=== PATIENT | female | born 1955 | race Caucasian/White ===

== ENCOUNTER 2022-11-12 06:45 | Day surgery (SDC) | payer MEDICARE, SELFPAY ==
[2022-11-12 07:13] LABS: Glucometer 117 mg/dL (74-106)
[2022-11-12 07:37] VITALS: BP 144/92; PULSE 62; RESP 16; TEMP 36.3; O2SAT 98
[2022-11-12] MEDS: BUPIVACAINE HCL 0.25% PF 25 MG/10 ML VIAL INJ (07:43)
[2022-11-12] MEDS: METHYLPREDNISOLONE ACETATE 40 MG/ML VIAL INJ (07:43)
[2022-11-12] MEDS: LIDOCAINE HCL 2% 400 MG/20 ML MDV 15 ML INJ (07:55)
[2022-11-12 07:59] VITALS: BP 106/69; RESP 16; TEMP 36.6; O2SAT 94
[2022-11-12 08:14] VITALS: BP 100/61; PULSE 76; RESP 16; O2SAT 95
--- NOTE | 2022-11-12 08:19 | SUR.PHASEII ---
LD [id number]
[2022-11-12 08:20] VITALS: PULSE 76; O2SAT 96
--- NOTE | 2022-11-12 09:57 | P.ON_ITS ---
Date of procedure: 11/12/22 Disposition: other
--- NOTE | 2022-11-12 09:57 | W.PM.PROCNOT ---
Date of procedure: 11/12/22 Disposition: other
--- NOTE | 2022-11-12 10:03 | W.PM.PROCNOT ---
Date of procedure: 11/12/22 Pre-op diagnosis: Lumbar Spondylosis Post-op diagnosis: same Procedure: Radio frequency ablation Medial branch Left Levels:__Lumbar 3 4 5 PreOp diagnosis: pain secondary to include spondylosis Postop diagnosis : same Under fluoroscopic guidance Rhizotomy was created using radio frequency ablation at 80?C for 90 seconds 1 to 2 lesions created at each site. Post lesioning injection of 2 mL each of 0.25% Marcaine and 2% lidocaine with Depo-Medrol/dexamethasone/Kenalog____40____mg. 0.5 to 1 mL injected at each site IV in place: yes If Intravenous fluids: NS at KVO Anesthesia local 2% lidocaine for skin wheal Anesthesia Other:___MAC Timeout Process Compliant After informed consent obtained.Patient brought to the procedure room placed in the prone position skin overlying the area was prepped and draped in a sterile fashion using Clore prep. 25 gauge needle was used to create a skin wheal over each of the targeted areas utilizing 2% lidocaine. A rhizotomy needle with a 10 mm active tip was inserted over each of the anesthetized areas and directed towards each of the medial branchesaccomplished under fluoroscopic guidance. after encountering the same we had positive sensory stimulation, negative motor stimulation was noted. lesions were then created. Post lesioning, steroid solution was injected needles removed. patient was transferred to recovery room in stable condition to be discharged home after meeting criteria. Anesthesia: MAC Surgeon: Juliette Barclay Estimated blood loss (mL): 0 Pathology: none sent Condition: stable Disposition: other
== END 2022-11-12 08:29 | disposition home or self-care (01) ==
PROVIDERS: Visit Provider Anesthesiology Pain Medicine
DX: M47.816 Spondylosis without myelopathy or radiculopathy, lumbar region (principal)
CPT/HCPCS: 36415; 64635; 64636; 82948; J1030; J2704

== ENCOUNTER 2022-12-19 08:28 | Outpatient (OUT) | payer MEDICARE, SELFPAY ==
--- NOTE | 2022-12-19 08:55 | PM.CN ---
Consult Note: HPI Data of Consult Patient: known to practice within the last 3 years Consult date: 12/19/22 Requesting Physician: MITCHELL REESE NP Primary Care Provider: Non-Staff Physician, MD Consult Narrative Narrative: She is following up from bilat lumbar RFA done 11/12/22. She received 90% relief of pain with increased fx continued through today. She is happy with her results. No new sensorimotor or bowel or bladder issues. No adverse med SE. She inquired about PT for core strengthening and targeted exercise routine for lumbar pain. Referral given. cc:: CC: MITCHELL REESE NP Review of Systems ROS Status of ROS 10 or more systems reviewed and unremarkable except as noted in history and below Musculoskeletal Reports: back pain PFSH [facility] Medical History (Updated 12/19/22 @ 09:08 by MITCHELL REESE NP) Surgical History Meds Home Medications and Allergies Home Medications Medication Instructions Recorded Confirmed Type Tylenol QID 11/06/22 History atenolol 50 mg tablet 50 mg PO QDAY 11/06/22 11/12/22 History levothyroxine 75 mcg tablet 75 mcg PO QDAY 11/06/22 11/12/22 History (Euthyrox) losartan 25 mg tablet (Cozaar) 25 mg PO QDAY 11/06/22 11/12/22 History meloxicam 15 mg tablet 15 mg PO QDAY 11/06/22 11/12/22 History multivitamin (Daily Multi-Vitamin 1 tab PO QDAY 11/06/22 11/12/22 History tablet) rosuvastatin 5 mg tablet (Crestor) 5 mg PO QDAY 11/06/22 11/12/22 History Allergies Allergy/AdvReac Type Severity Reaction Status Date / Time codeine AdvReac Mild Verified 11/06/22 13:47 Exam Constitutional Documenting provider has reviewed patient's vital signs: yes Common normals: no apparent distress, oriented x3, no limitations, healthy appearing, alert and well nourished General appearance: cooperative, comfortable and well developed Orientation/consciousness: Yes awake, Yes oriented to person, Yes oriented to place and Yes oriented to time HENMT Common normals: normocephalic and moist oral mucous membranes Respiratory Common normals: normal respiratory effort, no retractions and no use of accessory muscles Effort & inspection: able to speak in complete sentences and symmetric chest movement Back & Pelvis Lumbar spine/lower back: normal to inspection, lumbar ROM normal, pain with ROM, paraspinal muscle tenderness and straight leg raise negative bilaterally Other: muscle strength bilat LE 5/5 with intact sensation. Positive facet load Assessment and Plan Assessment and Plan (1) Lumbar spondylosis: Plan F/U in 6 months PT referral
== END 2022-12-19 08:29 | disposition home or self-care (01) ==
LOC: PM 08:29
PROVIDERS: Visit Provider Nurse Practitioner
DX: M47.816 Spondylosis without myelopathy or radiculopathy, lumbar region (principal)
CPT/HCPCS: G0463

== ENCOUNTER 2022-12-25 08:44 | Outpatient (RCR) | payer MEDICARE, SELFPAY | END 2022-12-26 16:19 | disposition home or self-care (01) | LOC: PT 08:44 | PROVIDERS: Visit Provider Nurse Practitioner | DX: M47.816 Spondylosis without myelopathy or radiculopathy, lumbar region (principal) | CPT/HCPCS: 97110; 97161; 97530 ==

== ENCOUNTER 2023-08-05 07:35 | Outpatient (OUT) | payer MEDICARE, SELFPAY ==
[2023-08-05 08:42] LABS: Chol HDL Ratio 2.7; Cholesterol 142 mg/dL (<=200); HDL Cholesterol 52 mg/dL (40-60); LDL Cholesterol Calculated 73.6 mg/dL; Triglycerides 82 mg/dL (<=150); VLDL CHOLESTEROL 16.4 mg/dL
== END 2023-08-05 07:36 | disposition home or self-care (01) ==
LOC: LAB 07:35
PROVIDERS: PCP Internal Medicine; Visit Provider Internal Medicine
DX: E78.5 Hyperlipidemia, unspecified (principal)
CPT/HCPCS: 36415; 80061

== ENCOUNTER 2023-08-27 10:26 | Outpatient (OUT) | payer MEDICARE, SELFPAY ==
--- OUTSIDE RECORDS SUMMARY | 2023-08-27 10:48 | XMS_ITS | CCD ---
Author Organization [facility] Care Team Providers Care [employer] Name Role Phone EUNICEC, DR MAY Consulting Unavailable MISC, DR MAY Primary Care Unavailable LAKSHMIPATHY ., NARENDRANATH Attending Christina vailable LAKSHMIPATHY ., NARENDRANATH Admitting Christina vailable LAKSHMIPATHY ., SUSANA Consulting Christina vailable URIARTE ., DR ANUJ Duron Attending Unavailable URIARTE ., DR ANUJ Duron Admitting Unavailable URIARTE ., DR ANUJ Duron Attending Unavailable JONES ., STEPHEN Consulting Unavailable URIARTE ., DR ANUJ Duron Admitting Unavailable URIARTE ., DR ANUJ Duron Attending Unavailable MISC, DR MAY Consulting Unavailable URIARTE ., DR ANUJ Duron Admitting Unavailable URIARTE ., DR ANUJ Duron Consulting Unavailable URIARTE ., DR ANUJ Duron Admitting Unavailable URIARTE ., DR ANUJ Duron Attending Unavailable MISC, DR MAY Consulting Unavailable URIARTE ., DR ANUJ Duron Consulting Unavailable MISC, DR MAY Consulting Unavailable MISC, DR MAY Primary Care Unavailable LAKSHMIPATHY ., NARENDRANATH Admitting Christina vailable LAKSHMIPATHY ., NARENDRANATH Attending Christina vailable LAKSHMIPATHY ., DARIAATH Consulting Christina vailable MISC, DR MAY Primary Care Unavailable LAKSHMIPATHY ., NARENDRANATH Admitting Christina vailable LAKSHMIPATHY ., NARENDRANATH Attending Christina vailable LAKSHMIPATHY ., MISBAHENDRANATH Consulting Christina vailable HALKER ., MITCHELL Admitting Unavailable MISC, DR MAY Primary Care Unavailable HALKER ., MITCHELL Attending Unavailable HALKER ., MITCHELL Consulting Unavailable MISC, DR MAY Primary Care Unavailable LAKSHMIPATHY ., NARENDRANATH Admitting Christina vailable LAKSHMIPATHY ., NARENDRANATH Attending Christina vailable LAKSHMIPATHY ., NARENDRANATH Consulting Christina vailable LAKSHMIPATHY ., NARENDRANATH Admitting Christina DR YADIRA Roy Primary Care Unavailable SUSANA VILLASEÑOR Attending Christina manjuilaSUSANA Jackson Consulting Christina vailable ZUNILDA CLEMONS Attending Unavailable ZUNILDA CLEMONS Attending Unavailable Allergies Allergy Classification Reported Allergen(s) Allergy Type Date of Onset Reaction(s) Facility (1 source) Codeine Drug Allergy The [facility] Repository Problems Active Problems Problem Classification Problem Date Documented Date Episodic/Chronic Diabetes mellitus without complication (1 source) Type 2 diabetes mellitus without complications; Translations: [TYPE 2 DM WITHOUT COMPLICATIONS] Onset: 11-06-2022 Chronic Other nervous system disorders (1 source) Other chronic pain; Translations: [OTHER CHRONIC PAIN] Onset: 09-21-2022 Chronic Spondylosis; intervertebral disc disorders; other back problems (6 sources) Spondylosis without myelopathy or radiculopathy, lumbar region; Translations: [Spondylosis without myelopathy or radiculopathy, lumbosacral region] Onset: 08-20-2022 Chronic Spondylosis; intervertebral disc disorders; other back problems (8 sources) Intervertebral disc disorders with radiculopathy, lumbar region; Translations: [Radiculopathy, lumbar region] Onset: 07-23-2022 Episodic Unclassified (4 sources) LOW BACK PAIN, UNSPECIFIED; Translations: [LOW BACK PAIN, UNSPECIFIED] Onset: 09-21-2022 Past or Other Problems Problem Classification Problem Date Documented Da te Episodic/Chronic Other connective tissue disease (1 source) Myalgia, other site; Translations: [MYALGIA OTHER SITE] Onset: 06-20-2022 Episodic Unclassified (1 source) LOW BACK PAIN, UNSPECIFIED; Translations: [LOW BACK PAIN, UNSPECIFIED] Onset: 09-12-2022 Results Test Name Value Interpretation Reference Range Facility POINT OF CARE GLUCOSEon 10-09 Glucose [Mass/Vol] 139 mg/dL Critically high 74-106 [facility] Comment on above: Performed By: #### P OCGLUC #### [facility] [address] [address] [address] Susanne Chapa POINT OF CARE GLUCOSEon 09-07 Glucose [Mass/Vol] 119 mg/dL Critically high 74-106 [facility] Comment on above: Performed By: #### P OCGLUC #### [facility] [address] [address] [address] Susanne Chapa POINT OF CARE GLUCOSEon 08-08 Glucose [Mass/Vol] 125 mg/dL Critically high 74-106 [facility] Comment on above: Performed By: #### P OCGLUC #### [facility] [address] [address] [address] Susanne Chapa POINT OF CARE GLUCOSEon 07-10 Glucose [Mass/Vol] 114 mg/dL Critically high 74-106 [facility] Comment on above: Performed By: #### P OCGLUC #### [facility] [address] [address] [address] Susanne Chapa US Carotid, Bilateralon 12-08 US Carotid, Bilateral FINDINGS: Right (% stenosis)Left (% stenosis) ICA Peak Systolic Velocity (cm/sec)7679 ICA/CCA Systolic Ratio1.41.2 BILATERAL CAROTID SYSTEMS: Mild soft and echogenic plaque primarily within both carotid bulbs. No significant stenosis is present based on visual inspection or velocity and ratio values. Both vertebral arteries have normal cephalad-directed flow. Estimated range of stenosis*: Mild, not hemodynamically significant *COMMENT: These estimates represent a median value within a 95% confidence interval range. They represent percent diameter ICA stenosis derived from regression curve analysis using the NASCET method and Doppler ultrasound velocities. Please note with high-grade stenosis (greater than 95%), an actual reduction in velocity will occur. Reference: Espinoza Qureshi. carotid ultrasound, in RAD [facility], 39 (3), Oct, 2000. Report reported and signed by Espinoza Man on 01/02/2022 1026 Normal [facility] Specialist XR Hip Complete Right*on XR Hip Complete Right* FINDINGS: Mild bilateral superior hip joint space reduction is seen. No pincer deformities, very small right CAM deformity. No cortical or stress fracture is identified. Pelvic ring and sacral struts are intact. Soft tissues are relatively unremarkable. IMPRESSION: Minimal arthritis Report reported and signed by Espinoza Man on 01/01/2022 0658 Normal [place] [facility] [employer] [facility] XR Spine Lumbosacral 2 or 3 Viewson 12-31-2021 XR Spine Lumbosacral 2 or 3 Views FINDINGS: Vertebral body heights are normal. Mild disc space loss L2-3 and to a lesser extent L3-4 (3 mm retrolisthesis). Sclerosis involves posterior elements of the mid and distal lumbar spine; however, no spondylolysis is seen. SI joints are normal. No acute fracture is identified. Soft tissues are relatively unremarkable. IMPRESSION: Mild lumbar arthritis, minimal retrolisthesis. Given this history or radiating leg pain, MRI as tolerated by the patient may be of assistance. Report reported and signed by Espinoza Man on 01/01/2022 0657 Normal [facility] Comprehensive Metabolic Pane arabella 06-11-2021 Albumin [Mass/Vol] 4.4 g/dL Normal 3.6-5.1 [facility] Comment on above: Performed By: #### C MP #### [facility] [address] [place], [place] [id number] Albumin/Globulin [Mass ratio] 1.9 {ratio} Normal 1.0-2.5 [facility] Comment on above: Performed By: #### C MP #### [facility] [address] [place], [place] [id number] ALP [Catalytic activity/Vol] 91 U/L Normal 35-119 [facility] Comment on above: Performed By: #### C MP #### [facility] [address] [place], [place] [id number] ALT [Catalytic activity/Vol] 7 U/L Normal 6-33 [facility] Comment on above: Result Comment: 05/09 Female reference range changed. Performed By: #### C MP #### [facility] [address] [place], [place] [id number] Anion gap [Moles/Vol] 18 mmol/L Normal 12-20 [facility] Comment on above: Result Comment: Effe ctive 06/14/2019 reference range changed. Performed By: #### C MP #### [facility] [address] [place], [place] [id number] AST [Catalytic activity/Vol] 12 U/L Normal 9-34 [facility] Comment on above: Performed By: #### C MP #### [facility] [address] [place], [place] [id number] Bilirubin [Mass/Vol] 0.31 mg/dL Normal 0.30-1.20 [facility] Comment on above: Performed By: #### C MP #### [facility] [address] [place], [place] [id number] BUN/CREA 18 Ratio Normal 6-22 [facility] Comment on above: Performed By: #### C MP #### [facility] [address] [place], [place] [id number] Calcium [Mass/Vol] 9.6 mg/dL Normal 8.6-10.2 [facility] Comment on above: Performed By: #### C MP #### [facility] [address] [place], [place] [id number] Chloride [Moles/Vol] 104 mmol/L Normal 98-107 [facility] Comment on above: Performed By: #### C MP #### [facility] [address] [place], [place] [id number] CO2 [Moles/Vol] 25 mmol/L Normal 20-31 [facility] Comment on above: Performed By: #### C MP #### [facility] [address] [place], [place] [id number] Creatinine [Mass/Vol] 1.0 mg/dL Normal 0.6-1.4 [facility] Comment on above: Performed By: #### C MP #### [facility] [address] [place], [place] [id number] eGFRAA 68 mL/min/1.73m2 Normal >60 [facility]ist Comment on above: Performed By: #### C MP #### [facility] [address] [place], [place] [id number] eGFRNAA 56 mL/min/1.73m2 Low >60 [facility] Specialist Comment on above: Performed By: #### C MP #### [facility] [address] [place], [place] [id number] Globulin (S) [Mass/Vol] 2.3 g/dL Normal 1.9-3.7 [facility] Comment on above: Performed By: #### C MP #### [facility] [address] [place], [place] [id number] Glucose [Mass/Vol] 102 mg/dL High 65-99 Kaci tyler [place] [employer] Comment on above: Result Comment: For FASTING Glucose --- ADA reference ranges: Normal 65-99 mg/dl Prediabetes 100-125 Diabetes >/= 126 Performed By: #### C MP #### [facility] [address] [place], [place] [id number] Potassium [Moles/Vol] 4.9 mmol/L Normal 3.5-5.5 [facility] [employer] Claims Examiner Comment on above: Performed By: #### C MP #### [facility] [address] [place], [place] [id number] Protein [Mass/Vol] 6.7 g/dL Normal 6.1-8.1 Bedias[place] rn [place] [employer] Comment on above: Performed By: #### C MP #### [facility] [address] [place], [place] [id number] Sodium [Moles/Vol] 142 mmol/L Normal 135-146 [place] r[facility] [place] [facility] [employer] Comment on above: Performed By: #### C MP #### [facility] [address] [place], [place] [id number] Urea nitrogen [Mass/Vol] 18 mg/dL Normal 7-25 [facility] [employer] Claims Examiner Comment on above: Performed By: #### C MP #### [facility] [address] [place], [place] [id number] Hemoglobin A1Con 06-11-2021 EAG 111.15 Normal [facility] [employer] Claims Examiner Comment on above: Performed By: #### A 1C #### [facility] [address] [place], [place] [id number] HbA1c (Bld) [Mass fraction] 5.5 % Normal 4.0-6.0 [facility] [employer] Claims [employer]er Comment on above: Performed By: #### A 1C #### [facility] [address] [place], [place] [id number] Encounters Encounter Date Encounter Type Care Provider Facility Start: 05-14-2023 End: 05-14-2023 ambulatory ZUNILDA G EVERTON Not Available Start: 05-06-2023 End: 05-06-2023 ambulatory ZUNILDA G EVERTON Not Available Start: 11-12-[address] DOCTOR JAQUEZ Facility :[facility] Start: 11-05-2022 End: 11-05-[address] DOCTOR JAQUEZ Facility:[facility] Start: 10-11-2022 End: 10-12-2022 ambulatory MITCHELL REESE . Facility:[facility] Start: 09-24-2022 End: 09-24-[address] DOCTOR JAQUEZ Facility:[facility] Start: 09-12-2022 End: 09-13-2022 ambulatory ALEJANDRALINNBASIM ARGUELLOBESSIEMIPATHY . Facility:[facility] Start: 08-27-2022 End: 08-27-[address] DOCTOR JAQUEZ Facility:[facility] Start: 08-15-2022 End: 08-16-[address] ANUJ URIARTE . Facility:[facility] Start: 07-23-2022 End: 07-23-[address] ANUJ URIARTE . Facility:[facility] Start: 06-20-2022 End: 08-02-[address] ANUJ URIARTE . Facility:[facility] Start: 06-18-2022 End: 06-19-[address] ANUJ URIARTE . Facility:[facility] Payers Date Payer Category Payer Medicare [id number] 1955 Unknown [id number] 2.16.84 [id number] 1955 Unknown [id number] 1955 Unknown [id number] 2.16.84 [id number] 1955 Unknown [id number] .16.84 [id number] 1955 Unknown [id number] .16.84 [id number] 1955 Unknown [id number] 2.16.84 [id number] 1955 Unknown [id number] 2.16.84 [id number] 1955 Unknown [id number] 2.16.84 [id number] 1955 Unknown [id number] 2.16.84 [id number] 1955 Unknown [id number] 2.16.84 [id number] 1955 Unknown [id number] 2.16.840 .[id number] 1955 Unknown [id number] 2.16.840 .[id number] Consultation note 09-12-2022 Note Date & Type Note Facility 09-12-2022 Note CONSULTATION CONSULTATION DATE: 09/12/2022 TO: Zunilda Clemons D.O. HISTORY: Patient returns today complaining of 5-7/10 pain in her lower back bilaterally, worse on the right than left side. It is described as a sharp pain, increased with activity such as standing, walking and performing transitioning maneuvers. She feels most comfortable in the semi-recumbent position. Denies any change in bowel and bladder habits or new sensorimotor changes in her lower extremities. EXAM: Notable for patient having no clinical radiculopathy or myelopathy involving the lower extremities. She did have significant pain with lumbar facet joint loading maneuvers occurring bilaterally, worse on the right side, from L2 through L5, with associated myofascial spasm of the lumbar paravertebral muscles. Patient also had dysesthesia and hyperesthesia overlying the distribution of the lateral cutaneous branch of the iliohypogastric nerve on the right side. She does complain of sensitivity to light touch at times. She had a fair amount of spasm involving the right gluteus medius muscle as well. IMPRESSION: Our impression is patient appears to have chronic pain secondary to lumbosacral spondylosis with facet joint loading pain clinically. She has undergone one diagnostic bilateral L3, 4, 5 medial branch block under fluoroscopic guidance. She reports that she did have significant reduction in pain symptoms, with relief occurring at approximately 80% in the immediate post procedural period, lasting for several hours, with recurrence of pain back to her previous level of pain. She reports that she was able to do activities she has not been able to do in quite some time, which includes yard work. RECOMMENDATIONS: I recommend we proceed with her second diagnostic medial branch block at L3, 4 and 5. As part of providing excellent, safe, comprehensive care, the following was completed at our patient's visit: 1. A medication reconciliation and review to ensure accurate knowledge of current/active medications, including asking our patients to inform us about any goyu-wca-gnadwrr medications or herbal remedies/nutritional supplements/alternative remedies. 2. A review to specifically ensure our patients have had annual screening for: elevated body mass index (BMI, see intake chart for exact total), tobacco use, screening for depression, and screening for unhealthy alcohol use. When screening is concerning, patients are provided with education and the specific recommendation to discuss the concerning health issue and treatment options with their primary care provider. ADDENDUM: The patient does report that she had at least 80% improvement after her last diagnostic medial branch block at L3, 4 and 5. She reports the relief started in the immediate post procedural period, lasted for several hours, with recurrence of pain back to her baseline. Based upon her response and her examination, which did reveal the patient having significant pain with lumbar facet loading maneuvers at L4-5, L5-S1 and myofascial spasm, and no signs consistent with lumbar radiculopathy involving the lower extremities on today's visit, I recommend proceeding with a second diagnostic procedure involving medial branches L3, L4 and L5 bilaterally. The [facility] Consultation note 08-15-2022 Note Date & Type Note Facility 08-15-2022 Note CONSULTATION CONSULTATION DATE: 08/15/2022 HISTORY OF PRESENT ILLNESS: This is a 66-year-old female who returns to the clinic status post lumbar epidural steroid injection completed on 07/23/2022. The patient received 100% relief for two days. She is currently doing aquatic therapy at the hospital, which does give her relief. Today, she rates her pain 2/10, but it does increase to 4-5/10 with activities such as lifting, housework, pushing, pulling and bending. She does use heat which does help decrease her pain. The patient has been doing home exercises as well as a stretching regimen. Patient's REVIEW OF SYSTEMS / PAST MEDICAL HISTORY / ALLERGIES and IMAGES have been reviewed and noted on the chart. PHYSICAL EXAM: VITAL SIGNS: Blood pressure 170/97, heart rate is 70. Temperature is 96.8. She is 66 tall and weighs 102.4 kg. GENERAL IMPRESSION: Pleasant, appropriate, in no acute distress. FOCUSED EXAM - BACK: Range of motion is guarded in lateral rotation and flexion/extension. Paravertebral muscles are non-spasmodic. Reproduction of spinal axial pain noted upon compression of L3, L4, L5 facets. Fullness palpated as well, which is indicative of facet arthropathy, lumbar spondylosis. La's point non-tender bilaterally, with negative FABERs and compression test. MUSCULOSKELETAL: Motor is intact, 5/5 bilaterally. No vasomotor weakness noted. Patient walks unassisted with a stable gait. NEUROLOGICAL: Radicular sensory is intact. Negative polyneuropathy. Patellar reflexes are 2/2 bilaterally. DIAGNOSIS: Lumbar degenerative disc disease, lumbar radiculitis, lumbar spondylosis and spinal axial lower back pain. PLAN: We will begin to address the facets with #1 bilateral MBB of L3, L4, L5. She will begin Mobic 15 mg daily and was instructed to take no further ibuprofen with this. Exercises were encouraged but education given regarding which exercises, particularly no jumping or trampoline. She is to continue with her heat and stretches. Patient and agree with this plan of care. She will be followed up in the clinic thereafter. The [facility] Consultation note 06-18-2022 Note Date & Type Note Facility 06-18-2022 Note CONSULTATION PAIN MANAGEMENT CONSULTATION CONSULTATION DATE: 06/18/2022 ADDENDUM: The patient has pain that radiates into her right leg. The pain is in the anterior aspect of her thigh, crosses lateral to medial, extending towards the knee. It has the distribution of L2 and L3. Hypoesthesia has been shown at this time and intermittent groin pain has been noted by the patient. Radiological images fail to show arthrosis in the hip; however, the MRI is positive for lumbar spondylosis and encroachment along the L3 nerve root distribution on the right hand side. The patient's current working diagnosis is L2, L3 radiculopathy, lumbar degenerative disc disease, lumbar spondylosis. The patient has pain pattern that radiates into her right anterior thigh along the L2, L3 distribution and, as such, we are requesting a lumbar epidural steroid injection at the level of L2, L3. The [facility] Consultation note 06-18-2022 Note Date & Type Note Facility 06-18-2022 Note CONSULTATION CONSULTATION DATE: 06/18/2022 CHIEF COMPLAINT: Low back pain, right hip and buttock pain, right leg pain. HISTORY OF PRESENT ILLNESS: This is a very pleasant, 66-year-old female, who was referred to us by Zunilda Prieto. The patient has chronic, long standing pain. The pain started approximately two years ago. The patient rates the pain as a 5/10, a dull/sharp, aching pain. Approximately two years ago, the patient started an aggressive approach in her wellness with pool, aerobic therapy, cycling, etc. Then, in November of 2021, the patient joined a boot camp, at which time she states she hurt her back and with radiating pain into her hip. Subsequent to that, the patient was seen for chiropractic treatments and had multiple visits. The patient was seen in physical therapy at [facility] from January to February of 2022 without any gains. Subsequent to that, unfortunately, the patient had COVID and, while recuperating, she found that subsequent to that she had improvement of her pain. However, as she increased her activity and exercise regimen, the pain increased. Twisting, standing, walking, lifting, bending, climbing stairs aggravate the patient's pain. Traction mitigates the patient's pain. The patient's PAST MEDICAL HISTORY / SURGICAL HISTORY / REVIEW OF SYSTEMS are noted on the chart, along with the MEDICATION LIST / ALLERGIES and RADIOLOGICAL IMAGES, along with the MRI, which shows a damaged disc at the level of L2-L3 and lumbar spondylosis. PHYSICAL EXAM: Upon physical examination, this is a pleasant, cooperative female, who does not appear to be in any acute distress. VITAL SIGNS: 148/86 with a heart rate of 68. At a height of 5'6 , the patient weighs 102 kg. HEAD: Atraumatic, normocephalic. NECK: No crepitus is noted. HEART: No orthopnea. LUNGS: No dyspnea. ABDOMEN: Protuberant, non-distended. BACK: Loss of lumbar lordosis is noted. Pelvis is rotated anteriorly. Extension, compression, direct palpation along the posterior elements aggravate and reproduce the patient's pain symptomatology concordant with facet arthropathy, lumbar spondylosis. EXTREMITIES: No pedal edema. MUSCULOSKELETAL: Intact in the lower extremities. The patient does favor her right leg when she stands up and uses her arms to push off of the chair. NEUROLOGICALLY: Hypoesthesia is noted along the L3 distribution on the right hand side. PSYCHIATRICALLY: Affect is appropriate. IMPRESSION: L2-L3 radiculitis, neuritis, lumbar degenerative disc at the level of L2-L3, lumbar radiculopathy. With the low back pain and the gluteal pain, lumbar spondylosis, lumbar arthrosis. PLAN: The patient will apply a heat rub to her low back. Multivitamin regimen along with an aquatic program will be started on the patient. The patient will be scheduled for a lumbar epidural steroid injection for her lumbar radiculopathy. Subsequent to that, depending on how the patient responds, we will look to proceed with the posterior elements along the lumbar spine. The patient was educated on this. The MRI was reviewed with the patient. The patient understands and would like to proceed. CC: Zunilda Prieto [facility] Summary Purpose Family History No Family History Records FoundNo Family History Records FoundNo Family History Records Found Advance Directives No Advanced Directives Records FoundNo Advanced Directives Records FoundNo Advanced Directives Records Found Additional Source Comments INFORMATION SOURCE (unrecogn ized section and content) DATE CREATED AUTHOR 01/04/2022 [facility] dical Specialist DATE CREATED AUTHOR AUTHOR'S ORGANIZ ATION 11/15/2022 [facility] DATE CREATED AUTHOR AUTHOR'S ORGANIZ ATION 05/16/2023 [facility] dical Specialists [facility] FOR RECORDS PERTAINING TO PATIENTS WHO ARE OR HAVE BEEN ENROLLED IN A CHEMICAL DEPENDENCY/SUBSTANCEABUSE PROGRAM, SOME INFORMATION MAY BE OMITTED. This clinical summary was aggregated from multiple sources. Caution should be exercised in using it in the provision of clinical care. This summary normalizes information from multiple sources, and as a consequence, information in this document may materially change the coding, format and clinical context of patient data. In addition, data may be omitted in some cases. CLINICAL DECISIONS SHOULD BE BASED ON THE PRIMARY CLINICAL RECORDS. [facility] [employer] provides no warranty or guarantee of the accuracy or completeness of information in this document.
[2023-08-27 10:57] LABS: Basophils Percent Auto 0.4 % (0.2-2.0); Hematocrit 43.5 % (36.0-48.0); Hemoglobin 13.5 g/dL (12.0-16.0); Immature Granulocytes Abs Auto 0.02 10^3/uL (0.00-0.03); Immature Granulocytes Pct Auto 0.3 % (0.0-0.5); Lymphocytes Absolute Auto 2.2 10^3/uL (1.2-3.8); Lymphocytes Percent Auto 29.5 % (20.5-60.0); Mean Corpuscular Hemoglobin 29.5 pg (26.7-34.0); Mean Corpuscular Volume 95.2 fL (81.0-99.0); Mean Platelet Volume 9.2 fL (9.5-13.5); Monocytes Absolute Auto 0.3 10^3/uL (0.3-0.8); Monocytes Percent Auto 4.3 % (1.7-12.0); Neutrophils Absolute Auto 4.9 10^3/uL (1.4-6.5); Neutrophils Percent Auto 65.5 % (43.0-75.0); Platelet Count 212 10^3/uL (150-450); Red Blood Count 4.57 10^6/uL (4.20-5.40); Red Cell Distribution Width 12.2 % (11.0-15.0); White Blood Count 7.5 10^3/uL (4.0-11.0)
[2023-08-27 11:12] LABS: Estimated Average Glucose 128 mg/dL; Glycohemoglobin A1C 6.1 % (4.5-6.2)
[2023-08-27 12:04] LABS: Alanine Aminotransferase 19 U/L (14-59); Albumin Globulin Ratio 0.9; Albumin Level 3.6 g/dL (3.4-5.0); Alkaline Phosphatase 104 U/L (46-116); Aspartate Amino Transferase 14 U/L (15-37); Bilirubin Total 0.5 mg/dL (0.2-1.0); Carbon Dioxide 28.8 mmol/L (21.0-32.0); Chloride 105 mmol/L (98-107); Estimated GFR (African America 46 (>=60); Estimated GFR (Non-African Ame 38 (>=60); Globulin 3.8 g/dL; Glucose 139 mg/dL (74-106); Potassium 4.8 mmol/L (3.5-5.1); Sodium 142 mmol/L (136-145); Total Protein 7.4 g/dL (6.4-8.2)
== END 2023-08-27 10:27 | disposition home or self-care (01) ==
LOC: LAB 10:28
PROVIDERS: PCP Internal Medicine; Visit Provider Internal Medicine
DX: E03.9 Hypothyroidism, unspecified (principal); I10 Essential (primary) hypertension; E11.22 Type 2 diabetes mellitus with diabetic chronic kidney disease; N18.2 Chronic kidney disease, stage 2 (mild)
CPT/HCPCS: 36415; 80053; 82570; 83036; 84156; 84443; 85025

== ENCOUNTER 2023-09-29 14:08 | Outpatient (OUT) | payer MEDICARE, SELFPAY ==
--- NOTE | 2023-09-29 14:14 | XR_ITS ---
The [address] [address] Patient Name: ARIAN CANAS MRN: [id number] date: 1955 Sex: F Assigned Patient Location: [facility] Current Patient Location: Accession/Order Number: [id number] Exam Date: 09/29/2023 14:20 Report Date: 09/30/2023 04:23 At the request of: SHAIKH BIJAN Procedure: XR shoulder LT min 2V PROCEDURE: XR shoulder LT min 2V HISTORY: left shoulder pain M25.512, Chronic left shoulder pain G89. COMPARISON: None. FINDINGS: BONES:Slight narrowing of the acromioclavicular joint and small undersurface osteophytes. Unremarkable humeral head and glenohumeral joint. SOFT TISSUES:No visible soft tissue swelling. EFFUSION:None visible. OTHER: Negative. XR/XR shoulder LT min 2V IMPRESSION: 1. No acute bone abnormality. 2. Mild degenerative changes of the acromioclavicular joint which would predispose to rotator cuff injury. Electronically authenticated by: MELA BISHOP Date: 09/30/2023 04:23
== END 2023-09-29 14:09 | disposition home or self-care (01) ==
LOC: RAD 14:10
PROVIDERS: PCP Internal Medicine; Visit Provider Internal Medicine
DX: M25.512 Pain in left shoulder (principal)
CPT/HCPCS: 73030

== ENCOUNTER 2023-10-07 08:19 | Outpatient (RCR) | payer MEDICARE, SELFPAY | END 2023-11-15 15:34 | disposition home or self-care (01) | LOC: PT 08:19 | PROVIDERS: PCP Internal Medicine; Visit Provider Internal Medicine | DX: M25.512 Pain in left shoulder (principal); G89.29 Other chronic pain | CPT/HCPCS: 97035; 97110; 97162 ==

== ENCOUNTER 2024-01-28 09:21 | Outpatient (OUT) | payer MEDICARE, SELFPAY ==
--- OUTSIDE RECORDS SUMMARY | 2024-01-28 09:32 | XMS_ITS | CCD ---
Author Organization [facility] Care Team Providers Care Special Officer Automat Name Role Phone EUNICEC, DR MAY Consulting Unavailable MISC, DR MAY Primary Care Unavailable LAKSHMIPATHY ., NARENDRANATH Attending Christina vailable LAKSHMIPATHY ., NARENDRANATH Admitting Christina vailable LAKSHMIPATHY ., SUSANA Consulting Christina vailable URIARTE ., DR ANUJ Duron Attending Unavailable URIARTE ., DR ANUJ Duron Admitting Unavailable URIARTE ., DR ANUJ Duron Attending Unavailable JONES .STEPHEN Consulting Unavailable URIARTE ., DR ANUJ Duron [...] vailable LAKSHMIPATHY ., NARENDRANATH Consulting Christina vailable MISC, DR MAY Primary Care Unavailable LAKSHMIPATHY ., NARENDRANATH Admitting Christina vailable LAKSHMIPATHY ., NARENDRANATH Attending Christina vailable LAKSHMIPATHY ., NARENDRANATH Consulting Christina vailable HALKER ., MITCHELL Admitting Unavailable MISC, DR MAY Primary Care Unavailable HALKER ., MITCHELL Attending Unavailable HALKER ., MITCHELL Consulting Unavailable MISC, DR MAY Primary Care Unavailable LAKSHMIPATHY ., NARENDRANATH Admitting Christina vailable LAKSHMIPATHY ., NARENDRANATH Attending Christina vailable LAKSHMIPATHY ., NARENDRANATH Consulting Christina vailable LAKSHMIPATHY ., NARENDRANATH Admitting Christina vailable DR YADIRA JAQUEZ Primary Care Unavailable LAKSHMIPATHY ., NARENDRANATH Attending Christnia vailable LAKSHMIPATHY ., NARENDRANATH Consulting Christina vailable SHAIKH THAKKAR Attending Unavailable SHAIKH THAKKAR Attending Unavailable ZUNILDA CLEMONS Attending Unavailable SHAIKH THAKKAR Attending Unavailable FREDERICK SERRANO Attending Unavailable SHAIKH THAKKAR Referring Unavailable SHAIKH THAKKAR Attending Unavailable ZUNILDA CLEMONS Attending Unavailable LISETH GARCIA Attending Unavailable TOMASA WINTERS Attending UnavailTOMASA Wilson Referring Unavailangelica harrington Allergies Allergy Classification Reported Allergen(s) Allergy Type Date of Onset Reaction(s) Facility (1 source) Codeine Drug Allergy [facility] Repository Medications Current Medications Medication Drug Class(es) Dates Sig (Normalized) Sig (Original) amoxicillin 875 mg / clavulanate 125 mg oral tablet (1 source) Penicillin-class Antibacterial Start: 12-13-2023 take 1 tablet by mouth twice daily Amoxicillin-Pot Clavulanate Active 1 TAB PO Twice daily 20 10 December 13, 2023 12:00am atenolol 50 mg oral tablet (1 source) beta-Adrenergic Chantale Start: 12-13-2023 take 50 mg by mouth once daily Atenolol Active 50 MG PO Daily December 13, 2023 12:00am dapagliflozin 10 mg oral tablet (1 source) Sodium-Glucose Cotransporter 2 Inhibitor Start: 12-13-2023 take 1 tablet by mouth once daily Dapagliflozin Propanediol (Farxiga) 10 mg tablet Active 10 MG PO Daily December 13, 2023 12:00am levothyroxine sodium 0.088 mg oral tablet (1 source) l-Thyroxine Start: 12-13-2023 take 1 tablet by mouth once daily Levothyroxine (Synthroid) 88 mcg tablet Active 88 MCG PO Daily December 13, 2023 12:00am losartan potassium 25 mg oral tablet (1 source) Angiotensin 2 Receptor Chantale Start: 12-13-2023 take 25 mg by mouth once daily Losartan Active 25 MG PO Daily December 13, 2023 12:00am rosuvastatin 5 mg oral capsule (1 source) HMG-CoA Reductase Inhibitor Start: 12-13-2023 take 5 mg by mouth once daily Rosuvastatin Active 5 MG PO Daily December 13, 2023 12:00am Problems Active Problems Problem Classification Problem Date Documented Date Episodic/Chronic Diabetes mellitus without complication (1 source) Type 2 diabetes mellitus without complications; Translations: [TYPE 2 DM WITHOUT COMPLICATIONS] Onset: 11-06-2022 Chronic Other nervous system disorders (1 source) Other chronic pain; Translations: [OTHER CHRONIC PAIN] Onset: 09-21-2022 Chronic Other upper respiratory infections (2 sources) Acute sinusitis; Translations: [Acute sinusitis, unspecified] 12-13-2023 Episodic Spondylosis; intervertebral disc disorders; other back problems [...] Test Name Value Interpretation Reference Range Facility BI MAMMOGRAM SCREENING TOMOS YNTHESIS BILATERALon 01-15-2024 BI MAMMOGRAM SCREENING TOMOSYNTHESIS BILATERAL This is a summary report. The complete report is available in the patient's medical record. If you cannot access the medical record, please contact the sending organization for a detailed fax or copy. EXAMINATION: BI MAMMOGRAM SCREENING TOMOSYNTHESIS BILATERAL CLINICAL HISTORY:breast cancer screening COMPARISON: January 08, 2023 . RESULT: Density: The breasts are almost entirely fatty There is no suspicious mass, asymmetry, architectural distortion, or calcification. Overall appearance stable. IMPRESSION: BIRADS 1 - Negative Follow-up: Routine Screening Mamm Board Certified Radiologists. Accredited by the ACR and FDA. MAMMOGRAPHY IS VERY IMPORTANT TO YOUR HEALTH. THE [employer] GUIDELINES RECOMMEND THAT WOMEN 40 YEARS OF AGE AND OLDER SHOULD HAVE A MAMMOGRAM EVERY YEAR. A REMINDER LETTER WILL BE SENT AT THE APPROPRIATE TIME. THIS FACILITY UTILIZES A REMINDER SYSTEM TO ENSURE ALL PATIENTS RECEIVE REMINDER NOTIFICATIONS AT THE APPROPRIATE TIME BASED ON THE RECOMMENDATIONS OF THIS EXAM. THIS INCLUDES REMINDERS FOR ROUTINE SCREENING MAMMOGRAMS, DIAGNOSTIC MAMMOGRAMS IN WHICH THE PATIENT IS ASKED TO RETURN FOR ADDITIONAL VIEWS, OR OTHER BREAST IMAGING INTERVENTIONS WHEN APPROPRIATE. THE PATIENT WILL BE PLACED IN THE APPROPRIATE REMINDER SYSTEM INCLUDING A REMINDER AT THE APPROPRIATE TIME FOR ANY PENDING ADDITIONAL VIEWS. TRANSCRIBED BY: ELECTRONICALLY SIGNED BY: Espinoza Man MD Normal Not Available POINT OF CARE GLUCOSEon - Glucose [Mass/Vol] 139 mg/dL Critically high 74-106 [facility] Comment on above: Performed By: #### P OCGLUC #### [facility] [address] [place] [address] Dr. Susanne Chapa POINT OF CARE GLUCOSEon 09-07 Glucose [Mass/Vol] 119 mg/dL Critically high 74-106 [facility] Comment on above: Performed By: #### P OCGLUC #### [facility] [address] [place] [address] Dr. Susanne Chapa POINT [facility] CARE [facility]08 Glucose [Mass/Vol] 125 mg/dL Critically high 74-106 [facility] Comment on above: Performed By: #### P OCGLUC #### [facility] [address] [place] [address] Dr. Susanne Chapa POINT OF CARE [facility] 07-10 Glucose [Mass/Vol] 114 mg/dL Critically high 74-106 [facility] Comment on above: Performed By: #### P OCGLUC #### [facility] [address] [place] [address] Dr. Susanne Chapa US Carotid, Bilateralon - US Carotid, Bilateral FINDINGS: Right (% stenosis)Left [...] by Espinoza Man on 01/02/2022 1026 Normal [facility] XR Hip Complete Right*on XR Hip Complete Right* FINDINGS: Mild bilateral superior hip joint space reduction is seen. No pincer deformities, very small right CAM deformity. No cortical or stress fracture is identified. Pelvic ring and sacral struts are intact. Soft tissues are relatively unremarkable. IMPRESSION: Minimal arthritis Report reported and signed by Espinoza Man on 01/01/2022 0658 Normal [facility] XR Spine Lumbosacral 2 or 3 Viewson [...] by Espinoza Man on 01/01/2022 0657 Normal [facility] Comprehensive Metabolic Pane arabella 06-11-2021 Albumin [Mass/Vol] 4.4 g/dL Normal 3.6-5.1 [facility] [employer] Comment on above: Performed By: #### C MP #### [facility] [address] [place], [place] [id number] Albumin/Globulin [Mass ratio] 1.9 {ratio} Normal 1.0-2.5 [facility] Comment on above: Performed By: #### C MP #### [facility] [address] [place], [place] [id number] ALP [Catalytic activity/Vol] 91 U/L Normal 35-119 [facility] Comment on above: Performed By: #### C MP #### [facility] [address] [place], [place] [id number] ALT [Catalytic activity/Vol] 7 U/L Normal 6-33 [facility] Comment on above: Result Comment: 05/09 Female reference range changed. Performed By: #### C MP #### [facility] [address] [facility] [place] [id number] Anion gap [Moles/Vol] 18 mmol/L Normal 12-20 [facility] Comment on above: Result Comment: Effe ctive 06/14/2019 reference range changed. Performed By: #### C MP #### [facility] [address] [place], [place] [id number] AST [Catalytic activity/Vol] 12 U/L Normal 9-34 [facility] Comment on above: Performed By: #### C MP #### [facility] [address] [place], [place] [id number] Bilirubin [Mass/Vol] 0.31 mg/dL Normal 0.30-1.20 [facility] Comment on above: Performed By: #### C MP #### [facility] [address] [place], [place] [id number] BUN/CREA 18 Ratio Normal 6-22 [facility] Comment on above: Performed By: #### C MP #### [facility] [address] [place], [place] [id number] Calcium [Mass/Vol] 9.6 mg/dL Normal 8.6-10.2 [facility] Comment on above: Performed By: #### C MP #### [facility] [address] [place], [place] [id number] Chloride [Moles/Vol] 104 mmol/L Normal 98-107 [facility] Comment on above: Performed By: #### C MP #### [facility] [address] [place], [place] [id number] CO2 [Moles/Vol] 25 mmol/L Normal 20-31 [facility] [employer] Comment on above: Performed By: #### C MP #### [facility] [address] [place], [place] [id number] Creatinine [Mass/Vol] 1.0 mg/dL Normal 0.6-1.4 [facility] [employer] Comment on above: Performed By: #### C MP #### [facility] [address] [place], [place] [id number] eGFRAA 68 mL/min/1.73m2 Normal >60 [facility] [employer] Comment on above: Performed By: #### C MP #### [facility] [address] [place], [place] [id number] eGFRNAA 56 mL/min/1.73m2 Low >60 [facility] [employer] Comment on above: Performed By: #### C MP #### [facility] [address] [place], [place] [id number] Globulin (S) [Mass/Vol] 2.3 g/dL Normal 1.9-3.7 [facility] [employer] Comment on above: Performed By: #### C MP #### [facility] [address] [place], [place] [id number] Glucose [Mass/Vol] 102 mg/dL High 65-[address] [facility] [employer] Comment on above: Result Comment: For FASTING Glucose --- ADA reference ranges: Normal 65-99 mg/dl Prediabetes 100-125 Diabetes >/= 126 Performed By: #### C MP #### [facility] [address] [place], [place] [id number] Potassium [Moles/Vol] 4.9 mmol/L Normal 3.5-5.5 [facility] [employer] Comment on above: Performed By: #### C MP #### [facility] [address] [place], [place] [id number] Protein [Mass/Vol] 6.7 g/dL Normal 6.1-8.[address] [facility] [employer] Comment on above: Performed By: #### C MP #### [facility] [address] [place], [place] [id number] Sodium [Moles/Vol] 142 mmol/L Normal 135-[address] [facility] [employer] Comment on above: Performed By: #### C MP #### [facility] [address] [place], [place] [id number] Urea nitrogen [Mass/Vol] 18 mg/dL Normal 7-25 [facility] [employer] Comment on above: Performed By: #### C MP #### [facility] [address] [place], [place] [id number] Hemoglobin A1Con 06-11-2021 EAG 111.15 Normal [facility] [employer] Comment on above: Performed By: #### A 1C #### [facility] [address] [place], [place] [id number] HbA1c (Bld) [Mass fraction] 5.5 % Normal 4.0-6.0 [facility] [employer] Comment on above: Performed By: #### A 1C #### [facility] [address] [place], [place] [id number] Vital Signs Date Time Vital Sign Value Performing Clinician Anderi fernanda 12-13-2023 09:35-0400 Body height 167.64 cm [facility] 12-13-2023 09:35-0400 Body mass index (BMI) [Ratio] 37.1 kg/m2 [facility] 12-13-2023 09:35-0400 Body temperature 98 [degF] [facility] 12-13-2023 09:35-0400 Body weight 104.49 kg [facility] 12-13-2023 09:35-0400 Diastolic blood pressure 84 mm[Hg] [facility] 12-13-2023 09:35-0400 Heart rate 81 /min [facility] 12-13-2023 09:35-0400 Respiratory rate 18 /min [facility] 12-13-2023 09:35-0400 SaO2% (BldA) [Mass fraction] 98 % [facility] 12-13-2023 09:35-0400 Systolic blood pressure 125 mm[Hg] [facility] Encounters Encounter Date Encounter Type Care Provider Facility Start: 01-15-2024 End: 01-15-2024 ambulatory TOMASA WINTERS Not Available Start: 01-13-2024 End: 01-13-2024 ambulatory TOMASA WINTERS Not Available Start: 01-07-2024 End: 01-07-2024 ambulatory LISETH GARCIA Not Available Start: 12-13-2023 End: 12-13-2023 ambulatory [facility] Work Phone: Start: 12-13-2023 End: 12-13-2023 Patient encounter procedure [facility] Work Phone: Start: 11-11-2023 End: 11-11-2023 ambulatory FAWWAD Not Available Start: 10-07-2023 End: 10-07-2023 ambulatory FREDERICK SERRANO Not Available Start: 09-29-2023 End: 09-29-2023 ambulatory MRI FAWWAD Not Available Start: 08-27-2023 End: 08-27-2023 ambulatory MIR FAWWAD Not Available Start: 08-04-2023 End: 08-04-2023 ambulatory MIR FAWWAD Not Available Start: 05-14-2023 End: 05-14-2023 ambulatory ZUNILDA G EVERTON Not Available Start: 05-06-2023 End: 05-06-2023 ambulatory ZUNILDA G EVERTON Not Available Start: 11-12-[address] DOCTOR JAQUEZ Facility :[facility] Start: 11-05-2022 End: 11-05-[address] DOCTOR JAQUEZ Facility:[facility] Start: 10-11-2022 End: 10-12-2022 ambulatory MITCHELL REESE . Facility:[facility] Start: 09-24-2022 End: 09-24-[address] DOCTOR JAQUEZ Facility:[facility] Start: 09-12-2022 End: 09-13-2022 ambulatory SUSANA ALVARENGA . Facility:[facility] Start: 08-27-2022 End: 08-27-[address] DOCTOR JAQUEZ Facility:[facility] Start: 08-15-2022 End: 08-16-[address] ANUJ URIARTE . Facility:[facility] Start: 07-23-2022 End: 07-23-[address] ANUJ URIARTE . Facility:[facility] Start: 06-20-2022 End: 08-02-[address] ANUJ URIARTE . Facility:[facility] Start: 06-18-2022 End: 06-19-[address] ANUJ URIARTE . Facility:[facility] Payers Date Payer Category Payer Unknown [id number] 2.16.84 [id number] 1955 Unknown [id number] 2.16.84 0.1.839503.3.579.2.593 1955 Unknown [id number] 2.16.84 0.1.994160.3.579.2.593 1955 Unknown [id number] 2.16.84 0.1.644491.3.579.2.593 1955 Unknown [id number] 2.16.84 0.1.781458.3.579.2.593 1955 Unknown [id number] 2.16.84 0.1.843800.3.579.2.593 1955 Unknown [id number] 2.16.84 0.1.720197.3.579.2.593 1955 Unknown [id number] 2.16.84 0.1.165879.3.579.2.593 1955 Unknown [id number] 2.16.84 0.1.168137.3.579.2.593 1955 Unknown [id number] 2.16.84 0.1.328730.3.579.2.593 1955 Unknown [id number] 2.16.84 0.1.031306.3.579.2.1259 1955 Unknown [id number] 2.16.84 0.1.680699.3.579.2.1259 1955 Unknown [id number] 2.16.84 0.1.412584.3.579.2.1259 1955 Unknown [id number] 2.16.84 0.1.744475.3.579.2.1259 1955 Unknown [id number] 2.16.84 0.1.554799.3.579.2.9 1955 Unknown [id number] 2.16.84 0.1.376167.3.579.2.1258 1955 Unknown [id number] 2.16.84 0.1.447155.3.579.2.1258 1955 Unknown [id number] 2.16.84 0.1.553520.3.579.2.1258 1955 Unknown [id number] 2.16.840 .1.341682.3.579.2.1258 1955 Unknown [id number] 2.16.840 .1.899986.3.579.2.1259 Medicare [id number] Social History Date Type Detail Facility Start: [facility]13[facility]23 [facility] Start: 1955 Sex Assigned At Female F [facility] Consultation note 09-12-2022 Note Date & Type [...] our patients to inform us about any lfuk-gch-bxuvtwt medications or herbal remedies/nutritional supplements/alternative remedies. 2. [...] branches L3, L4 and L5 bilaterally. [facility] Consultation note 08-15-2022 Note Date & Type [...] followed up in the clinic thereafter. [facility] Consultation note 06-18-2022 Note Date & Type [...] at the level of L2, L3. [facility] Consultation note 06-18-2022 Note Date & Type [...] patient was seen in physical therapy at [facility] from January to February of 2022 without [...] would like to proceed. CC: Zunilda Prieto [facility] Evaluation note Note Date & Type Note Facility Evaluation note Diagnosis Onset Date Acute sinusitis acute [facility] Work Phone: Summary Purpose Family History No Family History Records Found Relationship Condition Age at Onset Recorded Date/T reji father Unknown Heart disease Unknown mother Unknown Advance Directives No Advanced Directives Records Found Advance Directive Response Recorded Date/ Time Advance Directives No December 12 9:28am Chief Complaint and Reason for Visit Chief Complaint sore throat, sinus i ssues Reason for Visit Acute sinusitis Additional Source Comments INFORMATION SOURCE (unrecogn ized section and content) DATE CREATED AUTHOR 01/04/2022 [facility] DATE CREATED AUTHOR AUTHOR'S ORGANIZ ATION 11/15/2022 [facility] DATE CREATED AUTHOR AUTHOR'S ORGANIZ ATION 01/20/2024 [facility] Care Teams (unrecognized sec tion and content) Team Status: Active Member Role Status Dates Dustin Gould MD Primary Care Provider Active Team Status: Inactive Member Role Status Dates Dustin Gould MD Primary Care Provider Active Start: December 13, 2023 End: December 13, 2023 Dolly Tran APRN Attending Provider Active S tart: December 13, 2023 End: December 13, 2023 Goals (unrecognized section and content) Goals may be documented in a n alternate section FOR RECORDS PERTAINING TO PATIENTS WHO ARE [...] BE BASED ON THE PRIMARY CLINICAL RECORDS. [facility] [employer] [facility]. provides no warranty or guarantee of the accuracy or completeness of information in this document.
[2024-01-28 10:10] LABS: Estimated Average Glucose 131 mg/dL; Glycohemoglobin A1C 6.2 % (4.5-6.2)
== END 2024-01-28 09:22 | disposition home or self-care (01) ==
LOC: LAB 09:22
PROVIDERS: PCP Internal Medicine; Visit Provider Internal Medicine
DX: E11.22 Type 2 diabetes mellitus with diabetic chronic kidney disease (principal); N18.31 Chronic kidney disease, stage 3a
CPT/HCPCS: 36415; 83036

== ENCOUNTER 2024-04-15 09:53 | Outpatient (OUT) | payer MEDICARE, SELFPAY ==
[2024-04-15 10:48] LABS: Basophils Absolute Auto 0.1 10^3/uL (0.0-0.1); Basophils Percent Auto 0.6 % (0.2-2.0); Eosinophils Percent Auto 0.1 % (0.9-7.0); Hematocrit 45.7 % (36.0-48.0); Hemoglobin 14.7 g/dL (12.0-16.0); Immature Granulocytes Abs Auto 0.03 10^3/uL (0.00-0.03); Immature Granulocytes Pct Auto 0.4 % (0.0-0.5); Lymphocytes Absolute Auto 2.8 10^3/uL (1.2-3.8); Lymphocytes Percent Auto 32.9 % (20.5-60.0); Mean Corpuscular HGB Conc 32.2 g/dL (29.9-35.2); Mean Corpuscular Hemoglobin 30.2 pg (26.7-34.0); Mean Corpuscular Volume 93.8 fL (81.0-99.0); Mean Platelet Volume 9.8 fL (9.5-13.5); Monocytes Absolute Auto 0.4 10^3/uL (0.3-0.8); Monocytes Percent Auto 4.3 % (1.7-12.0); Neutrophils Absolute Auto 5.2 10^3/uL (1.4-6.5); Neutrophils Percent Auto 61.7 % (43.0-75.0); Platelet Count 218 10^3/uL (150-450); Red Blood Count 4.87 10^6/uL (4.20-5.40); Red Cell Distribution Width 12.8 % (11.0-15.0); White Blood Count 8.4 10^3/uL (4.0-11.0)
[2024-04-15 11:10] LABS: Alanine Aminotransferase 17 U/L (14-59); Albumin Globulin Ratio 0.9; Albumin Level 3.4 g/dL (3.4-5.0); Alkaline Phosphatase 89 U/L (46-116); Aspartate Amino Transferase 23 U/L (15-37); BUN Creatinine Ratio 12.6; Bilirubin Total 0.6 mg/dL (0.2-1.0); Calcium 8.7 mg/dL (8.5-10.1); Carbon Dioxide 26.4 mmol/L (21.0-32.0); Chloride 105 mmol/L (98-107); Estimated GFR (African America 42 (>=60 mL/min/1.73m^2); Estimated GFR (Non-African Ame 34 (>=60 mL/min/1.73m^2); Globulin 3.8 g/dL; Glucose 120 mg/dL (74-106); Potassium 4.4 mmol/L (3.5-5.1); Sodium 141 mmol/L (136-145); Total Protein 7.2 g/dL (6.4-8.2)
== END 2024-04-15 09:54 | disposition home or self-care (01) ==
LOC: LAB 09:55
DX: E11.22 Type 2 diabetes mellitus with diabetic chronic kidney disease (principal); N18.31 Chronic kidney disease, stage 3a; N18.2 Chronic kidney disease, stage 2 (mild); I12.9 Hypertensive chronic kidney disease with stage 1 through stage 4 chronic kidney disease, or unspecified chronic kidney disease
CPT/HCPCS: 36415; 80053; 83036; 85025

== ENCOUNTER 2024-08-28 09:54 | Outpatient (OUT) | payer MEDICARE, SELFPAY ==
--- NOTE | 2024-08-28 | US_ITS ---
[facility] [place] [id number] Patient Name: ARIAN CANAS MRN: [id number] date: 1955 Sex: F Assigned Patient Location: US Current Patient Location: Accession/Order Number: [id number] Exam Date: 08/29/2024 10:56 Report Date: 08/29/2024 10:57 At the request of: UMESH MCKINNON Procedure: US renal BI BILATERAL RENAL AND BLADDER ULTRASOUND CLINICAL HISTORY: STAGE 3B CKD. HYPERTENSIVE RENAL DISEASE E66.9 I12.9 COMPARISON: None FINDINGS: Estimation of renal size is approximately 3.5 cm on the right and 12.3 cm on the left. No hydronephrosis. Right nephrolithiasis largest stone measuring 3 mm. The urinary bladder is partially distended with a volume of 180 ml. No shadowing stone or focal lesion. US/US renal BI IMPRESSION: RIGHT NEPHROLITHIASIS. NO HYDRONEPHROSIS. Impression dictated by: Espinoza Aguayo Jr., DSiennaOSienna08/29/2024 10:57 AM Dictation Location: [place] [address] Electronically authenticated by: [id number] Y Date: 08/29/2024 10:57
--- OUTSIDE RECORDS SUMMARY | 2024-08-28 09:58 | XMS_ITS | CCD ---
Author Organization [facility] Care Team Providers Care Insurance Risk Surveyor Name Role Phone EUNICEC, DR MAY Consulting [...] vailable LAKSHMIPATHY ., NARENDRANATH Consulting Christina vailable Manuel LEYVA, Unavailable Hetal LEYVA, Jono Primary Care Provider Dasha MANZANARES, Daniella Unavailable Jono Fong MD Primary Care Provider Unallocated , Noms Provider Primary Care Provi fredrick Hetal LEYVA, Jono Primary Care Provider [phone] DANIELLA LOU Attending Unavailabl e MYRNAWDIANA, Attending Unavailable MANUEL, Attending Unavailable MANUEL, Attending Unavailable FELTRENETTA VELASCO Attending Unavailable FANILDA, Referring Unavailable FASHAIKH MUNGUIA Attending Unavailable LISETH GARCIA Attending Unavailable LOU, DANIELLA Attending Unavailabl e LOU, DANIELLA Referring Unavailabl e LOU, DANIELLA Attending Unavailabl e LOU, DANIELLA Attending Unavailabl e LOU, DANIELLA Attending Unavailabl e RENETTA GUSTAFSON Attending Unavailable LOU, DANIELLA Attending Unavailabl e KHANGHNAYELI GUEVARA Attending Unavailable Allergies Allergy Classification Reported Allergen(s) Allergy Type Date of Onset Reaction(s) Facility (1 source) Codeine Drug Allergy [facility] Repository (20 sources) Codeine Drug Allergy 01-23-2017 Unknown [facility] Medications Current Medications Medication Drug Class(es) Dates Sig (Normalized) Sig (Original) [id number] 200 actuat albuterol 0.09 mg/actuat metered dose inhaler (6 sources) beta2-Adrenergic Agonist Start: 05-31-2024 End: 06-30-2024 take 2 puff(s) by inhalation every six hours for wheezing albuterol HFA 90 mcg/act inhaler Indications: Acute bronchitis, unspecified organism Inhale 2 puffs every 6 (six) hours if needed for shortness of breath or wheezing 18 g 05/31/2024 Active atenolol 50 mg oral tablet (20 sources) beta-Adrenergic Chantale Start: 09-29-2023 End: 11-07-2024 take 1 tablet by mouth once daily Atenolol 50 mg tablet Active 50 MG PO Daily December 13, 2023 12:00am benzonatate 200 mg oral capsule (6 sources) Non-narcotic Antitussive Start: 05-31-2024 End: 06-07-2024 take 1 capsule by mouth three times daily as needed for cough benzonatate (Tessalon) 200 MG capsule Indications: Acute bronchitis, unspecified organism Take 1 capsule (200 mg) by mouth 3 (three) times a day as needed for cough for up to 7 days Take with full glass of water. Do not crush or chew. 21 capsule 05/31/2024 06/07/2024 Active Start: 05-18-2024 End: 05-31-2024 take 1 capsule by mouth three times daily as needed for cough benzonatate (Tessalon Perles) 100 MG capsule Indications: Acute bronchitis, unspecified organism , Viral upper respiratory tract infection Take 1 capsule (100 mg) by mouth 3 (three) times a day as needed for cough for up to 7 days Do not crush or chew. 20 capsule 05/18/2024 05/31/2024 Discontinued (Therapy completed) cefdinir 300 mg oral capsule (2 sources) Cephalosporin Antibacterial Start: 05-31-2024 End: 06-10-2024 take 1 capsule by mouth in the morning cefdinir (Omnicef) 300 MG capsule Indications: Acute bronchitis, unspecified organism Take 1 capsule (300 mg) by mouth in the morning and 1 capsule (300 mg) before bedtime. Do all this for 10 days. 20 capsule 05/31/2024 06/10/2024 Active cetirizine hydrochloride 10 mg oral tablet (20 sources) Histamine-1 Receptor Antagonist Start: 01-13-2024 End: 11-08-2024 take 1 tablet by mouth once daily Cetirizine 10 mg tablet Active 10 MG PO Daily August 24, 2024 12:00am dapagliflozin 10 mg oral tablet (20 sources) Sodium-Glucose Cotransporter 2 Inhibitor Start: 12-13-2023 End: 04-12-2024 Farxiga 10 MG Indications: Type 2 diabetes mellitus with stage 3a chronic kidney disease, without long-term current use of insulin ([facility] ([facility]) , CKD (chronic kidney disease) stage 2, GFR 60-89 ml/min TAKE 1 TABLET DAILY 90 tablet 3 04/01/2024 Active fluticasone propionate 0.05 mg/actuat metered dose nasal spray (20 sources) Corticosteroid Start: 01-13-2024 End: 01-12-2025 take 1-2 spray(s) nasal route once daily fluticasone (Flonase) 50 MCG/ACT nasal spray Indications: Chronic frontal sinusitis Administer 1-2 sprays into each nostril Daily Shake gently. Before first use, prime pump. After use, clean tip and replace cap. 16 g 2 01/13/2024 01/12/2025 Active levothyroxine sodium 0.088 mg oral tablet (20 sources) l-Thyroxine Start: 09-29-2023 End: 12-20-2024 take 1 tablet by mouth once daily Levothyroxine (Synthroid) 88 mcg tablet Active 88 MCG PO Daily December 13, 2023 12:00am losartan potassium 25 mg oral tablet (20 sources) Angiotensin 2 Receptor Chantale Start: 09-29-2023 End: 10-03-2024 take 1 tablet by mouth once daily Losartan 25 mg tablet Active 25 MG PO Daily December 13, 2023 12:00am methylPREDNISolone (4 sources) Corticosteroid Start: 05-18-2024 End: 05-31-2024 methylPREDNISolone (Medrol Dospak) 4 MG tablets Indications: Acute bronchitis, unspecified organism , Viral upper respiratory tract infection Follow schedule on package instructions 21 tablet 05/18/2024 05/31/2024 Discontinued (Therapy completed) Start: 05-18-2024 End: 05-25-2024 methylPREDNISolone (Medrol D ospak) 4 MG tablets Indications: Acute bronchitis, unspecified organism , Viral upper respiratory tract infection Follow schedule on package instructions 21 tablet 05/18/2024 05/25/2024 Active Multivitamin (Daily Multi-Vitamin) tablet (1 source) Start: 08-24-2024 take 1 tablet by mouth once daily Multivitamin (Daily Multi-Vitamin) tablet Active 1 TAB PO Daily August 24, 2024 12:00am rosuvastatin calcium 5 mg oral tablet (20 sources) HMG-CoA Reductase Inhibitor Start: 12-13-2023 take 5 mg by mouth once daily Rosuvastatin Active 5 MG PO Daily December 13, 2023 12:00am Start: 09-29-2023 End: 10-03-2024 take 1 tablet by mouth once daily Rosuvastatin 5 mg tablet Active 5 MG PO Daily December 13, 2023 12:00am Completed/Discontinued Medications Medication Drug Class(es) Dates Sig (Normalized) Sig (Original) amoxicillin 875 mg / clavulanate 125 mg oral tablet (2 sources) Penicillin-class Antibacterial Start: 12-13-2023 End: 08-24-2024 take 1 tablet by mouth twice daily Amoxicillin-Pot Clavulanate 875-125 mg tablet Discontinued 1 TAB PO Twice daily 20 December 13, 2023 12:00am August 24, 2024 2:50pm Problems Active Problems Problem Classification Problem Date Documented Da te Episodic/Chronic Acute bronchitis (13 sources) Acute bronchitis; Translations: [Acute bronchitis, unspecified] Onset: 05-18-2024 05-18-2024 Episodic Chronic kidney disease (20 sources) Chronic kidney disease stage 2; Translations: [Chronic kidney disease, stage 2 (mild)] Onset: 01-01-2023 Resolved: 04-16-2024 08-04-2023 Chronic Diabetes mellitus with complications (20 sources) Chronic kidney disease due to type 2 diabetes mellitus; Translations: [Type 2 diabetes mellitus with diabetic chronic kidney disease] Onset: 12-12-2020 01-01-2023 Chronic Diabetes mellitus without complication (1 source) Type 2 diabetes mellitus without complications; Translations: [TYPE 2 DM WITHOUT COMPLICATIONS] Onset: 11-06-2022 Chronic Disorders of lipid metabolism (20 sources) Hyperlipidemia; Translations: [Hyperlipidemia, unspecified] Onset: 01-01-2023 08-04-2023 Chronic Essential hypertension (20 sources) Essential hypertension; Translations: [Essential (primary) hypertension] Onset: 01-01-2023 01-01-2023 Chronic Hypertension with complications and secondary hypertension (2 sources) Hypertensive renal disease; Translations: [Hypertensive chronic kidney disease with stage 1 through stage 4 chronic kidney disease, or unspecified chronic kidney disease] 08-24-2024 Chronic Menopausal disorders (20 sources) Menopausal flushing; Translations: [Menopausal and female climacteric states] Onset: 01-01-2023 01-01-2023 Chronic Other nervous system disorders (1 source) Other chronic pain; Translations: [OTHER CHRONIC PAIN] Onset: 09-21-2022 Chronic Other nutritional; endocrine; and metabolic disorders (20 sources) Obese class I; Translations: [Obesity (BMI 30.0-34.9)] Onset: 01-01-2023 01-01-2023 Chronic Other nutritional; endocrine; and metabolic disorders (1 source) Obesity; Translations: [Obesity, unspecified] 08-24-2024 Chronic Other nutritional; endocrine; and metabolic disorders (1 source) Obesity, unspecified; Translations: [Obesity, unspecified] 08-24-2024 Chronic Other skin disorders (2 sources) Inflamed seborrheic keratosis; Translations: [Inflamed seborrheic keratosis] 04-21-2024 Episodic Other upper respiratory infections (20 sources) Chronic sinusitis; Translations: [Chronic sinusitis, unspecified] Onset: 01-13-2024 01-13-2024 Chronic Other upper respiratory infections (14 sources) Acute sinusitis; Translations: [Acute sinusitis, unspecified] Onset: 05-18-2024 Resolved: 05-31-2024 12-13-2023 Episodic Spondylosis; intervertebral disc disorders; other back problems (20 sources) Spondylosis without myelopathy or radiculopathy, lumbar region; Translations: [Spondylosis without myelopathy or radiculopathy, lumbosacral region] Onset: 08-20-2022 Chronic Thyroid disorders (20 sources) Hypothyroidism; Translations: [Hypothyroidism, unspecified] Onset: 01-01-2023 08-04-2023 Chronic Unclassified (4 sources) LOW BACK PAIN, UNSPECIFIED; Translations: [LOW BACK PAIN, UNSPECIFIED] Onset: 09-21-2022 Past or Other Problems Problem Classification Problem Date Documented Date Episodic/Chronic Administrative/social admission (20 sources) First encounter by subject; Translations: [Persons encountering health services in other specified circumstances] Onset: 08-04-2023 08-04-2023 Episodic Mood disorders (20 sources) Mood disorders Onset: 01-01-2023 Resolved: 02-12-2024 02-12-2024 Other and unspecified benign neoplasm (20 sources) History of adenomatous polyp of colon; Translations: [History of adenomatous polyp of colon] Onset: 03-14-2020 01-01-2023 Episodic Other connective tissue disease (1 source) Myalgia, other site; Translations: [MYALGIA OTHER SITE] Onset: 06-20-2022 Episodic Other non-traumatic joint disorders (20 sources) Chronic pain of left upper limb; Translations: [Pain in left shoulder] Onset: 09-29-2023 09-29-2023 Episodic Other skin disorders (20 sources) Suspected malignant pigmented skin lesion; Translations: [Disorder of pigmentation, unspecified] Onset: 08-27-2023 08-27-2023 Episodic Other skin disorders (20 sources) Actinic keratosis; Translations: [Actinic keratosis] Onset: 03-09-2024 03-09-2024 Episodic Residual codes; unclassified (20 sources) Family history of mental disorder; Translations: [Family history of other mental and behavioral disorders] Onset: 03-14-2020 01-01-2023 Episodic Spondylosis; intervertebral disc disorders; other back problems (20 sources) Intervertebral disc disorders with radiculopathy, lumbar region; Translations: [Radiculopathy, lumbar region] Onset: 07-23-2022 Episodic Syncope (20 sources) Syncope; Translations: [Syncope and collapse] Onset: 01-21-2022 01-01-2023 Episodic Unclassified (1 source) LOW BACK PAIN, UNSPECIFIED; Translations: [LOW BACK PAIN, UNSPECIFIED] Onset: 09-12-2022 Results Test Name Value Interpretation Reference Range Facility No Panel Informationon 04-21 [facility] e ALL CBC WITH AUTO DIFFon BASOPHILS ABSOLUTE AUTO 0.1 [facility] Basophils/100 WBC (Bld) 0.6 % 0.2 - 2.0 % [facility] Eosinophils/100 WBC (Bld) 0.1 % Low 0.9 - 7.0 % [facility] Erythrocyte distribution width (RBC) [Ratio] 12.8 % 11.0 - 15.0 % [facility] Hematocrit (Bld) [Volume fraction] 45.7 % 36.0 - 48.0 % [facility] e Hemoglobin (Bld) [Mass/Vol] 14.7 g/dL 12.0 - 16.0 g/dL [facility] IMMATURE GRANULOCYTES ABS AUTO 0.03 [facility] Immature granulocytes/100 WBC (Bld) 0.4 % 0.0 - 0.5 % [facility] Interpretation and review of laboratory results Abnormal [facility] LYMPHOCYTES ABSOLUTE AUTO 2.8 [facility] Lymphocytes/100 WBC (Bld) 32.9 % 20.5 - 60.0 % [facility] MCH (RBC) [Entitic mass] 30.2 pg 26.7 - 34.0 pg [facility] MCHC (RBC) [Mass/Vol] 32.2 g/dL 29.9 - 35.2 g/dL [facility] MCV (RBC) [Entitic vol] 93.8 fL 81.0 - 99.0 fL [facility] MONOCYTES ABSOLUTE AUTO 0.4 [facility] Monocytes/100 WBC (Bld) 4.3 % 1.7 - 12.0 % [facility] NEUTROPHILS ABSOLUTE AUTO 5.2 [facility] Neutrophils/100 WBC (Bld) 61.7 % 43.0 - 75.0 % [facility] Platelet mean volume (Bld) [Entitic vol] 9.8 fL 9.5 - 13.5 fL [facility] Healthc are TBH EO # 0 [facility] PLT 218 [facility] TB RBC 4.87 [facility] e TBH WBC 8.4 [facility] e MLR HEMOGLOBIN A1Con 024 Glucose [Mass/Vol] 131 mg[facility] HbA1c (Bld) [Mass fraction] 6.2 % 4.5 - 6.2 % [facility] Comment on above: ADA RECOMMENDED LIMI T 4.0 - 6.0 ADA THERAPEUTIC TARGET < 7.0 ACTION SUGGESTED > 7.0 [facility] BI MAMMOGRAM SCREENING TOMOS YNTHESIS BILATERALon 01-15-2024 [...] IS VERY IMPORTANT TO YOUR HEALTH. THE [employer] GUIDELINES RECOMMEND THAT WOMEN 40 [...] Normal Not Available POINT OF CARE GLUCOSEon 05- Glucose [Mass/Vol] 139 mg/dL Critically high 74-106 [facility] Comment on above: Performed By: #### P OCGLUC #### [facility] [address] [address] [address] Susanne Chapa POINT OF CARE GLUCOSEon 09-07 Glucose [Mass/Vol] 119 mg/dL Critically high 74-106 [facility] Comment on above: Performed By: #### P OCGLUC #### [facility] [address] [address] [address] Susanne Chapa POINT OF CARE GLUCOSEon 08-08 Glucose [Mass/Vol] 125 mg/dL Critically high 74-106 [facility] Comment on above: Performed By: #### P OCGLUC #### [facility] [address] [address] [address] Susanne Chapa POINT OF CARE GLUCOSEon 07-10 Glucose [Mass/Vol] 114 mg/dL Critically high -106 [facility] Comment on above: Performed By: #### P OCGLUC #### [facility] [address] [place] [address] Dr. Susanne hCapa US Carotid, Bilateralon 12-08 US Carotid, Bilateral [...] by Espinoza Man on 01/02/2022 1026 Normal [facility] XR Hip Complete Right*on XR Hip Complete Right* FINDINGS: Mild bilateral superior hip joint space reduction is seen. No pincer deformities, very small right CAM deformity. No cortical or stress fracture is identified. Pelvic ring and sacral struts are intact. Soft tissues are relatively unremarkable. IMPRESSION: Minimal arthritis Report reported and signed by Espinoza Man on 01/01/2022 0658 Normal [facility] XR Spine Lumbosacral 2 or 3 Viewson [...] by Espinoza Man on 01/01/2022 0657 Normal [facility] Comprehensive Metabolic Pane arabella 06-11-2021 Albumin [Mass/Vol] 4.4 g/dL Normal 3.6-5.1 Kaci tyler [place] [employer] Comment on above: Performed By: #### C MP #### [facility] [address] [place], [place] [id number] Albumin/Globulin [Mass ratio] 1.9 {ratio} Normal 1.0-2.5 [facility] Comment on above: Performed By: #### C MP #### [facility] [address] [place], [place] [id number] ALP [Catalytic activity/Vol] 91 U/L Normal 35-119 [facility] Comment on above: Performed By: #### C MP #### [facility] [address] [place], [place] [id number] ALT [Catalytic activity/Vol] 7 U/L Normal 6-33 [facility] Comment on above: Result Comment: 05/09 Female reference range changed. Performed By: #### C MP #### [facility] [address] [place], [place] [id number] Anion gap [Moles/Vol] 18 mmol/L Normal 12-20 [facility] Comment on above: Result Comment: Effe ctive 06/14/2019 reference range changed. Performed By: #### C MP #### [facility] [address] [place], [place] [id number] AST [Catalytic activity/Vol] 12 U/L Normal 9-34 [facility] Comment on above: Performed By: #### C MP #### [facility] [address] [place], [place] [id number] Bilirubin [Mass/Vol] 0.31 mg/dL Normal 0.30-1.20 [facility] Comment on above: Performed By: #### C MP #### [facility] [address] [place], [place] [id number] BUN/CREA 18 Ratio Normal 6-22 [facility] Comment on above: Performed By: #### C MP #### [facility] [address] [place], [place] [id number] Calcium [Mass/Vol] 9.6 mg/dL Normal 8.6-10.[address] [facility] Comment on above: Performed By: #### C MP #### [facility] [address] [place], [place] [id number] Chloride [Moles/Vol] 104 mmol/L Normal 98-107 [facility] Comment on above: Performed By: #### C MP #### [facility] [address] [place], [place] [id number] CO2 [Moles/Vol] 25 mmol/L Normal 20-31 [facility] Comment on above: Performed By: #### C MP #### [facility] [address] [place], [place] [id number] Creatinine [Mass/Vol] 1.0 mg/dL Normal 0.6-1.4 [facility] Comment on above: Performed By: #### C MP #### [facility] [address] [place] [place], [place] [id number] eGFRAA 68 mL/min/1.73m2 Normal >60 [facility] Comment on above: Performed By: #### C MP #### [facility] [address] [place], [place] [id number] eGFRNAA 56 mL/min/1.73m2 Low >60 [facility] Comment on above: Performed By: #### C MP #### [facility] [address] [place], [place] [id number] Globulin (S) [Mass/Vol] 2.3 g/dL Normal 1.9-3.7 [facility] Comment on above: Performed By: #### C MP #### [facility] [address] [place], [place] [id number] Glucose [Mass/Vol] 102 mg/dL High 65-99 [facility] Specialist Comment on above: Result Comment: For FASTING Glucose --- ADA reference ranges: Normal 65-99 mg/dl Prediabetes 100-125 Diabetes >/= 126 Performed By: #### C MP #### [facility] [address] [place], [place] [id number] Potassium [Moles/Vol] 4.9 mmol/L Normal 3.5-5.5 [facility] Comment on above: Performed By: #### C MP #### [facility] [address] [place], [place] [id number] Protein [Mass/Vol] 6.7 g/dL Normal 6.1-8.1 [facility] Video Operator Comment on above: Performed By: #### C MP #### [facility] [address] [place], [place] [id number] Sodium [Moles/Vol] 142 mmol/L Normal 135-146 [facility] Specialist Comment on above: Performed By: #### C MP #### [facility] [address] [place], [place] [id number] Urea nitrogen [Mass/Vol] 18 mg/dL Normal 7-25 [facility] [employer] Comment on above: Performed By: #### C MP #### [facility] [address] [place], [place] [id number] Hemoglobin A1Con 06-11-2021 EAG 111.15 Normal [facility] Specialist Comment on above: Performed By: #### A 1C #### [facility] [address] [place], [place] [id number] HbA1c (Bld) [Mass fraction] 5.5 % Normal 4.0-6.0 [facility] [employer] Comment on above: Performed By: #### A 1C #### [facility] [address] [place], [place] [id number] Vital Signs Date Time Vital Sign Value Performing Clinician Facility 08-24-2024 14:48-0400 Body height 167.64 cm [facility] 08-24-2024 14:48-0400 Body mass index (BMI) [Ratio] 37 kg/m2 [facility] 08-24-2024 14:48-0400 Body weight 104.09 kg [facility] 08-24-2024 14:48-0400 Diastolic blood pressure 83 mm[Hg] [facility] 08-24-2024 14:48-0400 Heart rate 60 /min [facility] 08-24-2024 14:48-0400 Respiratory rate 16 /min [facility] 08-24-2024 14:48-0400 SaO2% (BldA) [Mass fraction] 95 % [facility] 08-24-2024 14:48-0400 Systolic blood pressure 129 mm[Hg] [facility] 07-20-2024 09:24-0500 Body height 167.6 cm Daniella Lou NP Work Phone: [facility] 07-20-2024 09:24-0500 Body mass index (BMI) [Ratio] 36.64 kg/m2 Daniella Lou HAT MEASURER Work Phone: [facility] 07-20-2024 09:24-0500 Body temperature 97.2 [degF] Daniella Lou HAT MEASURER Work Phone: [facility] 07-20-2024 09:24-0500 Body weight 102.97 kg Daniella Lou HAT MEASURER Work Phone: [facility] 07-20-2024 09:24-0500 Diastolic blood pressure 74 mm[Hg] Daniella Lou HAT MEASURER Work Phone: [facility] 07-20-2024 09:24-0500 Heart rate 67 /min Daniella Lou HAT MEASURER Work Phone: [facility] 07-20-2024 09:24-0500 Respiratory rate 16 /min Daniella Lou HAT MEASURER Work Phone: [facility] 07-20-2024 09:24-0500 SaO2% (BldA) [Mass fraction] 97 % Daniella Lou HAT MEASURER Work Phone: [facility] 07-20-2024 09:24-0500 Systolic blood pressure 132 mm[Hg] Daniella Lou HAT MEASURER Work Phone: [facility] 05-31-2024 11:30-0500 Body height 172.7 cm Nayeli Karan HAT MEASURER Work Phone: [facility] 05-31-2024 11:30-0500 Body mass index (BMI) [Ratio] 34.97 kg/m2 Nayeli Jahz HAT MEASURER Work Phone: [facility] 05-31-2024 11:30-0500 Body temperature 98.29 [degF] Nayeli Jahz HAT MEASURER Work Phone: [facility] 05-31-2024 11:30-0500 Body weight 104.33 kg Nayeli Jahz HAT MEASURER Work Phone: [facility] 05-31-2024 11:30-0500 Diastolic blood pressure 82 mm[Hg] Nayeli Cruzholz HAT MEASURER Work Phone: [facility] 05-31-2024 11:30-0500 Heart rate 73 /min Nayeliian Cruzholz HAT MEASURER Work Phone: [facility] 05-31-2024 11:30-0500 Respiratory rate 19 /min Nayeliian Cruzholz HAT MEASURER Work Phone: [facility] 05-31-2024 11:30-0500 SaO2% (BldA) [Mass fraction] 96 % Nayeliian Cruzholz HAT MEASURER Work Phone: [facility] 05-31-2024 11:30-0500 Systolic blood pressure 132 mm[Hg] Nayeli Cruzholz HAT MEASURER Work Phone: [facility] 05-18-2024 09:24-0500 Body height 172.7 cm Daniella Lou HAT MEASURER Work Phone: [facility] 05-18-2024 09:24-0500 Body mass index (BMI) [Ratio] 34.5 kg/m2 Daniella Lou HAT MEASURER Work Phone: [facility] 05-18-2024 09:24-0500 Body temperature 100.8 [degF] Daniella Lou HAT MEASURER Work Phone: [facility] 05-18-2024 09:24-0500 Body weight 102.92 kg Daniella Lou HAT MEASURER Work Phone: [facility] 05-18-2024 09:24-0500 Diastolic blood pressure 74 mm[Hg] Daniella Lou HAT MEASURER Work Phone: [facility] 05-18-2024 09:24-0500 Heart rate 74 /min Daniella Lou HAT MEASURER Work Phone: [facility] 05-18-2024 09:24-0500 Respiratory rate 16 /min Daniella Lou HAT MEASURER Work Phone: [facility] 05-18-2024 09:24-0500 SaO2% (BldA) [Mass fraction] 94 % Daniella Lou HAT MEASURER Work Phone: [facility] 05-18-2024 09:24-0500 Systolic blood pressure 126 mm[Hg] Daniella Lou HAT MEASURER Work Phone: [facility] 04-15-2024 08:55-0500 Body height 167.6 cm Daniella Lou HAT MEASURER Work Phone: [facility] 04-15-2024 08:55-0500 Body mass index (BMI) [Ratio] 38.12 kg/m2 Daniella Lou HAT MEASURER Work Phone: [facility] 04-15-2024 08:55-0500 Body temperature 97.11 [degF] Daniella Lou HAT MEASURER Work Phone: [facility] 04-15-2024 08:55-0500 Body weight 107.14 kg Daniella Lou HAT MEASURER Work Phone: [facility] 04-15-2024 08:55-0500 Diastolic blood pressure 78 mm[Hg] Daniella Lou HAT MEASURER Work Phone: [facility] 04-15-2024 08:55-0500 Heart rate 73 /min Daniella Lou HAT MEASURER Work Phone: [facility] 04-15-2024 08:55-0500 Respiratory rate 16 /min Daniella Lou HAT MEASURER Work Phone: [facility] 04-15-2024 08:55-0500 SaO2% (BldA) [Mass fraction] 96 % Daniella Lou HAT MEASURER Work Phone: [facility] 04-15-2024 08:55-0500 Systolic blood pressure 132 mm[Hg] Daniella Lou HAT MEASURER Work Phone: [facility] 03-09-2024 15:30-0400 Body height 167.6 cm Daniella Lou HAT MEASURER Work Phone: [facility] 03-09-2024 15:30-0400 Body mass index (BMI) [Ratio] 37.66 kg/m2 Daniella Lou HAT MEASURER Work Phone: [facility] 03-09-2024 15:30-0400 Body temperature 97.81 [degF] Daniella Lou HAT MEASURER Work Phone: [facility] 03-09-2024 15:30-0400 Body weight 105.82 kg Daniella Lou HAT MEASURER Work Phone: [facility] 03-09-2024 15:30-0400 Diastolic blood pressure 74 mm[Hg] Daniella Lou HAT MEASURER Work Phone: [facility] 03-09-2024 15:30-0400 Heart rate 72 /min Daniella Lou HAT MEASURER Work Phone: [facility] 03-09-2024 15:30-0400 Respiratory rate 16 /min Daniella Lou HAT MEASURER Work Phone: [facility] 03-09-2024 15:30-0400 SaO2% (BldA) [Mass fraction] 98 % Daniella Lou HAT MEASURER Work Phone: [facility] 03-09-2024 15:30-0400 Systolic blood pressure 130 mm[Hg] Daniella Lou HAT MEASURER Work Phone: [facility] 02-12-2024 09:58-0400 Body height 167.6 cm Daniella Lou HAT MEASURER Work Phone: [facility] 02-12-2024 09:58-0400 Body mass index (BMI) [Ratio] 37.77 kg/m2 Daniella Lou HAT MEASURER Work Phone: [facility] 02-12-2024 09:58-0400 Body temperature 97 [degF] Daniella Lou HAT MEASURER Work Phone: [facility] 02-12-2024 09:58-0400 Body weight 106.14 kg Daniella Lou HAT MEASURER Work Phone: [facility] 02-12-2024 09:58-0400 Diastolic blood pressure 80 mm[Hg] Daniella Lou HAT MEASURER Work Phone: [facility] 02-12-2024 09:58-0400 Heart rate 61 /min Daniella Lou HAT MEASURER Work Phone: [facility] Comment on above: 95% O2 02-12-2024 09:58-0400 Systolic blood pressure 130 mm[Hg] Daniella Lou HAT MEASURER Work Phone: [facility] 12-13-2023 09:35-0400 Body height 167.64 cm [facility] 12-13-2023 09:35-0400 Body mass index (BMI) [Ratio] 37.1 kg/m2 [facility] 12-13-2023 09:35-0400 Body temperature 98 [degF] [facility] 12-13-2023 09:35-0400 Body weight 104.49 kg [facility] 12-13-2023 09:35-0400 Diastolic blood pressure 84 mm[Hg] [facility] 12-13-2023 09:35-0400 Heart rate 81 /min [facility] 12-13-2023 09:35-0400 Respiratory rate 18 /min [facility] 12-13-2023 09:35-0400 SaO2% (BldA) [Mass fraction] 98 % [facility] 12-13-2023 09:35-0400 Systolic blood pressure 125 mm[Hg] [facility] Encounters Encounter Date Encounter Type Care Provider Facility Start: 08-24-2024 End: 08-24-2024 ambulatory [facility] Work Phone: Start: 08-24-2024 End: 08-24-2024 Patient encounter procedure [facility] Nephrology Aaron Work Phone: Start: 07-20-2024 End: 07-20-2024 Bamboo flowsheet Daniella Lou HAT MEASURER Work Phone: [facility] Start: 07-20-2024 End: 07-20-2024 Bamboo flowsheet Daniella Tiradok HAT MEASURER Work Phone: [facility] Start: 07-20-2024 End: 07-20-2024 Office outpatient visit 15 minutes Daniella Lou HAT MEASURER Work Phone: [facility] Comment on above: Stage 3b chronic kid wyatt disease (HCC) (CMS/HCC) (Primary Dx); Type 2 diabetes mellitus with stage 3a chronic kidney disease, without long-term current use of insulin (HCC) (CMS/HCC); Primary hypertension (CMS/HCC); Mixed hyperlipidemia (CMS/HCC) Start: 07-20-2024 End: 07-20-2024 ambulatory DANIELLA DE LA OTRICK Not Available Start: 06-23-2024 End: 06-23-2024 Refill Daniella Lou HAT MEASURER Work Phone: [facility] Comment on above: Acquired hypothyroid ism (CMS/HCC) Start: 05-31-2024 End: 05-31-2024 Bamboo flowsheet Nayeli Russo HAT MEASURER Work Phone: [facility] Start: 05-31-2024 End: 05-31-2024 Bamboo flowsheet Nayeli Russo HAT MEASURER Work Phone: [facility] Start: 05-31-2024 End: 05-31-2024 Office outpatient visit 15 minutes Nayeli Russo HAT MEASURER Work Phone: [facility] Comment on above: Acute bronchitis, un specified organism (Primary Dx); Primary hypertension (CMS/HCC); Stage 3b chronic kidney disease (HCC) (CMS/HCC); Obesity (BMI 30.0-34.9) Start: 05-31-2024 End: 05-31-2024 ambulatory NAYELI RUSSO Not Available Start: 05-18-2024 End: 05-18-2024 Bamboo flowsheet Daniella Aburtopatrick HAT MEASURER Work Phone: [facility] Start: 05-18-2024 End: 05-18-2024 Bamboo flowsheet Daniella Aburtopatrick HAT MEASURER Work Phone: [facility] Start: 05-18-2024 End: 05-18-2024 Office outpatient visit 10 minutes Daniella Lou HAT MEASURER Work Phone: [facility] Comment on above: Acute bronchitis, un specified organism (Primary Dx); Viral upper respiratory tract infection Start: 05-18-2024 End: 05-18-2024 ambulatory DANIELLA LOU Not Available Start: 05-11-2024 End: 05-11-2024 Refill Catia Calderon MA [facility] Comment on above: Primary hypertension (CMS/HCC) Start: 04-21-2024 End: 04-21-2024 Bamboo flowsheet Ernetta A Felter DIRECTOR OF FINANCIAL AID-PHONE TECHNICIAN Work Phone: [facility] Start: 04-21-2024 End: 04-21-2024 Bamboo flowsheet Renetta A Felter DIRECTOR OF FINANCIAL AID-PHONE TECHNICIAN Work Phone: [facility] Start: 04-21-2024 End: 04-21-2024 Patient encounter procedure Renetta A Felter DIRECTOR OF FINANCIAL AID-PHONE TECHNICIAN Work Phone: [facility] Comment on above: Inflamed seborrheic keratosis Start: 04-21-2024 End: 04-21-2024 ambulatory RENETTA A FELTER Not Available Start: 04-16-2024 End: 04-16-2024 Orders Only Daniella Tiradok HAT MEASURER Work Phone: [facility] Comment on above: Stage 3b chronic kid wyatt disease (HCC) (CMS/HCC) (Primary Dx) Start: 04-15-2024 End: 04-15-2024 Bamboo flowsheet Daniella De La Otrick HAT MEASURER Work Phone: [facility] Start: 04-15-2024 End: 04-15-2024 Bamboo flowsheet Daniella De La Otrick HAT MEASURER Work Phone: [facility] Start: 04-15-2024 End: 04-15-2024 Clinisync Result Encounter Daniella Lou HAT MEASURER Work Phone: [facility] Unsolicited Start: 04-15-2024 End: 04-15-2024 Office outpatient visit 15 minutes Daniella Tiradok HAT MEASURER Work Phone: [facility] Comment on above: Type 2 diabetes cecy itus with stage 3a chronic kidney disease, without long-term current use of insulin (HCC) (CMS/HCC) (Primary Dx); Primary hypertension ([facility]/HCC); CKD (chronic kidney disease) stage 2, GFR 60-89 ml/min; Mixed hyperlipidemia ([facility]/HCC) Start: 04-15-2024 End: 04-15-2024 ambulatory DANIELLA LOU Not Available Start: 04-06-2024 End: 04-06-2024 Refill Catia Calderon MA [facility] Comment on above: Primary hypertension (CMS/HCC); Hyperlipidemia, unspecified hyperlipidemia type (CMS/HCC) Start: 03-30-2024 End: 04-01-2024 Refill Daniellaadele De La Otrick HAT MEASURER Work Phone: [facility] Comment on above: Type 2 diabetes cecy itus with stage 3a chronic kidney disease, without long-term current use of insulin (HCC) (CMS/HCC); CKD (chronic kidney disease) stage 2, GFR 60-89 ml/min Start: 03-09-2024 End: 03-09-2024 Office outpatient visit 10 minutes Daniella De La Otrick HAT MEASURER Work Phone: [facility] Comment on above: Actinic keratosis (P rimary Dx) Start: 03-09-2024 End: 03-09-2024 ambulatory DANIELLA LOU Not Available Start: 03-09-2024 End: 03-09-2024 Bamboo flowsheet Daniella Lou HAT MEASURER Work Phone: [facility] Start: 03-09-2024 End: 03-09-2024 Bamboo flowsheet Daniella Lou HAT MEASURER Work Phone: [facility] Start: 02-12-2024 End: 02-12-2024 Bamboo flowsheet Daniella Lou HAT MEASURER Work Phone: [facility] Start: 02-12-2024 End: 02-12-2024 Bamboo flowsheet Daniella Lou HAT MEASURER Work Phone: [facility] Start: 02-12-2024 End: 02-12-2024 Patient encounter procedure Daniella Lou HAT MEASURER Work Phone: [facility] Comment on above: Encounter for Medica re annual wellness exam (Primary Dx); Chronic frontal sinusitis; Medication refill Start: 02-12-2024 End: 02-12-2024 ambulatory DANIELLA LOU Not Available Start: 01-28-2024 End: 01-28-2024 Clinisync Result Encounter Shaikh Manuel LEYVA Work Phone: [facility] Unsolicited Start: 01-28-2024 End: 01-28-2024 Clinisync Result Encounter Shaikh Manuel LEYVA Work Phone: [facility] Unsolicited Start: 01-15-2024 End: 01-15-2024 ambulatory DANIELLA LOU Not Available Start: 01-13-2024 End: 01-13-2024 ambulatory DANIELLA LOU Not Available Start: 01-07-2024 End: 01-07-2024 ambulatory LISETH GARCIA Not Available Start: 12-13-2023 End: 12-13-2023 ambulatory [facility] Work Phone: Start: 12-13-2023 End: 12-13-2023 Patient encounter procedure [facility] Ur[facility] Care Aaron Work Phone: Start: 11-11-2023 End: 11-11-2023 ambulatory FAWWAD Not Available Start: 10-07-2023 End: 10-07-2023 ambulatory RENETTA Arechiga FELTER Not Available Start: 09-29-2023 End: 09-29-2023 ambulatory MIR FAWWAD Not Available Start: 08-27-2023 End: 08-27-2023 ambulatory MIR FAWWAD Not Available Start: 08-04-2023 End: 08-04-2023 ambulatory MIR FAWWAD Not Available Start: 11-12-[address] DOCTOR JAQUEZ Facility :[facility]1 Start: 11-05-2022 End: 11-05-[address] DOCTOR JAQUEZ Facility:[facility] Start: 10-11-2022 End: 10-12-2022 ambulatory MITCHELL REESE . Facility:[facility] Start: 09-24-2022 End: 09-24-[address] DOCTOR JAQUEZ Facility:[facility] Start: 09-12-2022 End: 09-13-2022 ambulatory SUSANA REEVESMISAHIL . Facility:[facility] Start: 08-27-2022 End: 08-27-[address] DOCTOR JAQUEZ Facility:[facility] Start: 08-15-2022 End: 08-16-[address] ANUJ URIARTE . Facility:[facility] Start: 07-23-2022 End: 07-23-[address] ANUJ URIARTE . Facility:[facility] Start: 06-20-2022 End: 08-02-[address] ANUJ URIARTE . Facility:[facility] Start: 06-18-2022 End: 06-19-[address] ANUJ URIARTE . Facility: Procedures Date Procedure Procedure Detail Performing Clinician Start: 04-21-2024 CRYOTHERAPY SKIN LESION Renetta Moraleser DIRECTOR OF FINANCIAL AID-PHONE TECHNICIAN Work Phone: Start: 04-15-2024 ALL CBC WITH AUTO DIFF Daniella Lou HAT MEASURER Work Phone: Start: 01-28-2024 MLR HEMOGLOBIN A1C Carlos Manuel Jackson MD Work Phone: Start: 01-15-2024 Mammography Shaikh Malou gamez MD Work Phone: Start: 07-20-2019 Colonoscopy Shaikh Malou gamez MD Work Phone: Plan of Treatment Date Care Activity Detail Author Start: 07-20-2029 Screening for malign ant neoplasm of colon [facility] Start: 02-11-2025 Medicare Annual Well ness (AWV) Medicare Annual Wellness (AWV) [facility] Start: 01-14-2025 Screening for malign ant neoplasm of breast Mammogram [facility] Start: 01-07-2025 Glaucoma screening Diabetes: R etinopathy Screening [facility] Start: 10-19-2024 End: 10-19-2024 Patient encounter procedure 10/19/2024 10:30 AM EDT Office Visit [facility] [address] [place] [phone] Daniella Lou, [place] [address] [place] [address] [facility] Start: 10-05-2024 End: 10-05-2024 Patient encounter procedure 10/05/2024 10:25 AM EDT Office Visit [facility] [address] [place] [address] Renetta Gustafson, DIRECTOR OF FINANCIAL AID-PHONE TECHNICIAN [address] [place], [place] [id number] [facility] Start: 08-26-2024 Urine screening for protein Diabetes: Urine Protein Screening [facility] Start: 07-20-2024 End: 07-20-2025 Lipid 1996 panel - Serum or Plasma Lipid panel Lab Routine Mixed hyperlipidemia (CMS/HCC) Expected: 07/20/2024 (Approximate), Expires: 07/20/2025 [facility] Work Phone: Comment on above: Expected: 07/20/2024 (Approximate), Expires: 07/20/2025 Start: 07-20-2024 End: 07-20-2024 Patient encounter procedure 07/20/2024 9:30 AM EST Office Visit [facility] [address] [place] [address] Daniella Lou, [place] [address] [place] [phone] Arrived [facility] Comment on above: Arrived Start: 07-15-2024 End: 07-15-2024 Patient encounter procedure 07/15/2024 9:30 AM EST Office Visit [facility] [address] [place] [address] Daniella Lou, HAT MEASURER [address] [place] [phone] [facility] Start: 06-24-2024 End: 06-24-2024 Patient encounter procedure 06/24/2024 10:30 AM EST Office Visit [facility] [address] [place] [address] Daniella Lou, HAT MEASURER [address] [place] [address] [facility] Start: 05-31-2024 End: 05-31-2024 Patient encounter procedure 05/31/2024 11:30 AM EST Office Visit [facility] [address] [place] [phone] Nayeli Russo NP [address] [place] [address] Arrived [facility] Comment on above: Arrived Start: 05-18-2024 End: 05-18-2024 Patient encounter procedure 05/18/2024 9:30 AM EST Office Visit [facility] [address] [place] [phone] Daniella Lou, [place] [address] [place] [phone] Arrived [facility] Comment on above: Arrived Start: 04-21-2024 End: 04-21-2024 Patient encounter procedure 04/21/2024 10:20 AM EST Office Visit [facility] [address] [place] [address] Renetta Gustafson APRN-PHONE TECHNICIAN [address] [place] [address] [facility] Start: 04-15-2024 End: 04-15-2025 Hemoglobin A1c/Hemoglobin.total in Blood Hemoglobin A1c Lab Routine Type 2 diabetes mellitus with stage 3a chronic kidney disease, without long-term current use of insulin ([facility] ([facility] Expected: 04/15/2024 (Approximate), Expires: 04/15/[address] [facility] Work Phone: Comment on above: Expected: 04/15/2024 (Approximate), Expires: 04/15/2025 Start: 04-15-2024 End: 04-15-2024 Patient encounter procedure [facility] Comment on above: Arrived Start: 03-09-2024 End: 03-09-2024 Patient encounter procedure 03/09/2024 3:30 PM EDT Procedure Visit [facility] [address] [place] [phone] Daniella Lou NP [address] [place] [phone] Arrived [facility] Comment on above: Arrived Start: 02-12-2024 End: 02-12-2024 Patient encounter procedure [facility] Comment on above: Primary hypertension (CMS/HCC) (Primary Dx); Hypothyroidism, unspecified type (CMS/HCC); Type 2 diabetes mellitus with stage 3a chronic kidney disease, without long-term current use of insulin (HCC) (CMS/HCC); Mixed hyperlipidemia (CMS/HCC) Start: 02-08-2024 Influenza vaccination Influenza Vacc ine (#1) [facility] Start: 01-02-2024 Medicare Annual Well ness (AWV) Medicare Annual Wellness (AWV) [facility] Start: 08-06-2023 Hemoglobin A1c measurement Diabetes: Hemoglobin A1C [facility] Start: 1955 Screening for malign ant neoplasm of colon [facility] CBC W Auto Different ial panel - Blood CBC and differential Lab Routine Type 2 diabetes mellitus with stage 3a chronic kidney disease, without long-term current use of insulin (HCC) (CMS/HCC) Primary hypertension ([facility]/HCC) CKD (chronic kidney disease) stage 2, GFR 60-89 ml/min Ordered: 04/15/2024 [facility] Comment on above: Ordered: 04/15/2024 Comprehensive metabo lic 2000 panel - Serum or Plasma Comprehensive metabolic panel Lab Routine Type 2 diabetes mellitus with stage 3a chronic kidney disease, without long-term current use of insulin (HCC) ([facility]/HCC) Primary hypertension ([facility]/HCC) CKD (chronic kidney disease) stage 2, GFR 60-89 ml/min Ordered: 04/15/2024 [facility] Comment on above: Ordered: 04/15/2024 Renal function 2000 panel - Serum or Plasma [facility] US Kidney - bilateral [facility] Immunizations Immunization Date Immunization Notes Care Provider Fa cili 03-30-2024 influenza virus vacc ine, unspecified formulation Daniella Lou NP Work Phone: [facility] 04-21-2023 SARS-COV-2 (COVID-19 ) vaccine, mRNA, spike protein, LNP, PF, 50 mcg/0.5 mL Shaikh Manuel LEYVA Work Phone: [facility] 03-14-2023 Influenza, High-dose Seasonal, Quadrivalent, Preservative Free Shaikh Manuel LEYVA Work Phone: [facility] 03-14-2023 influenza virus vacc ine, unspecified formulation Shaikh Manuel LEYVA Work Phone: [facility] 03-18-2022 tetanus toxoid, redu tasha diphtheria toxoid, and acellular pertussis vaccine, adsorbed Shaikh Manuel LEYVA Work Phone: [facility] 12-31-2021 pneumococcal polysaccharide vaccine, 23 valent Shaikh Manuel LEYVA Work Phone: [facility] 12-12-2020 pneumococcal conjuga te vaccine, 13 valent Shaikh Manuel LEYVA Work Phone: [facility] 02-18-2020 influenza, high dose seasonal, preservative-free Shaikh Manuel LEYVA Work Phone: [facility] 03-03-2019 seasonal influenza, intradermal, preservative free Shaikh Manuel LEYVA Work Phone: [facility] 03-31-2018 influenza, injectabl e, quadrivalent, preservative free Shaikh Manuel LEYVA Work Phone: [facility] 05-18-2016 zoster vaccine, live Shaikh Manuel LEYVA Work Phone: [facility] 03-07-2016 influenza, injectabl e, quadrivalent, preservative free Shaikh Manuel LEYVA Work Phone: [facility] Payers Date Payer Category Payer Medicaid [employer] MEDICARE A DVANTAGE [id number] 2022 Medicare [employer]NA MEDICARE A DVANTAGE A[employer]NA MEDICARE REPLACEMENT [id number] 2022-Present [address] [place] [address] [id number] 1955 Unknown [id number] [id number]3 1955 Unknown [id number] 2.16.840.1.376177.3.579.2.593 1955 Unknown [id number] 2.16.840.1.481537.3.579.2.593 1955 Unknown [id number] 2.16.840.1.358496.3.579.2.593 1955 Unknown [id number] 2.16.840.1.200771.3.579.2.593 1955 Unknown [id number] 2.16.840.1.161051.3.579.2.593 1955 Unknown [id number] 2.16.840.1.128183.3.579.2.593 1955 Unknown [id number] 2.16.840.1.922213.3.579.2.593 1955 Unknown [id number] 2.16.840.1.742960.3.579.2.593 1955 Unknown [id number] 2.16.840.1.085317.3.579.2.593 1955 Unknown [id number] 2.16.840.1.803526.3.579.2.1259 1955 Unknown [id number] 2.16.840.1.121823.3.579.2.1259 1955 Unknown [id number] 2.16.840.1.134002.3.579.2.1258 1955 Unknown [id number] 2.16.840.1.887703.3.579.2.1258 1955 Unknown [id number] 2.16.840.1.312692.3.579.2.1258 1955 Unknown [id number] 2.16.840.1.425306.3.579.2.1258 1955 Unknown [id number] 2.16.840.1.804643.3.579.2.1258 1955 Unknown [id number] 2.16.840.1.691710.3.579.2.1258 1955 Unknown [id number] 2.16.840.1.804506.3.579.2.1258 1955 Unknown [id number] 2.16.840.1.411124.3.579.2.1258 1955 Unknown [id number] 2.16.840.1.158975.3.579.2.1258 1955 Unknown [id number] 2.16.840.1.227587.3.579.2.1258 1955 Unknown [id number] 2.16.840.1.315506.3.579.2.1258 1955 Unknown [id number] 2.16.840.1.729698.3.579.2.1258 1955 Unknown [id number] 2.16.840.1.438908.3.579.2.9 Medicare [id number] Social History Date Type Detail Facility Start: 12-13-2023 End: 08-24-2024 Tobacco smoking status [place]IS Never smoked tobacco (finding) [facility] Start: 1955 Sex Assigned At Female [facility] Start: 01-13-2024 Tobacco smoking status [place] Ex-smoker [facility] Start: 06-09-1973 End: 06-09-1979 History of tobacco use Current smoker [facility] Start: 06-09-1973 End: 06-09-1979 History of tobacco use Cigarette Smoker [facility] Start: 01-06-2024 End: 01-13-2024 Cigarettes smoked current (pack per day) - Reported 0.5 [facility] History of tobacco use Passive smoker [facility] Start: 01-13-2024 Tobacco use and exposure Smokeless tobacco non-user [facility] Start: 02-12-2024 End: 07-20-2024 Alcoholic beverage intake Lifetime non-drinker (finding) [facility] Start: 12-31-2022 End: 01-06-2024 [id number] Health Literacy [facility] How often do you nee d to have someone help you when you read instructions, pamphlets, or other written material from your doctor or pharmacy [SILS] Never [facility] Within the last year , have you been afraid of your partner or ex-partner? No [facility] Do you belong to any clubs or organizations such as lutheran groups, [employer], [employer] or athletic groups, or school groups? Yes [facility] Are you now , , , , never or living with a partner? [facility] How often to you hav e a drink containing alcohol? Monthly or less [facility] How many standard dr inks containing alcohol do you have on a typical day? 1 or 2 [facility] How often do you hav e 6 or more drinks on 1 occasion? Never [facility] How hard is it for y ou to pay for the very basics like food, housing, medical care, and heating Not very hard [facility] Do you feel stress - tense, restless, nervous, or anxious, or unable to sleep at night because your mind is troubled all the time - these days [OSQ] To some extent [facility] (I/We) worried wheth er (my/our) food would run out before (I/we) got money to buy more. Never true [facility] Start: 01-01-2023 Alcohol Comment caffeine: none [facility] Start: 08-21-2022 Gender identity Identifies as female gender (finding) [facility] Start: 12-25-2022 Sexual orientation Heterosexual (finding) [facility] Start: 08-24-2024 Sex Female (finding) [facility] Clinical Notes 06-18-2022 to 07-20-2024 Daniella Lou NP - 07/20/2024 9:50 AM John Lou, [place]ON - 07/20/2024 9:48 AM John Lou, [place]IGHTON - 07/20/2024 9:48 AM John Lou NP - 07/20/2024 9:44 AM EST Note Date & Type Note Facility 07-20-2024 History of Presen t illness Narrative Associated Problem(s): Hyperlipidemia (CMS/HCC) Currently taking Rosuvastatin 5mg Denies any myalgias. Recheck Lipid Panel today. Continue current regimen. Associated Problem(s): Type 2 diabetes mellitus with diabetic chronic kidney disease (CMS/HCC) Currently taking Farxiga 10mg Most recent labs: hemoglobin A1C 6.7% today in office. Average FSBS range from BGs range between 140 and 145 Checks BG levels using: standard fingerstick glucometer No episode of hypoglycemia No medication adverse effects reported by the patient. Patient educated on lifestyle modifications, dietary restrictions, signs and symptoms of hypoglycemia/hyperglycemia and importance of eating regular consistent meals. Stressed upon importance of checking blood glucose at home and bring blood glucose log to appointments. All questions, concerns answered and addressed. Encouraged to call office if persistent hypoglycemia/hyperglycemia on home glucose monitoring noted. Associated Problem(s): Stage 3b chronic kidney disease (HCC) (CMS/HCC) Has appointment scheduled with Nephrology in August. Most recent Creatinine: 1.51 eGFR: 34 Currently taking Farxiga 10mg. Continue to monitor closely. Avoid Nephrotoxic Agents. Associated Problem(s): Primary hypertension (CMS/HCC) Currently taking Losartan 25mg Atenolol 50mg Checks BP at home occasionally; Averages are 120's-130's. Denies orthostatic changes, dizziness, cough, shortness of breath, swelling in extremities. Continue current regimen. Given BP log, advised pt to record BP and bring log back with them to next visit. Images from the original note were not included. Subjective Patient ID: Italia Elaine is a 68 y.o. female who presents for Follow-up. HPI HTN: Currently taking Losartan 25mg Atenolol 50mg Checks BP at home occasionally; Averages are 120's-130's. Denies orthostatic changes, dizziness, cough, shortness of breath, swelling in extremities. Continue current regimen. Given BP log, advised pt to record BP and bring log back with them to next visit. HLD: Currently taking Rosuvastatin 5mg Denies any myalgias. Recheck Lipid Panel today. Continue current regimen. DMII: Currently taking Farxiga 10mg Most recent labs: hemoglobin A1C 6.7% today in office. Average FSBS range from BGs range between 140 and 145 Checks BG levels using: standard fingerstick glucometer No episode of hypoglycemia No medication adverse effects reported by the patient. Patient educated on lifestyle modifications, dietary restrictions, signs and symptoms of hypoglycemia/hyperglycemia and importance of eating regular consistent meals. Stressed upon importance of checking blood glucose at home and bring blood glucose log to appointments. All questions, concerns answered and addressed. Encouraged to call office if persistent hypoglycemia/hyperglycemia on home glucose monitoring noted. Education: Check blood sugars daily, notify if <70 or >200. Take medications (pills or insulin) as directed. Monitor for s/s of hypoglycemia (sweaty, dizziness, nausea, vomiting, or shakiness). Watch for increase in thirst, urination, or appetite. Inspect feet frequently monitoring for open wounds , and also recommend yearly eye exam. Pt should attempt to remain as physically active as chronic conditions allow, as well as trying to follow a diet low in carbohydrates, and simple sugars. Review of Systems Constitutional: Negative for activity change, appetite change, chills, diaphoresis, fatigue, fever and unexpected weight change. HENT: Negative for congestion, ear pain, rhinorrhea, sinus pressure, sinus pain, sneezing, sore throat, trouble swallowing and voice change. Eyes: Negative for visual disturbance. Respiratory: Negative for cough, chest tightness, shortness of breath and wheezing. Cardiovascular: Negative for chest pain, palpitations and leg swelling. Gastrointestinal: Negative for abdominal distention, abdominal pain, blood in stool, constipation, diarrhea and vomiting. Genitourinary: Negative for decreased urine volume, dysuria, flank pain, frequency, hematuria and urgency. Musculoskeletal: Negative for arthralgias, gait problem, joint swelling and myalgias. Skin: Negative for rash. Neurological: Negative for dizziness, tremors, syncope, weakness, light-headedness and headaches. Psychiatric/Behavioral: Negative for decreased concentration and suicidal ideas. The patient is not nervous/anxious. Hematological: Does not bruise/bleed easily. Endocrine: Negative for cold intolerance, heat intolerance, polydipsia, polyphagia and polyuria. Objective Physical Exam Vitals reviewed. Constitutional: Appearance: Normal appearance. HENT: Right Ear: Tympanic membrane normal. Left Ear: Tympanic membrane normal. Nose: Nose normal. Mouth/Throat: Mouth: Mucous membranes are moist. Pharynx: Oropharynx is clear. Eyes: Pupils: Pupils are equal, round, and reactive to light. Cardiovascular: Rate and Rhythm: Normal rate and regular rhythm. Pulses: Normal pulses. Heart sounds: Normal heart sounds. Pulmonary: Effort: Pulmonary effort is normal. Breath sounds: Normal breath sounds. Abdominal: General: Abdomen is flat. Bowel sounds are normal. Palpations: Abdomen is soft. Musculoskeletal: General: Normal range of motion. Skin: General: Skin is warm and dry. Capillary Refill: Capillary refill takes less than 2 seconds. Neurological: Mental Status: She is alert and oriented to person, place, and time. Assessment/Plan Problem List Items Addressed This Visit Hyperlipidemia (CMS/HCC) Currently taking Rosuvastatin 5mg Denies any myalgias. Recheck Lipid Panel today. Continue current regimen. Primary hypertension (CMS/HCC) Currently taking Losartan 25mg Atenolol 50mg Checks BP at home occasionally; Averages are 120's-130's. Denies orthostatic changes, dizziness, cough, shortness of breath, swelling in extremities. Continue current regimen. Given BP log, advised pt to record BP and bring log back with them to next visit. Type 2 diabetes mellitus with diabetic chronic kidney disease ([facility] [place]) Currently taking Farxiga 10mg Most recent labs: hemoglobin A1C 6.7% today in office. Average FSBS range from BGs range between 140 and 145 Checks BG levels using: standard fingerstick glucometer No episode of hypoglycemia No medication adverse effects reported by the patient. Patient educated on lifestyle modifications, dietary restrictions, signs and symptoms of hypoglycemia/hyperglycemia and importance of eating regular consistent meals. Stressed upon importance of checking blood glucose at home and bring blood glucose log to appointments. All questions, concerns answered and addressed. Encouraged to call office if persistent hypoglycemia/hyperglycemia on home glucose monitoring noted. Stage 3b chronic kidney disease (HCC) ([facility] [place]) - Primary Has appointment scheduled with Nephrology in August. Most recent Creatinine: 1.51 eGFR: 34 Currently taking Farxiga 10mg. Continue to monitor closely. Avoid Nephrotoxic Agents. documented in this encounter [facility] 05-31-2024 History of Presen t illness Narrative Associated Problem(s): Stage 3b chronic kidney disease (HCC) ([facility] [place]) Continue monitoring Associated Problem(s): Primary hypertension ([facility]/HCC) Please check blood pressure daily and record DASH diet Limit caffeine Take medication as directed Contact office if chest pain, pressure, dizziness, shortness of breath, swelling legs Recommend slow position changes Continue current meds Associated Problem(s): Acute bronchitis Some help with steroids and tessalon Will now treat with atb (mucus is green/blood tinged) no sunil hemoptysis Pt instructed to call office if not better next week and order cxr if needed Also instructed to keep fu appt in 3 weeks to see if blood tinged sputum resolved or not Add albuterol inhaler, increase tessalon to 200mg dose Pt was here on 05/18 for bronchitis. Pt states she no longer has a fever however she does still have a cough and is coughing large green mucus sometimes with blood. Pt states she has some inc with the coughing. Pt has post nasal drip and headaches. Pt had diarrhea today and unsure if it was due to eating too much yesterday. Pt is having sob and tightness in her chest. Answers submitted by the patient for this visit: Cough Questionnaire (Submitted on 05/31/2024) Chief Complaint: Cough Chronicity: new Onset: 1 to 4 weeks ago Progression since onset: waxing and waning Frequency: every few minutes Cough characteristics: productive of sputum, productive of blood-tinged sputum, productive of purulent sputum postnasal drip: Yes shortness of breath: Yes wheezing: Yes Aggravated by: lying down Images from the original note were not included. Italia Elaine is a 68 y.o. female presents with chief complaint of Bronchitis HPI: Cough This is a new problem. The current episode started 1 to 4 weeks ago. The problem has been waxing and waning. The problem occurs every few minutes. The cough is Productive of sputum, productive of blood-tinged sputum and productive of purulent sputum. Associated symptoms include postnasal drip, rhinorrhea, shortness of breath and wheezing. Pertinent negatives include no chest pain, ear congestion, ear pain, fever, headaches, hemoptysis, sore throat or weight loss. The symptoms are aggravated by lying down. Treatments tried: steroids and tessalon pearles. The treatment provided mild relief. Her past medical history is significant for environmental allergies. There is no history of asthma or COPD. SUBJECTIVE: MEDICATIONS: Current Outpatient Medications Medication Instructions albuterol HFA 90 mcg/act inhaler 2 puffs, Inhalation, Every 6 hours PRN atenolol (TENORMIN) 50 mg, Oral, Daily benzonatate (TESSALON) 200 mg, Oral, 3 times daily PRN, Take with full glass of water. Do not crush or chew. cefdinir (OMNICEF) 300 mg, Oral, 2 times daily cetirizine (ZYRTEC) 10 mg, Oral, Daily Farxiga 10 mg, Oral, Daily fluticasone (Flonase) 50 MCG/ACT nasal spray 1-2 sprays, Each Nostril, Daily, Shake gently. Before first use, prime pump. After use, clean tip and replace cap. levothyroxine (SYNTHROID, LEVOXYL) 88 mcg, Oral, Daily before breakfast losartan (COZAAR) 25 mg, Oral, Daily RT rosuvastatin (CRESTOR) 5 mg, Oral, Daily ALLERGIES: Allergies Allergen Reactions Codeine Unknown REVIEW OF SYMPTOMS: Review of Systems Constitutional: Negative for activity change, appetite change, fever, night sweats and weight loss. HENT: Positive for postnasal drip and rhinorrhea. Negative for congestion, ear pain, mouth sores, nosebleeds, sinus pressure and sore throat. Eyes: Negative. Respiratory: Positive for cough, shortness of breath and wheezing. Negative for hemoptysis and chest tightness. Cardiovascular: Negative for chest pain. Gastrointestinal: Positive for diarrhea. Genitourinary: Negative. Musculoskeletal: Negative. Neurological: Negative for headaches. Psychiatric/Behavioral: Negative. Hematological: Negative. Endocrine: Negative. Allergic/Immunologic: Positive for environmental allergies. 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 Dr Barney Blurred vision Bronchitis Bursitis of right hip 2009 Carpal tunnel syndrome 2002 Colon polyp (tubular adenoma)04/18/14 Essential (primary) hypertension (CMS/HCC) Fibromyositis Sebastian's thyroiditis (CMS/HCC) 2008 HL (hearing loss) Hypothyroidism (acquired) (CMS/HCC) Kidney stone 2005 Menopause Mild depression (CMS/HCC) Obesity Onychomycosis of toenail Palpitations Pelvic pain syndrome suspect nerve impingement Sinusitis Strep throat Tobacco dependence in remission Type 2 diabetes mellitus (CMS/HCC) Past Surgical History: Procedure Laterality Date COLONOSCOPY 04/15/2014 2 polyps-tubular adenoma COLONOSCOPY 06/2019 4 mm polyp in the ascending colon. Repeat colonoscopy in [address] Wells DILATION AND CURETTAGE LASER ABLATION Left 11/12/2022 Lower back LASER ABLATION Right 11/05/2022 Lower back TONSILLECTOMY TUBAL LIGATION 1982 family history includes Alzheimer's disease in her mother; Cancer in her daughter, paternal grandmother, and sister; Cervical cancer in her maternal grandmother; Diabetes in her mother and sibling; Heart attack in her father; Heart disease in her father and mother; Hypertension in her father; Mental illness in her mother; Prostate cancer in her father; black lung disease in her maternal grandfather. OBJECTIVE: Visit Vitals BP 132/82 (BP Location: Left arm, Patient Position: Sitting, BP Cuff Size: Adult long) Pulse 73 Temp 98.3 F (Temporal) Resp 19 Ht 5' 8 Wt 230 lb SpO2 96% BMI 34.97 kg/m OB Status Postmenopausal Smoking Status Former BSA 2.23 m Physical Exam Vitals and nursing note reviewed. Constitutional: General: She is not in acute distress. Appearance: Normal appearance. She is obese. HENT: Head: Normocephalic and atraumatic. Right Ear: Tympanic membrane, ear canal and external ear normal. Left Ear: Tympanic membrane, ear canal and external ear normal. Nose: Rhinorrhea present. No congestion. Mouth/Throat: Mouth: Mucous membranes are moist. Pharynx: No oropharyngeal exudate or posterior oropharyngeal erythema. Eyes: Extraocular Movements: Extraocular movements intact. Conjunctiva/sclera: Conjunctivae normal. Cardiovascular: Rate and Rhythm: Normal rate and regular rhythm. Pulses: Normal pulses. Heart sounds: Normal heart sounds. Pulmonary: Effort: Pulmonary effort is normal. Breath sounds: No wheezing. Comments: Diminished, with deep cough Abdominal: General: Bowel sounds are normal. There is no distension. Palpations: Abdomen is soft. There is no mass. Tenderness: There is no abdominal tenderness. Musculoskeletal: General: Normal range of motion. Cervical back: Normal range of motion and neck supple. Right lower leg: No edema. Left lower leg: No edema. Lymphadenopathy: Cervical: No cervical adenopathy. Skin: General: Skin is warm and dry. Capillary Refill: Capillary refill takes 2 to 3 seconds. Findings: No rash. Neurological: General: No focal deficit present. Mental Status: She is alert and oriented to person, place, and time. Psychiatric: Mood and Affect: Mood normal. Behavior: Behavior normal. Thought Content: Thought content normal. Judgment: Judgment normal. ASSESSMENT AND PLAN: Follow up in about 3 weeks (around 06/21/2024) for Recheck. Problem List Items Addressed This Visit Obesity (BMI 30.0-34.9) Primary hypertension ([facility] [place]) Please check blood pressure daily and record DASH diet Limit caffeine Take medication as directed Contact office if chest pain, pressure, dizziness, shortness of breath, swelling legs Recommend slow position changes Continue current meds Stage 3b chronic kidney disease (HCC) (CMS/HCC) Continue monitoring Acute bronchitis - Primary Some help with steroids and tessalon Will now treat with atb (mucus is green/blood tinged) no sunil hemoptysis Pt instructed to call office if not better next week and order cxr if needed Also instructed to keep fu appt in 3 weeks to see if blood tinged sputum resolved or not Add albuterol inhaler, increase tessalon to 200mg dose Relevant Medications cefdinir (Omnicef) 300 MG capsule albuterol HFA 90 mcg/act inhaler benzonatate (Tessalon) 200 MG capsule documented in this encounter [facility] 05-31-2024 Instructions Nayeli Russo NP - 05/31/2024 11:30 AM EST Will have you completed cefdinir 300mg twice a day for 10 days Add albuterol inhaler 2 puffs every 6 hours as needed for wheezing or shortness of breath documented in this encounter [facility] 05-18-2024 History of Presen t illness Narrative Associated Problem(s): URI (upper respiratory infection) Cough- mostly dry Fever 101.2 at home /100.8 in office/Fatigue/Body aches/Headache/Runny nose/Decreased appetite. Harsh dry cough auscultated in office,. Tested negative at home for COVID. Negative in office for Flu. Likely viral etiology. Steroids and tessalon pearles sent in. Continue Flonase and zyrtec. Worsening symptoms, shortness of breath, chest pain, go to er. Pt verbalized understanding. Images from the original note were not included. Subjective Patient ID: Italia Elaine is a 68 y.o. female who presents for Cough. HPI Cough- mostly dry Fever 101.2 at home 100.8 in office Fatigue Body aches Headache Runny nose Decreased appetite Denies: Sore throat Ear ache N/V/D Review of Systems Constitutional: Positive for appetite change, fatigue and fever. HENT: Positive for rhinorrhea. Negative for ear pain, sinus pressure, sinus pain, trouble swallowing and voice change. Eyes: Negative for discharge, redness, itching and visual disturbance. Respiratory: Positive for cough. Negative for chest tightness, shortness of breath and wheezing. Gastrointestinal: Negative for constipation and diarrhea. Musculoskeletal: Positive for myalgias. Neurological: Negative for dizziness and light-headedness. Objective Physical Exam Vitals reviewed. Constitutional: Appearance: Normal appearance. She is normal weight. HENT: Right Ear: Tympanic membrane normal. Left Ear: Tympanic membrane normal. Nose: Nose normal. Mouth/Throat: Mouth: Mucous membranes are moist. Pharynx: Oropharynx is clear. Eyes: Pupils: Pupils are equal, round, and reactive to light. Cardiovascular: Rate and Rhythm: Normal rate and regular rhythm. Pulses: Normal pulses. Heart sounds: Normal heart sounds. Pulmonary: Effort: Pulmonary effort is normal. Breath sounds: Normal breath sounds. Abdominal: General: Abdomen is flat. Bowel sounds are normal. Palpations: Abdomen is soft. Neurological: Mental Status: She is alert. Assessment/Plan Problem List Items Addressed This Visit URI (upper respiratory infection) Cough- mostly dry Fever 101.2 at home /100.8 in office/Fatigue/Body aches/Headache/Runny nose/Decreased appetite. Harsh dry cough auscultated in office,. Tested negative at home for COVID. Negative in office for Flu. Likely viral etiology. Steroids and tessalon pearles sent in. Continue Flonase and zyrtec. Worsening symptoms, shortness of breath, chest pain, go to er. Pt verbalized understanding. Relevant Medications benzonatate (Tessalon Perles) 100 MG capsule methylPREDNISolone (Medrol Dospak) 4 MG tablets Acute bronchitis - Primary Relevant Medications benzonatate (Tessalon Perles) 100 MG capsule methylPREDNISolone (Medrol Dospak) 4 MG tablets documented in this encounter [facility] 05-18-2024 Instructions Daniella Lou NP - 05/18/2024 9:30 AM EST Continue to rest, drink plenty of fluids, and eat a well-balance diet. Resume normal activity. AVOID anything strenuous until you are feeling better. Treatment: Nasal saline spray 2-3 times/day Cold and sinus medication - if you have high blood pressure issues use coricidin hbp Zyrtec allergy medication once daily. Flonase nasal spray 1-2 squirts in each nostril at night. Tylenol for fever and body aches. Tessalon Pearles up to three times per day for cough Vitamins: Vitamin C 1,000mg per day. Vitamin D3 2,000 international unit(s) per day.Zinc 25mg per day. WORSENING SYMPTOMS, CHEST PAIN, OR SHORTNESS OF BREATH, GO TO THE NEAREST EMERGENCY DEPARTMENT. documented in this encounter [facility] 05-11-2024 Telephone encount er Note ANASTACIA:04/15/2024 NOV:07/15/2024 [facility] 05-11-2024 Miscellaneous Notes Formattin g of this note might be different from the original. ANASTACIA:04/15/2024 NOV:07/15/2024 documented in this encounter [facility] 04-21-2024 History of Presen t illness Narrative Lesions: Location: left forehead Duration: 1 month Quality: denies pain, denies itch, denies bleeding Modifying factors: aggravated by picking, aggravated by hairbrush Associated symptoms: non-healing Treatments: none Lesion # 2: Location: left buccal cheek Duration: 2 months Quality: denies pain, denies itch, denies bleeding Modifying factors: aggravated by picking Associated symptoms: non-healing Treatments: cryotherapy Established patient All pertinent medical history, medications, and allergies were reviewed. General Exam: alert, oriented to person, place, and time, normal affect, well appearing Unaccompanied A focused exam completed based on patient reported problems, see below: 1. Inflamed seborrheic keratosis (2) Left Buccal Cheek, Left Temporal Scalp Inflamed seborrheic keratoses: pink and brown stuck on verrucous scaly papule with surrounding erythema and bloody crust. The patient was informed that symptomatic seborrheic keratoses are benign growths that become inflamed, itchy, tender, traumatized, caught on clothing, or bleed. Symptomatic lesions can be treated with cryotherapy or curretage. Thicker lesions treated with cryotherapy may require more than one treatment. The patient was instructed to notify the office if abnormal redness or tenderness develops at the treatment site. Cryotherapy today, see procedure note. Diagnosis: Inflamed seborrheic keratosis Indication: Inflamed Consent: Verbal consent was obtained and risks were discussed, including, but not limited to risks of scarring, darker or mail messenger contractor pigmentary changes, recurrence, incomplete removal and infection. Method: Liquid nitrogen was used to treat the lesion(s) with two 5-10 second freeze-thaw cycles Number of lesions treated: 2 Post-procedure instructions: Instructions were given orally and in writing. The office will be contacted if the lesion fails to resolve despite treatment, or if a side effect develops such as abnormal crusting, scabbing, redness or tenderness Cryotherapy, skin lesion - Left Buccal Cheek, Left Temporal Scalp Next Visit: as scheduled documented in this encounter [facility] 04-15-2024 History of Presen t illness Narrative Associated Problem(s): CKD (chronic kidney disease) stage 2, GFR 60-89 ml/min Currently taking taking Farxiga 10mg CKD stable. Avoid Nephrotoxic Agents. Continue to monitor closely. Associated Problem(s): Type 2 diabetes mellitus with diabetic chronic kidney disease (CMS/HCC) Currently taking Farxiga 10mg Most recent labs: hemoglobin A1C 6.2% Average FSBS range from BGs range between 120 and 130 Checks BG levels using: standard fingerstick glucometer No episode of hypoglycemia No medication adverse effects reported by the patient. Patient educated on lifestyle modifications, dietary restrictions, signs and symptoms of hypoglycemia/hyperglycemia and importance of eating regular consistent meals. Stressed upon importance of checking blood glucose at home and bring blood glucose log to appointments. All questions, concerns answered and addressed. Encouraged to call office if persistent hypoglycemia/hyperglycemia on home glucose monitoring noted. Associated Problem(s): Hyperlipidemia (CMS/HCC) Currently taking Rosuvastatin 5mg Denies any myalgias. Continue current regimen. Associated Problem(s): Primary hypertension (CMS/HCC) Currently taking Losartan 25mg Atenolol 50mg Checks BP at home; Averages are 120's-130's. Denies orthostatic changes, dizziness, cough, shortness of breath, swelling in extremities. Continue current regimen. Given BP log, advised pt to record BP and bring log back with them to next visit. Images from the original note were not included. Subjective Patient ID: Italia Elaine is a 68 y.o. female who presents for Follow-up. HPI HTN: Currently taking Losartan 25mg Atenolol 50mg Checks BP at home; Averages are 120's-130's. Denies orthostatic changes, dizziness, cough, shortness of breath, swelling in extremities. Continue current regimen. Given BP log, advised pt to record BP and bring log back with them to next visit. HLD: Currently taking Rosuvastatin 5mg Denies any myalgias. Continue current regimen. Component Ref Range & Units 8 mo ago TRIGLYCERIDES <=150 mg/dL 82 CHOLESTEROL <=200 mg/dL 142 HDL CHOLESTEROL 40 - 60 mg/dL 52 Comment: > or =60 mg/dl - LOW CARDIOVASCULAR RISK <40 mg/dl - HIGH CARDIOVASCULAR RISK LDL CHOLESTEROL CALCULATED mg/dL 73.6 Comment: <100 mg/dl OPTIMAL 100-129 mg/dl NEAR OR ABOVE OPTIMAL 130-159 mg/dl BORDERLINE HIGH 160-189 mg/dl HIGH >190 mg/dl VERY HIGH VLDL CHOLESTEROL mg/dL 16.4 CHOL HDL RATIO 2.7 Comment: 3.3 - 4.4 LOW RISK 4.4 - 7.1 AVERAGE RISK 7.1 - 11.0 MODERATE RISK >11.0 HIGH RISK Resulting Agency [facility] DMII: Most recent labs: hemoglobin A1C 6.2% Average FSBS range from BGs range between 120 and 130 Checks BG levels using: standard fingerstick glucometer No episode of hypoglycemia No medication adverse effects reported by the patient. Patient educated on lifestyle modifications, dietary restrictions, signs and symptoms of hypoglycemia/hyperglycemia and importance of eating regular consistent meals. Stressed upon importance of checking blood glucose at home and bring blood glucose log to appointments. All questions, concerns answered and addressed. Encouraged to call office if persistent hypoglycemia/hyperglycemia on home glucose monitoring noted. Education: Check blood sugars daily, notify if <70 or >200. Take medications (pills or insulin) as directed. Monitor for s/s of hypoglycemia (sweaty, dizziness, nausea, vomiting, or shakiness). Watch for increase in thirst, urination, or appetite. Inspect feet frequently monitoring for open wounds , and also recommend yearly eye exam. Pt should attempt to remain as physically active as chronic conditions allow, as well as trying to follow a diet low in carbohydrates, and simple sugars. Review of Systems Constitutional: Negative for activity change, appetite change, chills, diaphoresis, fatigue, fever and unexpected weight change. HENT: Negative for congestion, ear pain, rhinorrhea, sinus pressure, sinus pain, sneezing, sore throat, trouble swallowing and voice change. Eyes: Negative for visual disturbance. Respiratory: Negative for cough, chest tightness, shortness of breath and wheezing. Cardiovascular: Negative for chest pain, palpitations and leg swelling. Gastrointestinal: Negative for abdominal distention, abdominal pain, blood in stool, constipation, diarrhea and vomiting. Genitourinary: Negative for decreased urine volume, dysuria, flank pain, frequency, hematuria and urgency. Musculoskeletal: Negative for arthralgias, gait problem, joint swelling and myalgias. Skin: Negative for rash. Neurological: Negative for dizziness, tremors, syncope, weakness, light-headedness and headaches. Psychiatric/Behavioral: Negative for decreased concentration and suicidal ideas. The patient is not nervous/anxious. Hematological: Does not bruise/bleed easily. Endocrine: Negative for cold intolerance, heat intolerance, polydipsia, polyphagia and polyuria. Objective Physical Exam Vitals reviewed. Constitutional: Appearance: Normal appearance. HENT: Head: Normocephalic and atraumatic. Right Ear: Tympanic membrane normal. Left Ear: Tympanic membrane normal. Nose: Nose normal. Mouth/Throat: Mouth: Mucous membranes are moist. Pharynx: Oropharynx is clear. Eyes: Pupils: Pupils are equal, round, and reactive to light. Cardiovascular: Rate and Rhythm: Normal rate and regular rhythm. Pulses: Normal pulses. Heart sounds: Normal heart sounds. Pulmonary: Effort: Pulmonary effort is normal. Breath sounds: Normal breath sounds. Abdominal: General: Abdomen is flat. Bowel sounds are normal. Palpations: Abdomen is soft. Musculoskeletal: General: Normal range of motion. Cervical back: Normal range of motion. Skin: General: Skin is warm and dry. Capillary Refill: Capillary refill takes less than 2 seconds. Neurological: General: No focal deficit present. Mental Status: She is alert and oriented to person, place, and time. Psychiatric: Mood and Affect: Mood normal. Behavior: Behavior normal. Assessment/Plan Problem List Items Addressed This Visit Hyperlipidemia (CMS/HCC) Currently taking Rosuvastatin 5mg Denies any myalgias. Continue current regimen. Primary hypertension (CMS/HCC) Currently taking Losartan 25mg Atenolol 50mg Checks BP at home; Averages are 120's-130's. Denies orthostatic changes, dizziness, cough, shortness of breath, swelling in extremities. Continue current regimen. Given BP log, advised pt to record BP and bring log back with them to next visit. Relevant Orders CBC and differential Comprehensive metabolic panel Type 2 diabetes mellitus with diabetic chronic kidney disease (CMS/HCC) - Primary Currently taking Farxiga 10mg Most recent labs: hemoglobin A1C 6.2% Average FSBS range from BGs range between 120 and 130 Checks BG levels using: standard fingerstick glucometer No episode of hypoglycemia No medication adverse effects reported by the patient. Patient educated on lifestyle modifications, dietary restrictions, signs and symptoms of hypoglycemia/hyperglycemia and importance of eating regular consistent meals. Stressed upon importance of checking blood glucose at home and bring blood glucose log to appointments. All questions, concerns answered and addressed. Encouraged to call office if persistent hypoglycemia/hyperglycemia on home glucose monitoring noted. Relevant Orders Hemoglobin A1c CBC and differential Comprehensive metabolic panel CKD (chronic kidney disease) stage 2, GFR 60-89 ml/min Currently taking taking Farxiga 10mg CKD stable. Avoid Nephrotoxic Agents. Continue to monitor closely. Relevant Orders CBC and differential Comprehensive metabolic panel documented in this encounter [facility] 04-15-2024 Instructions Daniella Lou NP - 04/15/2024 9:00 AM EST FASTING labs ordered. Nothing to eat or drink for 12 hours prior to blood draw. Water and black coffee ok. Your blood pressure is GOOD in the office today. Check your blood pressure at home 3 times per week, preferably in the afternoon. Goal <130/90. Record results in blood pressure log. Bring back with you to your next visit. documented in this encounter [facility] 04-06-2024 Telephone encount er Note Pt requesting refills ANASTACIA:03/04/2024 NOV:04/15/2024 [facility] 04-06-2024 Miscellaneous Notes Formattin g of this note might be different from the original. Pt requesting refills ANASTACIA:03/04/2024 NOV:04/15/2024 documented in this encounter [facility] 03-09-2024 History of Presen t illness Narrative Associated Problem(s): Actinic keratosis Cryotherapy performed in office today. Discussed treatment and monitoring with patient. Images from the original note were not included. Subjective Patient ID: Italia Elaine is a 68 y.o. female who presents for No chief complaint on file.. HPI Here today for cryotherapy for actinic keratosis to L side of face. Review of Systems Constitutional: Negative for activity change, appetite change, chills, diaphoresis, fatigue, fever and unexpected weight change. HENT: Negative for congestion, ear pain, rhinorrhea, sinus pressure, sinus pain, sneezing, sore throat, trouble swallowing and voice change. Eyes: Negative for visual disturbance. Respiratory: Negative for cough, chest tightness, shortness of breath and wheezing. Cardiovascular: Negative for chest pain, palpitations and leg swelling. Gastrointestinal: Negative for abdominal distention, abdominal pain, blood in stool, constipation, diarrhea and vomiting. Genitourinary: Negative for decreased urine volume, dysuria, flank pain, frequency, hematuria and urgency. Musculoskeletal: Negative for arthralgias, gait problem, joint swelling and myalgias. Skin: Negative for rash. Actinic keratosis to L side of face Neurological: Negative for dizziness, tremors, syncope, weakness, light-headedness and headaches. Psychiatric/Behavioral: Negative for decreased concentration and suicidal ideas. The patient is not nervous/anxious. Hematological: Does not bruise/bleed easily. Endocrine: Negative for cold intolerance, heat intolerance, polydipsia, polyphagia and polyuria. Objective Physical Exam Vitals reviewed. Constitutional: Appearance: Normal appearance. HENT: Head: Normocephalic and atraumatic. Right Ear: Tympanic membrane normal. Left Ear: Tympanic membrane normal. Nose: Nose normal. Mouth/Throat: Mouth: Mucous membranes are moist. Pharynx: Oropharynx is clear. Eyes: Pupils: Pupils are equal, round, and reactive to light. Cardiovascular: Rate and Rhythm: Normal rate and regular rhythm. Pulses: Normal pulses. Heart sounds: Normal heart sounds. Pulmonary: Effort: Pulmonary effort is normal. Breath sounds: Normal breath sounds. Abdominal: General: Abdomen is flat. Bowel sounds are normal. Palpations: Abdomen is soft. Musculoskeletal: General: Normal range of motion. Cervical back: Normal range of motion. Skin: General: Skin is warm and dry. Capillary Refill: Capillary refill takes less than 2 seconds. Findings: Lesion present. Comments: Actinic keratosis to L side of face. Cryotherapy Neurological: General: No focal deficit present. Mental Status: She is alert and oriented to person, place, and time. Psychiatric: Mood and Affect: Mood normal. Behavior: Behavior normal. Assessment/Plan Problem List Items Addressed This Visit None Visit Diagnoses Actinic keratosis - Primary documented in this encounter [facility] 02-12-2024 History of Presen t illness Narrative Images from the original note were not included. Subjective : Chief Complaint: Italia Elaine is an 68 y.o. female here for an annual wellness visit. I have reviewed and reconciled the history and medication list with the patient today. Current Outpatient Medications Medication Sig Dispense Refill atenolol (Tenormin) 50 MG tablet Take 1 tablet (50 mg) by mouth Daily 90 tablet 1 cetirizine (ZyrTEC) 10 MG tablet Take 1 tablet (10 mg) by mouth Daily 90 tablet 2 dapagliflozin (Farxiga) 10 MG Take 1 tablet (10 mg) by mouth Daily 90 tablet 0 fluticasone (Flonase) 50 MCG/ACT nasal spray Administer 1-2 sprays into each nostril Daily Shake gently. Before first use, prime pump. After use, clean tip and replace cap. 16 g 2 levothyroxine (Synthroid, Levoxyl) 88 MCG tablet Take 1 tablet (88 mcg) by mouth in the morning. Take before meals. 90 tablet 1 losartan (Cozaar) 25 MG tablet Take 1 tablet (25 mg) by mouth in the morning. 90 tablet 1 rosuvastatin (Crestor) 5 MG tablet Take 1 tablet (5 mg) by mouth Daily 90 tablet 1 No current facility-administered medications for this visit. Review of Systems Constitutional: Negative for activity change, appetite change, chills, diaphoresis, fatigue, fever and unexpected weight change. HENT: Negative for congestion, ear pain, rhinorrhea, sinus pressure, sinus pain, sneezing, sore throat, trouble swallowing and voice change. Eyes: Negative for visual disturbance. Respiratory: Negative for cough, chest tightness, shortness of breath and wheezing. Cardiovascular: Negative for chest pain, palpitations and leg swelling. Gastrointestinal: Negative for abdominal distention, abdominal pain, blood in stool, constipation, diarrhea and vomiting. Genitourinary: Negative for decreased urine volume, dysuria, flank pain, frequency, hematuria and urgency. Musculoskeletal: Negative for arthralgias, gait problem, joint swelling and myalgias. Skin: Negative for rash. Neurological: Negative for dizziness, tremors, syncope, weakness, light-headedness and headaches. Psychiatric/Behavioral: Negative for decreased concentration and suicidal ideas. The patient is not nervous/anxious. Hematological: Does not bruise/bleed easily. Endocrine: Negative for cold intolerance, heat intolerance, polydipsia, polyphagia and polyuria. List of current healthcare providers: Patient Care Team: Jono Fong MD as PCP - General (Family Medicine) Shaikh Manuel MD as PCP - Prema Lou NP as Nurse Practitioner (Family Medicine) Medicare Annual Visit Over the past 2 weeks, how often have you been bothered by any of the following problems? Little interest or pleasure in doing things: Not at all Feeling down, depressed, or hopeless: Not at all Patient Health Questionnaire-2 Score: 0 Over the past 2 weeks, how often have you been bothered by any of the following problems? Trouble falling or staying asleep, or sleeping too much: Not at all Feeling tired or having little energy: Not at all Poor appetite or overeating: Not at all Feeling bad about yourself - or that you are a failure or have let yourself or your family down: Not at all Trouble concentrating on things, such as reading the newspaper or watching television: Not at all Moving or speaking so slowly that other people could have noticed? Or the opposite - being so fidgety or restless that you have been moving around a lot more than usual.: Not at all Thoughts that you would be better off or hurting yourself in some way: Not at all Patient Health Questionnaire-9 Score: 0 Valdes Fall Risk History of Falling, Immediate or Within 3 Months: No Secondary Diagnosis: No Ambulatory Aid: Walks without aid/bedrest/nurse assist Intravenous Therapy/Heparin Lock: No Gait/Transferring: Normal/bedrest/immobile Mental Status: Oriented to own ability Valdes Fall Risk Score: 0 Health Risk Assessment Form Do you need help eating, bathing, using the toilet, dressing, or getting around your home?: No Can you prepare your own meals?: Yes Can you do your own housework without help?: Yes Can you shop for groceries or clothes without help?: Yes Do you exercise for about 20 minutes 3 or more days a week?: No How confident are you that you can control and manage most of your health problems?: Very confident Can you mange your money, credit cards and accounts, pay bills and taxes?: Yes Vision Screening: Yes, patient sees regular mycologist/hrbp Hearing Screening: Has some hearing loss Cognitive Screening Self Assessment: No overt cognitive deficiency is apparent by direct observation (PT DID SEE SPECIALIST ANDDECLINED HEARING AIDES RIGHT NOW DUE TO COST) Three Word Registration: Apple, Watch, Emma Clock Drawing: Normal Clock - 2 Three Word Recall: All 3 words correct - 3 Total Score (0-5 Points): 5 Pain Assessment Pain Score: 0 - No pain Advance Care Planning Do you have a living will?: Yes Do you have a medical power of state's attorney?: Yes Who is your medical power of state's attorney?: SPOUSE ADRIANA ELAINE Objective : BP 130/80 (BP Location: Left arm, Patient Position: Sitting, BP Cuff Size: Large adult) Pulse 61 Comment: 95% O2 Temp 97 F (Tympanic) Ht 5' 6 Wt 234 lb BMI 37.77 kg/m No results found. Physical Exam Vitals reviewed. Constitutional: Appearance: Normal appearance. HENT: Head: Normocephalic and atraumatic. Right Ear: Tympanic membrane normal. Left Ear: Tympanic membrane normal. Nose: Nose normal. Mouth/Throat: Mouth: Mucous membranes are moist. Pharynx: Oropharynx is clear. Eyes: Pupils: Pupils are equal, round, and reactive to light. Cardiovascular: Rate and Rhythm: Normal rate and regular rhythm. Pulses: Normal pulses. Heart sounds: Normal heart sounds. Pulmonary: Effort: Pulmonary effort is normal. Breath sounds: Normal breath sounds. Abdominal: General: Abdomen is flat. Bowel sounds are normal. Palpations: Abdomen is soft. Musculoskeletal: General: Normal range of motion. Cervical back: Normal range of motion. Skin: General: Skin is warm and dry. Capillary Refill: Capillary refill takes less than 2 seconds. Neurological: General: No focal deficit present. Mental Status: She is alert and oriented to person, place, and time. Psychiatric: Mood and Affect: Mood normal. Behavior: Behavior normal. Assessment/Plan : The following health maintenance schedule was reviewed with the patient and provided in printed form in the after visit summary: Health Maintenance Topic Date Due Diabetes: Hemoglobin A1C 08/06/2023 Medicare Annual Wellness (AWV) 01/02/2024 Influenza Vaccine (1) 02/08/2024 Diabetes: Urine Protein Screening 08/26/2024 Diabetes: Retinopathy Screening 01/07/2025 Mammogram 01/14/2025 Colorectal Cancer Screening 07/20/2029 Pneumococcal Vaccine: 65+ Years Completed Advance Care Planning Has Durable POA Living will. No orders of the defined types were placed in this encounter. Electronically signed by Daniella Lou NP on February 12, 2024 documented in this encounter [facility] 02-12-2024 Instructions Daniella Lou NP - 02/12/2024 10:00 AM EDT Your blood pressure is TOO HIGH in the office today. Check your blood pressure at home 3 times per week, preferably in the afternoon. Goal <130/90. Record results in blood pressure log. Bring back with you to your next visit. Education: Check blood sugars daily, notify if <70 or >200. Take medications (pills or insulin) as directed. Monitor for s/s of hypoglycemia (sweaty, dizziness, nausea, vomiting, or shakiness). Watch for increase in thirst, urination, or appetite. Inspect feet frequently monitoring for open wounds , and also recommend yearly eye exam. Pt should attempt to remain as physically active as chronic conditions allow, as well as trying to follow a diet low in carbohydrates, and simple sugars. documented in this encounter [facility] 09-12-2022 Note CONSULTATION CONSULTATION DATE: 09/12/2022 TO: [...] our patients to inform us about any [id number] medications or herbal remedies/nutritional supplements/alternative remedies. 2. [...] branches L3, L4 and L5 bilaterally. [facility] 08-15-2022 Note CONSULTATION CONSULTATION DATE: 08/15/2022 HISTORY [...] followed up in the clinic thereafter. [facility] 06-18-2022 Note CONSULTATION PAIN MANAGEMENT CONSULTATION CONSULTATION [...] at the level of L2, L3. [facility] 06-18-2022 Note CONSULTATION CONSULTATION DATE: 06/18/2022 CHIEF [...] patient was seen in physical therapy at [facility] from January to February of 2022 without [...] like to proceed. CC: Zunilda Prieto [facility] Evaluation note Diagnosis Onset Date Acute sinusitis acute [facility] Work Phone: Evaluation note* Diagnosis Actinic keratosis- Primary documented in this encounter [facility] HealthcareEvaluation note* Diagnosis Primary hypertension (CMS/HCC)- Primary Unspecified essential hypertension CKD (chronic kidney disease) stage 2, GFR 60-89 ml/min Chronic kidney disease, Stage II (mild) Hyperlipidemia, unspecified hyperlipidemia type (CMS/HCC) Hypothyroidism, unspecified type (CMS/HCC) Type 2 diabetes mellitus with stage 2 chronic kidney disease, without long-term current use of insulin (CMS/HCC) Obesity (BMI 30.0-34.9) Encounter to establish care 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- Primary Primary hypertension (CMS/HCC) Unspecified essential hypertension CKD (chronic kidney disease) stage 2, GFR 60-89 ml/min Chronic kidney disease, Stage II (mild) Primary hypertension (CMS/HCC)- Primary Unspecified essential hypertension Chronic left shoulder pain Pain in joint, shoulder region Acquired hypothyroidism (CMS/HCC) Unspecified hypothyroidism CKD (chronic kidney disease) stage 2, GFR 60-89 ml/min Chronic kidney disease, Stage II (mild) Hyperlipidemia, unspecified hyperlipidemia type (CMS/HCC) Type 2 diabetes mellitus with stage 3a chronic kidney disease, without long-term current use of insulin (HCC) (CMS/HCC) Chronic left shoulder pain- Primary Pain in joint, shoulder region Chronic left shoulder pain- Primary Pain in joint, shoulder region Primary hypertension (CMS/HCC)- Primary Unspecified essential hypertension Type 2 diabetes mellitus with stage 3a chronic kidney disease, without long-term current use of insulin (HCC) (CMS/HCC) Mixed hyperlipidemia (CMS/HCC) Mixed hyperlipidemia Obesity (BMI 30.0-34.9) Chronic frontal sinusitis CKD (chronic kidney disease) stage 2, GFR 60-89 ml/min Chronic kidney disease, Stage II (mild) Encounter for screening mammogram for breast cancer Actinic keratosis- Primary Type 2 diabetes mellitus with stage 3a chronic kidney disease, without long-term current use of insulin (HCC) (CMS/HCC) CKD (chronic kidney disease) stage 2, GFR 60-89 ml/min Chronic kidney disease, Stage II (mild) documented in this encounter [facility] HealthcareEvaluation note* Diagnosis Primary hypertension (CMS/HCC)- Primary Unspecified essential hypertension CKD (chronic kidney disease) stage 2, GFR 60-89 ml/min Chronic kidney disease, Stage II (mild) Hyperlipidemia, unspecified hyperlipidemia type (CMS/HCC) Hypothyroidism, unspecified type (CMS/HCC) Type 2 diabetes mellitus with stage 2 chronic kidney disease, without long-term current use of insulin (CMS/HCC) Obesity (BMI 30.0-34.9) Encounter to establish care 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- Primary Primary hypertension (CMS/HCC) Unspecified essential hypertension CKD (chronic kidney disease) stage 2, GFR 60-89 ml/min Chronic kidney disease, Stage II (mild) Primary hypertension (CMS/HCC)- Primary Unspecified essential hypertension Chronic left shoulder pain Pain in joint, shoulder region Acquired hypothyroidism (CMS/HCC) Unspecified hypothyroidism CKD (chronic kidney disease) stage 2, GFR 60-89 ml/min Chronic kidney disease, Stage II (mild) Hyperlipidemia, unspecified hyperlipidemia type (CMS/HCC) Type 2 diabetes mellitus with stage 3a chronic kidney disease, without long-term current use of insulin (HCC) (CMS/HCC) Chronic left shoulder pain- Primary Pain in joint, shoulder region Chronic left shoulder pain- Primary Pain in joint, shoulder region Primary hypertension (CMS/HCC)- Primary Unspecified essential hypertension Type 2 diabetes mellitus with stage 3a chronic kidney disease, without long-term current use of insulin (HCC) (CMS/HCC) Mixed hyperlipidemia (CMS/HCC) Mixed hyperlipidemia Obesity (BMI 30.0-34.9) Chronic frontal sinusitis CKD (chronic kidney disease) stage 2, GFR 60-89 ml/min Chronic kidney disease, Stage II (mild) Encounter for screening mammogram for breast cancer Actinic keratosis- Primary Primary hypertension (CMS/HCC) Unspecified essential hypertension Hyperlipidemia, unspecified hyperlipidemia type (CMS/HCC) documented in this encounter [facility] HealthcareEvaluation note* Diagnosis Primary hypertension (CMS/HCC)- Primary Unspecified essential hypertension CKD (chronic kidney disease) stage 2, GFR 60-89 ml/min Chronic kidney disease, Stage II (mild) Hyperlipidemia, unspecified hyperlipidemia type (CMS/HCC) Hypothyroidism, unspecified type (CMS/HCC) Type 2 diabetes mellitus with stage 2 chronic kidney disease, without long-term current use of insulin (CMS/HCC) Obesity (BMI 30.0-34.9) Encounter to establish care 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- Primary Primary hypertension (CMS/HCC) Unspecified essential hypertension CKD (chronic kidney disease) stage 2, GFR 60-89 ml/min Chronic kidney disease, Stage II (mild) Primary hypertension (CMS/HCC)- Primary Unspecified essential hypertension Chronic left shoulder pain Pain in joint, shoulder region Acquired hypothyroidism (CMS/HCC) Unspecified hypothyroidism CKD (chronic kidney disease) stage 2, GFR 60-89 ml/min Chronic kidney disease, Stage II (mild) Hyperlipidemia, unspecified hyperlipidemia type (CMS/HCC) Type 2 diabetes mellitus with stage 3a chronic kidney disease, without long-term current use of insulin (HCC) (CMS/HCC) Chronic left shoulder pain- Primary Pain in joint, shoulder region Chronic left shoulder pain- Primary Pain in joint, shoulder region Primary hypertension (CMS/HCC)- Primary Unspecified essential hypertension Type 2 diabetes mellitus with stage 3a chronic kidney disease, without long-term current use of insulin (HCC) (CMS/HCC) Mixed hyperlipidemia (CMS/HCC) Mixed hyperlipidemia Obesity (BMI 30.0-34.9) Chronic frontal sinusitis CKD (chronic kidney disease) stage 2, GFR 60-89 ml/min Chronic kidney disease, Stage II (mild) Encounter for screening mammogram for breast cancer Actinic keratosis- Primary Type 2 diabetes mellitus with stage 3a chronic kidney disease, without long-term current use of insulin (HCC) (CMS/HCC)- Primary Primary hypertension (CMS/HCC) Unspecified essential hypertension CKD (chronic kidney disease) stage 2, GFR 60-89 ml/min Chronic kidney disease, Stage II (mild) Mixed hyperlipidemia (CMS/HCC) Mixed hyperlipidemia documented in this encounter [facility] HealthcareEvaluation note* Diagnosis Primary hypertension (CMS/HCC)- Primary Unspecified essential hypertension CKD (chronic kidney disease) stage 2, GFR 60-89 ml/min Chronic kidney disease, Stage II (mild) Hyperlipidemia, unspecified hyperlipidemia type (CMS/HCC) Hypothyroidism, unspecified type (CMS/HCC) Type 2 diabetes mellitus with stage 2 chronic kidney disease, without long-term current use of insulin (CMS/HCC) Obesity (BMI 30.0-34.9) Encounter to establish care 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- Primary Primary hypertension (CMS/HCC) Unspecified essential hypertension CKD (chronic kidney disease) stage 2, GFR 60-89 ml/min Chronic kidney disease, Stage II (mild) Primary hypertension (CMS/HCC)- Primary Unspecified essential hypertension Chronic left shoulder pain Pain in joint, shoulder region Acquired hypothyroidism (CMS/HCC) Unspecified hypothyroidism CKD (chronic kidney disease) stage 2, GFR 60-89 ml/min Chronic kidney disease, Stage II (mild) Hyperlipidemia, unspecified hyperlipidemia type (CMS/HCC) Type 2 diabetes mellitus with stage 3a chronic kidney disease, without long-term current use of insulin (HCC) (CMS/HCC) Chronic left shoulder pain- Primary Pain in joint, shoulder region Chronic left shoulder pain- Primary Pain in joint, shoulder region Primary hypertension (CMS/HCC)- Primary Unspecified essential hypertension Type 2 diabetes mellitus with stage 3a chronic kidney disease, without long-term current use of insulin (HCC) (CMS/HCC) Mixed hyperlipidemia (CMS/HCC) Mixed hyperlipidemia Obesity (BMI 30.0-34.9) Chronic frontal sinusitis CKD (chronic kidney disease) stage 2, GFR 60-89 ml/min Chronic kidney disease, Stage II (mild) Encounter for screening mammogram for breast cancer Actinic keratosis- Primary Type 2 diabetes mellitus with stage 3a chronic kidney disease, without long-term current use of insulin (HCC) (CMS/HCC)- Primary Primary hypertension (CMS/HCC) Unspecified essential hypertension CKD (chronic kidney disease) stage 2, GFR 60-89 ml/min Chronic kidney disease, Stage II (mild) Mixed hyperlipidemia (CMS/HCC) Mixed hyperlipidemia Stage 3b chronic kidney disease (HCC) (CMS/HCC)- Primary documented in this encounter [facility] HealthcareEvaluation note* Diagnosis Primary hypertension (CMS/HCC)- Primary Unspecified essential hypertension CKD (chronic kidney disease) stage 2, GFR 60-89 ml/min Chronic kidney disease, Stage II (mild) Hyperlipidemia, unspecified hyperlipidemia type (CMS/HCC) Hypothyroidism, unspecified type (CMS/HCC) Type 2 diabetes mellitus with stage 2 chronic kidney disease, without long-term current use of insulin (CMS/HCC) Obesity (BMI 30.0-34.9) Encounter to establish care 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- Primary Primary hypertension (CMS/HCC) Unspecified essential hypertension CKD (chronic kidney disease) stage 2, GFR 60-89 ml/min Chronic kidney disease, Stage II (mild) Primary hypertension (CMS/HCC)- Primary Unspecified essential hypertension Chronic left shoulder pain Pain in joint, shoulder region Acquired hypothyroidism (CMS/HCC) Unspecified hypothyroidism CKD (chronic kidney disease) stage 2, GFR 60-89 ml/min Chronic kidney disease, Stage II (mild) Hyperlipidemia, unspecified hyperlipidemia type (CMS/HCC) Type 2 diabetes mellitus with stage 3a chronic kidney disease, without long-term current use of insulin (HCC) (CMS/HCC) Chronic left shoulder pain- Primary Pain in joint, shoulder region Chronic left shoulder pain- Primary Pain in joint, shoulder region Primary hypertension (CMS/HCC)- Primary Unspecified essential hypertension Type 2 diabetes mellitus with stage 3a chronic kidney disease, without long-term current use of insulin (HCC) (CMS/HCC) Mixed hyperlipidemia (CMS/HCC) Mixed hyperlipidemia Obesity (BMI 30.0-34.9) Chronic frontal sinusitis CKD (chronic kidney disease) stage 2, GFR 60-89 ml/min Chronic kidney disease, Stage II (mild) Encounter for screening mammogram for breast cancer Actinic keratosis- Primary Type 2 diabetes mellitus with stage 3a chronic kidney disease, without long-term current use of insulin (HCC) (CMS/HCC)- Primary Primary hypertension (CMS/HCC) Unspecified essential hypertension CKD (chronic kidney disease) stage 2, GFR 60-89 ml/min Chronic kidney disease, Stage II (mild) Mixed hyperlipidemia (CMS/HCC) Mixed hyperlipidemia Inflamed seborrheic keratosis documented in this encounter [facility] HealthcareEvaluation note* Diagnosis Primary hypertension (CMS/HCC)- Primary Unspecified essential hypertension CKD (chronic kidney disease) stage 2, GFR 60-89 ml/min Chronic kidney disease, Stage II (mild) Hyperlipidemia, unspecified hyperlipidemia type (CMS/HCC) Hypothyroidism, unspecified type (CMS/HCC) Type 2 diabetes mellitus with stage 2 chronic kidney disease, without long-term current use of insulin (CMS/HCC) Obesity (BMI 30.0-34.9) Encounter to establish care 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- Primary Primary hypertension (CMS/HCC) Unspecified essential hypertension CKD (chronic kidney disease) stage 2, GFR 60-89 ml/min Chronic kidney disease, Stage II (mild) Primary hypertension (CMS/HCC)- Primary Unspecified essential hypertension Chronic left shoulder pain Pain in joint, shoulder region Acquired hypothyroidism (CMS/HCC) Unspecified hypothyroidism CKD (chronic kidney disease) stage 2, GFR 60-89 ml/min Chronic kidney disease, Stage II (mild) Hyperlipidemia, unspecified hyperlipidemia type (CMS/HCC) Type 2 diabetes mellitus with stage 3a chronic kidney disease, without long-term current use of insulin (HCC) (CMS/HCC) Chronic left shoulder pain- Primary Pain in joint, shoulder region Chronic left shoulder pain- Primary Pain in joint, shoulder region Primary hypertension (CMS/HCC)- Primary Unspecified essential hypertension Type 2 diabetes mellitus with stage 3a chronic kidney disease, without long-term current use of insulin (HCC) (CMS/HCC) Mixed hyperlipidemia (CMS/HCC) Mixed hyperlipidemia Obesity (BMI 30.0-34.9) Chronic frontal sinusitis CKD (chronic kidney disease) stage 2, GFR 60-89 ml/min Chronic kidney disease, Stage II (mild) Encounter for screening mammogram for breast cancer Actinic keratosis- Primary Type 2 diabetes mellitus with stage 3a chronic kidney disease, without long-term current use of insulin (HCC) (CMS/HCC)- Primary Primary hypertension (CMS/HCC) Unspecified essential hypertension CKD (chronic kidney disease) stage 2, GFR 60-89 ml/min Chronic kidney disease, Stage II (mild) Mixed hyperlipidemia (CMS/HCC) Mixed hyperlipidemia Primary hypertension (CMS/HCC) Unspecified essential hypertension documented in this encounter [facility] HealthcareEvaluation note* Diagnosis Primary hypertension (CMS/HCC)- Primary Unspecified essential hypertension CKD (chronic kidney disease) stage 2, GFR 60-89 ml/min Chronic kidney disease, Stage II (mild) Hyperlipidemia, unspecified hyperlipidemia type (CMS/HCC) Hypothyroidism, unspecified type (CMS/HCC) Type 2 diabetes mellitus with stage 2 chronic kidney disease, without long-term current use of insulin (CMS/HCC) Obesity (BMI 30.0-34.9) Encounter to establish care 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- Primary Primary hypertension (CMS/HCC) Unspecified essential hypertension CKD (chronic kidney disease) stage 2, GFR 60-89 ml/min Chronic kidney disease, Stage II (mild) Primary hypertension (CMS/HCC)- Primary Unspecified essential hypertension Chronic left shoulder pain Pain in joint, shoulder region Acquired hypothyroidism (CMS/HCC) Unspecified hypothyroidism CKD (chronic kidney disease) stage 2, GFR 60-89 ml/min Chronic kidney disease, Stage II (mild) Hyperlipidemia, unspecified hyperlipidemia type (CMS/HCC) Type 2 diabetes mellitus with stage 3a chronic kidney disease, without long-term current use of insulin (HCC) (CMS/HCC) Chronic left shoulder pain- Primary Pain in joint, shoulder region Chronic left shoulder pain- Primary Pain in joint, shoulder region Primary hypertension (CMS/HCC)- Primary Unspecified essential hypertension Type 2 diabetes mellitus with stage 3a chronic kidney disease, without long-term current use of insulin (HCC) (CMS/HCC) Mixed hyperlipidemia (CMS/HCC) Mixed hyperlipidemia Obesity (BMI 30.0-34.9) Chronic frontal sinusitis CKD (chronic kidney disease) stage 2, GFR 60-89 ml/min Chronic kidney disease, Stage II (mild) Encounter for screening mammogram for breast cancer Actinic keratosis- Primary Type 2 diabetes mellitus with stage 3a chronic kidney disease, without long-term current use of insulin (HCC) (CMS/[facility])- Primary Primary hypertension (CMS/HCC) Unspecified essential hypertension CKD (chronic kidney disease) stage 2, GFR 60-89 ml/min Chronic kidney disease, Stage II (mild) Mixed hyperlipidemia (CMS/HCC) Mixed hyperlipidemia Acute bronchitis, unspecified organism- Primary Viral upper respiratory tract infection Acute upper respiratory infections of unspecified site documented in this encounter [facility]* Diagnosis Encounter for Medicare annual wellness exam- Primary Chronic frontal sinusitis Medication refill Issue of repeat prescriptions documented in this encounter [facility]* Diagnosis Primary hypertension (CMS/HCC)- Primary Unspecified essential hypertension CKD (chronic kidney disease) stage 2, GFR 60-89 ml/min Chronic kidney disease, Stage II (mild) Hyperlipidemia, unspecified hyperlipidemia type (CMS/HCC) Hypothyroidism, unspecified type (CMS/HCC) Type 2 diabetes mellitus with stage 2 chronic kidney disease, without long-term current use of insulin (CMS/HCC) Obesity (BMI 30.0-34.9) Encounter to establish care 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- Primary Primary hypertension (CMS/HCC) Unspecified essential hypertension CKD (chronic kidney disease) stage 2, GFR 60-89 ml/min Chronic kidney disease, Stage II (mild) Primary hypertension (CMS/HCC)- Primary Unspecified essential hypertension Chronic left shoulder pain Pain in joint, shoulder region Acquired hypothyroidism (CMS/HCC) Unspecified hypothyroidism CKD (chronic kidney disease) stage 2, GFR 60-89 ml/min Chronic kidney disease, Stage II (mild) Hyperlipidemia, unspecified hyperlipidemia type (CMS/HCC) Type 2 diabetes mellitus with stage 3a chronic kidney disease, without long-term current use of insulin (HCC) (CMS/HCC) Chronic left shoulder pain- Primary Pain in joint, shoulder region Chronic left shoulder pain- Primary Pain in joint, shoulder region Primary hypertension (CMS/HCC)- Primary Unspecified essential hypertension Type 2 diabetes mellitus with stage 3a chronic kidney disease, without long-term current use of insulin (HCC) (CMS/HCC) Mixed hyperlipidemia (CMS/HCC) Mixed hyperlipidemia Obesity (BMI 30.0-34.9) Chronic frontal sinusitis CKD (chronic kidney disease) stage 2, GFR 60-89 ml/min Chronic kidney disease, Stage II (mild) Encounter for screening mammogram for breast cancer Actinic keratosis- Primary Type 2 diabetes mellitus with stage 3a chronic kidney disease, without long-term current use of insulin (HCC) (CMS/HCC)- Primary Primary hypertension (CMS/HCC) Unspecified essential hypertension CKD (chronic kidney disease) stage 2, GFR 60-89 ml/min Chronic kidney disease, Stage II (mild) Mixed hyperlipidemia (CMS/HCC) Mixed hyperlipidemia Acute bronchitis, unspecified organism- Primary Primary hypertension (CMS/HCC) Unspecified essential hypertension Stage 3b chronic kidney disease (HCC) (CMS/HCC) Obesity (BMI 30.0-34.9) documented in this encounter [facility] HealthcareEvaluation note* Diagnosis Primary hypertension (CMS/HCC)- Primary Unspecified essential hypertension CKD (chronic kidney disease) stage 2, GFR 60-89 ml/min Chronic kidney disease, Stage II (mild) Hyperlipidemia, unspecified hyperlipidemia type (CMS/HCC) Hypothyroidism, unspecified type (CMS/HCC) Type 2 diabetes mellitus with stage 2 chronic kidney disease, without long-term current use of insulin (CMS/HCC) Obesity (BMI 30.0-34.9) Encounter to establish care 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- Primary Primary hypertension (CMS/HCC) Unspecified essential hypertension CKD (chronic kidney disease) stage 2, GFR 60-89 ml/min Chronic kidney disease, Stage II (mild) Primary hypertension (CMS/HCC)- Primary Unspecified essential hypertension Chronic left shoulder pain Pain in joint, shoulder region Acquired hypothyroidism (CMS/HCC) Unspecified hypothyroidism CKD (chronic kidney disease) stage 2, GFR 60-89 ml/min Chronic kidney disease, Stage II (mild) Hyperlipidemia, unspecified hyperlipidemia type (CMS/HCC) Type 2 diabetes mellitus with stage 3a chronic kidney disease, without long-term current use of insulin (HCC) (CMS/HCC) Chronic left shoulder pain- Primary Pain in joint, shoulder region Chronic left shoulder pain- Primary Pain in joint, shoulder region Primary hypertension (CMS/HCC)- Primary Unspecified essential hypertension Type 2 diabetes mellitus with stage 3a chronic kidney disease, without long-term current use of insulin (HCC) (CMS/HCC) Mixed hyperlipidemia (CMS/HCC) Mixed hyperlipidemia Obesity (BMI 30.0-34.9) Chronic frontal sinusitis CKD (chronic kidney disease) stage 2, GFR 60-89 ml/min Chronic kidney disease, Stage II (mild) Encounter for screening mammogram for breast cancer Actinic keratosis- Primary Type 2 diabetes mellitus with stage 3a chronic kidney disease, without long-term current use of insulin (HCC) (CMS/HCC)- Primary Primary hypertension (CMS/HCC) Unspecified essential hypertension CKD (chronic kidney disease) stage 2, GFR 60-89 ml/min Chronic kidney disease, Stage II (mild) Mixed hyperlipidemia (CMS/HCC) Mixed hyperlipidemia Acute bronchitis, unspecified organism- Primary Primary hypertension (CMS/HCC) Unspecified essential hypertension Stage 3b chronic kidney disease (HCC) (CMS/HCC) Obesity (BMI 30.0-34.9) Acquired hypothyroidism (CMS/HCC) Unspecified hypothyroidism documented in this encounter [facility] HealthcareEvaluation note* Diagnosis Primary hypertension (CMS/HCC)- Primary Unspecified essential hypertension CKD (chronic kidney disease) stage 2, GFR 60-89 ml/min Chronic kidney disease, Stage II (mild) Hyperlipidemia, unspecified hyperlipidemia type (CMS/HCC) Hypothyroidism, unspecified type (CMS/HCC) Type 2 diabetes mellitus with stage 2 chronic kidney disease, without long-term current use of insulin (CMS/HCC) Obesity (BMI 30.0-34.9) Encounter to establish care 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- Primary Primary hypertension (CMS/HCC) Unspecified essential hypertension CKD (chronic kidney disease) stage 2, GFR 60-89 ml/min Chronic kidney disease, Stage II (mild) Primary hypertension (CMS/HCC)- Primary Unspecified essential hypertension Chronic left shoulder pain Pain in joint, shoulder region Acquired hypothyroidism (CMS/HCC) Unspecified hypothyroidism CKD (chronic kidney disease) stage 2, GFR 60-89 ml/min Chronic kidney disease, Stage II (mild) Hyperlipidemia, unspecified hyperlipidemia type (CMS/HCC) Type 2 diabetes mellitus with stage 3a chronic kidney disease, without long-term current use of insulin (HCC) (CMS/HCC) Chronic left shoulder pain- Primary Pain in joint, shoulder region Chronic left shoulder pain- Primary Pain in joint, shoulder region Primary hypertension (CMS/HCC)- Primary Unspecified essential hypertension Type 2 diabetes mellitus with stage 3a chronic kidney disease, without long-term current use of insulin (HCC) (CMS/HCC) Mixed hyperlipidemia (CMS/HCC) Mixed hyperlipidemia Obesity (BMI 30.0-34.9) Chronic frontal sinusitis CKD (chronic kidney disease) stage 2, GFR 60-89 ml/min Chronic kidney disease, Stage II (mild) Encounter for screening mammogram for breast cancer Actinic keratosis- Primary Type 2 diabetes mellitus with stage 3a chronic kidney disease, without long-term current use of insulin (HCC) (CMS/HCC)- Primary Primary hypertension (CMS/HCC) Unspecified essential hypertension CKD (chronic kidney disease) stage 2, GFR 60-89 ml/min Chronic kidney disease, Stage II (mild) Mixed hyperlipidemia (CMS/HCC) Mixed hyperlipidemia Acute bronchitis, unspecified organism- Primary Primary hypertension (CMS/HCC) Unspecified essential hypertension Stage 3b chronic kidney disease (HCC) (CMS/HCC) Obesity (BMI 30.0-34.9) Stage 3b chronic kidney disease (HCC) (CMS/HCC)- Primary Type 2 diabetes mellitus with stage 3a chronic kidney disease, without long-term current use of insulin (HCC) (CMS/HCC) Primary hypertension (CMS/HCC) Unspecified essential hypertension Mixed hyperlipidemia (CMS/HCC) Mixed hyperlipidemia documented in this encounter [facility]* Diagnosis Onset Date Resolution Status Admit Date Chronic kidney disease, stage 3b acu te August 24, 2024 2:47pm Diabetic nephropathy associa tita with type 2 diabetes mellitus acute [facility] 2024 2:47pm Hypertensive nephropathy acute August 24, 2024 2:47pm Obesity acute August 24 2:47pm [facility] Work Phone: Summary Purpose Family History Relationship Condition Age at Onset Recorded Date/T reji father Unknown Heart disease Unknown mother Unknown Advance Directives Advance Directive Response Recorded Date/ Time Advance Directives No December 12 9:28am Chief Complaint and Reason for Visit Chief Complaint sore throat, sinus i ssues Reason for Visit Acute sinusitis Chief Complaint Admit Date RENAL [email or web address] August 24, 2024 2:4 7pm Reason for Visit Admit Date Chronic kidney disease, stage 3b August 072024 2:47pm Diabetic nephropathy associated with typ e 2 diabetes mellitus August 24, 2024 2:47pm Hypertensive nephropathy August 24 2:47pm Obesity August 24, 2024 2:4 7pm Additional Source Comments INFORMATION SOURCE (unrecogn ized section and content) DATE CREATED AUTHOR 01/04/2022 [facility] d[facility] Specialist DATE CREATED AUTHOR AUTHOR'S ORGANIZ ATION 11/15/2022 [facility] DATE CREATED AUTHOR AUTHOR'S ORGANIZ ATION 07/22/2024 [facility] dical Specialists EPIC Care Teams (unrecognized sec tion and content) Team Status: Active Member Role Status Dates Dustin Gould MD Primary Care Provider Active Team Status: Inactive Member Role Status Dates Dustin Gould MD Primary Care Provider Active Start: December 13, 2023 End: December 13, 2023 Dolly Tran APRN Attending Provider Active S tart: December 13, 2023 End: December 13, 2023 Insurance Risk Surveyor Relationship Specialty Start Date End Date Shaikh Jackson MD [address] [place] [address] PCP - [employer] 06/09/21 Jono Fong MD [address] [place] [address] PCP - General Family Medicine 01/07/24 Daniella Lou NP [address] [place] [address] Nurse Practitioner Family Medicine 01/07/24 Insurance Risk Surveyor Relationship Specialty Start Date End Date Shaikh Jackson MD [address] [place] [phone] PCP - [employer] 06/09/21 Jono Fong MD [address] [place] [phone] PCP - General Family Medicine 01/07/24 Daniella Lou NP [address] [place] [address] Nurse Practitioner Family Medicine 01/07/24 Insurance Risk Surveyor Relationship Specialty Start Date End Date Shaikh Jackson MD [address] [place] [phone] PCP - [employer] 06/09/21 Jono Fong MD [address] [place] [phone] PCP - General Family Medicine 01/07/24 03/31/24 Unallocated, Renaldo Brush MD [address] [place] [address] PCP - General Family Medicine 04/01/24 Daniella Lou NP [address] [place] [phone] Nurse Practitioner Family Medicine 01/07/24 Insurance Risk Surveyor Relationship Specialty Start Date End Date Shaikh Jackson MD [address] [place] [phone] 733- PCP - [employer] 06/09/21 Unallocated, Tyrones MD [address] [facility] [address] PCP - General Family Medicine 04/01/24 Daniella Lou NP [address] [place] [address] Nurse Practitioner Family Medicine 01/07/24 Insurance Risk Surveyor Relationship Specialty Start Date End Date Shaikh Jackson MD [address] [place] [address] PCP - [employer] 06/09/21 Jono Fong MD [address] [place] [address] PCP - General Family Medicine 04/08/24 Daniella Lou NP [address] [place] [address] Nurse Practitioner Family Medicine 01/07/24 Insurance Risk Surveyor Relationship Specialty Start Date End Date Shaikh Jackson MD [address] [place] [address] PCP - [employer] 06/09/21 Jono Fong MD [address] [place] [address] PCP - General Family Medicine 04/08/24 Daniella Lou NP [address] [place] [address] Nurse Practitioner Family Medicine 01/07/24 Insurance Risk Surveyor Relationship Specialty Start Date End Date Shaikh Jackson MD [address] [place] [address] PCP - [employer] 06/09/21 Jono Fong MD [address] [place] [address] PCP - General Family Medicine 04/08/24 Daniella Lou NP [address] [place] [address] Nurse Practitioner Family Medicine 01/07/24 Insurance Risk Surveyor Relationship Specialty Start Date End Date Shaikh Jackson MD [address] [place] [address] PCP - [employer] 06/09/21 Jono Fong MD [address] [place] [address] PCP - General Family Medicine 04/08/24 Daniella Lou NP [address] [place] [address] Nurse Practitioner Family Medicine 01/07/24 Insurance Risk Surveyor Relationship Specialty Start Date End Date Shaikh Jackson MD [address] [place] [address] PCP - [employer] 06/09/21 Jono Fong MD [address] [place] [address] PCP - General Family Medicine 04/08/24 Daniella Lou NP [address] [place] [address] Nurse Practitioner Family Medicine 01/07/24 Insurance Risk Surveyor Relationship Specialty Start Date End Date Shaikh Jackson MD [address] [place] [address] PCP - [employer] 06/09/21 Jono Fong MD [address] [place] [address] PCP - General Family Medicine 04/08/24 Daniella Lou NP [address] [place] [address] Nurse Practitioner Family Medicine 01/07/24 Insurance Risk Surveyor Relationship Specialty Start Date End Date Shaikh Jackson MD [address] [place] [address] PCP - [employer] 06/09/21 Jono Fong MD [address] [place] [address] PCP - General Family Medicine 04/08/24 Daniella Lou NP [address] [place] [address] Nurse Practitioner Family Medicine 01/07/24 Insurance Risk Surveyor Relationship Specialty Start Date End Date Shaikh Jackson MD [address] [place] [address] PCP - [employer] 06/09/21 Jono Fong MD [address] [place] [address] PCP - General Family Medicine 04/08/24 Daniella Lou NP [address] [place] [address] Nurse Practitioner Family Medicine 01/07/24 Insurance Risk Surveyor Relationship Specialty Start Date End Date Shaikh Jackson MD [address] [place] [address] PCP - [employer] 06/09/21 Jono Fong MD [address] [place] [address] PCP - General Family Medicine 01/07/24 Daniella Lou NP [address] [place] [address] Nurse Practitioner Family Medicine 01/07/24 Insurance Risk Surveyor Relationship Specialty Start Date End Date Shaikh Jackson MD [address] [place] [address] PCP - [employer] 06/09/21 Jono Fong MD [address] [place] [address] PCP - General Family Medicine 01/07/24 Daniella Lou NP [address] [place] [address] Nurse Practitioner Family Medicine 01/07/24 Insurance Risk Surveyor Relationship Specialty Start Date End Date Shaikh Jackson MD [address] [place] [address] PCP - [employer] 06/09/21 Jono Fong MD [address] [place] [address] PCP - General Family Medicine 01/07/24 Daniella Lou NP [address] [place] [address] Nurse Practitioner Family Medicine 01/07/24 Insurance Risk Surveyor Relationship Specialty Start Date End Date Shaikh Jackson MD [address] [place] [address] PCP - [employer] 06/09/21 Jono Fong MD [address] [place] [address] PCP - General Family Medicine 04/08/24 Daniella Lou NP [address] [place] [address] Nurse Practitioner Family Medicine 01/07/24 Insurance Risk Surveyor Relationship Specialty Start Date End Date Shaikh Jackosn MD [address] [place] [address] PCP - [employer] 06/09/21 Jono Fong MD [address] [place] [address] PCP - General Family Medicine 04/08/24 Daniella Lou NP [address] [place] [address] Nurse Practitioner Family Medicine 01/07/24 Insurance Risk Surveyor Relationship Specialty Start Date End Date Shaikh Jackson MD [address] [place] [address] PCP - [employer] 06/09/21 Jono Fong MD [address] [place] [address] PCP - General Family Medicine 04/08/24 Daniella Lou NP [address] [place] [address] Nurse Practitioner Family Medicine 01/07/24 Insurance Risk Surveyor Relationship Specialty Start Date End Date Shaikh Jackson MD [address] [place] [address] PCP - [employer] 06/09/21 Jono Fnog MD [address] [place] [address] PCP - General Family Medicine 04/08/24 Daniella Lou NP [address] [place] [address] Nurse Practitioner Family Medicine 01/07/24 Team Status: Active Member Role Status Dates PHYSICIAN NO FAMILY Primary Care Provider Active Team Status: Inactive Member Role Status Dates Pratibha Cha MD Attending Provider Active Star t: August 24, 2024 End: August 24, 2024 PHYSICIAN NO FAMILY Primary Care Provider Active Start: August 24, 2024 End: August 24, 2024 Goals (unrecognized section and content) Goals may be documented in a n alternate sectionGoals may be documented in an alternate section Reason for Visit (unrecogniz ed section and content) Reason Comments Suspicious Skin Lesion Reason Comments Med Refill Reason Onset Date Comments Med Refill 04/06/2024 Reason Comments Follow-up Reason Onset Date Comments Med Refill 05/11/2024 Reason Comments Cough Reason Comments Medicare Annual Wellness Visit Subsequen t Reason Comments Bronchitis Reason Onset Date Comments Med Refill 06/23/2024 FOR RECORDS PERTAINING TO PATIENTS WHO ARE [...] BE BASED ON THE PRIMARY CLINICAL RECORDS. [employer] provides no warranty or guarantee of the accuracy or completeness of information in this document.
== END 2024-08-28 09:55 | disposition home or self-care (01) ==
LOC: US 09:54
PROVIDERS: Visit Provider Internal Medicine Nephrology
DX: N20.0 Calculus of kidney (principal); E66.9 Obesity, unspecified; I12.9 Hypertensive chronic kidney disease with stage 1 through stage 4 chronic kidney disease, or unspecified chronic kidney disease; E11.21 Type 2 diabetes mellitus with diabetic nephropathy; N18.32 Chronic kidney disease, stage 3b
CPT/HCPCS: 76775

== ENCOUNTER 2024-11-08 09:20 | Outpatient (OUT) | payer MEDICARE, SELFPAY ==
--- OUTSIDE RECORDS SUMMARY | 2023-12-08 04:40 | XMS_ITS ---
Author Organization [facility] Address [address] [place] [address] Care Team Providers Care Double Needle Operator Lockstitch Name Role Phone SHAIKH THAKKAR Primary Care Provider Munir Mott Unavailable [phone] REASON FOR VISIT LEFT SHOULDER PAIN FILMS AT [facility] Social History Tobacco Use: Social History Observation Description Date Details (start date - stop date) Never Smoker NA - NA AUDIT-C (Standard) Question Answer Notes Did you have a drink containing alcohol in the p ast year? No Points 0 Interpretation Negative Tobacco Control (Standard) Question Answer Notes Tobacco use: Nonsmoker Problems Problem Type SNOMED Code ICD Code Onset Dates Problem Status W/U Status Risk Notes Problem [id number] Adhesive capsuli tis of left shoulder (M75.02) Active confirmed Problem [id number] Arthritis of le ft acromioclavicular joint (M19.012) Active confirmed Vital Signs Height 5'6 in 12/08/2023 Weight 230 lbs 12/08/2023 BMI 37.12 12/08/2023 Encounters Encounter Location Date Provider Diagnosis [facility] Office [address] [place] [address] [address] [place] [address] 12/08/2023 Munir Aldridge Adhesive capsulitis of left shoulder M75.02 and Arthritis of left acromioclavicular joint M19.012 Assessments Encounter Date Diagnosis (ICD Code) Assessment Notes Treatment Notes Treatment Clinical Notes Section Notes 12/08/2023 Adhesive capsulitis of left shoulder (ICD-10 - M75.02) 12/08/2023 Arthritis of left acromioclavicular joint (ICD-10 - M19.012) 12/08/2023 Other Her left shoulder pain is consistent with adhesive capsulitis. I have reviewed home stretches for her. I did I have discussed the expectation is that this will resolve over time although takes many months if not over a year. We have discussed manipulation under anesthesia if symptoms plateau. We have also discussed the option of steroid injections if pain is increasing. She will follow-up in 2 months to reassess her progress. Import medication Plan Of Treatment Treatment Notes Assessment Notes Other Her left shoulder pain is consistent with adhesive capsulitis. I have reviewed home stretches for her. I did I have discussed the expectation is that this will resolve over time although takes many months if not over a year. We have discussed manipulation under anesthesia if symptoms plateau. We have also discussed the option of steroid injections if pain is increasing. She will follow-up in 2 months to reassess her progress. Import medication Next Appt Details Follow Up: 2 Months, Reason: Progress Notes * LINETTE CANASADOB:1955 (68 yo F)Acc No.[id number]:12/08/2023 Patient: ARIAN GONZALEZ Provider: Oliverio Aldridge MD :1955 A ge:68 Y S ex:Female Date:12/08/2023 Address:[address] [place] [address], [facility] Pcp:SHAIKH BIJAN Subjective: * Chief Complaints: * L EFT SHOULDER PAIN FILMS AT [facility] * HPI: G eneral Follow Up Information: Patient presents today for left shoulder pain. Symptoms been present for several months. She has been going to physical therapy. She has noticed her constant ache that she gets in her shoulder and nighttime pain have improved. She has pain if she attempts to use her shoulder. She does have a history of diabetes and chronic kidney disease. * Medical History: * Surgical History: N o Surgical History documented. * Family History: N o Family History documented.. * Social History: A TRAY-C (Standard) D id you have a drink containing alcohol in the past year? N o,?Points 0 , I nterpretation N egative. T obacco Control (Standard) T obacco use: N onsmoker. * Medications: N one * Allergies: n o[Allergies Verified] Objective: * Vitals: H t: 5'6 , Wt: 230 lbs, BMI:37.12. * Examination: G eneral examination: E xamination today of her left shoulder reveals 140 degrees of active and passive forward flexion, 20 degrees less of external rotation compared to contralateral side and internal rotation to the sacroiliac joint versus the mid thoracic spine. Pain but no weakness with resisted rotator cuff testing. X -ray Imaging Studies: X -rays of her left shoulder reviewed and show some mild degenerative changes of the acromioclavicular joint . M RI Imaging Studies: Assessment: * Assessment: 1. A dhesive capsulitis of left shoulder - M75.02 (Primary) 2 . A rthritis of left acromioclavicular joint - M19.012 Plan: * Treatment: * Procedure Codes: * Preventive Medicine: MIPS Measures: C MS139 Fall Risk S creening: N o falls in the past year.? * Follow Up: 2 Months Forms: * Images: * Sign off status: Completed true * Provider: Oliverio Aldridge MD Date: 12/08/2023 Generated for Isidro schreiber/Ronnie/Crystalitting on: 11/08/2024 09:27 AM EDT History and Physical Notes * HPI (History of Present Illness) Category Sub-Category Detail Notes Category Not es General Follow Up Information Patient presents tod ay for left shoulder pain. Symptoms been present for several months. She has been going to physical therapy. She has noticed her constant ache that she gets in her shoulder and nighttime pain have improved. She has pain if she attempts to use her shoulder. She does have a history of diabetes and chronic kidney disease. Examination Category Sub-Category Detail Notes Category Not es General examination Examinat ion today of her left shoulder reveals 140 degrees of active and passive forward flexion, 20 degrees less of external rotation compared to contralateral side and internal rotation to the sacroiliac joint versus the mid thoracic spine. Pain but no weakness with resisted rotator cuff testing. X-ray Imaging Studies X-rays of her left shoulder reviewed and show some mild degenerative changes of the acromioclavicular joint MRI Imaging Studies
--- OUTSIDE RECORDS SUMMARY | 2024-11-04 09:20 | XMS_ITS | Encounter Summary ---
Author Organization [facility] Address [address] [place] [address] Care Team Providers Care Blender / Cook Name Role Phone Shaikh AUTUMN Jackson Unavailable [phone] Daniella Lou NP Unavailable [phone] Jono Fong MD Primary Care Provider [phone] Reason for Referral * Consultation (Stat) - Authorized Specialty Diagnoses / Procedures Referred By Contmanas t Referred To Contact Behavioral Health Diagnoses Current 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 without prior episode (CMS/[facility]) Procedures WI OFFICE/OUTPATIENT NEW HIGH MDM 60 MINUTES Nayeli Russo NP [address] [place] [address] Phone: tel: fax: Sarina Hodge, PEDRO [address] [place] [address] Phone: tel: fax: Referral ID Status Reason Start Date Expiration Date Visits Requested Visits Authorized [id number] Authorized Specialty Services Required 11/04/2024 05/03/2025 1 1 Reason for Visit * Reason Comments Depression Encounter Details Date Type Department Care Team ([facility] st Contact Info) Description 11/04/2024 9:20 AM EDT [facility] [address] [place] [id number] Nayeli Russo, [place] [address] [place] [phone] Current 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 without prior episode (CMS/HCC) (Primary Dx); Morbid (severe) obesity due to excess calories (CMS/HCC); Body mass index (BMI) 36.0-36.9, adult; Primary hypertension (CMS/HCC); Stage 3b chronic kidney disease (HCC) (CMS/HCC); Hypothyroidism, unspecified type (CMS/HCC); Type 2 diabetes mellitus with stage 3b chronic kidney disease, without long-term current use of insulin (HCC) (CMS/HCC); Mixed hyperlipidemia (CMS/HCC) Social History Tobacco Use Types Packs/Day Years Used Date Smoking Tobacco: Former Cigarettes 0.5 6 0 06/09/1973 - 06/09/1979 Passive Smoke Exposure: Past Smokeless Tobacco: Never Alcohol Use Standard Drinks/Week Comments Never 0 (1 standard drink = 0.6 oz pur e alcohol) caffeine: none [id number] Health Literacy Answer Date Recor ded How often do you need to hav e someone help you when you read instructions, pamphlets, or other written material from your doctor or pharmacy? Never 01/06/2024 Humiliation, Afraid, Rape, and Kick questionnair e Answer Date Recorded Within the last year, have y ou been afraid of your partner or ex-partner? No 12/31/2022 Within the last year, have y ou been humiliated or emotionally abused in other ways by your partner or ex-partner? No Within the last year, have y ou been kicked, hit, slapped, or otherwise physically hurt by your partner or ex-partner? No 12/31/2022 Within the last year, have y ou been raped or forced to have any kind of sexual activity by your partner or ex-partner? No 12/31/2022 Social Connection and Isolat ion Panel [NHANES] Answer Date Recorded In a typical week, how many times do you talk on the phone with family, friends, or neighbors? More than three times a week 01/06/2024 How often do you get togethe r with friends or relatives? Once a week 01/06/2024 How often do you attend chur ch or baptism services? Never 01/06/2024 Do you belong to any clubs o r organizations such as yazdanism groups, unions, fraternal or athletic groups, or school groups? Yes 01/06/2024 How often do you attend meet ings of the clubs or organizations you belong to? 1 to 4 times per year 01/06/2024 Are you , , di vorced, , never , or living with a partner? 01/06/2024 AUDIT-C Answer Date Recorded Q1: How often do you have a drink containing alc ohol? Monthly or less 01/06/2024 Q2: How many drinks containi ng alcohol do you have on a typical day when you are drinking? 1 or 2 01/06/2024 Q3: How often do you have si x or more drinks on one occasion? Never 01/06/2024 Overall Financial Resource Strain (CARDIA) Answe r Date Recorded How hard is it for you to pa y for the very basics like food, housing, medical care, and heating? Not very hard 01/06/2024 PHQ-2 Answer Date Recorded Patient Health Questionnaire-2 Score 6 11/04/[address] [facility] - Occupational Stress Questionnaire Answer Date Recorded Do you feel stress - tense, restless, nervous, or anxious, or unable to sleep at night because your mind is troubled all the time - these days? To some extent 01/06/2024 Exercise Vital Sign Answer Date Recorde d On average, how many days pe r week do you engage in moderate to strenuous exercise (like a brisk walk)? 0 days 01/06/2024 On average, how many minutes do you engage in exercise at this level? 0 min 01/06/2024 Hunger Vital Sign Answer Date Recorded Within the past 12 months, y ou worried that your food would run out before you got the money to buy more. Never true 01/06/20 24 Within the past 12 months, t he food you bought just didn't last and you didn't have money to get more. Never true 01/06/2024 PRAPARE - Transportation Answer Date Re corded In the past 12 months, has l ack of transportation kept you from medical appointments or from getting medications? No 12/09 In the past 12 months, has l ack of transportation kept you from meetings, work, or from getting things needed for daily living? No 01/06/2024 Housing Stability Vital Sign Answer Lito e Recorded In the last 12 months, was t here a time when you were not able to pay the mortgage or rent on time? No 12/31/2022 In the last 12 months, how many places have you lived? 1 12/31/2022 In the last 12 months, was t here a time when you did not have a steady place to sleep or slept in a prison (including now)? No 12/31/2022 Housing Stability Vital Sign Answer Lito e Recorded In the last 12 months, was t here a time when you were not able to pay the mortgage or rent on time? No 01/06/2024 In the past 12 months, how m any times have you moved where you were living? 0 01/06/2024 At any time in the past 12 m [facility], were you homeless or living in a prison (including now)? No 01/06/2024 Comments No Sex and Gender Information Value Date Recorded Sex Assigned at Female 12/25/2022 11:53 AM EDT Legal Sex Female 7:35 PM EDT Gender Identity Female 08/21/2022 7:35 PM EDT Sexual Orientation Straight 12/25/2022 11 :53 AM EDT documented as of this encounter Last Filed Vital Signs Vital Sign Reading Time Taken Comments Blood Pressure 154/82 11/04/2024 9:32 AM EDT Pulse 77 11/04/2024 9:32 AM EDT Temperature 36.2 C (97.1 F) 11/04/2024 9:32 AM EDT Respiratory Rate 22 11/04/2024 9:32 AM EDT Oxygen Saturation 94% 11/04/2024 9:32 AM EDT Inhaled Oxygen Concentration - - Weight 103 kg (226 lb) 11/04/2024 9:32 AM EDT Height 167.6 cm (5' 6 ) 11/04/2024 9:32 AM EDT Body Mass Index 36.48 11/04/2024 9:32 AM EDT documented in this encounter Functional Status * Over the past 2 weeks, how often have you been bothered by any of the following problems? Question Answer Date of Assessment Author Little interest or pleasure in doing things Nearly every day 11/04/2024 9:42 AM Debbie Garza sa, NP Feeling down, depressed, or hopeless Nearly every day 11/04/2024 9:42 AM RODOLFOT Nayeli Russo N P Patient Health Questionnaire-2 Score 6 11/04/2024 9:42 AM RODOLFOT Nayeli Russo NP * Question Answer Date of Assessment Author Trouble falling or staying asleep, or sleeping too much Nearly every day 11/04/2024 9:42 AM RODOLFOT Nayeli Russo N P Feeling tired or having little energy Nearly every day 11/04/2024 9:42 AM Nayeli Garza N P Poor appetite or overeating Nearly every day 11/04/2024 9:42 AM Nayeli Garza N P Feeling bad about yourself - or that you are a failure or have let yourself or your family down Nearly every day 11/04/2024 9:42 AM Nayeli Garza N P Trouble concentrating on things, such as reading the newspaper or watching television Nearly every day 11/04/2024 9:42 AM Nyaeli Garza N P Moving or speaking so slowly that other people could have noticed? Or the opposite - being so fidgety or restless that you have been moving around a lot more than usual. More than half the days 11/04/2024 9:42 AM Naeyli Garza NP Thoughts that you would be better off or hurting yourself in some way Several days 11/04/2024 9:42 AM Nayeli Garza NP Patient Health Questionnaire-9 Score 24 11/04/2024 9:42 AM Nayeli Garza NP * If you checked off any problems on this questionnaire so far, Question Answer Date of Assessment Author How difficult have these problems made it for you to do your work, take care of things at home, or get along with other people? Somewhat difficult 11/04/2024 9:42 AM EDT Nayeli Russo N P documented as of this encounter Patient Instructions * Patient Instructions* Nayeli Russo NP - 11/04/2024 9:20 AM EDT Sertraline (zoloft) anxiety/depression: start with 1/2 pill daily for 7 days, then increase to 1 pill Buspirone (buspar) 5mg every 8 hours as needed for anxiety Trazodone: take for sleep Take medication only as directed. This medication will take approximately 4-6 weeks to become effective. If any suicidal thoughts, thoughts of hurting others, or hallucinations contact the office or proceed to the Emergency Room for mental health evaluation. Medication may cause dry mouth, dizziness, and in some cases worsening in depression symptoms. Please contact the office if these occur. documented in this encounter Progress Notes * Nayeli Russo NP - 11/04/2024 10:06 AM EDTAssociated Problem(s): Current 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 without prior episode ([facility]) Start sertaline, buspar prn, and trazodone at bedtime Take medication only as directed. This medication will take approximately 4-6 weeks to become effective. If any suicidal thoughts, thoughts of hurting others, or hallucinations contact the office or proceed to the Emergency Room for mental health evaluation. Medication may cause dry mouth, dizziness, and in some cases worsening in depression symptoms. Please contact the office if these occur. * Nayeli Russo NP - 11/04/2024 9:20 AM EDT Images from the original note were not included. Italia Elaine is a 68 y.o. female presents with chief complaint of Depression HPI: Son age 41 committed suicide about 5 weeks ago Depression Visit Type: initial Onset of symptoms: 1 to 6 months ago Progression since onset: gradually worsening Patient presents with the following symptoms: anhedonia, depressed mood, excessive worry, fatigue, insomnia, irritability, muscle tension, nervousness/anxiety and palpitations. Patient is not experiencing: shortness of breath, suicidal ideas, suicidal planning and thoughts ofdeath. Frequency of symptoms: constantly Severity: severe Aggravated by: family issues Sleep quality: non-restorative SUBJECTIVE: MEDICATIONS: Current Outpatient Medications Medication Instructions albuterol HFA 90 mcg/act inhaler 2 puffs, Inhalation, Every 6 hours PRN atenolol (TENORMIN) 50 mg, Oral, Daily cetirizine (ZYRTEC) 10 mg, Oral, Daily Farxiga 10 mg, Oral, Daily levothyroxine (SYNTHROID, LEVOXYL) 88 mcg, Oral, Daily before breakfast losartan (COZAAR) 25 mg, Oral, Daily RT rosuvastatin (CRESTOR) 5 mg, Oral, Daily ALLERGIES: Allergies Allergen Reactions Codeine Unknown REVIEW OF SYMPTOMS: Review of Systems Constitutional: Positive for irritability. Negative for appetite change, chills and fever. HENT: Negative for congestion, ear pain and sore throat. Eyes: Negative for pain, discharge, redness and visual disturbance. Respiratory: Negative for cough, shortness of breath and wheezing. Cardiovascular: Positive for palpitations. Negative for chest pain and leg swelling. Gastrointestinal: Negative for abdominal pain, blood in stool, constipation, diarrhea, nausea and vomiting. Genitourinary: Negative for difficulty urinating, dysuria and frequency. Musculoskeletal: Negative for arthralgias, back pain, joint swelling and myalgias. Skin: Negative for rash and wound. Neurological: Negative for dizziness, tremors, seizures, syncope and headaches. Psychiatric/Behavioral: Positive for depression and sleep disturbance. Negative for behavioral problems, self-injury and suicidal ideas. The patient is nervous/anxious and has insomnia. Depression Hematological: Does not bruise/bleed easily. Endocrine: Negative for polydipsia, polyphagia and polyuria. Allergic/Immunologic: Negative for environmental allergies and food allergies. 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 Dr Barney Blurred vision Bronchitis Bursitis of right hip 2009 Carpal tunnel syndrome 2002 Colon polyp (tubular adenoma)04/18/14 Essential (primary) hypertension (CMS/HCC) Fibromyositis Sebastian's thyroiditis (CMS/HCC) 2007 HL (hearing loss) Hypothyroidism (acquired) (CMS/HCC) Kidney stone 2004 Menopause Mild depression (CMS/HCC) Obesity Onychomycosis of toenail Palpitations Pelvic pain syndrome suspect nerve impingement Sinusitis Strep throat Tobacco dependence in remission Type 2 diabetes mellitus Past Surgical History: Procedure Laterality Date COLONOSCOPY 04/15/2014 2 polyps-tubular adenoma COLONOSCOPY 06/2019 4 mm polyp in the ascending colon. Repeat colonoscopy in [address] Wells DILATION AND CURETTAGE LASER ABLATION Left 11/12/2022 Lower back LASER ABLATION Right 11/05/2022 Lower back TONSILLECTOMY TUBAL LIGATION 1982 family history includes Alzheimer's disease in her mother; Cancer in her daughter, father, paternalgrandmother, and sister; Cervical cancer in her maternal grandmother; Diabetes in her mother and sibling; Hearing loss in her father; Heart attack in her father; Heart disease in her father and mother; Hypertension in her father; Learning disabilities in her father's brother; Mental illness in her mother; Prostate cancer in her father; black lung disease in her maternal grandfather. OBJECTIVE: Visit Vitals BP 154/82 Pulse 77 Temp 97.1 ??F Resp 22 Ht 5' 6 Wt 226 lb SpO2 94% BMI 36.48 kg/m?? OB Status Postmenopausal Smoking Status Former BSA 2.19 m?? Physical Exam Vitals and nursing note reviewed. Constitutional: General: She is not in acute distress. Appearance: Normal appearance. HENT: Head: Normocephalic and atraumatic. Right Ear: External ear normal. Left Ear: External ear normal. Nose: Nose normal. Mouth/Throat: Mouth: Mucous membranes are moist. Eyes: Extraocular Movements: Extraocular movements intact. Conjunctiva/sclera: Conjunctivae normal. Cardiovascular: Rate and Rhythm: Normal rate and regular rhythm. Pulses: Normal pulses. Heart sounds: Normal heart sounds. Pulmonary: Effort: Pulmonary effort is normal. Breath sounds: Normal breath sounds. Musculoskeletal: General: Normal range of motion. Cervical back: Normal range of motion and neck supple. Skin: General: Skin is warm and dry. Capillary Refill: Capillary refill takes 2 to 3 seconds. Findings: No rash. Neurological: General: No focal deficit present. Mental Status: She is alert and oriented to person, place, and time. Psychiatric: Thought Content: Thought content normal. Judgment: Judgment normal. Comments: tearful ASSESSMENT AND PLAN: No follow-ups on file. Problem List Items Addressed This Visit Hypothyroidism ([facility]/HCC) On levothyroxine Check labs yearly, and prn dose changes or changes in sxs Relevant Orders CBC and differential TSH T4, free Hyperlipidemia ([facility]) On statin therapy Check labs yearly and prn dose changes Relevant Orders Comprehensive metabolic panel Lipid panel Primary hypertension ([facility]) - Primary Please check blood pressure daily and record DASH diet Limit caffeine Take medication as directed Contact office if chest pain, pressure, dizziness, shortness of breath, swelling legs Recommend slow position changes Current meds: losartan, atenolol Likely elevated today d/t crying Relevant Orders Comprehensive metabolic panel Urinalysis with reflex microscopic (clean catch) Microalbumin / creatinine, urine ratio Type 2 diabetes mellitus with diabetic chronic kidney disease ([facility]) Check blood sugars daily, notify if <70 or >200. Take medications (pills or insulin) as directed. Monitor for s/s of hypoglycemia (sweaty, dizziness, nausea, vomiting, or shakiness). Watch for increase in thirst, urination, or appetite. Inspect feet frequently monitoring for open wounds , andalso recommend yearly eye exam. Pt should attempt to remain as physically active as chronic conditions allow, as well as trying to follow a diet low in carbohydrates, and simple sugars. Current meds: farxiga, arb, statin Relevant Orders Comprehensive metabolic panel Urinalysis with reflex microscopic (clean catch) Microalbumin / creatinine, urine ratio Hemoglobin A1c Stage 3b chronic kidney disease (HCC) ([facility]) Control BP Avoid nephrotoxic drugs when and if possible Periodic monitoring of labs Relevant Orders Comprehensive metabolic panel Urinalysis with reflex microscopic (clean catch) Microalbumin / creatinine, urine ratio Morbid (severe) obesity due to excess calories ([facility]) Discussed with patient their BMI (actual, verses recommended). We have also discussed lifestyle modifications: attempts to perform physical activity as chronic conditions allow, also to monitor dietary intake: increasing protein/fruits/veggies and lowering carb intake (unless contraindicated). Limit sodas, juices, and sugary drinks. Body mass index (BMI) 36.0-36.9, adult Current 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 without prior episode ([facility]) Relevant Medications busPIRone (Buspar) 5 MG tablet traZODone (Desyrel) 50 MG tablet sertraline (Zoloft) 50 MG tablet Other Relevant Orders Ambulatory referral to Behavioral Health * Nayeli Russo NP - 11/04/2024 6:25 AM EDTAssociated Problem(s): Hyperlipidemia ([facility]) On statin therapy Check labs yearly and prn dose changes * Nayeli Russo NP - 11/04/2024 6:25 AM EDTAssociated Problem(s): Type 2 diabetes mellitus with diabetic chronic kidney disease ([facility]) Check blood sugars daily, notify if <70 or >200. Take medications (pills or insulin) as directed. Monitor for s/s of hypoglycemia (sweaty, dizziness, nausea, vomiting, or shakiness). Watch for increase in thirst, urination, or appetite. Inspect feet frequently monitoring for open wounds , andalso recommend yearly eye exam. Pt should attempt to remain as physically active as chronic conditions allow, as well as trying to follow a diet low in carbohydrates, and simple sugars. Current meds: farxiga, arb, statin * Nayeli Russo NP - 11/04/2024 6:25 AM EDTAssociated Problem(s): Morbid (severe) obesity due to excess calories ([facility]) Discussed with patient their BMI (actual, verses recommended). We have also discussed lifestyle modifications: attempts to perform physical activity as chronic conditions allow, also to monitor dietary intake: increasing protein/fruits/veggies and lowering carb intake (unless contraindicated). Limit sodas, juices, and sugary drinks. * Nayeli Russo NP - 11/04/2024 6:24 AM EDTAssociated Problem(s): Hypothyroidism (CMS/HCC) On levothyroxine Check labs yearly, and prn dose changes or changes in sxs * Nayeli Russo NP - 11/04/2024 6:24 AM EDTAssociated Problem(s): Stage 3b chronic kidney disease (HCC) (CMS/HCC) Control BP Avoid nephrotoxic drugs when and if possible Periodic monitoring of labs * Nayeli Russo NP - 11/04/2024 6:23 AM EDTAssociated Problem(s): Primary hypertension (CMS/HCC) Please check blood pressure daily and record DASH diet Limit caffeine Take medication as directed Contact office if chest pain, pressure, dizziness, shortness of breath, swelling legs Recommend slow position changes Current meds: losartan, atenolol Likely elevated today d/t crying documented in this encounter Plan of Treatment Upcoming Encounters Date Type Department Care Team (Late st Contact Info) Description 12/02/2024 2:40 PM EDT Office Visit [facility] [address] [place] [address] Nayeli Russo NP [address] [place] [address] Scheduled Orders Name Type Priority Associated Diagnoses Orde r Schedule CBC and differential Lab Routine Hypothyroidism, unspecified type (CMS/HCC) Expected: 11/04/2024 (Approximate), Expires: 11/04/2025 Comprehensive metabolic panel Lab Routine Primary hypertension ([facility]) Stage 3b chronic kidney disease (HCC) ([facility]) Type 2 diabetes mellitus with stage 3b chronic kidney disease, without long-term current use of insulin (HCC) ([facility]/HCC) Mixed hyperlipidemia ([facility]) Expected: 11/04/2024 (Approximate), Expires: 11/04/2025 Lipid panel Lab Routine Mixed hyperlipidemia ([facility]) Expected: 11/04/2024 (Approximate), Expires: 11/04/2025 Urinalysis with reflex microscopic (clean catch) Lab Routine Primary hypertension ([facility]) Stage 3b chronic kidney disease (HCC) ([facility]) Type 2 diabetes mellitus with stage 3b chronic kidney disease, without long-term current use of insulin (HCC) ([facility]/HCC) Expected: 11/04/2024 (Approximate), Expires: 11/04/2025 Microalbumin / creatinine, urine ratio Lab Routine Primary hypertension ([facility]) Stage 3b chronic kidney disease (HCC) ([facility]) Type 2 diabetes mellitus with stage 3b chronic kidney disease, without long-term current use of insulin (HCC) ([facility]) Expected: 11/04/2024 (Approximate), Expires: 11/04/2025 TSH Lab Routine Hypothyroidism, unspecified type ([facility]) Expected: 11/04/2024 (Approximate), Expires: 11/04/2025 T4, free Lab Routine Hypothyroidism, unspecified type ([facility]) Expected: 11/04/2024 (Approximate), Expires: 11/04/2025 Hemoglobin A1c Lab Routine Type 2 diabetes mellitus with stage 3b chronic kidney disease, without long-term current use of insulin (HCC) ([facility]) Expected: 11/04/2024 (Approximate), Expires: 11/04/2025 Scheduled Referrals Name Type Priority Associated Diagnoses Order Schedule Ambulatory referral to Behavioral Health Outpatient Referral STAT Current 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 without prior episode ([facility]) Expected: 11/04/2024 (Approximate), Expires: 05/07/2025 documented as of this encounter Visit Diagnoses Diagnosis Current 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 without prior episode ([facility])- Primary Morbid (severe) obesity due to excess calories (CMS/HCC) Body mass index (BMI) 36.0-36.9, adult Primary hypertension (CMS/HCC) Unspecified essential hypertension Stage 3b chronic kidney disease (HCC) (CMS/HCC) Hypothyroidism, unspecified type (CMS/HCC) Type 2 diabetes mellitus with stage 3b chronic kidney disease, without long-term current use of insulin (HCC) (CMS/HCC) Mixed hyperlipidemia (CMS/HCC) Mixed hyperlipidemia documented in this encounter Additional Health Concerns Assessment Noted Time PHQ-9 Depression Total Score: 24 025 9:42 AM EDT documented as of this encounter Care Teams Blender / Cook Relationship Specialty Start Date End Date Shaikh Jackson MD [address] [place] [address] PCP - [employer]et[employer] 06/09/21 Jono Fong MD [address] [place] [address] PCP - General Family Medicine 04/08/24 Daniella Lou NP [address] [place] [address] Nurse Practitioner Family Medicine 01/07/24 documented as of this encounter
--- OUTSIDE RECORDS SUMMARY | 2024-11-08 09:27 | XMS_ITS | Encounter Summary ---
Author Organization [facility] Address [address] [place] [address] Care Team Providers Care Record Producer Name Role Phone Zunilda Clemons DO Primary Care Provider Shaikh AUTUMN Jackson Primary Care Provider [phone] Shaikh AUTUMN Jackson Unavailable [phone] Jono Fong MD Primary Care Provider [phone] Daniella Lou REINSURANCE ANALYST Unavailable [phone] Unallocated, [facility] Provider Primary Care Provi fredrick Jono Fong MD Primary Care Provider [phone] Encounter Details Date Type Department Care Team (Late st Contact Info) Description 02/07/2023 Abstract [facility] [address] [place] [address] Zunilda Clemons DO [address] [facility] [address] [place] [address] Social History Tobacco Use Types Packs/Day Years Used Date Smoking Tobacco: Never Smokeless Tobacco: Never Alcohol Use Standard Drinks/Week Comments Never 0 (1 standard drink = 0.6 oz pur e alcohol) caffeine: none Humiliation, Afraid, Rape, and Kick questionnair e [...] neighbors? More than three times a week 12/31/2022 How often do you get togethe r with friends or relatives? Once a week 12/31/2022 How often do you attend chur ch or latter-day services? Never 12/31/2022 Do you belong to any clubs o r organizations such as yazidi groups, unions, fraternal or athletic groups, or school groups? Yes 12/31/2022 How often do you attend meet ings of the clubs or organizations you belong to? More than 4 times per year 12/31/2022 Are you , , di vorced, , never , or living with a partner? 12/31/2022 AUDIT-C Answer Date Recorded Q1: How often do you have a drink containing alc ohol? Monthly or less 12/31/2022 Q2: How many drinks containi ng alcohol do you have on a typical day when you are drinking? 1 or 2 12/31/2022 Frequency of Binge Drinking Not on file 12/08 Overall Financial Resource Strain (CARDIA) Answe r Date Recorded How hard is it for you to pa y for the very basics like food, housing, medical care, and heating? Not very hard 12/31/2022 PHQ-2 Answer Date Recorded Patient Health Questionnaire-2 Score 0 01/01/2023 [facility] [place] of Occupat ional Health - Occupational Stress Questionnaire Answer Date Recorded Do you feel stress - tense, restless, nervous, or anxious, or unable to sleep at night because your mind is troubled all the time - these days? Rather much 12/31/2022 Exercise Vital Sign Answer Date Recorde d On average, how many days pe r week do you engage in moderate to strenuous exercise (like a brisk walk)? 0 days 12/31/2022 On average, how many minutes do you engage in exercise at this level? 0 min 12/31/2022 Hunger Vital Sign Answer Date Recorded Within the past 12 months, y ou worried that your food would run out before you got the money to buy more. Never true 01/01/20 23 Within the past 12 months, t he food you bought just didn't last and you didn't have money to get more. Never true 12/31/2022 PRAPARE - Transportation Answer Date Re corded In the past 12 months, has l ack of transportation kept you from medical appointments or from getting medications? No 12/08 In the past 12 months, has l ack of transportation kept you from meetings, work, or from getting things needed for daily living? No 12/31/2022 Housing Stability Vital Sign Answer [...] place to sleep or slept in a jail (including now)? No 12/31/2022 Comments Unknown Sex and Gender Information Value Date Recorded Sex Assigned at Female 12/25/2022 11:53 AM EDT Legal Sex Female 7:35 PM EDT Gender Identity Female 08/21/2022 7:35 PM EDT Sexual Orientation Straight 12/25/2022 11 :53 AM EDT documented as of this encounter Plan of Treatment Upcoming Encounters Date Type Department Care Team (Late st Contact Info) Description 12/02/2024 2:40 PM EDT Office Visit [facility] [address] [place] [address] Nayeli Russo NP [address] [place] [address] documented as of this encounter Visit Diagnoses Not on filedocumented in this encounter Additional Health Concerns Assessment Noted Time PHQ-9 Depression Total Score: 0 01/02/20 23 3:00 PM EDT documented as of this encounter Care Teams Record Producer Relationship Specialty Start Date End Date Zunilda Clemons DO PCP - General Family Medicine 12/27/22 08/03/23 Shaikh Jackson MD [address] [place] [address] PCP - General Internal Medicine 08/04/23 01/06/24 Shaikh Jackson MD [address] [place] [address] PCP - [employer]et[employer] 06/09/21 Jono Fong MD [address] [place] [address] PCP - General Family Medicine 01/07/24 03/31/24 Unallocated, [facility]oms Provider, [address] [place] [address] PCP - General Family Medicine 04/01/24 04/07/24 Jono Fong MD [address] [place] [address] PCP - General Family Medicine 04/08/24 Daniella Lou NP [address] [place] [address] Nurse Practitioner Family Medicine 01/07/24 documented as of this encounter
--- OUTSIDE RECORDS SUMMARY | 2024-11-08 09:27 | XMS_ITS | Encounter Summary ---
Author Organization [facility] Address [address] [place] [address] Care Team Providers Care Rigging Foreman Name Role Phone Zunilda Clemons DO Primary Care Provider [phone] Shaikh AUTUMN Jackson Primary Care Provider [phone] Shaikh AUTUMN Jackson Unavailable [phone] Jono Fong MD Primary Care Provider [phone] Daniella Lou UNDERWATER PHOTOGRAPHER Unavailable [phone] Unallocated, Noms Provider Primary Care Provi fredrick Jono Fong MD Primary Care Provider [phone] Encounter Details Date Type Department Care Team (Late st Contact Info) Description 04/21/2023 Abstract [facility] [address] [place] [address] Zunilda Clemons DO [address] [facility] [address] [place] [address] Social History Tobacco Use Types [...] often do you attend chur ch or evangelical services? Never 12/31/2022 Do you belong to any clubs o r organizations such as shinto groups, unions, fraternal or athletic groups, or [...] Recorded Patient Health Questionnaire-2 Score 0 01/01/2023 [facility] [place] of Occupat ional Health - Occupational Stress [...] place to sleep or slept in a snf (including now)? No 12/31/2022 Comments Unknown Sex [...] Visit [facility] [address] [place] [address] Nayeli Russo NP [address] [place] [address] documented as of this encounter Visit Diagnoses Not on filedocumented in this encounter Additional Health Concerns Assessment Noted Time PHQ-9 Depression Total Score: 0 01/02/20 23 3:00 PM EDT documented as of this encounter Care Teams Rigging Foreman Relationship Specialty Start Date End Date Zunilda Clemons DO PCP - General Family Medicine 12/27/22 08/03/23 Shaikh Jackson MD [address] [place] [address] PCP - General Internal Medicine 08/04/23 01/06/24 Shaikh Jackson MD [address] [place] [address] PCP - [employer]et[employer] 06/09/21 Jono Fong MD [address] [place] [address] PCP - General Family Medicine 01/07/24 03/31/24 Unallocated, Noms Provider, [address] [place] [address] PCP - General Family Medicine 04/01/24 04/07/24 Jono Fong MD [address] [place] [address] PCP - General Family Medicine 04/08/24 Daniella Lou NP [address] [place] [address] Nurse Practitioner Family Medicine 01/07/24 documented as of this encounter
--- OUTSIDE RECORDS SUMMARY | 2024-11-08 09:27 | XMS_ITS | Encounter Summary ---
Author Organization [facility] Address [address] [place] [address] Care Team Providers Care Ground Crewman Name Role Phone Shaikh AUTUMN Jackson Primary Care Provider Shaikh AUTUMN Jackson Unavailable [phone] Jono Fong MD Primary Care Provider Daniella Lou NP Unavailable Unallocated, Noms Provider Primary Care Provi fredrick Jono Fong MD Primary Care Provider Encounter Details Date Type Department Care Team (Late st Contact Info) Description 09/30/2023 Clinisync Result Encounter [facility] External Department Unsolicited Shaikh Jackson MD [address] [facility] [place] [address] Social History Tobacco Use Types Packs/Day Years [...] 12/31/2022 How often do you attend chur or baptist services? Never 12/31/2022 Do you belong to any clubs o r organizations such as buddhism groups, unions, fraternal or athletic groups, or [...] Date Recorded Patient Health Questionnaire-2 Score 0 09/29/2023 [facility] of Occupat ional Health - Occupational Stress [...] money to buy more. Never true 01/01/20 Within the past 12 months, t he [...] Visit [facility] [address] [place] [address] Nayeli Russo NP [address] [place] [address] documented as of this encounter Procedures Procedure Name Priority Date/Time Associated Diagnosis Comments XR SHOULDER 2+ VIEWS LEFT 09/30/2023 4:23 AM EDT documented in this encounter Results * XR shoulder 2+ views left (09/30/2023 4:23 AM EDT) Anatomical Region Laterality Modality Upper Extremities, Shoulder Left Radi ographic Imaging 09/30/2023 4:23 AM EDT Narrative 09/30/2023 4:26 [place] [address] XRay Report Signed Patient: ARIAN CANAS MR#: [id number] : 1955 Acct:[id number] Age/Sex: 67 / F ADM Date: 09/29/23 Loc: RAD Attending Dr: Shaikh Manuel Penn Ordering Physician: Shaikh Isamar Jackson Date of Service: 09/29/23 Procedure(s): XR shoulder LT min 2V Accession Number(s): [id number] cc: Shaikh Isamar Jackson [address] [address] Patient Name: ARIAN CANAS MRN: [id number] date: 1955 Sex: F Assigned Patient Location: [facility] Current Patient Location: Accession/Order Number: [id number] Exam Date: 09/29/2023 14:20 Report Date: 09/30/2023 04:23 At the request of: SHAIKH MANUEL Procedure: XR shoulder LT min 2V PROCEDURE: XR shoulder LT min 2V HISTORY: left shoulder pain M25.512, Chronic left shoulder pain G89. COMPARISON: None. FINDINGS: BONES:Slight narrowing of the acromioclavicular joint and small undersurface osteophytes. Unremarkable humeral head and glenohumeral joint. SOFT TISSUES:No visible soft tissue swelling. EFFUSION:None visible. OTHER: Negative. XR/XR shoulder LT min 2V IMPRESSION: 1. No acute bone abnormality. 2. Mild degenerative changes of the acromioclavicular joint which would predispose to rotator cuff injury. Electronically authenticated by: MUNIR STAPLES Date: 09/30/2023 04:23 Dictated By: Munir Staples M.D. Signed By: 09/30/23425 DD/ 2 TD/TT: Quarry Supervisor: Procedure Note Radiology, Radiologist, MD - 09/30/2023 [place] [address] XRay Report Signed Patient: RASHAWN CANAS#: [id number] : 1955cct:[id number] Age/Sex: 67 / FADM Date: 09/29/23 Loc: RAD Attending Dr: Shaikh Manuel Penn Ordering Physician: Shaikh Isamar Jackson Date of Service: 09/29/23 Procedure(s): XR shoulder LT min 2V Accession Number(s): [id number] cc: Shaikh Isamar Jackson [place] [address] Patient Name: ARIAN CANAS MRN: [id number] date: 1955 Sex: F Assigned Patient Location: [facility] Current Patient Location: Accession/Order Number: [id number] Exam Date: 09/29/2023 14:20 Report Date: 09/30/2023 04:23 At the request of: SHAIKH MANUEL Procedure: XR shoulder LT min 2V PROCEDURE: XR shoulder LT min 2V HISTORY: left shoulder pain M25.512, Chronic left shoulder pain G89. COMPARISON: None. FINDINGS: BONES:Slight narrowing of the acromioclavicular joint and smallundersurface osteophytes. Unremarkable humeral head and glenohumeral joint. SOFT TISSUES:No visible soft tissue swelling. EFFUSION:None visible. OTHER: Negative. XR/XR shoulder LT min 2V IMPRESSION: 1. No acute bone abnormality. 2. Mild degenerative changes of the acromioclavicular joint which would predispose to rotator cuff injury. Electronically authenticated by: MUNIR STAPLES Date: 09/30/2023 04:23 Dictated By: Munir tSaples M.D. Signed By:09/30/23425 DD/ 2 TD/TT: Quarry Supervisor: Shaikh Manuel LEYVA IMG XR PROCEDURES Final Result documented in this encounter Visit Diagnoses Not on filedocumented in this encounter Additional Health Concerns Assessment Noted Time PHQ-9 Depression Total Score: 0 01/02/20 3:00 PM EDT documented as of this encounter Care Teams Ground Crewman Relationship Specialty Start Date End Date Shaikh Jackson MD [address] [place] [address] PCP - General Internal Medicine 08/04/23 01/06/24 Shaikh Jackson MD [address] [place] [address] PCP - [employer]et[employer] 06/09/21 Jono Fong MD [address] [place] [address] PCP - General Family Medicine 01/07/24 03/31/24 Unallocated, [facility] Provider, [address] [place] [address] PCP - General Family Medicine 04/01/24 04/07/24 Jono Fong MD [address] [place] [address] PCP - General Family Medicine 04/08/24 Daniella Lou NP [address] [place] [address] Nurse Practitioner Family Medicine 01/07/24 documented as of this encounter
--- OUTSIDE RECORDS SUMMARY | 2024-11-08 09:27 | XMS_ITS | Encounter Summary ---
Author Organization [facility] Address [address] [place] [address] Care Team Providers Care Tractor Mechanic Apprentice Name Role Phone Zunilda Clemons DO Primary Care Provider [phone] Shaikh AUTUMN Jackson Primary Care Provider [phone] Shaikh AUTUMN Jackson Unavailable [phone] Jono Fong MD Primary Care Provider [phone] Daniella Lou CAR REPAIR SUPERVISOR Unavailable [phone] Unallocated, [facility]oms Provider Primary Care Provi fredrick Jono Fong MD Primary Care Provider [phone] Encounter Details Date Type Department Care Team (Late st Contact Info) Description 03/04/2023 Abstract [facility] [address] [place] [address] Zunilda Clemons DO 17[address] [facility] [address] [place] [address] Social History Tobacco Use Types [...] often do you attend chur ch or nondenominational services? Never 12/31/2022 Do you belong to any clubs o r organizations such as zoroastrian groups, unions, fraternal or athletic groups, or [...] Recorded Patient Health Questionnaire-2 Score 0 01/01/2023 [facility] [place] of Occupat ional Health - Occupational Stress [...] place to sleep or slept in a correction (including now)? No 12/31/2022 Comments Unknown Sex [...] Office Visit [facility] [address] [place] [address] Nayeli Russo NP [address] [place] [address] documented as of this encounter Visit Diagnoses Not on filedocumented in this encounter Additional Health Concerns Assessment Noted Time PHQ-9 Depression Total Score: 0 01/02/20 23 3:00 PM EDT documented as of this encounter Care Teams Tractor Mechanic Apprentice Relationship Specialty Start Date End Date Zunilda Clemons DO PCP - General Family Medicine 12/27/22 08/03/23 Shaikh Jackson MD [address] [place] [address] PCP - General Internal Medicine 08/04/23 01/06/24 Shaikh Jackson MD [address] [place] [address] PCP - [employer]et[employer] 06/09/21 Jono Fong MD [address] [place] [address] PCP - General Family Medicine 01/07/24 03/31/24 Unallocated, [facility] Provider, [address] [place] [address] PCP - General Family Medicine 04/01/24 04/07/24 Jono Fong MD [address] [place] [address] PCP - General Family Medicine 04/08/24 Daniella Lou NP [address] [place] [address] Nurse Practitioner Family Medicine 01/07/24 documented as of this encounter
--- OUTSIDE RECORDS SUMMARY | 2024-11-08 09:27 | XMS_ITS | Clinical Summary ---
Author Organization [facility] Address [id number] [address] [place] [address] Care Team Providers Care Agents' Records Clerk Name Role Phone Zunilda Clemons Primary Care Provider [phone] Allergies Active Allergy Reactions Criticality Noted Date Comments Codeine Other (See Comments) 01/23/2017 Medications atenolol (TENORMIN) 50 mg tablet Take 1 tablet (50 mg total) by mouth in the morning. Active SYNTHROID 88 mcg tablet Take 75 mcg by mouth daily. 03/08/2019 Active rosuvastatin (CRESTOR) 5 mg tablet 04/30/2019 Active FREESTYLE LITE STRIPS strip 05/30/2019 Active losartan (COZAAR) 50 mg tablet Take 1 tablet (50 mg total) by mouth in the morning. 01/12/2022 Active ascorbic acid, vitamin C, (VITAMIN C) 1000 mg tablet Take 1,600 mg by mouth in the morning. Active cholecalciferol , vitamin D3, (VITAMIN D3) 25 mcg (1,000 unit) capsule Take 1 capsule (1,000 Units total) by mouth in the morning. Active Active Problems Problem Noted Date Diagnosed Date Syncope 01/21/2022 Social History Tobacco Use Types Packs/Day Years Used Date Smoking Tobacco: Former Smokeless Tobacco: Never Tobacco Cessation:Counseling Given: Not Answered Alcohol Use Standard Drinks/Week Comments Yes 0 (1 standard drink = 0.6 oz pur e alcohol) SOMETIMES Childcare Answer Date Recorded Childcare Unknown 11/18/2018 Employment Answer Date Recorded Employment Unknown 11/18/2018 Hunger Screening Answer Date Recorded Within the past 12 months we worried whether our food would run out before we got money to buy more. Never True 11/28/2022 Within the past 12 months th e food we bought just didn't last and we didn't have money to get more. Never True 11/28/2022 Purpose - Life Answer Date Recorded Purpose and direction in life Unknown Comments No Sex and Gender Information Value Date Recorded Sex Assigned at Not on file Legal Sex Female 11:40 AM EDT Gender Identity Not on file Sexual Orientation Not on file Last Filed Vital Signs Vital Sign Reading Time Taken Comments Blood Pressure 118/70 11/28/2022 8:59 AM EDT Pulse 64 11/28/2022 8:59 AM EDT Temperature 37.3 C (99.1 F) 12/28/2021 10:40 AM EDT Respiratory Rate 12 12/28/2021 11:15 AM EDT Oxygen Saturation 99% 11/28/2022 8:59 AM EDT Inhaled Oxygen Concentration - - Weight 105.7 kg (233 lb) 11/28/2022 8:59 AM EDT Height 167.6 cm (5' 6 ) 11/28/2022 8:59 AM EDT Body Mass Index 37.61 11/28/2022 8:59 AM EDT Plan of Treatment Health Maintenance Due Date Last Done Comments Depression Screening 1967 Zoster (Shingles) Vaccine (2 of 3) 07/13/2016 05/18/2016 Fall Risk Screening 11/08/2020 Adult BMI Screening 11/29/2023 11/28/2022 Tobacco Screening 11/29/2023 11/28/2022 COVID-19 Vaccine (5 - 2023-2 5 season) 2024 06/11/2022, 04/05/2021, 09/12/2020, Additional history exists Colonoscopy 07/01/2024 07/01/2019, 07/01/2019 Influenza Vaccine 02/07/2025 03/21/2022, , 02/17/2020, Additional history exists DTaP,Tdap and Td Vaccines (2 - Td or Tdap) 03/18/2032 03/18/2022 Medical Devices Not on file Procedures Procedure Name Priority Date/Time Associated Diagnosis Comments PROVATION COLONOSCOPY Routine 07/01/2019 8:07 AM EST from Last 3 Months or Most Recently Relevant to Health Maintenance Results * ES colonoscopy imaging (07/01/2019 8:07 AM EST) Narrative SYSTEMGENERATED, DOCUMENTATION - 07/01/2019 8:07 AM EST This order has been auto-finalized for image and report archival. *See procedures tab in Epic or report included with PACS images for full interpretation.* us Carlos Wells DO IMG OR IMG ORDERABLES Final Result from Last 3 Months or Most Recently Relevant to Health Maintenance Insurance AETNA MEDICARE Care Teams Agents' Records Clerk Relationship Specialty Start Date End Date Zunilda Clemons DO [address] [place] [address] PCP - General Family Medicine 06/22/21
--- OUTSIDE RECORDS SUMMARY | 2024-11-08 09:27 | XMS_ITS | Patient Health Record ---
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 Import medication Plan Of Treatment No Information Insurance Providers Payer Name Payer Address Payer Phone Subscriber Number Group Number Insured Name Patient Relationship to Insured Coverage Start Date Coverage End Date Medicare Aetna [address] [place] [address] [id number] ARIAN CANAS Self - patient is the insured
--- OUTSIDE RECORDS SUMMARY | 2024-11-08 09:27 | XMS_ITS | Encounter Summary ---
Author Organization [facility] Address [address] [place] [address] Care Team Providers Care Call Center Director Name Role Phone Shaikh AUTUMN Jackson Unavailable [phone] Daniella Lou NP Unavailable [phone] Jono Fong MD Primary Care Provider [phone] Encounter Details Date Type Department Care Team (Latest Contact Info) Description 11/03/2024 Travel Social History Tobacco Use Types Packs/Day Years [...] often do you attend chur ch or presybeterian services? Never 01/06/2024 Do you belong to any clubs o r organizations such as evangelical groups, unions, fraternal or athletic groups, or [...] Recorded Patient Health Questionnaire-2 Score 6 11/04/2024 [facility] Answer Date Recorded [...] place to sleep or slept in a detention (including now)? No 12/31/2022 Housing Stability Vital Sign Answer Lito e Recorded In the last 12 months, was t here a time when you were not able to pay the mortgage or rent on time? No 01/06/2024 In the past 12 months, how m any times have you moved where you were living? 0 01/06/2024 At any time in the past [address] [facility], were you homeless or living in a detention (including now)? No 01/06/2024 Comments No Sex [...] Office Visit [facility] [address] [place] [address] Nayeli Russo NP [address] [place] [address] documented as of this encounter Visit Diagnoses Not on filedocumented in this encounter Additional Health Concerns Assessment Noted Time PHQ-9 Depression Total Score: 0 02/12/20 9:59 AM EDT documented as of this encounter Care Teams Call Center Director Relationship Specialty Start Date End Date Shaikh Jackson MD [address] [place] [address] PCP - [employer] 06/09/21 Jono Fogn MD [address] [place] [address] PCP - General Family Medicine 04/08/24 Daniella Lou NP [address] [place] [address] Nurse Practitioner Family Medicine 01/07/24 documented as of this encounter
--- OUTSIDE RECORDS SUMMARY | 2024-11-08 09:27 | XMS_ITS | Encounter Summary ---
Author Organization [facility] Address [address] [place] [address] Care Team Providers Care Wet Roaster Name Role Phone Shaikh AUTUMN Jackson Primary Care Provider Shaikh AUTUMN Jackson Unavailable [phone] Jono Fong MD Primary Care Provider Daniella Lou NP Unavailable [phone] Unallocated, Noms Provider Primary Care Provi fredrick Jono Fong MD Primary Care Provider Encounter Details Date Type Department Care Team (Late st Contact Info) Description 11/04/2023 Abstract [facility] [address] [place] [address] Shaikh Jackson MD [address] [place] [address] Social History Tobacco Use Types Packs/Day Years [...] often do you attend chur ch or sikhism services? Never 12/31/2022 Do you belong to any clubs o r organizations such as caodaism groups, unions, fraternal or athletic groups, or [...] Recorded Patient Health Questionnaire-2 Score 0 09/29/2023 [facility] - Occupational Stress [...] place to sleep or slept in a fpc (including now)? No 12/31/2022 Comments Unknown Sex [...] Visit [facility] [address] [place] [address] Nayeli Russo NP [address] [place] [address] documented as of this encounter Visit Diagnoses Not on filedocumented in this encounter Additional Health Concerns Assessment Noted Time PHQ-9 Depression Total Score: 0 01/02/20 23 3:00 PM EDT documented as of this encounter Care Teams Wet Roaster Relationship Specialty Start Date End Date Shaikh Jackson MD [address] [place] [phone] PCP - General Internal Medicine 08/04/23 01/06/24 Shaikh Jackson MD [address] [place] [phone] PCP - [employer] 06/09/21 Jono Fong MD [address] [place] [phone] PCP - General Family Medicine 01/07/24 03/31/24 Unallocated, Renaldo Brush MD [address] [address] PCP - General Family Medicine 04/01/24 04/07/24 Jono Fong MD [address] [place] [phone] PCP - General Family Medicine 04/08/24 Daniella Lou NP [address] [place] [phone] Nurse Practitioner Family Medicine 01/07/24 documented as of this encounter
--- OUTSIDE RECORDS SUMMARY | 2024-11-08 09:27 | XMS_ITS | Encounter Summary ---
Author Organization [facility] Address [address] [place] [address] Care Team Providers Care Stoper Name Role Phone Shaikh AUTUMN Jackson Unavailable [phone] Daniella Lou NP Unavailable Jono Fong MD Primary Care Provider Encounter Details Date Type Department Care Team (Late st Contact Info) Description 11/04/2024 Bamboo flowsheet [facility] [address] [place] [address] Nayeli Russo NP [address] [place] [address] Social History Tobacco Use Types Packs/Day Years [...] 01/06/2024 How often do you attend chur or sikh services? Never 01/06/2024 Do you belong to any clubs o r organizations such as jain groups, unions, fraternal or athletic groups, or [...] Recorded Patient Health Questionnaire-2 Score 6 11/04/2024 [facility] - Occupational [...] place to sleep or slept in a penitentiary (including now)? No 12/31/2022 Housing Stability Vital Sign Answer Lito e Recorded In the last 12 months, was t here a time when you were not able to pay the mortgage or rent on time? No 01/06/2024 In the past 12 months, how m any times have you moved where you were living? 0 01/06/2024 At any time in the past 12 m [facility], were you homeless or living in a penitentiary (including now)? No 01/06/2024 Comments No Sex [...] 12/02/2024 2:40 PM EDT Office Visit [facility] [address] [place] [address] Nayeli Russo NP [address] [place] [id number] documented as of this encounter Visit Diagnoses Not on filedocumented in this encounter Additional Health Concerns Assessment Noted Time PHQ-9 Depression Total Score: 24 025 9:42 AM EDT documented as of this encounter Care Teams Stoper Relationship Specialty Start Date End Date Shaikh Jackson MD [address] [place] [id number] PCP - [employer] 06/09/21 Jono Fong MD [address] [place] [phone] PCP - General Family Medicine 04/08/24 Daniella Lou NP [address] [place] [phone] Nurse Practitioner Family Medicine 01/07/24 documented as of this encounter
--- OUTSIDE RECORDS SUMMARY | 2024-11-08 09:28 | XMS_ITS | Clinical Summary ---
Author Organization [facility] Healthcare Address [address] [place] [address] Care Team Providers Care Hide House Supervisor Name Role Phone Shaikh AUTUMN Jackson Unavailable [phone] Daniella Lou NP Unavailable [phone] Jono Fong MD Primary Care Provider [phone] Allergies Active Allergy Reactions Criticality Noted Date Comments Codeine Unknown 01/23/2017 Medications cetirizine (ZyrTEC) 10 MG tabletIndications: Chronic frontal sinusitis,Medicati on refill Take 1 tablet (10 mg) by mouth Daily 90 tablet 2 02/12/20 24 Active Farxiga 10 MGIndications:Type 2 diabetes mellitus with stage 3a chronic kidney disease, without long-term current use of insulin ([facility]) ([facility]),CKD (chronic kidney disease) stage 2, GFR 60-89 ml/min TAKE 1 TABLET DAILY 90 tablet 3 04/01/20 24 Active atenolol (Tenormin) 50 MG tabletIndications: Primary hypertension ([facility]) Take 1 tablet (50 mg) by mouth Daily 90 tablet 1 05/11/20 24 Active albuterol HFA 90 mcg/act inhalerIndications :Acute bronchitis, unspecified organism Inhale 2 puffs every 6 (six) hours if needed for shortness of breath or wheezing 18 g 05/31/20 24 Active levothyroxine (Synthroid, Levoxyl) 88 MCG tabletIndications: Acquired hypothyroidism ([facility]) Take 1 tablet (88 mcg) by mouth in the morning. Take before meals. 90 tablet 1 06/23/19 25 025 Active rosuvastatin (Crestor) 5 MG tabletIndications: Hyperlipidemia, unspecified hyperlipidemia type (CMS/HCC) Take 1 tablet (5 mg) by mouth Daily 90 tablet 1 09/29/19 25 Active losartan (Cozaar) 25 MG tabletIndications: Primary hypertension (CMS/HCC) Take 1 tablet (25 mg) by mouth in the morning. 90 tablet 1 10/05/19 25 025 Active busPIRone (Buspar) 5 MG tabletIndications: Current 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 without prior episode (CMS/HCC) Take 1 tablet (5 mg) by mouth every 12 (twelve) hours if needed (anxiety) 60 tablet 11/05/19 25 025 Active traZODone (Desyrel) 50 MG tabletIndications: Current 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 without prior episode (CMS/HCC) Take 1 tablet (50 mg) by mouth as needed at bedtime for sleep 30 tablet 1 11/05/19 25 025 Active sertraline (Zoloft) 50 MG tabletIndications: Current 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 without prior episode (CMS/HCC) Take 1 tablet (50 mg) by mouth Daily Start with 1/2 pill daily for 7 days, then increase to 1 pill 30 tablet 1 11/05/19 25 025 Active fluticasone (Flonase) 50 MCG/ACT nasal sprayIndications:C hronic frontal sinusitis Administer 1-2 sprays into each nostril Daily Shake gently. Before first use, prime pump. After use, clean tip and replace cap. 16 g 2 01/13/20 24 025 Discontin ued(Thera py completed ) Active Problems Problem Noted Date Diagnosed Date Morbid (severe) obesity due to excess calories 0 11/04/2024 Assessment & Plan (11/04/2024 6:25 AM EDT): Discussed with patient their BMI (actual, verses recommended). We have also discussed lifestyle modifications: attempts to perform physical activity as chronic conditions allow, also to monitor dietary intake: increasing protein/fruits/veggies and lowering carb intake (unless contraindicated). Limit sodas, juices, and sugary drinks. Body mass index (BMI) 36.0-36.9, adult Adhesive capsulitis of left shoulder 11/04/2024 Arthritis of left acromioclavicular joint 2024 Current severe episode of ma reese depressive disorder without prior episode 11/04/2024 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 without prior episode 11/04/2024 Assessment & Plan (11/04/2024 10:06 AM EDT): Start sertaline, buspar prn, and trazodone at [...] Please contact the office if these occur. Acute bronchitis 05/18/2024 Assessment & Plan (05/31/2024 11:57 AM EST): Some help with steroids and tessalon Will now treat with atb (mucus is green/blood tinged) no sunil hemoptysis Pt instructed to call office if not better next week and order cxr if needed Also instructed to keep fu appt in 3 weeks to see if blood tinged sputum resolved or not Add albuterol inhaler, increase tessalon to 200mg dose Stage 3b chronic kidney disease (HCC) 04/16/2024 Assessment & Plan (11/04/2024 6:24 AM EDT): Control BP Avoid nephrotoxic drugs when and if possible Periodic monitoring of labs Assessment & Plan (07/20/2024 9:48 AM EST): Has appointment scheduled with Nephrology in August. Most recent Creatinine: 1.51 eGFR: 34 Currently taking Farxiga 10mg. Continue to monitor closely. Avoid Nephrotoxic Agents. Assessment & Plan (05/31/2024 11:51 AM EST): Continue monitoring Actinic keratosis 03/09/2024 Assessment & Plan (03/09/2024 9:51 PM EDT): Cryotherapy performed in office today. Discussed treatment and monitoring with patient. Encounter for Medicare annual wellness exam 10/2023 Medication refill 02/12/2024 Chronic sinusitis, unspecified 01/13/2024 Overview (01/13/2024): Start flonase and cetirizine daily Chronic left shoulder pain 09/29/2023 Assessment & Plan (11/11/2023 2:30 PM EDT): Left shoulder pain, persistent, worsening x 4 months. Pain/weakness worsening with PT. XR showed Mild degenerative changes of the acromioclavicular joint. No injury, no prior hx of surgery. Exam c/w rotator cuff tear - will order MRI as persistent/worsening pain, associated weakness, abnormal XR, symptoms worsening with PT. Can't use NSAIDS due to CKD. Using tylenol and it does not quite help. Patient refusing Narcotic use. Will refer to Orthopedic surgery. Assessment & Plan (10/21/2023 9:56 AM EDT): Left shoulder pain, intermittent, worse with movement, 2 months. No injury, no prior hx of surgery. XR - Mild degenerative changes of the acromioclavicular joint which would predispose to rotator cuff injury. PT eval - recommended MRI based on their initial exam. Will order MRI of shoulder Assessment & Plan (09/29/2023 1:48 PM EDT): Left shoulder pain, intermittent, worse with movement, 2 months. No injury, no prior hx of surgery. Exam concerning for adhesive capsulitis. Ordered XR and PT If persistent pain after PT, will order MRI for her Pigmented skin lesion 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 malignant brittni ure 08/27/2023 Assessment & Plan (08/27/2023 10:10 AM EDT): Skin lesion right anterior chest wall, below clavicle. Appearance concerning for basal cell carcinoma. Refer to derm Appeared one month ago, grown rapidly, rough surface. Encounter to establish care 08/04/2023 Assessment & Plan (08/04/2023 10:37 AM EST): New Patient, here to establish care. Reviewed medical, surgical and social hx. Reviewed available old records. Reviewed and updated medication list. Hypothyroidism 01/01/2023 Assessment & Plan (11/04/2024 6:24 AM EDT): On levothyroxine Check labs yearly, and prn dose changes or changes in sxs Assessment & Plan (01/13/2024 10:15 AM EDT): Comntinue taking Levothyroxine 88mcg Assessment & Plan (09/29/2023 1:48 PM EDT): TSH at goal. C/w levothyroxxind Assessment & Plan (08/04/2023 10:38 AM EST): TSH 12/29 --> 11 --> Above goal Check TSH. On levothyroxine 88 mcg. Back pain with right-sided sciatica 01/01/2023 Facet arthropathy, lumbosacral 01/01/2023 Hot flash, menopausal 01/01/2023 Lumbago with sciatica, right side 01/01/2023 Hyperlipidemia 01/01/2023 Assessment & Plan (11/04/2024 6:25 AM EDT): On statin therapy Check labs yearly and prn dose changes Assessment & Plan (07/20/2024 9:50 AM EST): Currently taking Rosuvastatin 5mg Denies any myalgias. Recheck Lipid Panel today. Continue current regimen. Assessment & Plan (04/15/2024 10:58 AM EST): Currently taking Rosuvastatin 5mg Denies any myalgias. Continue current regimen. Assessment & Plan (01/13/2024 10:25 AM EDT): Continue taking Crestor 5mg Assessment & Plan (08/04/2023 10:37 AM EST): Check Lipid panel. On Crestor. Primary hypertension 01/01/2023 Assessment & Plan (11/04/2024 10:00 AM EDT): Please check blood pressure daily and record DASH diet Limit caffeine Take medication as directed Contact office if chest pain, pressure, dizziness, shortness of breath, swelling legs Recommend slow position changes Current meds: losartan, atenolol Likely elevated today d/t crying Assessment & Plan (07/20/2024 9:44 AM EST): Currently taking Losartan 25mg Atenolol 50mg Checks BP at home occasionally; Averages are 120's-130's. Denies orthostatic changes, dizziness, cough, shortness of breath, swelling in extremities. Continue current regimen. Given BP log, advised pt to record BP and bring log back with them to next visit. Assessment & Plan (05/31/2024 11:51 AM EST): Please check blood pressure daily and record DASH diet Limit caffeine Take medication as directed Contact office if chest pain, pressure, dizziness, shortness of breath, swelling legs Recommend slow position changes Continue current meds Assessment & Plan (04/15/2024 10:57 AM EST): Currently taking Losartan 25mg Atenolol 50mg Checks BP at home; Averages are 120's-130's. Denies orthostatic changes, dizziness, cough, shortness of breath, swelling in extremities. Continue current regimen. Given BP log, advised pt to record BP and bring log back with them to next visit. Assessment & Plan (01/13/2024 10:14 AM EDT): Currently taking Losartan 25mg Atenolol 50mg Assessment & Plan (09/29/2023 1:46 PM EDT): At goal. Tolerating Anti hypertensive w/o adverse effects. C/w Atenolol, Losartan. Assessment & Plan (08/27/2023 10:09 AM EDT): Above goal goal in office and she reports it is usually like that when she is in office. Reviewed home BP log, persistently 120-130/80. Tolerating Anti hypertensive w/o adverse effects. C/w Atenolol, Losartan. Assessment & Plan (08/04/2023 10:34 AM EST): Above goal goal in office. But reports that its usually well controlled. She claims that this is due to being anxious about seeing a new provider. Tolerating Anti hypertensive w/o adverse effects. Denies lightheadedness, dizziness, syncope, presyncope. Patient encouraged to continue with home BP monitoring and call office if she experiences orthostatic symptoms or persistently elevated BP. C/w Atenolol, Losartan. Check labs Type 2 diabetes mellitus wit h diabetic chronic kidney disease 01/01/2023 Assessment & Plan (11/04/2024 10:02 AM EDT): Check blood sugars daily, notify if <70 [...] simple sugars. Current meds: farxiga, arb, statin Assessment & Plan (07/20/2024 9:50 AM EST): Currently taking Farxiga 10mg Most recent labs: [...] persistent hypoglycemia/hyperglycemia on home glucose monitoring noted. Assessment & Plan (04/15/2024 10:58 AM EST): Currently taking Farxiga 10mg Most recent labs: [...] persistent hypoglycemia/hyperglycemia on home glucose monitoring noted. Assessment & Plan (01/13/2024 10:24 AM EDT): Creatnine 1.38 in 08/2023 Last A1C 6.1 Continue taking Farxiga 10mg Assessment & Plan (09/29/2023 1:49 PM EDT): Last A1C 6.1 -- > She was previously on metformin and lost about 60 lbs. She was started on Farxiga lasg appointment. Assessment & Plan (08/04/2023 10:36 AM EST): Last A1C 6.1 -- > She was previously on metformin and lost about 60 lbs and not not on any medications for T2 DM Check A1C, urine protein/creatinine. Syncope 01/21/2022 Diabetic renal disease 12/12/2020 Family history of mental disorder 03/14/2020 History of adenomatous polyp of colon 03/14/2020 Resolved Problems Problem Noted Date Diagnosed Date Resolved Date URI (upper respiratory infection) 05/18/2024 05/31/2024 Assessment & Plan (05/18/2024 10:02 AM EST): Cough- mostly dry Fever 101.2 at home /100.8 in office/Fatigue/Body aches/Headache/Runny nose/Decreased appetite. Harsh dry cough auscultated in office,. Tested negative at home for COVID. Negative in office for Flu. Likely viral etiology. Steroids and tessalon pearles sent in. Continue Flonase and zyrtec. Worsening symptoms, shortness of breath, chest pain, go to er. Pt verbalized understanding. CKD (chronic kidney disease) stage 2, GFR 60-89 ml/min 08/04/2023 04/16/2024 Assessment & Plan (04/15/2024 10:59 AM EST): Currently taking taking Farxiga 10mg CKD stable. Avoid Nephrotoxic Agents. Continue to monitor closely. Assessment & Plan (01/13/2024 10:21 AM EDT): Creatnine 1.38 in 08/2023 Last A1C 6.1 Continue taking Farxiga 10mg Assessment & Plan (09/29/2023 1:47 PM EDT): Likely due to T2 DM and HTN On losartan and Farxiga. Tolerating it with no adverse effects Assessment & Plan (08/27/2023 10:10 AM EDT): Likely due to T2 DM and HTN On losartan and Farxiga. Tolerating it with no adverse effects Assessment & Plan (08/04/2023 10:35 AM EST): Likely due to T2 DM and HTN Check labs. Already on Losartan. Will start on Farxiga Patient counseled and educated on adverse effects, drug interactions and to reach out to office/pharmacy if questions or concerns related to new medications. Obesity (BMI 30.0-34.9) 01/01/202310/08 Assessment & Plan (01/13/2024 10:27 AM EDT): Diet: Eat three meals per day. Breakfast, lunch, and dinner. Avoid snacking. Avoid eating after 5/6 pm. Daily protein GOAL 35% of your intake; 30g per meal. Daily calorie GOAL 1,800-2,000 per day. Consider tracking your food intake on MyFtinessPal or LoseIt Water: Increase water intake; GOAL 64-80oz of water per day. Exercise: Increase activity. GOAL 30 minutes, 5 days per week. START SLOW. Start with 5 minutes, 5 days per week. Then increase to 10 days, 5 days per week. Continue to increase until you reach the goal. Increase steps; GOAL 10,000 steps per day. Be sure to get adequate sleep; GOAL 6-8 hours of sleep per night. Assessment & Plan (08/04/2023 10:37 AM EST): Patient educated on risks of increased cardiovascular morbidity/mortality and poor health outcomes associated with unhealthy bodyweight. Patient counseled on lifestyle modifications, dietary restrictions. Patient encouraged to limit caloric intake and increase physical activity. Therapeutic and surgical options reviewed with patient . Patient was offered opportunity to ask questions and address their concern. She was prescribed caloric restrictions. Keep caloric intake less than 1500/day. And increase physical activity. Stage 3a chronic kidney disease (HCC) 01/01/2023 11/04/2024 Encounters Date Type Department Care Team Description 11/04/2024 9:20 AM EDT Office Visit [facility] [address] [place] [address] Nayeli Russo NP Current severe episode of major depressive disorder [...] of insulin (HCC) (CMS/HCC); Mixed hyperlipidemia (CMS/HCC) 11/04/2024 Bamboo flowsheet [facility] [address] [place] [id number] Nayeli Russo NP 11/03/2024 Travel 10/04/2024 Refill [facility] [address] [place] [address] Jono Fong MD Primary hypertension (CMS/HCC) 09/28/2024 10:05 AM EDT Ancillary Procedure [facility] [address] [place] [address] 09/28/2024 9:00 AM EDT Office Visit [facility] [address] [place] [address] Soledad Mascorro, DPM Hallux valgus with bunions of right foot (Primary Dx); Pain in joint of right foot; Metatarsus adductus of right foot; Onychomycosis; Nail dystrophy 09/28/2024 Bamboo flowsheet [facility] [address] [place] [address] Soledad Mascorro, DPM 09/28/2024 Travel 09/27/2024 Refill [facility] [address] [place] [id number] Jono Fong MD Hyperlipidemia, unspecified hyperlipidemia type ([facility]) 09/27/2024 Travel 09/21/2024 Travel from Last 3 Months Immunizations Immunization Administration Dates Next Due Influenza, High Dose Seasonal, Preservative Free 02/18/2020 Influenza, High-dose Seasona l, Quadrivalent, Preservative Free 03/14/2023 Influenza, injectable, quadrivalent, preservativ e free 03/31/2018,03/07/2016 Influenza, seasonal, intradermal, preservative f ree 03/03/2019 Influenza, trivalent, adjuvanted 03/30/2024 Pneumococcal Conjugate PCV 13 12/12/2020 Pneumococcal Polysaccharide PPSV23 12/31/2021 SARS-COV-2 (COVID-19) vaccin e, mRNA, spike protein, LNP, PF, 50 mcg/0.5 mL 04/21/2023 Tdap 03/18/2022 Zoster, live 05/18/2016 Family History Medical History Relation Name Comments Cancer Daughter Cancer Father Dawood Hearing loss Father [place] Heart attack Father [place] Heart disease Father [place] Hypertension Father [place] Prostate cancer Father Dawood Learning disabilities Father's Brother Contreras black lung disease Maternal Grandfather Cervical cancer Maternal Grandmother Alzheimer's disease Mother Marge Diabetes Mother Marge Heart disease Mother Marge Mental illness Mother Marge Cancer Paternal Grandmother Anni Diabetes Sibling Cancer Sister Tena Relation Name Status Comments Daughter Father Dawood Father's Brother Contreras Alive Maternal Grandfather Maternal Grandmother Mother Marge Paternal Grandmother Nani Sibling Sister Tena Social History Tobacco Use Types Packs/Day Years [...] often do you attend chur ch or cheondoism services? Never 01/06/2024 Do you belong to any clubs o r organizations such as hinduism groups, unions, fraternal or athletic groups, or [...] Recorded Patient Health Questionnaire-2 Score 6 11/04/2024 [facility] [place] of Occupat ional Health - Occupational Stress [...] any time in the past 12 m [facility], were you homeless or living in a penitentiary (including now)? No 01/06/2024 Comments No Sex and Gender Information Value Date Recorded Sex Assigned at Female 12/25/2022 11:53 AM EDT Legal Sex Female 7:35 PM EDT Gender Identity Female 08/21/2022 7:35 PM EDT Sexual Orientation Straight 12/25/2022 11 :53 AM EDT Last Filed Vital Signs Vital Sign Reading [...] Mass Index 36.48 11/04/2024 9:32 AM EDT Plan of Treatment Upcoming Encounters Date Type Department Care Team (Late st Contact Info) Description 12/02/2024 2:40 PM EDT Office Visit [facility] [address] [place] [address] Nayeli Russo NP [address] [place] [id number] Health Maintenance Due Date Last Done Comments CT Colonography 1955 FIT-DNA 1955 FIT 1955 FOBT 1955 Sigmoidoscopy 1955 Diabetes: Urine Protein Screening 08/26/2024 08/27/2023, 08/27/2023, 03/02/2019 Diabetes: Hemoglobin A1C 10/17/2024 025, 05/06/2023, 01/01/2023, Additional history exists Diabetes: Retinopathy Screening 01/07/2025 , 08/04/2020 Mammogram 01/14/2025 01/15/2024, 08/07/2022, 04/03/2020, Additional history exists Medicare Annual Wellness (AWV) 02/11/2025 0 02/12/2024, 01/01/2023, 12/31/2021, Additional history exists Colonoscopy 07/20/2029 07/20/2019, 06/10, 04/15/2014 Colorectal Cancer Screening 07/20/2029 Pneumococcal Vaccine: 65+ Years Completed , 12/12/2020 Influenza Vaccine Completed 03/30/2024, , 02/18/2020, Additional history exists Procedures Procedure Name Priority Date/Time Associated Diagnosis Comments XR FOOT 3+ VIEWS RIGHT Routine 10:04 AM EDT Hallux valgus with bunions of right foot Pain in joint of right foot POCT GLYCOSYLATED HEMOGLOBIN (HGB A1C) Routine 07/20/2024 2:23 PM EST Type 2 diabetes mellitus with stage 3a chronic kidney disease, without long-term current use of insulin (HCC) ([facility]) BI MAMMOGRAM SCREENING TOMOSYNTHESIS BILATERAL Routine 01/15/2024 2:36 PM EDT Encounter for screening mammogram for breast cancer COLOR FUNDUS PHOTOGRAPHY - OU - BOTH EYES Routine 08/04/2020 12:00 PM EST COLONOSCOPY Routine 07/20/2019 12:00 PM EST MICROALBUMIN / CREATININE URINE RATIO Routine 03/02/2019 from Last 3 Months or Most Recently Relevant to Health Maintenance Results * XR foot 3+ views right (09/28/2024 10:04 AM EDT) Anatomical Region Laterality Modality Lower Extremities, Foot Right Radiogra phic Imaging Narrative 09/28/2024 11:40 AM EDT Imaging Result: 3 views foot: AP, MO, and lateral of the right foot were taken and show no fractures or dislocations. 1st metatarsal is slightly longer than 3rd. There is mild degenerative changes noted of the 1st MTPJ. Mild hypertrophy noted of the sesamoids. Mild metatarsus adductus noted of metatarsals 1, 2, 3, 4. Rectus foot structure. Small posterior calcaneal osteophyte formation. No significant elevatus of the 1st metatarsal is noted. Soledad Mascorro DPM IMG XR PROCEDURES Final Res ult * (ABNORMAL) POCT glycosylated hemoglobin (Hb A1C) docked device (07/20/2024 2:23 PM EST) Hemoglobin A1C 6.7 Blood Venous blood specimen / Unknown 07/20/2024 2:23 PM EST Daniella Lou NP POINT OF CARE TEST ENTER /EDIT ORDERABLES Final Result * Bilateral screening mammogram with tomosynthesis (01/15/2024 2:36 PM EDT) Anatomical Region Laterality Modality Breast Bilateral Mammography 01/15/2024 2:41 PM EDT Impressions 01/15/2024 2:47 PM EDT BIRADS 1 - Negative Follow-up: Routine Screening Mamm Board Certified Radiologists. Accredited by the ACR and FDA. MAMMOGRAPHY IS VERY IMPORTANT TO YOUR HEALTH. THE [employer] GUIDELINES RECOMMEND THAT WOMEN 40 [...] BY: ELECTRONICALLY SIGNED BY: Espinoza Man MD Narrative 01/15/2024 2:47 PM EDT EXAMINATION: BI MAMMOGRAM SCREENING TOMOSYNTHESIS BILATERAL CLINICAL HISTORY:breast cancer screening COMPARISON: January 08, 2023 . RESULT: Density: The breasts are almost entirely fatty There is no suspicious mass, asymmetry, architectural distortion, or calcification. Overall appearance stable. Procedure Note Espinoza Man MD - 01/15/2024 EXAMINATION: BI MAMMOGRAM SCREENING TOMOSYNTHESIS BILATERAL CLINICAL HISTORY:breast cancer screening COMPARISON: January 08, 2023 . RESULT: Density: The breasts are almost entirely fatty There is no suspicious mass, asymmetry, architectural distortion, orcalcification. Overall appearance stable. IMPRESSION: BIRADS 1 - Negative Follow-up: Routine Screening Mamm Board Certified Radiologists. Accredited by the ACR and FDA. MAMMOGRAPHY IS VERY IMPORTANT TO YOUR HEALTH. THE [employer] [employer] SOCIETYGUIDELINES RECOMMEND THAT WOMEN 40 YEARS OF AGE AND OLDER SHOULD HAVE AMAMMOGRAM EVERY YEAR. A REMINDER LETTER WILL BE SENT AT THE APPROPRIATE TIME. THIS FACILITYUTILIZES A REMINDER SYSTEM TO ENSURE ALL PATIENTS RECEIVE REMINDERNOTIFICATIONS AT THE APPROPRIATE TIME BASED ON THE RECOMMENDATIONS OF THISEXAM. THIS INCLUDES REMINDERS FOR ROUTINE SCREENING MAMMOGRAMS, DIAGNOSTICMAMMOGRAMS IN WHICH THE PATIENT IS ASKED TO RETURN FOR ADDITIONAL VIEWS,OR OTHER BREAST IMAGING INTERVENTIONS WHEN APPROPRIATE. THE PATIENT WILLBE PLACED IN THE APPROPRIATE REMINDER SYSTEM INCLUDING A REMINDER AT THEAPPROPRIATE TIME FOR ANY PENDING ADDITIONAL VIEWS. TRANSCRIBED BY: ELECTRONICALLY SIGNED BY: Espinoza Man MD Daniella Lou NURSE OFFICE IMG BI PROCEDURES Final Result * Color Fundus Photography - OU - Both Eyes (08/04/2020 12:00 PM EST) Anatomical Region Laterality Modality Head Fundus Photograp hy 08/04/2020 12:0 0 PM EST Narrative 08/04/2020 12:00 PM EST PERFORMED AT [facility] LOCATION:[id number] no retinopathy Procedure Note CONVERSION, GENERIC - 10/23/2022 PERFORMED AT [facility] LOCATION:[id number] no retinopathy Dustin Gould OPHTH PHOTOGRAPHY Final Result * Colonoscopy (07/20/2019 12:00 PM EST) Anatomical Region Laterality Modality Endoscopy 07/20/2019 12:0 0 PM EST Narrative 07/20/2019 12:00 PM EST PERFORMED AT [facility] LOCATION:[id number] Procedure Note CONVERSION, GENERIC - 10/23/2022 PERFORMED AT [facility] LOCATION:[id number] Dustin Carvajal Bryanna ENDOSCOPY PROCEDURE ORDERABLES Final Result * (ABNORMAL) Microalbumin / creatinine urine ratio (03/02/2019) UCREA 208 28 - 217 [facility] MALB <1.2(L) [facility] Comment: Unable to calculate mALB/Crea ratio, mALB is <1.2 mg/dL mALB reference range not established. 03/02/2019 Dustin Carvajal Bryanna LAB URINE ORDERABLES Final Res ult [facility] from Last 3 Months or Most Recently Relevant to Health Maintenance Insurance [employer]AGE Care Teams [place] [facility] Supervisor Relationship Specialty Start Date End Date Shaikh Jackson MD [address] [place] [phone] PCP - [employer] 06/09/21 Jono Fong MD [address] [place] [phone] PCP - General Family Medicine 04/08/24 Daniella Lou NP [address] [place] [phone] Nurse Practitioner Family Medicine 01/07/24
[2024-11-08 10:15] LABS: Estimated Average Glucose 143 mg/dL; Glycohemoglobin A1C 6.6 % (4.5-6.2)
[2024-11-08 10:27] LABS: Alanine Aminotransferase 23 U/L (14-59); Albumin Level 3.7 g/dL (3.4-5.0); Alkaline Phosphatase 102 U/L (46-116); Anion Gap 14.7; Aspartate Amino Transferase 17 U/L (15-37); BUN Creatinine Ratio 14.9; Bilirubin Total 0.6 mg/dL (0.2-1.0); Calcium 9.1 mg/dL (8.5-10.1); Carbon Dioxide 28.5 mmol/L (21.0-32.0); Chloride 105 mmol/L (98-107); Estimated GFR (African America 53 (>=60 mL/min/1.73m^2); Estimated GFR (Non-African Ame 44 (>=60 mL/min/1.73m^2); Globulin 3.6 g/dL; Glucose 144 mg/dL (74-106); Potassium 4.2 mmol/L (3.5-5.1); Sodium 144 mmol/L (136-145); Total Protein 7.3 g/dL (6.4-8.2)
[2024-11-08 10:36] LABS: Chol HDL Ratio 2.7; Cholesterol 137 mg/dL (<=200); HDL Cholesterol 51 mg/dL (40-60); LDL Cholesterol Calculated 68.4 mg/dL; Thyroid Stimulating Hormone 3.416 uIU/mL (0.358-3.740); Triglycerides 88 mg/dL (<=150); VLDL CHOLESTEROL 17.6 mg/dL
[2024-11-08 11:47] LABS: Free T4 1.06 ng/dL (0.76-1.46)
== END 2024-11-08 09:21 | disposition home or self-care (01) ==
LOC: LAB 09:24
PROVIDERS: PCP Nurse Practitioner; Visit Provider Nurse Practitioner
DX: I12.9 Hypertensive chronic kidney disease with stage 1 through stage 4 chronic kidney disease, or unspecified chronic kidney disease (principal); E03.9 Hypothyroidism, unspecified; N18.32 Chronic kidney disease, stage 3b; E11.22 Type 2 diabetes mellitus with diabetic chronic kidney disease; E78.2 Mixed hyperlipidemia
CPT/HCPCS: 36415; 80053; 80061; 83036; 84439; 84443

== ENCOUNTER 2024-11-08 09:26 | Outpatient (OUT) | payer MEDICARE, SELFPAY ==
--- OUTSIDE RECORDS SUMMARY | 2024-11-08 09:29 | XMS_ITS | Encounter Summary ---
Author Organization [facility] Address [address] [place] [address] Care Team Providers Care Electrician Chief Name Role Phone Zunilda Clemons DO Primary Care Provider Shaikh AUTUMN Jackson Primary Care Provider [phone] Shaikh AUTUMN Jackson Unavailable [phone] Jono Fong MD Primary Care Provider [phone] Daniella Lou FILLING STATION LABORER Unavailable [phone] Unallocated, Noms Provider Primary Care Provi fredrick Jono Fong MD Primary Care Provider [phone] Encounter Details Date Type Department Care Team (Late st Contact Info) Description 01/02/2023 Orders Only [facility] [address] [place] [address] Zunilda Clemons DO [address] [facility] [address] [place] [address] Acquired hypothyroidism (CMS/HCC) (Primary Dx) Social History Tobacco Use Types Packs/Day Years [...] any clubs o r organizations such as amish groups, unions, fraternal or athletic groups, or [...] Patient Health Questionnaire-2 Score 0 01/01/2023 [facility] [place] [facility] Occupat ional Health - Occupational Stress [...] place to sleep or slept in a fdc (including now)? No 12/31/2022 Comments Unknown Sex and Gender Information Value Date Recorded Sex Assigned at Female 12/25/2022 11:53 AM EDT Legal Sex Female 7:35 PM EDT Gender Identity Female 08/21/2022 7:35 PM EDT Sexual Orientation Straight 12/25/2022 11 :53 AM EDT COVID-19 Exposure Response Date Recorded In the last 10 days, have yo u been in contact with someone who was confirmed or suspected to have Coronavirus/COVID-19? No / Unsure 12/31/2022 8:43 PM EDT documented as of this encounter Plan of Treatment Upcoming Encounters Date Type Department Care Team (Late st Contact Info) Description 12/02/2024 2:40 PM EDT Office Visit [facility] [address] [place] [address] Nayeli Russo, FILLING STATION LABORER [address] [place] [phone] Scheduled Orders Name Type Priority Associated Diagnoses Orde r Schedule TSH W/REFLEX TO FT4 Lab Routine Acquired hypothyroidism (CMS/HCC) Expected: 03/03/2023 (Approximate), Expires: 01/03/2024 documented as of this encounter Visit Diagnoses Diagnosis Acquired hypothyroidism (CMS/HCC)- Primary Unspecified hypothyroidism documented in this encounter Additional Health Concerns Assessment Noted Time PHQ-9 Depression Total Score: 0 01/02/20 23 3:00 PM EDT documented as of this encounter Care Teams Electrician Chief Relationship Specialty Start Date End Date Zunilda Clemons DO PCP - General Family Medicine 12/27/22 08/03/23 Shaikh Jackson MD [address] [place] [phone] PCP - General Internal Medicine 08/04/23 01/06/24 Shaikh Jackson MD [address] [place] [phone] PCP - [employer] 06/09/21 Jono Fong MD [address] [place] [phone] PCP - General Family Medicine 01/07/24 03/31/24 Unallocated, Renaldo Brush MD [address] [place] [address] PCP - General Family Medicine 04/01/24 04/07/24 Jono Fong MD [address] [place] [address] PCP - General Family Medicine 04/08/24 Daniella Lou NP [address] [place] [address] Nurse Practitioner Family Medicine 01/07/24 documented as of this encounter
[2024-11-08 10:13] LABS: Creatinine Urine Random 180.47 mg/dL (20.00-300.00); Microalbum Creatinine Ratio Ur 7.2 mg/g (0.0-29.9); Microalbumin Urine Random <1.3 mg/dL (<=30.0); Protein Creatinine Ratio Urine 0.09; Total Protein Urine Random 16.1 mg/dL (<=11.9)
[2024-11-08 10:14] LABS: Hematocrit 48.3 % (36.0-48.0); Hemoglobin 15.4 g/dL (12.0-16.0); Mean Corpuscular HGB Conc 31.9 g/dL (29.9-35.2); Mean Corpuscular Hemoglobin 30.1 pg (26.7-34.0); Mean Corpuscular Volume 94.5 fL (81.0-99.0); Mean Platelet Volume 9.6 fL (9.5-13.5); Platelet Count 224 10^3/uL (150-450); Red Blood Count 5.11 10^6/uL (4.20-5.40); Red Cell Distribution Width 13.2 % (11.0-15.0); White Blood Count 9.2 10^3/uL (4.0-11.0)
[2024-11-08 10:22] LABS: Magnesium 2.1 mg/dL (1.8-2.4); Phosphorus 3.6 mg/dL (2.6-4.7); Uric Acid 4.7 mg/dL (2.6-6.0)
[2024-11-08 10:32] LABS: Bilirubin Urine NEGATIVE (NEGATIVE); Blood Urine NEGATIVE (NEGATIVE); Clarity Urine CLEAR (CLEAR); Color Urine YELLOW (YELLOW); Glucose Urine UA >=1000 mg/dL (NEGATIVE); Ketones Urine NEGATIVE (NEGATIVE); Leukocyte Esterase Urine NEGATIVE (NEGATIVE); Nitrite Urine NEGATIVE (NEGATIVE); Protein Urine NEGATIVE (NEG/TRACE); Urobilinogen Urine 0.2 EU/dL (0.2-1.0)
[2024-11-09 11:10] LABS: PTH, Intact 47 pg/mL (15-65)
== END 2024-11-08 09:27 | disposition home or self-care (01) ==
LOC: LAB 09:27
PROVIDERS: PCP Nurse Practitioner; Visit Provider Internal Medicine Nephrology
DX: I12.9 Hypertensive chronic kidney disease with stage 1 through stage 4 chronic kidney disease, or unspecified chronic kidney disease (principal); E03.9 Hypothyroidism, unspecified; N18.32 Chronic kidney disease, stage 3b; E11.22 Type 2 diabetes mellitus with diabetic chronic kidney disease; E78.2 Mixed hyperlipidemia; E66.9 Obesity, unspecified; E11.21 Type 2 diabetes mellitus with diabetic nephropathy
CPT/HCPCS: 36415; 80053; 80061; 81003; 82043; 82306; 82570; 83036; 83735; 83970; 84100; 84156; 84439; 84443; 84550; 85027

== ENCOUNTER 2025-01-18 11:09 | Outpatient (OUT) | payer MEDICARE, SELFPAY ==
--- NOTE | 2025-01-18 11:12 | US_ITS ---
[facility] [place] [id number] Patient Name: ARIAN CANAS MRN: [id number] date: 1955 Sex: F Assigned Patient Location: Current Patient Location: Accession/Order Number: [id number] Exam Date: 01/18/2025 12:20 Report Date: 01/18/2025 12:22 At the request of: AQUILINO MARCIAL NP Procedure: US thyroid Thyroid ultrasound Reason for exam: Hypothyroidism. Comparison: none Technique: Grayscale and color Doppler images of the thyroid gland were obtained. Findings: Right lobe measures 3.2 x 1.3 x 0.9 cm. Left lobe measures 2.6 x 1.0 x 0.9 cm. Isthmus measures 1.2 mm. The thyroid gland is heterogenous in echotexture without hyperemia on color Doppler imaging. Multiple hypoechoic nodules are identified some of which demonstrate associated calcification largest measuring 11 x 8 x 7 mm involving the mid aspect of the right lobe. US/US thyroid Impression: Multinodular thyroid gland largest nodule measuring 11 x 8 x 7 mm involving the mid aspect of the left lobe. Repeat ultrasound in one year suggested. Impression dictated by: Espinoza Aguayo Jr., D.O. 01/18/2025 12:22 PM Dictation Location: [place] [address] Electronically authenticated by: [id number] Y Date: 01/18/2025 12:22
== END 2025-01-18 11:10 | disposition home or self-care (01) ==
LOC: US 11:09
PROVIDERS: PCP Nurse Practitioner; Visit Provider Nurse Practitioner
DX: Z86.39 Personal history of other endocrine, nutritional and metabolic disease (principal); E03.9 Hypothyroidism, unspecified; E04.2 Nontoxic multinodular goiter
CPT/HCPCS: 76536

== ENCOUNTER 2025-03-31 08:53 | Outpatient (OUT) | payer MEDICARE, SELFPAY ==
--- OUTSIDE RECORDS SUMMARY | 2025-03-24 07:03 | XMS_ITS | Continuity of Care Document ---
Author Organization [facility] Address [address] [place] [address] Phone Care Team Providers Care Criminal Research Specialist Name Role Phone Nayeli Russo NP-C Primary Care Provider Nayeli Russo NP-C Attending Provider Care Teams Patient Care Team Team Status: Active Member Role Status Dates Nayeli Russo NP-Rocío Primary Care Provider Active Patient Care Team Team Status: Inactive Member Role Status Dates Nayeli Russo NP-Rocío Primary Care Provider Active Start: March 24, 2025 End: March 24, 2025Nayeli Russo NP-CAttending ProviderActiveStart: March 24, 2025 End: March 24, 2025 Chief Complaint and Reason for Visit Chief Complaint Admit Date Medicare Wellness March 24, 2025 9 :52am Reason for Visit Admit Date Acquired spondylolisthesis March 24, 2025 9:52am Chronic kidney disease, stage 3b March 24, 2025 9:52am 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 March 24, 2025 9:52am Encounter for subsequent [facility]adumo [facility] wellness visit (AWV) in Medicare patient March 24, 2025 9:52am Essential hypertension March 24 9:52am Hyperlipidemia March 24, 2025 9 :52am Lumbar spondylosis March 24, 2025 9 :52am Morbid (severe) obesity due to excess ca lories March 24, 2025 9:52am Type 2 diabetes mellitus wit h diabetic chronic kidney disease March 24, 2025 9:52am Allergies, Adverse Reactions, Alerts Allergen Type Severity Reaction Last Updated Verified Status codeine Allergy Unknown dizziness November 16, 2024 9:21am Yes Active Social History Smoking Status Status Start Date End Date Date of Observa tion Never smoked tobacco (finding) August 24, 2024 2:51pm Observation Status Observation Response Date of Response Legal Sex Female (finding) Sex Assigned At [facility] 1955 Family History Relationship Condition Age at Onset Recorded Date/T reji father Unknown Heart diseaseUnknownmotherDeceasedUnknown Problems Active Problems Medical Problem Onset Date Status 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 without prior episode Unknown Active Chronic kidney disease, stage 3b Unknown Active Encounter for subsequent [facility] wellness visit (AWV) in Medicare patient Unknown Active Type 2 diabetes mellitus with diabetic chronic k idney disease Unknown Active Adhesive capsulitis of left shoulder Unknown Active Morbid (severe) obesity due to excess calories U nknown Active Encounter for screening mammogram for malignant neoplasm of breast Unknown Active Hx of thyroid nodule Unknown Active Menopause Unknown Active Actinic keratosis Unknown Active Arthritis of left acromioclavicular joint Unknow n Active Hyperlipidemia Unknown Active Lumbago with sciatica, right side Unknown Active Back pain with right-sided sciatica Unknown Active Syncope Unknown Active Essential hypertension Unknown Active Family history of mental disorder Unknown Active Acquired spondylolisthesis Unknown Activ e Body mass index 36.0-36.9, adult Unknown Active Chronic left shoulder pain Unknown Activ e Facet arthropathy, lumbar Unknown Active Pigmented skin lesion 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 malignant brittni ure Unknown Active Hypertensive nephropathy Unknown Active Lumbar spondylosis Unknown Active Chronic sinusitis Unknown Active Hot flashes, menopausal Unknown Active Medications Medication Status Dose Units Route Directions Qty Days St art Date Stop Date End Date Instructions Adherence Cetirizine 10 mg tablet Active 10 MG PO Daily August 24, 2024 12:00amComplies with drug therapyMultivitamin (Daily Multi- Vitamin) zdkipbBhtntf1OFCFVZdppvRqdgs 2024 12:00amComplies with drug therapyAlbuterol Sulfate 90 mcg/actuation HFA aerosol zbgjbysVnovzyjxzorx3NVLC INHALATIONEVERY 4-6 HOURS as neededOctober 2024 12:00amOctober 2024 10:34amAtenolol 50 mg vnmmitFxtapo23ABULVchjkRoae 2023 12:00amComplies with drug therapyDapagliflozin Propanediol (Farxiga) 10 mg eyjhrdQhrvmn11MTSLYnlfg [place] 2023 12:00amComplies with drug therapyRosuvastatin 5 mg tablet Ogzrfrpmlpjk1BFHHOzhikAqpu 2023 12:00amOctober 2024 10:35amLosartan 25 mg ivqmqdChiolr09HKJQQbrsyYbeu 2023 12:00amComplies with drug therapy Levothyroxine (Synthroid) 88 mcg dgoivvRufouc71GFIRGDattfPeas 2023 12:00am Complies with drug therapyAmoxicillin-Pot Clavulanate 875-125 mg tablet Eczrjukhigkt5XEGUWKocpe wpqjw1921Stxx2023 12:00amMarch 2024 2:50pm Rosuvastatin 5 mg aaxvycHrcnkb2ZXTNKnqthlbEkzoebm 16th, 2025 10:34amComplies with drug therapySertraline 50 mg oomegdAmtmdr32QVJVYzzcpCsav 2024 12:00am Complies with drug therapyTrazodone 50 mg vtnxuwQsstee21NVFNRojfc at bedtimeUn[facility]2024 12:00amComplies with drug therapyBuspirone 5 mg zjweolDoimjjtoezbx1EY PODaily as neededUnc Health [facility]2024 12:00amOcthealthsouth [facility] 2024 6:26amBuspirone 5 mg rgyxxzBlmnha7DNWXEtgff daily as neededMarch 24, 2025 6:26amComplies with drug therapy Vital Signs Vital Reading Result Reference Range Collection Date/Time Height 66 [in_i] March 24, 2025 10:09pwBztxop079.11 kgOcthealthsouth northern [facility] rehabilitation hospital 2024 10:10amBody Udqecbdrfgd75.3 [degF]97.6-99.0Marhealth[facility] 2024 10:10amHeart Rate68 /enr64-280 March 24, 2025 10:10amRespiratory rate16 /xre02-74Jtvlehm 2024 10:10am Oxygen saturation by Pulse rvnlagvp41 %95-100[facility] 2024 10:10amBP Lxlyagzc948 mm[Hg]100-140[facility] 2024 10:10amBP Nevibacuu00 mm[Hg]60-100 March 24, 2025 10:10amBMI (Body Mass Index)36.3 kg/t8Apfdxzt 2024 10:10am Advance Directives Advance Directive Response Recorded Date/ Time Advance Directives No December 12 9:28am Insurance Providers Guarantor Mike Vu Address [address] [place] [id number] Info.Home Phone: Payer Policy Id Subscriber's Name Subscriber Id Effectiv e Date Expiration Date [employer] MCR PFFS [id number] Mike Vu [id number] [employer] Insurance [id number] [place] , [id number] Encounters Encounter Location(s) Arrival/Admit Date Discharge/Depart Date Provider(s) Departed Physician/Prov ider Office Visit -[facility] Family Medicine [place] March 24, 2025 9:52am March 24, 2025 11:02am HAYDE BryanC Recent Diagnosis Onset Date Admit Date Acquired spondylolisthesis Unknown Octob er 2024 9:52am Chronic kidney disease, stage 3b Unknown March 24, 2025 9:52am 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 Unknown March 24, 2025 9: 52am Encounter for subsequent [facility]adumo [facility] wellness visit (AWV) in Medicare patient Unknown March 24, 2025 9:52am Essential hypertension Unknown March 092024 9:52am Hyperlipidemia Unknown March 24 9:52am Lumbar spondylosis Unknown March 24, 2025 9:52am Morbid (severe) obesity due to excess calories U nknown March 24, 2025 9:52am Type 2 diabetes mellitus wit h diabetic chronic kidney disease Unknown March 24, 2025 9:52am Assessments Diagnosis Onset Date Resolution Status Admit Date Acquired spondylolisthesis acuteOctober 2024 9:52amChronic kidney disease, stage 3bacuteOctober 2024 9:52amCurrent severe episode of major depressive disorder without psychotic featuacuteOctober 2024 9:52amEncounter for subsequent annual wellness visit (AWV) in Medicare patientacuteOctober 2024 9:52amEssential hypertensionacuteOctober 2024 9:52amHyperlipidemiaacuteOctober 2024 9:52amLumbar spondylosisacuteOctober 2024 9:52amMorbid (severe) obesity due to excess caloriesacuteOctober 2024 9:52amType 2 diabetes mellitus with diabetic chronic kidney diseaseacuteOctober 2024 9:52am Plan of Treatment Author Nayeli Russo [facility] HospitalAuthoredOctober 2024 10:45amReviewed Ht/Wt/BMI Recommend eye exams yearly Recommend dental exam: twice a year Balance work/leisure activities exercise is recommended most days of the week (appropriate as chronic conditions allow) follow up yearly and prn on statin therapy check labs yearly and prn dose changes recommend diet low in fat and processed foods Check blood sugars daily, notify the office if <70 or > 200. Take medications (pills or insulin) as directed. Monitor for s/s of low blood sugar (sweaty, dizziness, nausea, vomiting, or shakiness). Watch for increase thirst, urination, and appetite as these can be signs of high blood sugar. Inspect your feet frequently monitor for open wounds, wear proper fitting shoes as well. Pt should attempt to remain as physical active as chronic conditions allow, as well as trying to follow a diet lower in carbohydrates, and simple sugars. current meds: farxiga, losartan, statin a1c: Please check blood pressure daily and record DASH diet Limit caffeine Take medication as directed Contact office if chest pain, pressures, dizziness, shortness of breath, swelling in the legs Recommend slow position changes if you develop dizziness with position changes current meds: atenolol, losartan on farxiga, statin, arb control BP and DM current meds: buspar, sertraline, and trazodone Discussed with patient their BMI (actual vs recommended). We have discussed lifestyle modifications: attempts to perform phsyical activity as chronic conditions allow, monitor dietary intake: increasing protein/fruits/veggies and lowering carb intake (unless contraindicated). Limit sodas, juices, sugary drinks, as well as alcohol consumption. Future Tests Future scheduled test information is unavailable Pending Tests Test Name Ordered Date Scheduled Date XR lumbar spine AP/LAT/FLX/EXT March 24 10:58am XR dexa axial skeletonMarch 24, 2025 11:00am Future Visits Future appointment information is unavailable Referrals to Other Providers Referral information is unavailable Future Procedures Procedure Name Ordered Date Scheduled Date AMB POC Hgb A1C March 24, 2025 6:25am Future Medications Future medication information is unavailable Patient Instructions Patient instructions are unavailable Hospital Discharge Instructions Ambulatory Orders* XR dexa axial skeleton Time Frame: 03/24/25, Location: Determined By Patient * AMB POC Hgb A1C Time Frame: 03/24/25, Location: Determined By Patient
--- OUTSIDE RECORDS SUMMARY | 2025-03-31 08:56 | XMS_ITS | Clinical Summary ---
Author Organization [facility] Address [id number] [address] [place] [address] Care Team Providers Care Business Info Consultant Name Role Phone Zunilda Clemons DO Primary Care Provider Unavaila ble Allergies Active AllergyReactionsCriticalityNoted DateCommentsCodeineOther (See Comments) 01/23/2017 Medications MedicationSigDispense QuantityRefillsLast FilledStart DateEnd DateStatus atenolol (TENORMIN) 50 mg tablet Take 1 tablet (50 mg total) by mouth in the morning.Active SYNTHROID 88 mcg tablet Take 75 mcg by mouth daily.03/08/2019Active rosuvastatin (CRESTOR) 5 mg tablet 04/30/2019Active FREESTYLE LITE STRIPS strip 05/30/2019Active losartan (COZAAR) 50 mg tablet Take 1 tablet (50 mg total) by mouth in the morning.01/12/2022ctive ascorbic acid, vitamin C, (VITAMIN C) 1000 mg tablet Take 1,600 mg by mouth in the morning.Active cholecalciferol, vitamin D3, (VITAMIN D3) 25 mcg (1,000 unit) capsule Take 1 capsule (1,000 Units total) by mouth in the morning.Active Active Problems ProblemNoted DateDiagnosed CvhtLzpgipf58/15/2022 Social History Tobacco UseTypesPacks/DayYears UsedDateSmoking Tobacco: FormerSmokeless Tobacco: Never Tobacco Cessation:Counseling Given: Not Answered Alcohol UseStandard Drinks/WeekCommentsYes0 (1 standard drink = 0.6 oz pure alcohol)SOMETIMESChildcareAnswerDate XqaeipzhHfkedvgprDiprnhc11/12/2019 EmploymentAnswerDate QolevqphKwbxiikryqNscetfh38/12/2019Hunger ScreeningAnswer Date RecordedWithin the past 12 months we worried whether our food would run out before we got money to buy more.Never True11/28/2022Within the past 12 months the food we bought just didn't last and we didn't have money to get more.Never True3Purpose - LifeAnswerDate RecordedPurpose and direction in life Iaxgbrj4807/20/2020CommentsNoSex and Gender InformationValueDate Recorded Sex Assigned at BirthNot on fileLegal FtlRifwao90/06/2015 11:40 AM EDTGender IdentityNot on fileSexual OrientationNot on file Last Filed Vital Signs Vital SignReadingTime TakenCommentsBlood Opvtkyuf037/70011/28/2022 8:59 AM EDT Ajkwf703011/28/2022 8:59 AM HJQSnupvsffwtf86.3 ??C (99.1 ??F)12/28/2021 10:40 AM EDTRespiratory Zlxx647912/28/2021 11:15 AM EDTOxygen Jsythzogxk57%11/28/2022 8:59 AM EDTInhaled Oxygen Concentration--Ubcyoq868.7 kg (233 lb)11/28/2022 8:59 AM RWRBmazmo518.6 cm (5' 6 )11/28/2022 8:59 AM EDTBody Mass Index37.61011/28/2022 8:59 AM EDT Plan of Treatment Health MaintenanceDue DateLast DoneCommentsDepression Ofpzhkhao95/02/1968Tobacco Ymnlxppkq92/02/1968Zoster (Shingles) Vaccine (2 of 3)Fall Risk Xeoeclklk15/02/2021dult BMI Nnodlwddi61/3Colonoscopy 5007/01/2019, 07/01/2019COVID-19 Vaccine ( season)2025 06/11/2022, 04/05/2021, 09/12/2020, Additional history existsInfluenza Vaccine , 02/18/2020, 02/17/2020, Additional history existsDTaP,Tdap and Td Vaccines (2 - Td or Tdap)21 Medical Devices Not on file Procedures Procedure NamePriorityDate/TimeAssociated DiagnosisCommentsPROVATION COLONOSCOPY Gkbdclh9707/01/2019 8:07 AM EST from Last 3 Months or Most Recently Relevant to Health Maintenance Results * ES colonoscopy imaging (07/01/2019 8:07 AM EST)Specimen (Source)Anatomical Location / LateralityCollection Method / VolumeCollection TimeReceived Time Narrative SYSTEMGENERATED, DOCUMENTATION - 07/01/2019 8:07 AM EST This order has been auto-finalized for image and report archival. *See procedures tab in Epic or report included with PACS images for full interpretation.* Authorizing ProviderResult TypeResult StatusMichael E Grillis DOIMG OR IMG ORDERABLESFinal Result from Last 3 Months or Most Recently Relevant to Health Maintenance Insurance Care Teams Team MemberRelationshipSpecialtyStart DateEnd Date Zunilda Clemons DO PCP - GeneralFamily Medicine06/22/21
--- OUTSIDE RECORDS SUMMARY | 2025-03-31 08:56 | XMS_ITS | Clinical Summary ---
Author Organization [facility] Healthcare Address [address] [place] [address] Care Team Providers Care Drier Operator Name Role Phone Shaikh AUTUMN Jackson Unavailable [phone] Daniella Lou NP Unavailable [phone] Jono Fong MD Primary Care Provider Allergies Active AllergyReactionsCriticalityNoted UzmsShdzcfmxDzgxeegKcdrtrg15/17/2017 Medications MedicationSigDispense QuantityRefillsLast FilledStart DateEnd DateStatus albuterol HFA 90 mcg/act inhaler Indications:Acute bronchitis, unspecified organismInhale 2 puffs every 6 (six) hours if needed for shortness of breath or wheezing 18 g 4Active atenolol (Tenormin) 50 MG tablet Indications:Primary hypertensionTake 1 tablet (50 mg) by mouth Daily Take 1 tablet (50 mg) by mouth Daily 90 tablet 5Active busPIRone (Buspar) 5 MG tablet Indications:Current 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 without prior episode (HCC)Take 1 tablet (5 mg) by mouth every 12 (twelve) hours if needed (anxiety) 60 tablet 5Active cetirizine (ZyrTEC) 10 MG tablet Indications:Chronic frontal sinusitis,Medication refillTake 1 tablet (10 mg) by mouth Daily 90 tablet 5Active dapagliflozin (Farxiga) 10 MG Indications:Type 2 diabetes mellitus with stage 3a chronic kidney disease, without long-term current use of insulin (HCC),CKD (chronic kidney disease) stage 2, GFR 60-89 ml/minTake 1 tablet (10 mg) by mouth Daily 90 tablet 5Active levothyroxine (Synthroid, Levoxyl) 88 MCG tablet Indications:Acquired hypothyroidismTake 1 tablet (88 mcg) by mouth in the morning. Take before meals. 90 tablet 5Active losartan (Cozaar) 25 MG tablet Indications:Primary hypertensionTake 1 tablet (25 mg) by mouth in the morning. 90 tablet 6Active rosuvastatin (Crestor) 5 MG tablet Indications:Hyperlipidemia, unspecified hyperlipidemia typeTake 1 tablet (5 mg) by mouth at bedtime 90 tablet 5Active sertraline (Zoloft) 50 MG tablet Indications:Current 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 without prior episode (HCC)Take 1 tablet (50 mg) by mouth Daily 90 tablet 5Active traZODone (Desyrel) 50 MG tablet Indications:Current 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 without prior episode (HCC)Take 2 tablets (100 mg) by mouth as needed at bedtime for sleep 180 tablet 5Active Active Problems ProblemNoted DateDiagnosed DateHistory of thyroid fkzqik2401/10/2025 Assessment & Plan (01/20/2025 6:23 AM EDT): See US: recommended fu in 1 year Throat pain in adult01/10/2025 Assessment & Plan (01/20/2025 9:48 AM EDT): No obvious cause, no s/s infection No obvious GERD sxs Will trial adding nasal steroid to her allergy meds, does think is getting some better Thyroid US completed, fu in 1 year Assessment & Plan (01/10/2025 11:07 AM EDT): No obvious cause, no s/s infection No obvious GERD sxs Will trial adding nasal steroid to her allergy meds We will also order thyroid US Encounter for screening mammogram for malignant neoplasm of rmzxng2712/02/2024 Morbid (severe) obesity due to excess qweqrkly27/29/2025 Assessment & Plan (01/20/2025 6:20 AM EDT): Discussed with patient their BMI (actual, verses recommended). We have also discussed lifestyle modifications: attempts to perform physical activity as chronic conditions allow, also to monitor dietary intake: increasing protein/fruits/veggies and lowering carb intake (unless contraindicated). Limit sodas, juices, and sugary drinks. Assessment & Plan (12/02/2024 7:19 AM EDT): Discussed with patient their BMI (actual, verses recommended). We have also discussed lifestyle modifications: attempts to perform physical activity as chronic conditions allow, also to monitor dietary intake: increasing protein/fruits/veggies and lowering carb intake (unless contraindicated). Limit sodas, juices, and sugary drinks. Assessment & Plan (11/04/2024 6:25 AM EDT): Discussed with patient their BMI (actual, verses recommended). We have also discussed lifestyle modifications: attempts to perform physical activity as chronic conditions allow, also to monitor dietary intake: increasing protein/fruits/veggies and lowering carb intake (unless contraindicated). Limit sodas, juices, and sugary drinks. Body mass index (BMI) 36.0-36.9, adult11/04/2024dhesive capsulitis of left gzibafrw78/29/2025rthritis of left acromioclavicular joint11/04/2024urrent 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 without prior fblundo2611/04/2024 Assessment & Plan (01/20/2025 6:22 AM EDT): Current : on sertaline, buspar prn, and trazodone at bedtime and attending counseling Assessment & Plan (12/02/2024 3:56 PM EDT): Last appt we started on sertaline, buspar prn, and trazodone at bedtime Start counseling Trazodone to 100mg Keep others same Fu in 6 weeks Assessment & Plan (11/04/2024 10:06 AM EDT): [...] Please contact the office if these occur. Stage 3b chronic kidney jvmbyym0904/16/2024 Assessment & Plan (11/04/2024 6:24 AM EDT): Control BP Avoid nephrotoxic drugs when and if possible Periodic monitoring of labs Assessment & Plan (07/20/2024 9:48 AM EST): Has appointment scheduled with Nephrology in August. Most recent Creatinine: 1.51 eGFR: 34 Currently taking Farxiga 10mg. Continue to monitor closely. Avoid Nephrotoxic Agents. Assessment & Plan (05/31/2024 11:51 AM EST): Continue monitoring Actinic iikqohqhj75/01/2024 Assessment & Plan (03/09/2024 9:51 PM EDT): Cryotherapy performed in office today. Discussed treatment and monitoring with patient. Encounter for Medicare annual wellness exam02/12/2024Medication fcjmhy6402/12/2024 Chronic sinusitis, bazcycbfdxr57/06/2024 Overview (01/13/2024): Start flonase and cetirizine daily Chronic left shoulder pain09/29/2023 Assessment & Plan (11/11/2023 2:30 PM EDT): [...] her Pigmented skin lesion 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 malignant biajpr0008/27/2023 Assessment & Plan (08/27/2023 10:10 AM EDT): Skin lesion right anterior chest wall, below clavicle. Appearance concerning for basal cell carcinoma. Refer to derm Appeared one month ago, grown rapidly, rough surface. Vekhudhrfudsne65/26/2023 Assessment & Plan (01/20/2025 6:20 AM EDT): On levothyroxine Check labs yearly, and prn dose changes or changes in sxs Assessment & Plan (01/10/2025 11:07 AM EDT): On levothyroxine Check labs yearly, and prn dose changes or changes in sxs Assessment & Plan (11/04/2024 6:24 AM EDT): [...] levothyroxine 88 mcg. Back pain with right-sided zodaazee35/26/2023Facet arthropathy, lumbosacral 01/01/2023Hot flash, xpprukhrqz83/26/2023Lumbago with sciatica, right side 01/01/20235079Tcafscbaegqyey30/26/2023 Assessment & Plan (11/04/2024 6:25 AM EDT): [...] EST): Check Lipid panel. On Crestor. Primary txsbpxwuyavj78/26/2023 Assessment & Plan (01/20/2025 6:19 AM EDT): Please check blood pressure daily and record DASH diet Limit caffeine Take medication as directed Contact office if chest pain, pressure, dizziness, shortness of breath, swelling legs Recommend slow position changes Current meds: losartan, atenolol Assessment & Plan (11/04/2024 10:00 AM EDT): [...] presyncope. Patient encouraged to continue with home BPmonitoring and call office if she experiences orthostatic symptoms or persistently elevated BP. C/w Atenolol, Losartan. Check labs Type 2 diabetes mellitus with diabetic chronic kidney ugoninz2501/01/2023 Assessment & Plan (01/20/2025 6:24 AM EDT): Check blood sugars daily, notify [...] simple sugars. Current meds: farxiga, arb, statin A1c 6.6 % on 11/08/24 Assessment & Plan (11/04/2024 10:02 AM EDT): [...] Creatnine 1.38 in 08/2023 Last A1C 6.1 . Continue taking Farxiga 10mg Assessment & Plan [...] for T2 DM Check A1C, urine protein/creatinine. Nsvmoxk14/15/2022Diabetic renal xnzzuko4212/12/2020Family history of mental esegwpbr48/06/2020History of adenomatous polyp of colon03/14/2020 Resolved Problems ProblemNoted DateDiagnosed DateResolved DateURI (upper respiratory infection) 4108/01/2023 Assessment & Plan (05/18/2024 10:02 AM EST): Cough- mostly dry Fever 101.2 at home /100.8 in office/Fatigue/Body aches/Headache/Runny nose/Decreased appetite. Harsh dry cough auscultated in office,. Tested negative at home for COVID. Negative in office for Flu. Likely viral etiology. Steroids and tessalon pearles sent in. Continue Flonase and zyrtec. Worsening symptoms, shortness of breath, chest pain, go to er. Pt verbalized understanding. Acute jjyncyyznr80/10/202406/ Assessment & Plan (05/31/2024 11:57 AM EST): [...] albuterol inhaler, increase tessalon to 200mg dose Encounter to establish care/ Assessment & Plan (08/04/2023 10:37 AM EST): New Patient, here to establish care. Reviewed medical, surgical and social hx. Reviewed available old records. Reviewed and updated medication list. CKD (chronic kidney disease) stage 2, GFR 60-89 ml/min/01/2024 Assessment & Plan (04/15/2024 10:59 AM EST): [...] concerns related to new medications. Obesity (BMI 30.0-34.9)/ Assessment & Plan (01/13/2024 10:27 AM EDT): Diet: Eat three meals per day. Breakfast, lunch, and dinner. Avoid snacking. Avoid eating after 5/6pm. Daily protein GOAL 35% of your intake; [...] increase physical activity. Stage 3a chronic kidney jysxfeq02 Encounters DateTypeDepartmentCare FiliVgdkwygqkzw92/04/2025 9:30 AM EDTAncillary Procedure [facility] [address] [place] [phone] Encounter for screening mammogram for malignant neoplasm of ktnvll2002/10/2025 Rbbvii7702/09/20259406Wojgud90/14/2025 1:00 PM EDTSocial Work [facility] [address] [place] [address] Sarina Hodge LISW-S Adjustment disorder with mixed anxiety and depressed mood01/20/2025 9:20 AM EDT Office Visit [facility] [address] [place] [phone] Nayeli Russo NP Current 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 without prior episode (HCC) (Primary Dx); Primary hypertension ; Morbid (severe) obesity due to excess calories ([facility]-HCC); Hypothyroidism, unspecified type ; Throat pain in adult; History of thyroid nodule; Type 2 diabetes mellitus with stage 3b chronic kidney disease, without long-term current use of insulin (HCC); Chronic frontal sinusitis; Medication refill; Type 2 diabetes mellitus with stage 3a chronic kidney disease, without long-term current use of insulin (HCC); CKD (chronic kidney disease) stage 2, GFR 60-89 ml/min; Acquired hypothyroidism ; Primary hypertension ; Hyperlipidemia, unspecified hyperlipidemia type01/20/20253604Zbhath36/14/2025 Telephone [facility] [address] [place] [phone] Nayeli Russo NP 01/20/2025amboo flowsheet [facility] [address] [place] [phone] Nayeli Russo NP 01/19/2025Results [facility] [address] [place] [phone] Yanni Colby MA tqxytuq4801/18/2025linisync Result Encounter [facility] External Department Unsolicited Nayeli Russo NP 01/18/2025Refill [facility] [address] [place] [phone] Nayeli Russo NP Current 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 without prior episode (HCC)01/13/20257895Fjgawy30/04/2025 10:00 AM EDTOffice Visit [facility] [address] [place] [address] Nayeli Russo, LEIGHTON Throat pain in adult (Primary Dx); History of thyroid nodule; Hypothyroidism, unspecified type01/10/2025amboo flowsheet [facility] [address] [place] [address] Nayeli Russo NP 01/06/2025Refill [facility] [address] [place] [address] Nayeli Russo, LEIGHTON Current 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 without prior episode (HCC)01/06/2025[facility]phone [facility] [address] [place] [address] Nayeli Russo NP 01/05/2025 12:00 PM EDTSocial Work [facility] [address] [place] [address] Sarina Hodge LISW-S Adjustment disorder with mixed anxiety and depressed mood01/05/2025amb flowsheet [facility] [address] [place] [facility] [address] Sarina Hodge LISW-S 01/05/20258204Flumew62/28/9689Oibqow68/23/2025Travelfrom Last 3 Months Immunizations ImmunizationAdministration DatesNext DueInfluenza, High Dose Seasonal, Preservative Free02/18/2020Influenza, High-dose Seasonal, Quadrivalent, Preservative Free03/14/2023Influenza, injectable, quadrivalent, preservative free03/31/2018,03/07/2016Influenza, seasonal, intradermal, preservative free 03/03/2019Influenza, trivalent, ickdgyxwgg70/22/2024neumococcal Conjugate PCV 1307neumococcal Polysaccharide [id number] (COVID-19) vaccine, mRNA, spike protein, LNP, PF, 50 mcg/0.5 mL04/21/2023Tdap1 Zoster, live05/18/2016 Family History Medical HistoryRelationNameCommentsCancerDaughterCancerFatherLowellHearing loss FatherLowellHeart attackFatherLowellHeart diseaseFatherLowellHypertensionFather LowellProstate cancerFatherLowellLearning disabilitiesFather's BrotherRonnie black lung diseaseMaternal GrandfatherCervical cancerMaternal Grandmother Alzheimer's diseaseMotherEdnaDiabetesMotherEdnaHeart diseaseMotherEdnaMental illnessMotherEdnaCancerPaternal GrandmotherPearlDiabetesSiblingCancerSisterJill RelationNameStatusCommentsDaughterFatherLowellDeceasedFather's BrotherRonnie AliveMaternal GrandfatherMaternal GrandmotherMotherEdnaDeceasedPaternal GrandmotherPearlSiblingSisterJill Social History Tobacco UseTypesPacks/DayYears UsedDateSmoking Tobacco: FormerCigarettes0.56 06/09/1973 - 06/09/1979Passive Smoke Exposure: PastSmokeless Tobacco: Never Alcohol UseStandard Drinks/WeekCommentsNever0 (1 standard drink = 0.6 oz pure alcohol)caffeine: uzfsW0805 Health LiteracyAnswerDate RecordedHow often do you need to have someone help you when you read instructions, pamphlets, or other written material from your doctor or pharmacy?Never01/06/2024Humiliation, Afraid, Rape, and Kick questionnaireAnswerDate RecordedWithin the last year, have you been afraid of your partner or ex-partner?No12/31/2022Within the last year, have you been humiliated or emotionally abused in other ways by your partner or ex-partner?No12/31/2022Within the last year, have you been kicked, hit, slapped, or otherwise physically hurt by your partner or ex-partner?No 12/31/2022Within the last year, have you been raped or forced to have any kind of sexual activity by your partner or ex-partner?No12/31/2022Social Connection and Isolation PanelAnswerDate RecordedIn a typical week, how many times do you talk on the phone with family, friends, or neighbors?More than three times a week01/06/2024How often do you get together with friends or relatives?Once a week01/06/2024How often do you attend mu-ism or buddhist services?Never 01/06/2024o you belong to any clubs or organizations such as mu-ism groups, unions, fraternal or athletic groups, or school groups?Yes01/06/2024How often do you attend meetings of the clubs or organizations you belong to?1 to 4 times per year01/06/2024re you , , , , never , or living with a partner?Wnnnlcn1701/06/2024UDIT-CAnswerDate RecordedQ1: How often do you have a drink containing alcohol?Monthly or less01/06/2024Q2: How many drinks containing alcohol do you have on a typical day when you are drinking?1 or Q3: How often do you have six or more drinks on one occasion?Never 01/06/2024Overall Financial Resource Strain (CARDIA)AnswerDate RecordedHow hard is it for you to pay for the very basics like food, housing, medical care, and heating?Not very hard01/06/2024HQ-2AnswerDate RecordedPatient Health Questionnaire-2 Tpzuf226[facility] [place] [facility] - Occupational Stress QuestionnaireAnswerDate RecordedDo you feel stress - tense, restless, nervous, or anxious, or unable to sleep at night because yourmind is troubled all the time - these days?To some mewecq4301/06/2024Exercise Vital Sign AnswerDate RecordedOn average, how many days per week do you engage in moderate to strenuous exercise (like a brisk walk)?0 days01/06/2024On average, how many minutes do you engage in exercise at this level?0 min01/06/2024Hunger Vital Sign AnswerDate RecordedWithin the past 12 months, you worried that your food would run out before you got the money to buymore.Never true01/06/2024Within the past 12 months, the food you bought just didn't last and you didn't have money to get more.Never true01/06/2024RAPARE - TransportationAnswerDate RecordedIn the past 12 months, has lack of transportation kept you from medical appointments or from getting medications?No01/06/2024In the past 12 months, has lack of transportation kept you from meetings, work, or from getting things needed for daily living?No01/06/2024Housing Stability Vital SignAnswerDate RecordedIn the last 12 months, was there a time when you were not able to pay the mortgage or rent on time?No12/31/2022In the last 12 months, how many places have you lived?1 12/31/2022In the last 12 months, was there a time when you did not have a steady place to sleep or slept in formerly [facility] (including now)?No12/31/2022Housing Stability Vital SignAnswerDate RecordedIn the last 12 months, was there a time when you were not able to pay the mortgage or rent on time?No01/06/2024In the past 12 months, how many times have you moved where you were living? At any time in the past 12 months, were you homeless or living in a intermediate (including now)?No01/06/2024CommentsNoSex and Gender InformationValue Date RecordedSex Assigned at DrqxzMsxuks12/19/2023 11:53 AM EDTLegal SexFemale 08/21/2022 7:35 PM EDTGender UoncksvyIyezaw57/15/2023 7:35 PM EDTSexual XmpxjkukykjQylzywvi34/19/2023 11:53 AM EDT Last Filed Vital Signs Vital SignReadingTime TakenCommentsBlood Utdjpnly844/8201/20/2025 9:21 AM EDT Volou097701/20/2025 9:21 AM DXPLhievwrmiaf94.7 ??C (98.1 ??F)01/20/2025 9:21 AM EDTRespiratory Myrh1981/ 9:21 AM EDTOxygen Wptcvmkora08%01/20/2025 9:21 AM EDTInhaled Oxygen Concentration--Biddgv917 kg (224 lb 3.2 oz)01/20/2025 9:21 AM HBSCileet400.6 cm (5' 6 )11/04/2024 9:32 AM EDTBody Mass Index36.19011/04/2024 9:32 AM EDT Plan of Treatment Health MaintenanceDue DateLast DoneCommentsCT Zxdrmntwskyz85/02/1956FIT-DNA 1955FIT1955FOBT1955 6707Cvbmtzxusipsq71/02/1956Diabetes: Retinopathy Pfjaoebev95/06/2022, 08/04/2020Influenza Vaccine (#1) /, 03/14/2023, 02/18/2020, Additional history existsDiabetes: Hemoglobin A1C/07/2024, 07/20/2024, 05/06/2023, Additional history existsMedicare Annual Wellness (AWV)509/10/2023, 01/01/2023, 12/31/2021, Additional history existsDiabetes: Urine Protein Vikwfwbbp86/02/2026 11/08/2024, 08/27/2023, 08/27/2023, Additional history pcrcfdZkeznlbpr87/04/2026 02/10/2025, 01/15/2024, 01/08/2023, Additional history existsColonoscopy , 07/01/2019, 04/15/2014Colorectal Cancer Screening 07/20/2029Pneumococcal Vaccine: 65+ GbcvtVanlxtdzf10/25/2022, 12/12/2020 Procedures Procedure NamePriorityDate/TimeAssociated DiagnosisCommentsBI MAMMOGRAM SCREENING TOMOSYNTHESIS VACDOBCAHEvmgezg37/04/2025 9:56 AM EDT Encounter for screening mammogram for malignant neoplasm of breast US SXZHXXK50/05/2025 12:22 PM EDT POCT GLYCOSYLATED HEMOGLOBIN (HGB A1C)Rceqyxm6007/20/2024 2:23 PM EST Type 2 diabetes mellitus with stage 3a chronic kidney disease, without long-term current use of insulin (HCC) COLOR FUNDUS PHOTOGRAPHY - OU - BOTH DFPVYbhjucn59/26/2021 12:00 PM EST DTSLXZYANKFTlwnnuc83/11/2020 12:00 PM EST MICROALBUMIN / CREATININE URINE OBTKBVhaqlyd52/24/2019 from Last 3 Months or Most Recently Relevant to Health Maintenance Results * Bilateral screening mammogram with tomosynthesis (02/10/2025 9:56 AM EDT) Anatomical RegionLateralityModalityBreastBilateralMammographySpecimen (Source) Anatomical Location / LateralityCollection Method / VolumeCollection Time Received Time02/11/2025 10:25 AM EDT Impressions 02/11/2025 10:30 AM EDT Impression: No specific evidence of malignancy seen in either breast. BIRADS 2 - Benign Findings DENSITY: The breasts are almost entirely fatty. FOLLOW-UP: Routine Screening Mammogram ELECTRONICALLY SIGNED BY: Lewis Trinidad M.D. Narrative 02/11/2025 10:30 AM EDT Examination: BI MAMMOGRAM SCREENING TOMOSYNTHESIS BILATERAL Clinical History: breast cancer screening Technique: Screening digital mammography study of both breasts was performed with 2-D and 3-D tomosynthesis imaging. Study was compared to the prior exam dated 01/15/2024. Findings: There is no evidence of interval dominant spiculated mass, grouped microcalcifications, or skin thickening which would be suggestive of malignancy. ?? Mild scattered benign-appearing calcifications are seen bilaterally. Axillary lymph nodes includingpartially visualized lymph nodes are noted bilaterally and appear grossly unremarkable. Procedure Note Lewis Trinidad MD - 02/11/2025 Examination: BI MAMMOGRAM SCREENING TOMOSYNTHESIS BILATERAL Clinical History: breast cancer screening Technique: Screening digital mammography study of both breasts wasperformed with 2-D and 3-D tomosynthesis imaging. Study was compared tothe prior exam dated 01/15/2024. Findings: There is no evidence of interval dominant spiculated mass,grouped microcalcifications, or skin thickening which would be suggestiveof malignancy. Mild scattered benign-appearing calcifications are seen bilaterally.Axillary lymph nodes including partially visualized lymph nodes are notedbilaterally and appear grossly unremarkable. IMPRESSION: Impression: No specific evidence of malignancy seen in either breast. BIRADS 2 - Benign Findings DENSITY: The breasts are almost entirely fatty. FOLLOW-UP: Routine Screening Mammogram ELECTRONICALLY SIGNED BY: Lewis Trinidad M.D. Authorizing ProviderResult TypeResult StatusLisa Aichholz NPIMG BI PROCEDURES Final Result * US thyroid (01/18/2025 12:22 PM EDT)Anatomical RegionLateralityModalityHead, NeckUltrasoundSpecimen (Source)Anatomical Location / LateralityCollection Method / VolumeCollection TimeReceived Time01/18/2025 12:22 PM EDT Narrative 01/18/2025 12:24 PM EDT [facility] ?[address] ? [place] [address] ? Ultrasound Report ? Signed ? Patient: ARIAN ELAINE ?MR#: [id number] ?? : 1955 ?Acct:[id number] ?? Age/Sex: 69 / F ?ADM Date: 01/18/25 ?? Loc: US ? Attending Dr: Nayeli Russo NP ? Ordering Physician: Nayeli Russo NP ?? Date of Service: 01/18/25 ?? Procedure(s): US thyroid ?? Accession Number(s): [id number] ? cc: Nayeli Russo NP ? [facility] ? [address] ? [place] [address] ? Patient Name: ?? ARIAN D MISSAEL ? MRN: [id number] ? date: 1955 ?Sex: F ?? Assigned Patient Location: US ?? Current Patient Location: US ?? Accession/Order Number: [id number] ?? Exam Date: 01/18/2025 ??12:20 ?Report Date: 01/18/2025 ??12:22 ? At the request of: ?? NAYELI RUSSO ??DISBURSEMENT CLERK ? Procedure: ??US thyroid ? Thyroid ultrasound ? Reason for exam: Hypothyroidism. ? Comparison: none ? Technique: Grayscale and color Doppler images of the thyroid gland were ?? obtained. ? Findings: ? Right lobe measures 3.2 x 1.3 x 0.9 cm. ??Left lobe measures 2.6 x 1.0 x 0.9 ?? cm. ??Isthmus measures 1.2 mm. ? The thyroid gland is heterogenous in echotexture without hyperemia on color ?? Doppler imaging. ??Multiple hypoechoic nodules are identified some of which ?? demonstrate associated calcification largest measuring 11 x 8 x 7 mm involving ?? the mid aspect of the right lobe. ? US/US thyroid ?? Impression: ? Multinodular thyroid gland largest nodule measuring 11 x 8 x 7 mm involving ?? the mid aspect of the left lobe. ??Repeat ultrasound in one year suggested. ? Impression dictated by: Espinoza Aguayo Jr., D.O. ??01/18/2025 12:22 PM ? Dictation Location: RADIO--23 ? Electronically authenticated by: [id number] ??Y ?? Date: 01/18/2025 ??12:22 ? Dictated By: ?Espinoza Aguayo M.D. ? Signed By: ?01/18/25 1224 ? DD/ 1222 ? TD/TT: ? Senior Principal Process Engineer: Procedure Note Radiology, Radiologist, - 01/18/[address] [address] Ultrasound Report Signed Patient: ARIAN ELAINE DMR#: [id number] : 1955cct:[id number] Age/Sex: 69 / FADM Date: 01/18/25 Loc: US Attending Dr: Nayeli Russo NP Ordering Physician: Nayeli Russo NP Date of Service: 01/18/25 Procedure(s): US thyroid Accession Number(s): [id number] cc: Nayeli Russo NP The [address] [address] Patient Name: ARIAN ELAINE MRN: [id number] date: 1955 Sex: F Assigned Patient Location: [place] Current Patient Location: [place] Accession/Order Number: [id number] Exam Date: 01/18/2025 12:20 Report Date: 01/18/2025 12:22 At the request of: NAYELI RUSSO NP Procedure: US thyroid Thyroid ultrasound Reason for exam: Hypothyroidism. Comparison: none Technique: Grayscale and color Doppler images of the thyroid gland were obtained. Findings: Right lobe measures 3.2 x 1.3 x 0.9 cm. Left lobe measures 2.6 x 1.0 x0.9 cm. Isthmus measures 1.2 mm. The thyroid gland is heterogenous in echotexture without hyperemia oncolor Doppler imaging. Multiple hypoechoic nodules are identified some of which demonstrate associated calcification largest measuring 11 x 8 x 7 mminvolving the mid aspect of the right lobe. US/US thyroid Impression: Multinodular thyroid gland largest nodule measuring 11 x 8 x 7 mminvolving the mid aspect of the left lobe. Repeat ultrasound in one year suggested. Impression dictated by: Espinoza Aguayo Jr., D.O. 01/18/2025 12:22 PM Dictation Location: [place] [address] Electronically authenticated by: [id number] Y Date: 2:22 Dictated By: Espinoza Aguayo M.D. Signed By:01/18/25 1224 DD/ 1222 TD/TT: Senior Principal Process Engineer: Authorizing ProviderResult TypeResult StatusNayeli Russo NPIMG US PROCEDURES Final Result * (ABNORMAL) POCT glycosylated hemoglobin (Hb A1C) docked device (07/20/2024 2:23 PM EST)ComponentValueRef RangeTest MethodAnalysis TimePerformed At Pathologist SignatureHemoglobin A1C6.7Specimen (Source)Anatomical Location / LateralityCollection Method / VolumeCollection TimeReceived TimeBloodVenous blood specimen / Bsmlsqn7707/20/2024 2:23 PM EST Narrative Authorizing ProviderResult TypeResult StatusBrrick Lou NPPOINT OF CARE TEST ENTER/EDIT ORDERABLESFinal Result * Color Fundus Photography - OU - Both Eyes (08/04/2020 12:00 PM EST)Anatomical RegionLateralityModalityHeadFundus PhotographySpecimen (Source)Anatomical Location / LateralityCollection Method / VolumeCollection TimeReceived Time 08/04/2020 12:00 PM EST Narrative 08/04/2020 12:00 PM EST PERFORMED AT [facility] LOCATION:[id number] no retinopathy Procedure Note CONVERSION, GENERIC - 10/23/2022 PERFORMED AT [facility] LOCATION:[id number] no retinopathy Authorizing ProviderResult TypeResult StatusJonathan F DillerOPHTH PHOTOGRAPHY Final Result * Colonoscopy (07/20/2019 12:00 PM EST)Anatomical RegionLateralityModality EndoscopySpecimen (Source)Anatomical Location / LateralityCollection Method / VolumeCollection TimeReceived Time07/20/2019 12:00 PM EST Narrative 07/20/2019 12:00 PM EST PERFORMED AT [facility] LOCATION:[id number] Procedure Note CONVERSION, GENERIC - 10/23/2022 PERFORMED AT [facility] LOCATION:[id number] Authorizing ProviderResult TypeResult StatusJonathan F DillerENDOSCOPY PROCEDURE ORDERABLESFinal Result * (ABNORMAL) Microalbumin / creatinine urine ratio (03/02/2019)ComponentValueRef RangeTest MethodAnalysis TimePerformed AtPathologist [id number] - 217 [facility] LABMALB<1.2(L)[facility] LABComment: Unable to calculate mALB/Crea ratio, mALB is <1.2 mg/dL mALB reference range not established. Specimen (Source)Anatomical Location / LateralityCollection Method / Volume Collection TimeReceived Time03/02/2019 Narrative Authorizing ProviderResult TypeResult StatusJonathan F DillerLAB URINE ORDERABLESFinal ResultPerforming OrganizationAddressCity/State/ZIP CodePhone Number [facility] from Last 3 Months or Most Recently Relevant to Health Maintenance Insurance Care Teams Team MemberRelationshipSpecialtyStart DateEnd Date Shaikh Jackson MD [address] [place] [phone] PCP - [employer]06/09/21 Jono Fong MD [address] [place] [phone] PCP - GeneralFamily Hawqdbbn06/31/24 Daniella Lou NP [address] [place] [phone] Nurse PractitionerFamily Medicine01/07/24
--- OUTSIDE RECORDS SUMMARY | 2025-03-31 09:01 | XMS_ITS | CCD ---
Author Organization [facility] Care Team Providers Care Library Clerk Talking Books Name Role Phone EUNICEC, DR MAY Consulting Unavailable MISC, DR MAY Primary Care Unavailable LAKSHMIPATHY ., NARENDRANATH Attending Christina vailable LAKSHMIPATHY ., NARENDRANATH Admitting Christina vailable LAKSHMIPATHY ., SUSANA Consulting Christina vailable URIARTE ., DR ANUJ Duron Attending Unavailable URIARTE ., DR ANUJ Duron Admitting Unavailable URIARTE ., DR ANUJ Duron Attending Unavailable JONES .TENA Consulting Unavailable URIARTE ., DR ANUJ Duron Admitting Unavailable URIARTE ., DR ANUJ Duron Attending Unavailable MISC, DR MAY Consulting Unavailable URIARTE ., DR ANUJ Duron Admitting Unavailable URIARTE ., DR ANUJ Duron Consulting Unavailable URIARTE ., DR ANUJ Duron Admitting Unavailable UIRARTE ., DR ANUJ Duron Attending Unavailable MISC, DR MAY Consulting Unavailable URIARTE ., DR ANUJ Duron Consulting Unavailable MISC, DR MAY Consulting Unavailable MISC, DR MAY Primary Care Unavailable LAKSHMIPATHY ., NARENDRANATH Admitting Christina vailable LAKSHMIPATHY ., NARENDRANATH Attending Christina vailable LAKSHMIPATHY ., MISBAHENDLINNATH Consulting Christina vailable MISC, DR MAY Primary [...] ., NARENDRANATH Attending Christina vailable LAKSHMIPATHY ., SUSANA Consulting Christina vailable LAKSHMIPATHY ., NARENDRANATH Admitting Christina vailable DR YADIRA JAQUEZ Primary Care Unavailable LAKSHMIPATHY ., NARENDRANATH Attending Christina vailable LAKSHMIPATHY ., NARENDRANATH Consulting Christina vailable Manuel LEYVA, [facility] Unavailable Hetal LEYVA, Jono Primary Care Provider [phone] Tomasa Lou NP Unavailable Jono Fong MD Primary Care Provider Unallocated MD, Noms Provider Primary Care Provi fredrick Jono Fong MD Primary Care Provider NO FAMILY, PHYSICIAN Primary Care Provider Unava ilable Pratibha Cha MD Attending Provider [phone] Pratibha Cha Attending Unavailable Pratibha Cha Admitting Unavailable NO FAMILY, PHYSICIAN Primary Care Unavailable Tomasa Lou NP Unavailable TOMASA LOU Attending UnavailSOLEDAD Wheeler Attending Unavailable SOLEDAD CISSE Referring Unavailable AICHHOLZ, NAYELI Attending Unavailable AICHHOLZ, NAYELI Attending Unavailable DIONTE, SARINA S Attending Unavailable AICHHOLZ, NAYELI Referring Unavailable TOMASA LOU Attending UnavailTOMASA Wilson Attending Unavailabl e DIONTE, SARINA S Attending Unavailable DIONTE, SARINA S Attending Unavailable AICHHOLZ, NAYELI Referring Unavailable AICHHOLZ, NAYELI Attending Unavailable AICHHOLZ, NAYELI Attending Unavailable DIONTE, SARINA S Attending Unavailable AICHHOLZ, NAYELI Referring Unavailable AICHHOLZ, NAYELI Referring Unavailable FREDERICK GUSTAFSON Attending Unavailable TOMASA LOU Attending Unavailabl e AICHHOLZ, NAYELI Attending Unavailable Aichholz SENIOR PAYROLL ADMINISTRATOR-C, Nayeli Washburn Primary Care Provider Karan SENIOR PAYROLL ADMINISTRATOR-CNayeli Attending Provider Allergies Allergy ClassificationReported Allergen(s)Allergy TypeDate of OnsetReaction(s) Facility (1 source)CodeineDrug AllergyThe [facility] (20 sources)CodeineDrug Hygwclg96-01-6800ZjabfqsWMSX Healthcare (1 source)CodeineDrug Ouqecrz69-55-1658LrowekhmzW[facility]andot [facility] Rep[facility] Medications Current Medications MedicationDrug Class(es)DatesSig (Normalized)Sig (Original)atenolol 50 mg oral tablet (20 sources)beta-Adrenergic BlockerStart: 09-29-2023 End: 19-04-0980bubc 1 tablet by mouth once dailyAtenolol 50 mg tablet Active 50 MG PO Daily December 13, 2023 12:00am Complies with drug therapybenzonatate 200 mg oral capsule (6 sources)Non-narcotic AntitussiveStart: 05-31-2024 End: 29-49-1284wgvm 1 capsule by mouth three times daily as needed for cough benzonatate (Tessalon) 200 MG capsule Indications: Acute bronchitis, unspecified organism Take 1 capsule (200 mg) by mouth 3 (three) times a day as needed for cough for up to 7 days Take with full glass of water. Do not crush or chew. 21 capsule 05/31/2024 06/07/2024 ActiveStart: 05-18-2024 End: 23-28-7015zkbb 1 capsule by mouth three times daily as needed for cough benzonatate (Tessalon Perles) 100 MG capsule Indications: Acute bronchitis, unspecified organism , Viral upper respiratory tract infection Take 1 capsule (100 mg) by mouth 3 (three) times a day as needed for cough for up to 7 days Do not crush or chew. 20 capsule 05/18/2024 05/31/2024 Discontinued (Therapy completed)busPIRone hydrochloride 5 mg oral tablet (20 sources)Start: 98-00-4521kpar 1 tablet by mouth twice daily as needed Buspirone 5 mg tablet Active 5 MG PO Twice daily as needed March 24, 2025 6:26am Complies with drug therapyStart: 11-04-2024 End: 08-01-9349nitk 1 tablet by mouth once daily as neededBuspirone 5 mg tablet Discontinued 5 MG PO Daily as needed November 16, 2024 12:00am March 24, 2025 6:26amcefdinir 300 mg oral capsule (2 sources)Cephalosporin AntibacterialStart: 05-31-2024 End: 06-60-9155sjxf 1 capsule by mouth in the morningcefdinir (Omnicef) 300 MG capsule Indications: Acute bronchitis, unspecified organism Take 1 capsule (300 mg) by mouth in the morning and 1 capsule (300 mg) before bedtime. Do all this for 10 days. 20 capsule 05/31/2024 06/10/2024 Activecetirizine hydrochloride 10 mg oral tablet (20 sources)Histamine-1 Receptor AntagonistStart: 01-13-2024 End: 01-73-5426wclh 1 tablet by mouth once dailyCetirizine 10 mg tablet Active 10 MG PO Daily August 24, 2024 12:00am Complies with drug therapydapagliflozin 10 mg oral tablet (20 sources)Sodium-Glucose Cotransporter 2 InhibitorStart: 01-20-2025 dapagliflozin (Farxiga) 10 MG Indications: Type 2 diabetes mellitus with stage 3a chronic kidney disease, without long-term current use of insulin ([facility]) , CKD (chronic kidney disease) stage 2, GFR 60-89 ml/min Take 1 tablet (10 mg) by mouth Daily 90 tablet 1 01/20/2025 ActiveStart: 88-93-7807adaisvdtlwltl (Farxiga) 10 MG Indications: Type 2 diabetes mellitus with stage 3a chronic kidney disease, without long-term current use of insulin ([facility]) , CKD (chronic kidney disease) stage 2, GFR 60-89 ml/min Take 1 tablet (10 mg) by mouth Daily 90 tablet 1 01/20/2025 ActiveStart: 12-13-2023 End: 08-64-3457jdrc 1 tablet by mouth once dailyDapagliflozin Propanediol (Farxiga) 10 mg tablet Active 10 MG PO Daily December 13, 2023 12:00am Complies with drug therapyfluticasone propionate 0.05 mg/actuat metered dose nasal spray (20 sources)CorticosteroidStart: 01-13-2024 End: 35-45-9160qcmt 1-2 spray(s) nasal route once dailyfluticasone (Flonase) 50 MCG/ACT nasal spray Indications: Chronic frontal sinusitis Administer 1-2 sprays into each nostril Daily Shake gently. Before first use, prime pump. After use, clean tip and replace cap. 16 g 2 01/13/2024 11/04/2024 Discontinued (Therapy completed)levothyroxine sodium 0.088 mg oral tablet (20 sources)l-ThyroxineStart: 09-29-2023 End: 89-45-2706abrn 1 tablet by mouth once dailyLevothyroxine (Synthroid) 88 mcg tablet Active 88 MCG PO Daily December 13, 2023 12:00am Complies withdrug therapy losartan potassium 25 mg oral tablet (20 sources)Angiotensin 2 Receptor BlockerStart: 09-29-2023 End: 12-66-0918adyk 1 tablet by mouth once dailyLosartan 25 mg tablet Active 25 MG PO Daily December 13, 2023 12:00am Complies with drug therapymethylPREDNISolone (4 sources)CorticosteroidStart: 05-18-2024 End: 83-49-7262xoqcgiUSGUVFEdrknc (Medrol Dospak) 4 MG tablets Indications: Acute bronchitis, unspecified organism, Viral upper respiratory tract infection Follow schedule on package instructions 21 tablet 05/18/2024 05/31/2024 Discontinued (Therapy completed)Start: 05-18-2024 End: 88-21-0975pimgpmCBWJBGVaxxmr (Medrol Dospak) 4 MG tablets Indications: Acute bronchitis, unspecified organism, Viral upper respiratory tract infection Follow schedule on package instructions 21 tablet 05/18/2024 05/25/2024 Active Multivitamin (Daily Multi-Vitamin) tablet (4 sources)Start: 49-80-6519hlbe 1 tablet by mouth once dailyMultivitamin (Daily Multi-Vitamin) tablet Active 1 TAB PO Daily August 24, 2024 12:00am Complies wi th drug therapyStart: 08-28-5061dakm 1 tablet by mouth once dailyMultivitamin (Daily Multi-Vitamin) tablet Active 1 TAB PO Daily August 24, 2024 12:00am rosuvastatin calcium 5 mg oral tablet (20 sources)HMG-CoA Reductase InhibitorStart: 62-21-4774toug 5 mg by mouth once dailyRosuvastatin Active 5 MG PO Daily December 13, 2023 12:00amStart: 09-29-2023 End: 00-69-5779wkkb 1 tablet by mouth once dailyRosuvastatin 5 mg tablet Discontinued 5 MG PO Daily December 13, 2023 12:00am March 24, 2025 10:35am sertraline 50 mg oral tablet (20 sources)Serotonin Reuptake InhibitorStart: 11-04-2024 End: 65-71-0140qfpg 1 tablet by mouth once dailySertraline 50 mg tablet Active 50 MG PO Daily November 16, 2024 12:00am Complies with drug therapytraZODone hydrochloride 50 mg oral tablet (20 sources)Serotonin Reuptake InhibitorStart: 12-02-2024 End: 44-59-7334opaTXKumd (Desyrel) 50 MG tablet Indications: Current 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 without prior episode (HCC) Take 2 tablets (100 mg) by mouth as needed at bedtime for sleep 180 tablet 1 01/20/2025 04/20/2025 ActiveStart: 11-04-2024 End: 39-67-5742ikoh 1 tablet by mouth once daily at bedtimeTrazodone 50 mg tablet Active 50 MG PO Daily at bedtime November 16, 2024 12:00am Complies with drug therapy Completed/Discontinued Medications MedicationDrug Class(es)DatesSig (Normalized)Sig (Original)[id number] 200 actuat albuterol 0.09 mg/actuat metered dose inhaler (20 sources)beta2-Adrenergic AgonistStart: 03-23-2025 End: 34-28-0689fslu 1 puff(s) by inhalation every four to six hours as needed Albuterol Sulfate 90 mcg/actuation HFA aerosol inhaler Discontinued 2 PUFF INHALATION EVERY 4-6 HOURS as needed March 23, 2025 12:00am March 24, 2025 10:34amStart: 05-31-2024 End: 46-50-7789oyrh 2 puff(s) by inhalation every six hours for wheezing albuterol HFA 90 mcg/act inhaler Indications: Acute bronchitis, unspecified organism Inhale 2 puffsevery 6 (six) hours if needed for shortness of breath or wheezing 18 g 05/31/2024 Activeamoxicillin 875 mg / clavulanate 125 mg oral tablet (5 sources)Penicillin-class AntibacterialStart: 12-13-2023 End: 32-96-1724rdct 1 tablet by mouth twice dailyAmoxicillin-Pot Clavulanate 875-125 mg tablet Discontinued 1 TAB PO Twice daily 20 December 13, 2023 12:00am August 24, 2024 2:50pm Problems Active Problems Problem ClassificationProblemDateDocumented DateEpisodic/ChronicAcquired foot deformities (2 sources)Hallux valgus AND bunion; Translations: [Hallux valgus (acquired), right foot]22-15-2602FpigeepGyiemdbufi disorders (4 sources)Adjustment disorder with mixed anxiety and depressed mood; Translations: [Adjustment disorder with mixed anxiety and depressed mood] 52-89-3314FdacbwvEfwcpbr kidney disease (20 sources)Chronic kidney disease stage 2; Translations: [Chronic kidney disease, stage 2 (mild)]Onset: 01-01-2023 Resolved: 523639-69-7683XqdsuraGcersmp kidney disease (1 source)Chronic kidney disease; Translations: [Chronic kidney disease, stage 3b]Onset: 09-59-8810Fgcbhzlz mellitus with complications (20 sources)Chronic kidney disease due to type 2 diabetes mellitus; Translations: [Type 2 diabetes mellitus with diabetic chronic kidney disease] Onset: 379924-52-7342FwxdhbeKgtpeaed mellitus without complication (1 source)Type 2 diabetes mellitus without complications; Translations: [TYPE 2 DM WITHOUT COMPLICATIONS]Onset: 13-49-8893QirvhqjVdskwylgp of lipid metabolism (20 sources)Hyperlipidemia; Translations: [Hyperlipidemia, unspecified]Onset: 244435-49-0491HvnnvyoNqzxvhckv hypertension (20 sources)Essential hypertension; Translations: [Essential (primary) hypertension]Onset: 581868-01-2456DnacotzBpyrimesmjpt with complications and secondary hypertension (8 sources)Hypertensive renal disease; Translations: [Hypertensive chronic kidney disease with stage 1 throughstage 4 chronic kidney disease, or unspecified chronic kidney disease]10-10-8132NuryiovMqvwauvswv disorders (20 sources)Menopausal flushing; Translations: [Menopausal and female climacteric states]Onset: 508028-79-9860MqlkpbrLgad disorders (20 sources)Severe major depression, single episode, without psychotic features; Translations: [Major depressive disorder, single episode, severe without psychotic features]Onset: 461462-24-7705PdgkeklNkzftef (2 sources)Onychomycosis; Translations: [Tinea unguium]46-55-0220Blgrzoye Osteoarthritis (20 sources)Arthritis of left acromioclavicular joint; Translations: [Primary osteoarthritis, left shoulder]Onset: 487561-10-5807UakebedLgqim acquired deformities (2 sources)Acquired spondylolisthesis; Translations: [Spondylolisthesis, site unspecified]72-96-6611PcuqpslxIiptz congenital anomalies (2 sources)Right metatarsus adductus; Translations: [Congenital metatarsus adductus, right foot]05-15-7288PaqckavRjavw connective tissue disease (20 sources)Adhesive capsulitis of left shoulder; Translations: [Adhesive capsulitis of left shoulder]Onset: 290328-54-7085DqifgpkyRyupn nervous system disorders (1 source)Other chronic pain; Translations: [OTHER CHRONIC PAIN]Onset: 48-41-3842LeelhtbQwacm non-traumatic joint disorders (20 sources)Chronic pain of left upper limb; Translations: [Pain in left shoulder]Onset: 790420-21-6484SzuycplzKbcio non-traumatic joint disorders (2 sources)Pain of joint of right foot; Translations: [Pain in right ankle and joints of right foot]34-55-8163WfvbjajpYhhth nutritional; endocrine; and metabolic disorders (3 sources)Obesity; Translations: [Obesity, unspecified]32-12-2643SelcicnTawob nutritional; endocrine; and metabolic disorders (4 sources)Obesity, unspecified; Translations: [Obesity, unspecified]08-24-2024 ChronicOther nutritional; endocrine; and metabolic disorders (20 sources)Obesity caused by energy imbalance; Translations: [Morbid (severe) obesity due to excess calories]Onset: 629490-04-8342YfpiuwwVizsf nutritional; endocrine; and metabolic disorders (20 sources)Body mass index 30+ - obesity; Translations: [Body mass index (BMI) 36.0-36.9, adult]Onset: 370792-05-4743EmuhzzmLpedx nutritional; endocrine; and metabolic disorders (13 sources)H/O: thyroid disorder; Translations: [Personal history of other endocrine, nutritional and metabolic disease]Onset: 962850-45-2849Cphdufiy Other screening for suspected conditions (not mental disorders or infectious disease) (20 sources)Patient encounter status; Translations: [Encounter for screening mammogram for malignant neoplasm of breast]Onset: 841122-08-3888Krienijb Other skin disorders (20 sources)Suspected malignant pigmented skin lesion; Translations: [Disorder of pigmentation, unspecified]Onset: 271120-57-2473DekvoicyQiany skin disorders (20 sources)Actinic keratosis; Translations: [Actinic keratosis]Onset: 025407-92-9009UpldqkqsKdfqa skin disorders (2 sources)Inflamed seborrheic keratosis; Translations: [Inflamed seborrheic keratosis]82-46-0425OsnjjmfxMfglp skin disorders (2 sources)Dystrophia unguium; Translations: [Nail dystrophy]64-74-8217Ckagqqwc Other upper respiratory disease (12 sources)Pain in throat; Translations: [Pain in throat]Onset: 01-10-2025 82-33-3838FncwhwnpUifim upper respiratory infections (20 sources)Chronic sinusitis; Translations: [Chronic sinusitis, unspecified] Onset: 943972-81-5987SycrxrtWsvqybov codes; unclassified (20 sources)Family history of mental disorder; Translations: [Family history of other mental and behavioral disorders]Onset: 947275-89-1698Hoshpxui Residual codes; unclassified (1 source)Menopause present; Translations: [Asymptomatic menopausal state] 27-45-1647JomptlwbSdygzhpjtux; intervertebral disc disorders; other back problems (20 sources)Spondylosis without myelopathy or radiculopathy, lumbar region; Translations: [Spondylosis without myelopathy or radiculopathy, lumbosacral region]Onset: 12-82-4795JuozgokJjlvjyfvluc; intervertebral disc disorders; other back problems (20 sources)Intervertebral disc disorders with radiculopathy, lumbar region; Translations: [Radiculopathy, lumbar region]Onset: 71-00-6635TmxwbvbaXistfdw (20 sources)Syncope; Translations: [Syncope and collapse]Onset: 01-21-2022 54-29-4754UuxburjcFzjwjdb disorders (20 sources)Hypothyroidism; Translations: [Hypothyroidism, unspecified]Onset: 114048-07-7152BcrlzbmWuhcckheqbck (4 sources)LOW BACK PAIN, UNSPECIFIED; Translations: [LOW BACK PAIN, UNSPECIFIED]Onset: 09-21-2022 Past or Other Problems Problem ClassificationProblemDateDocumented DateEpisodic/ChronicAcute bronchitis (20 sources)Acute bronchitis; Translations: [Acute bronchitis, unspecified] Onset: 05-18-2024 Resolved: 526845-05-9680WmwhvcqoJlbnhajswgfbnl/social admission (20 sources)First encounter by subject; Translations: [Persons encountering health services in other specified circumstances]Onset: 08-04-2023 Resolved: 590371-75-5575IcqbsqwmTylw disorders (20 sources)Mood disordersOnset: 02-12-2024 Resolved: Other and unspecified benign neoplasm (20 sources)History of adenomatous polyp of colon; Translations: [History of adenomatous polyp of colon]Onset: 679443-98-1612LdhylofsFjkay connective tissue disease (1 source)Myalgia, other site; Translations: [MYALGIA OTHER SITE]Onset: 78-74-2930IxzqjngpEaifh nutritional; endocrine; and metabolic disorders (20 sources)Obese class I; Translations: [Obesity (BMI 30.0-34.9)]Onset: 01-01-2023 Resolved: 059977-21-7541AesraeyFfcsg upper respiratory infections (20 sources)Acute sinusitis; Translations: [Acute sinusitis, unspecified]Onset: 05-18-2024 Resolved: 084460-95-5210PmkwapspVhufkmuenocm (1 source)LOW BACK PAIN, UNSPECIFIED; Translations: [LOW BACK PAIN, UNSPECIFIED] Onset: 09-12-2022 Results Test NameValueInterpretationReference RangeFacilityBI MAMMOGRAM SCREENING TOMOSYNTHESIS BILATERALon 67-18-8377MI MAMMOGRAM SCREENING TOMOSYNTHESIS BILATERALThis is a summary report. The complete report is available in the patient's medical record. If you cannot access the medical record, please contact the sending organization for a detailed fax or copy. Examination: BI MAMMOGRAM SCREENING TOMOSYNTHESIS BILATERAL Clinical History: breast cancer screening Technique: Screening digital mammography study of both breasts was performed with 2-D and 3-D tomosynthesis imaging. Study was compared to the prior exam dated 01/15/2024. Findings: There is no evidence of interval dominant spiculated mass, grouped microcalcifications, or skin thickening which would be suggestive of malignancy. Mild scattered benign-appearing calcifications are seen bilaterally. Axillary lymph nodes includingpartially visualized lymph nodes are noted bilaterally and appear grossly unremarkable. IMPRESSION: Impression: No specific evidence of malignancy seen in either breast. BIRADS 2 - Benign Findings DENSITY: The breasts are almost entirely fatty. FOLLOW-UP: Routine Screening Mammogram ELECTRONICALLY SIGNED BY: Lewis Trinidad M.D.NormalNot AvailableUS Thyroid gland on 36-84[place]35[place] [address] Ultrasound Report Signed Patient: ARIAN ELAINE MR#: [id number] : 1955 Acct:[id number] Age/Sex: 69 / F ADM Date: 01/18/25 Loc: US Attending Dr: Nayeli Russo NP Ordering Physician: Nayeli Russo NP Date of Service: 01/18/25 Procedure(s): US thyroid Accession Number(s): [id number] cc: Nayeli Russo NP [place] [id number] Patient Name: ARIAN ELAINE MRN: [id number] date: 1955 Sex: F Assigned Patient Location: US Current Patient Location: US Accession/Order Number: [id number] Exam Date: 01/18/2025 12:20 Report Date: 01/18/2025 12:22 At the request of: NAYELI RUSSO NP Procedure: US thyroid Thyroid ultrasound Reason for exam: Hypothyroidism. Comparison: none Technique: Grayscale and color Doppler images of the thyroid gland were obtained. Findings: Right lobe measures 3.2 x 1.3 x 0.9 cm. Left lobe measures 2.6 x 1.0 x 0.9 cm. Isthmus measures 1.2 mm. The thyroid gland is heterogenous in echotexture without hyperemia on color Doppler imaging. Multiple hypoechoic nodules are identified some of which demonstrate associated calcification largest measuring 11 x 8 x 7 mm involving the mid aspect of the right lobe. US/US thyroid Impression: Multinodular thyroid gland largest nodule measuring 11 x 8 x 7 mm involving the mid aspect of the left lobe. Repeat ultrasound in one year suggested. Impression dictated by: Espinoza Aguayo Jr., D.O. 01/18/2025 12:22 PM Dictation Location: [place] [address] Electronically authenticated by: [id number] Y Date: 01/18/2025 12:22 Dictated By: Espinoza Aguayo M.D. Signed By: 01/18/25 1224 DD/ 1222 TD/TT: Tissue Specialist:TBHRadiology, Radiologist, MD - 01/18/[address] [address] Ultrasound Report Signed Patient: ARIAN ELAINE MR#: [id number] : 1955 Acct:[id number] Age/Sex: 69 / F ADM Date: 01/18/25 Loc: US Attending Dr: Nayeli Russo NP Ordering Physician: Nayeli Russo NP Date of Service: 01/18/25 Procedure(s): US thyroid Accession Number(s): [id number] cc: Nayeli Russo NP [address] [address] Patient Name: ARIAN ELAINE MRN: [id number] date: 1955 Sex: F Assigned Patient Location: US Current Patient Location: US Accession/Order Number: [id number] Exam Date: 01/18/2025 12:20 Report Date: 01/18/2025 12:22 At the request of: NAYELI RUSSO NP Procedure: US thyroid Thyroid ultrasound Reason for exam: Hypothyroidism. Comparison: none Technique: Grayscale and color Doppler images of the thyroid gland were obtained. Findings: Right lobe measures 3.2 x 1.3 x 0.9 cm. Left lobe measures 2.6 x 1.0 x 0.9 cm. Isthmus measures 1.2 mm. The thyroid gland is heterogenous in echotexture without hyperemia on color Doppler imaging. Multiple hypoechoic nodules are identified some of which demonstrate associated calcification largest measuring 11 x 8 x 7 mm involving the mid aspect of the right lobe. US/US thyroid Impression: Multinodular thyroid gland largest nodule measuring 11 x 8 x 7 mm involving the mid aspect of the left lobe. Repeat ultrasound in one year suggested. Impression dictated by: Espinoza Aguayo Jr., D.O. 01/18/2025 12:22 PM Dictation Location: [place] [address] Electronically authenticated by: [id number] Y Date: 01/18/2025 12:22 Dictated By: Espinoza Aguayo M.D. Signed By: 01/18/25 1224 DD/ 1222 TD/TT: Tissue Specialist: [facility] HospitalRadiology Study observation (narrative)[facility] HospitalUS Thyroid glandOrdered By: Radiologist Radiology on 21-69-5491ZWFNEastern Missouri State Hospital Work Phone: Erythrocyte distribution width Auto (RBC) [Ratio]on 97-08-4241Uftrhxkyaib distribution width (RBC) [Ratio]Erythrocyte distribution width [Ratio] by Automated count11.0-15.0[facility] CBC WITH PLATELET NO DIFFERENTIALon 47-93-7270Stmnwwipzxm distribution width (RBC) [Ratio]13.2 %11.0 - 15.0 %[facility] HealthcareHematocrit (Bld) [Volume fraction]48.3 %High36.0 - 48.0 %[facility] HealthcareHemoglobin (Bld) [Mass/Vol]15.4 g/dL12.0 - 16.0 g/dLBothwell Regional Health CenterH (RBC) [Entitic mass]30.1 pg26.7 - 34.0 pg [facility] CenterHC (RBC) [Mass/Vol]31.9 g/dL29.9 - 35.2 g/dLEastern Missouri State HospitalMCV (RBC) [Entitic vol]94.5 fL81.0 - 99.0 fLEastern Missouri State HospitalPlatelet mean volume (Bld) [Entitic vol]9.6 fL9.5 - 13.5 fLResearch Medical Center [id number] hospital springfield RBC5.11NOSaint John's Regional Health Center WBC9.2NOMS HealthcareHematocrit Auto (Bld) [Volume fraction]on 42-04-1437Qbddixbmnr (Bld) [Volume fraction]Hematocrit [Volume Fraction] of Blood by Automated yrgipWopq00.0-48.0[facility] HospitalHemoglobin [Mass/volume] in Bloodon 66-18-6260Urilkrutmy (Bld) [Mass/Vol] Hemoglobin [Mass/volume] in Blood12.0-16.0[facility] - Chemistry and Chemistry - challengeon 40-33-4377Brqiwsjke [Mass/Vol]2.1 mg/dL1.8-2.4FAultman HospitalUrate [Mass/Vol]4.7 mg/dL2.6-6.0[facility] HospitalBilirubin Ql (U)NegativeNEGATIVE [facility] HospitalGlucose (U) [Mass/Vol]mg/dLAbnormalNEGATIVE [facility] HospitalKetones Ql (U)NegativeNEGProMedica Flower HospitalpH (U)6.0 [pH]5.0-9.0[facility] Specific gravity (U) [Rel density]1.0201.005-1.025[facility] HospitalUrobilinogen Qn (U)0.2 {Caitie'U}/dL0.2-1.0[facility] HospitalLaboratory - Specimen informationon 75-02-2879Uyayhymvzk (U)CLEARCLEAR [facility] HospitalColor (U)YELLOWYELLOWWyandot Memorial HospitalLaboratory - Urinalysison 96-29-9038Ppunbkjjd esterase Test strip Ql (U) NegativeNEGATIVEWyandot Memorial HospitalNitrite Ql (U)NegativeNEGATIVE [facility] HospitalProtein (U) [Mass/Vol]16.1 mg/dLHigh<=11.9 [facility] HospitalProtein Ql (U)NegativeNEG/TRACEWyandot Memorial HospitalLeukocytes [#/volume] corrected for nucleated erythrocytes in Blood by Automated counon 30-77-4777GFN corrected for nucl RBC Auto (Bld) [#/Vol]Leukocytes [#/volume] corrected for nucleated erythrocytes in Blood by Automated coun4.0-11.0[facility] HospitalMCH Auto (RBC) [Entitic mass]on 80-74-2917VED (RBC) [Entitic mass]MCH [Entitic mass] by Automated count26.7-34.0[facility] HospitalMCHC Auto (RBC) [Mass/Vol]on 90-97-3233PJBL (RBC) [Mass/Vol]MCHC [Mass/volume] by Automated count29.9-35.2FAultman HospitalMCV Auto (RBC) [Entitic vol]on 86-11-3149GQP (RBC) [Entitic vol]MCV [Entitic volume] by Automated count 81.0-99.0[facility] HospitalMicroalbumin [Mass/volume] in Urineon 46-37-2158Ivdiubl DL <= 20 mg/L (U) [Mass/Vol]Microalbumin [Mass/volume] in Urine<=30.0[facility] HospitalNo Panel Informationon 11-08-2024 Interpretation and review of laboratory resultsAbnormalNOMS HealthcareCLINISYNC NOMS Hkvqhnteeb10-Gxqolvx Vitamin D Total30.7 ng/mLWyandot Memorial HospitalComment on above:<20 ng/mL Vit D bbtsoyrrr76-<30 ng/mL Vit D yldpeubtscbj80-935 ng/mL Vit D sufficient>100 ng/mL Potential Toxicity Parathyroid Hormone (Intact)47 pg/gU27-24RuduvvplwW[facility] Hospital Comment on above:Performed at: to be - Lab[address] [id number] Director: Frederick Earl PhD, Phone: [phone] Level 3.6 mg/dL2.6-4.7FAultman HospitalUrine Occult BloodNegative NEGATIVEWyandot Memorial HospitalUrine Random Leuqaujdaa874.47 mg/dL 20.00-300.00[facility] HospitalPlatelet mean volume Auto (Bld) [Entitic vol]on 67-03-3908Ossleftu mean volume (Bld) [Entitic vol]Platelet mean volume [Entitic volume] in Blood by Automated count9.5-13.5FAultman HospitalPlatelets Auto (Bld) [#/Vol]on 99-48-8237Kupjfqhxo (Bld) [#/Vol] Platelets [#/volume] in Blood by Automated gnbym409-118XcmntvnkcWyandot Memorial HospitalRBC Auto (Bld) [#/Vol]on 13-17-6140PFA (Bld) [#/Vol]Erythrocytes [#/volume] in Blood by Automated count4.20-5.40[facility] MICROALB CREAT RATIO RANDOMon 48-65-7119WPEHLTKSLV URINE QKVNKG246.47 mg/dL 20.00 - 300.00 mg/dLNORusk Rehabilitation CenterMICROALBUM CREATININE RATIO UR7.2 mg/g0.0 - 29.9 mg/gNOMS HealthcareComment on above:NO MICROALBUMINURIA 0-29 MG/G CLINICAL MICROALBUMINURIA 30-300 MG/G MACROALBUMINURIA >300 MG/G MICROALBUMIN URINE RANDOM<1.3NINF - 30.0 mg/dLResearch [facility] Center URINE T PROTEIN CREAT RATIOon 69-17-7876Warkcoc (U) [Mass/Vol]16.1 mg/dLHighNINF - 11.9 mg/dL [facility] HospitalPROTEIN CREATININE RATIO URINE0.09NORusk Rehabilitation CenterUrine microalbumin/creatinine mass ratioon 36-42-0862Zqwmzrl/Creatinine DL <= 20 mg/L (U) [Mass ratio]Urine microalbumin/creatinine mass ratio0.0-29.9[facility] HospitalComment on above:NO MICROALBUMINURIA 0-29 MG/GCLINICAL MICROALBUMINURIA 30-300 MG/GMACROALBUMINURIA >300 MG/GUrine protein/creatinine ratioon 66-05-6258Ylcnjar/Creatinine (U) [Ratio]Urine protein/creatinine ratio [facility] HospitalXR Foot - right 3 Viewson 28-52-8327Iznbtln Result: 3 views foot: [place], [place], and [...] significant elevatus of the 1st metatarsal is noted.[facility] HealthcareRadiology Study observation (narrative)NOMS HealthcareUS renal BIon 28-57-6927IQ renal [facility] Main [place] [address] [place] [address] Ultrasound Report Signed Patient: Arian Elaine MR#: [id number] 87 : 1955 Acct:[id number] Age/Sex: 68 / F ADM Date: 09/20/24 Loc: Room: Type: [facility] Attending Dr: Pratibha Cha MD Ordering Provider: Pratibha Cha MD Date of Service: 09/20/24 US/US renal BI: N18.32 - Chronic kidney disease, stage 3b Copies to: Pratibha Cha MD BILATERAL RENAL AND BLADDER ULTRASOUND CLINICAL HISTORY: Stage IIIB chronic kidney disease COMPARISON: None FINDINGS: Estimation of renal size is approximately 9.2 cm on the right and 10 cm on the left. No contour deforming mass, shadowing stone or hydronephrosis. The urinary bladder is partially distended with a volume of 21 ml. No shadowing stone or focal lesion. US/US renal BI IMPRESSION: No acute findings. Impression dictated by: Espinoza Aguayo Jr., D.O.09/20/2024 10:32 AM Dictation Location: [place] [address] Tech: Jessica Donovan Transcribed By: JOSLYN 09/20/24 1032 Dictated By: Espinoza Aguayo Jr, DO 09/20/24 1031 Signed By: 09/20/24 1032[facility] Physician GroupNo Panel Informationon 59-48-9482RQGG HealthcareALL CBC WITH AUTO DIFFon 55-02-1685OJVDTPGWF ABSOLUTE AUTO0.1NOMS HealthcareBasophils/100 WBC (Bld)0.6 %0.2 - 2.0 %[facility] Eosinophils/100 WBC (Bld)0.1 %Low0.9 - 7.0 %[facility]S HealthcareErythrocyte distribution width (RBC) [Ratio]12.8 %11.0 - 15.0 %[facility] HealthcareHematocrit (Bld) [Volume fraction]45.7 %36.0 - 48.0 %[facility] HealthcareHemoglobin (Bld) [Mass/Vol]14.7 g/dL12.0 - 16.0 g/dLLAYTON HOSPITAL HealthcareIMMATURE GRANULOCYTES ABS AUTO 0.03NOMS HealthcareImmature granulocytes/100 WBC (Bld)0.4 %0.0 - 0.5 %[facility] HealthcareInterpretation and review of laboratory resultsAbnormalNORusk Rehabilitation Center LYMPHOCYTES ABSOLUTE AUTO2.8NOMS [facility] HospitalLymphocytes/100 WBC (Bld)32.9 %20.5 - 60.0 %[facility] CenterH (RBC) [Entitic mass]30.2 pg26.7 - 34.0 pgNOMissouri Delta Medical CenterHC (RBC) [Mass/Vol]32.2 g/dL29.9 - 35.2 g/dLEastern Missouri State HospitalMCV (RBC) [Entitic vol]93.8 fL81.0 - 99.0 fLEastern Missouri State HospitalMONOCYTES ABSOLUTE AUTO0.4NOTN HealthcareMonocytes/100 WBC (Bld)4.3 %1.7 - 12.0 %[facility] HospitalNEUTROPHILS ABSOLUTE AUTO5.2NOMS HealthcareNeutrophils/100 WBC (Bld)61.7 %43.0 - 75.0 %[facility] HospitalPlatelet mean volume (Bld) [Entitic vol]9.8 fL9.5 - 13.5 fLEastern Missouri State HospitalTBH EO #0NOMS [facility] HospitalTB RMZ286MTBOSaint John's Regional Health Center RBC4.87NOSaint John's Regional Health Center WBC8.4NOTN HealthcareCLINISYNCNOMS [facility] HospitalMLR HEMOGLOBIN A1Con 63-06-8633Fempgks [Mass/Vol]131 mg/dLEastern Missouri State HospitalHbA1c (Bld) [Mass fraction] 6.2 %4.5 - 6.2 %[facility] HealthcareComment on above:ADA RECOMMENDED LIMIT 4.0 - 6.0 ADA THERAPEUTIC TARGET < 7.0 ACTION SUGGESTED > 7.0 CLINISYNCEastern Missouri State HospitalPOINT OF CARE GLUCOSEon 45-45-0409Dmdoibw [Mass/Vol]139 mg/dLCritically ljqm70-005HljParma Community General HospitalComment on above:Performed By: #### POCGLUC #### [facility] [address] [place] [address] [address] Susanne ChapaNORTH [place] OF CARE GLUCOSEon 53-08-5202Kswbuwn [Mass/Vol]119 mg/dL Critically arct81-929Nic [facility] HospitalComment on above:Performed By: #### POCGLUC #### [facility] [id number] Susanne ChapaNORTH [place] OF CARE GLUCOSEon 08-71-9936Newhhlm [Mass/Vol]125 mg/dL Critically euie97-469Sjr [facility] HospitalComment on above:Performed By: #### POCGLUC #### [facility] [address] [place] [address] [address] Susanne ChapaNORTH [place] OF [facility] GLUCOSEon 13-19-1055Vevgady [Mass/Vol]114 mg/dL Critically lxss63-370KciParma Community General HospitalComment on above:Performed By: #### POCGLUC #### [facility] [address] [place] [address] [address] Susanne ChapaUS Carotid, Bilateralon [id number] Carotid, BilateralFINDINGS: Right (% stenosis)Left (% stenosis) ICA Peak [...] and signed by Espinoza Man on 01/02/2022 1026NormalNorthern University Of Connecticut Health Center/John Dempsey HospitalXR Hip Complete Right*on 66-70-7792KA Hip Complete Right* FINDINGS: Mild bilateral superior hip joint space reduction is seen. No pincer deformities, very small right CAM deformity. No cortical or stress fracture is identified. Pelvic ring and sacral struts are intact. Soft tissues are relatively unremarkable. IMPRESSION: Minimal arthritis Report reported and signed by Espinoza Man on 01/01/2022 0658NoMercy Health Defiance HospitalXR Spine Lumbosacral 2 or 3 Viewson 14-93-6577NO Spine Lumbosacral 2 or 3 ViewsFINDINGS: Vertebral body heights are normal. Mild disc [...] and signed by Espinoza Man on 01/01/2022 0657NoMercy Health Defiance HospitalComprehensive Metabolic Panelon 81-20-4801Zqwbvou [Mass/Vol]4.4 g/dLNormal3.6-5.1NortherKindred HealthcareComment on above: Performed By: #### CMP #### [facility] [address] [place], [place] [id number]/Globulin [Mass ratio]1.9 {ratio}Normal1.0-2.5NoKettering Health Greene MemorialComment on above:Performed By: #### CMP #### [facility] [address] [place], [place] [id number] [Catalytic activity/Vol]91 U/AHpoyfs77-275UlozxpaoKettering Health Greene MemorialComment on above:Performed By: #### CMP #### [facility] [address] [place], [place] [id number] [Catalytic activity/Vol]7 U/LNormal6-33NoKettering Health Greene MemorialComment on above:Result Comment: 05/09/2021 Female reference range changed.Performed By: #### CMP #### [facility] [address] [place], [place] [id number] gap [Moles/Vol]18 mmol/RDcszbh85-28Bsulskff [place] Medical SpecialistComment on above:Result Comment: Effective 06/14/2019 reference range changed.Performed By: #### CMP #### [facility] [address] [place], [place] [id number] [Catalytic activity/Vol]12 U/LNormal9-34Northern [place] Medical SpecialistComment on above:Performed By: #### CMP #### [facility] [address] [place], [place] [id number] [Mass/Vol]0.31 mg/dLNormal0.30-1.20Norttucson medical centern [place] Medical SpecialistComment on above:Performed By: #### CMP #### [facility] [address] [place], [place] [id number]/CREA18 RatioNormal6-22NortLutheran Hospital Golf Teacher Comment on above:Performed By: #### CMP #### [facility] [address] [place], [place] [id number] [Mass/Vol]9.6 mg/dLNormal8.6-10.2Northern [place] Medical SpecialistComment on above:Performed By: #### CMP #### [facility] [address] [place], [place] [id number] [Moles/Vol]104 mmol/IKuwqfe03-095Mhmduqzb [place] [facility] SpecialistComment on above:Performed By: #### CMP #### [facility] [address] [place], [place] [id number] [Moles/Vol]25 mmol/GRtcmns15-30Dewmjsqa [place] [facility] SpecialistComment on above:Performed By: #### CMP #### [facility] [address] [place], [place] [id number] [Mass/Vol]1.0 mg/dLNormal0.6-1.4Northern [place] Medical SpecialistComment on above:Performed By: #### CMP #### [facility] [address] [place], [place] [id number] mL/min/1.63a9Jfjxuq>60[facility] [place] Medical SpecialistComment on above:Performed By: #### CMP #### [facility] [address] [place], [place] [id number] mL/min/1.05y8Ing>60NoBluffton Hospital Specialist Comment on above:Performed By: #### CMP #### [facility] [address] [place], [place] [id number] (S) [Mass/Vol]2.3 g/dLNormal1.9-3.7NoBluffton Hospital SpecialistComment on above:Performed By: #### CMP #### [facility] [address] [place], [place] [id number] [Mass/Vol]102 mg/hGKslv07-78Vevlhzpd [place] Medical SpecialistComment on above:Result Comment: For FASTING Glucose --- ADA reference ranges: Normal 65-99 mg/dl Prediabetes 100-125 Diabetes >/= 126Performed By: #### CMP #### [facility] [address] [place], [place] [id number] [Moles/Vol]4.9 mmol/LNormal3.5-5.5NoBluffton Hospital SpecialistComment on above:Performed By: #### CMP #### [facility] [address] [place], [place] [id number] [Mass/Vol]6.7 g/dLNormal6.1-8.1NortherLakeHealth TriPoint Medical Center SpecialistComment on above:Performed By: #### CMP #### [facility] [address] [place], [place] [id number] [Moles/Vol]142 mmol/VQexyun426-169Umyaooyh [place] Medical SpecialistComment on above:Performed By: #### CMP #### [facility] [address] [place], [place] [id number] nitrogen [Mass/Vol]18 mg/dLNormal7-25NoBluffton Hospital SpecialistComment on above:Performed By: #### CMP #### [facility] [address] [place], [place] [id number] A1Con 64-26-3129IXN367.15NormalNortOhioHealth Dublin Methodist Hospital SpecialistComment on above:Performed By: #### A1C #### [facility] [address] [place], [place] [id number] (Bld) [Mass fraction]5.5 %Normal4.0-6.0NortOhioHealth Dublin Methodist Hospital SpecialistComment on above:Performed By: #### A1C #### [facility] [address] [place], [place] [id number] Vital Signs Date TimeVital SignValuePerforming WcseowwvwQlrcrita27-34-9108 10:10-0400Body .64 cmLisa Aichholz SENIOR PAYROLL ADMINISTRATOR-C Work Phone: [phone] [place], [place] [address]10-16-2025 10:10-0400 Body mass index (BMI) [Ratio]36.3 kg/m2Lisa Aichholz SENIOR PAYROLL ADMINISTRATOR-C Work Phone: [phone] [place], [place] 08[address]10-16-2025 10:10-0400 Body aaopzhcvqdg88.3 [degF]Nayeli Aichholz SENIOR PAYROLL ADMINISTRATOR-C Work Phone: [phone] [place], [place] 08[address]10-16-2025 10:10-0400 Body .11 kgLisa Aichholz SENIOR PAYROLL ADMINISTRATOR-C Work Phone: [phone] [place], [place] [address]10-16-2025 10:10-0400 Diastolic blood tmsvguma31 mm[Hg]Nayeli Aichholz SENIOR PAYROLL ADMINISTRATOR-C Work Phone: [phone]10-16-2025 10:10-0400 Heart rate68 /minLisa Aichholz SENIOR PAYROLL ADMINISTRATOR-C Work Phone: [phone] [place], [place] 08[address]10-16-2025 10:10-0400 Respiratory rate16 /minLisa Aichholz SENIOR PAYROLL ADMINISTRATOR-C Work Phone: [phone] [place], [place] [address]10-16-2025 10:10-0400 SaO2% (BldA) [Mass fraction]95 %Nayeli Aichholz SENIOR PAYROLL ADMINISTRATOR-C Work Phone: [phone] [place], [place] 08[address]10-16-2025 10:10-0400 Systolic blood vagjuxdi994 mm[Hg]Nayeli Tysonrenato SENIOR PAYROLL ADMINISTRATOR-C Work Phone: [facility]08-14-2025 09:21-0400 Body mass index (BMI) [Ratio]36.19 kg/m2Nayeli Tysonz SENIOR PAYROLL ADMINISTRATOR Work Phone: [facility] HospitalOifcmrwucg11-11-8862 09:0400Body temperature 98.1 [degF]Nayeli Tysonz SENIOR PAYROLL ADMINISTRATOR Work Phone: [facility] HospitalMaacbrgdtw29-08-0060 09:21040Body bynhxe093.7 kgLisa Cruzholz SENIOR PAYROLL ADMINISTRATOR Work Phone: [facility] HospitalTwpeswyubl58-16-4592 09:21-0400Diastolic blood mm[Hg]Nayeli Tysonz SENIOR PAYROLL ADMINISTRATOR Work Phone: [facility] HospitalOiiutownlb38-94-9348 09:21-0400Heart rate87 /min Nayeli Russo SENIOR PAYROLL ADMINISTRATOR Work Phone: [place] [address]Wsnwjfxogh57-01-6014 09:21-0400Respiratory rate18 /minLisa Tysonz SENIOR PAYROLL ADMINISTRATOR Work Phone: [facility] HospitalAxwelmxfti07-54-3353 09:21-7478VnC7% (BldA) [Mass fraction]97 %Nayeli Russo SENIOR PAYROLL ADMINISTRATOR Work Phone: [place] [address]Pbphourmpf04-62-3605 09:21-0400Systolic blood mm[Hg]Nayeli Tysonz SENIOR PAYROLL ADMINISTRATOR Work Phone: [facility] HospitalYjmzpiewlw15-72-4164 10:11-0400Body mass index (BMI) [Ratio]36.54 kg/m2Nayeli Cruzholz SENIOR PAYROLL ADMINISTRATOR Work Phone: [facility] HospitalOqqpyjbqgc36-39-3132 10:11-0400Body temperature 98.49 [degF]Nayeli Cruzholz SENIOR PAYROLL ADMINISTRATOR Work Phone: [place] [address]Jygkzjtknw46-27-6875 10:11-0400Body .69 kgLisa Freedomhholz SENIOR PAYROLL ADMINISTRATOR Work Phone: [facility] HospitalVywhgfmyrj45-49-1798 10:11-0400Diastolic blood mm[Hg]Nayeli Freedomhholz SENIOR PAYROLL ADMINISTRATOR Work Phone: [facility] HospitalXwpqwyghjk49-05-3875 10:11-0400Heart rate60 /min Nayeli Aichholz SENIOR PAYROLL ADMINISTRATOR Work Phone: [place] [address]Wecplutmvc62-69-8624 10:11-0400Respiratory rate18 /minLisa Aichholz SENIOR PAYROLL ADMINISTRATOR Work Phone: [place] [address]Zvncrkmpse38-43-5064 10:11-4531SjQ3% (BldA) [Mass fraction]95 %Nayeli Freedomhholz SENIOR PAYROLL ADMINISTRATOR Work Phone: [facility] HospitalYoykabpphr45-20-5436 10:11-0400Systolic blood mm[Hg]Nayeli Anthonyholz SENIOR PAYROLL ADMINISTRATOR Work Phone: [facility] HospitalEdeevevpgl93-16-8900 14:43-0400Body mass index (BMI) [Ratio]37.09 kg/m2Lisa Freedomhholz SENIOR PAYROLL ADMINISTRATOR Work Phone: [facility] HospitalNqadmaaxol34-16-6618 14:43-0400Body temperature 97.81 [degF]Nayeli Anthonyholz SENIOR PAYROLL ADMINISTRATOR Work Phone: [facility] HospitalQapafvorst61-77-2183 14:43-0400Body jcyfhn650.24 kgLisa Anthonyholz SENIOR PAYROLL ADMINISTRATOR Work Phone: [facility] HospitalWsgihdyeqp26-08-0899 14:43-0400Diastolic blood vseocgpf06 mm[Hg]Nayeli Freedomhholz SENIOR PAYROLL ADMINISTRATOR Work Phone: [facility] HospitalBaqaoctgvp01-76-6503 14:43-0400Heart rate63 /min Nayeli Aichholz SENIOR PAYROLL ADMINISTRATOR Work Phone: [facility] HospitalSfqqkqcmxb83-64-0872 14:43-0400Respiratory rate18 /minLisa Aichholz SENIOR PAYROLL ADMINISTRATOR Work Phone: [facility] HospitalNanhutcbwu21-81-8341 14:43-8618XqI1% (BldA) [Mass fraction]96 %Nayeli Karan SENIOR PAYROLL ADMINISTRATOR Work Phone: [facility] HospitalUzjfdnvxsd73-36-0154 14:43-0400Systolic blood bqrfotse772 mm[Hg]Nayeli Karan SENIOR PAYROLL ADMINISTRATOR Work Phone: noRusk Rehabilitation CenterZvwnfaknhz48-36-8822 14:33-0400Body wgekqy612.64 cmPHYSICIAN [facility]06-10-2025 14:33-0400Body mass index (BMI) [Ratio]36.6 kg/q1ONOXXCVRU [facility]06-10-2025 14:33-0400Body tbhotk905.96 kgPHYSICIAN [facility]06-10-2025 14:33-0400Diastolic blood wezbagbe12 mm[Hg] PHYSICIAN NO [facility]06-10-2025 14:33-0400Heart rate71 /minPHYSICIAN [facility]06-10-2025 14:33-0400Respiratory rate16 /minPHYSICIAN [facility]06-10-2025 14:33-5544KrK2% (BldA) [Mass fraction]98 %PHYSICIAN [facility]06-10-2025 14:33-0400Systolic blood mm[Hg]PHYSICIAN [facility]05-29-2025 09:32-0400 Body mhovuw832.6 Blakepato Karan SENIOR PAYROLL ADMINISTRATOR Work Phone: [facility] HospitalVwqcoklaac45-50-9240 09:32-0400Body mass index (BMI) [Ratio]36.48 kg/m2Nayeli Russo SENIOR PAYROLL ADMINISTRATOR Work Phone: [facility] HospitalZahopnmgnp51-67-3185 09:32-0400Body temperature 97.11 [degF]Nayeli Russo SENIOR PAYROLL ADMINISTRATOR Work Phone: [facility] HospitalHahbpqdwcf16-27-9558 09:32-0400Body yxlufe469.51 kgNayeli Russo SENIOR PAYROLL ADMINISTRATOR Work Phone: [facility] HospitalImlmobknhj99-29-1447 09:32-0400Diastolic blood mm[Hg]Nayeli Russo SENIOR PAYROLL ADMINISTRATOR Work Phone: [facility] HospitalIxtffybbon14-87-0905 09:32-0400Heart rate77 /min Nayeli Russo SENIOR PAYROLL ADMINISTRATOR Work Phone: [facility] HospitalQwtpwcgljc96-56-7867 09:32-0400Respiratory rate22 /minNayeli Russo SENIOR PAYROLL ADMINISTRATOR Work Phone: [facility] HospitalAhakmtnbjt36-62-9073 09:32-6634JiN8% (BldA) [Mass fraction]94 %Nayeli Russo SENIOR PAYROLL ADMINISTRATOR Work Phone: [facility] HospitalMptmvjfmyk82-86-4300 09:32-0400Systolic blood mhgeduma031 mm[Hg]Nayeli Russo SENIOR PAYROLL ADMINISTRATOR Work Phone: [facility] HospitalTgjfcwvarr26-29-2132 08:42-0400Body upllxe873.6 cmJejimi Avitiae DPM Work Phone: [phone] [place], [place] 4755704-22-2025 08:42-0400Body mass index (BMI) [Ratio]36.64 kg/s5Ifazelg Cisse DPM Work Phone: [phone]04-22-2025 08:42-0400Body .97 kgSoledad Cisse DPM Work Phone: 1([phone] [place], [place] 4755703-18-2025 14:48-0400Body .64 cmW[facility]ot [facility]03-18-2025 14:48-0400Body mass index (BMI) [Ratio]37 kg/v9DwigzkoxgWyandot Memorial Hospital03-18-2025 14:48-0400Body weight 104.09 kgWyandot Memorial Hospital03-18-2025 14:48-0400Diastolic blood vjwjqlyd60 mm[Hg][facility]03-18-2025 14:48-0400Heart rate60 /minWyandot Memorial Hospital03-18-2025 14:48-0400Respiratory rate16 /minWyandot Memorial Hospital03-18-2025 14:48-1448SrG2% (BldA) [Mass fraction]95 %[facility]03-18-2025 14:48-0400 Systolic blood vkaslmgb390 mm[Hg][facility]02-11-2025 09:24-0500Body .6 cmTomasa Aburtopatrick SENIOR PAYROLL ADMINISTRATOR Work Phone: [facility] HospitalDlukqelfig87-39-8382 09:24-0500Body mass index (BMI) [Ratio]36.64 kg/o9Nrerkhkc Lou SENIOR PAYROLL ADMINISTRATOR Work Phone: [facility] HospitalKcqpsayuaq06-03-6061 09:24-0500Body temperature 97.2 [degF]Tomasa Aburtopatrick SENIOR PAYROLL ADMINISTRATOR Work Phone: [facility] HospitalPhzgwawufo90-38-5842 09:24-0500Body aljrjl252.97 kgBrrick Aburtopatrick SENIOR PAYROLL ADMINISTRATOR Work Phone: [facility] HospitalIcrpvbppbk28-47-1451 09:24-0500Diastolic blood umcziovj21 mm[Hg]Tomasa Lou SENIOR PAYROLL ADMINISTRATOR Work Phone: [facility] HospitalGfkfywdjva55-72-8891 09:24-0500Heart rate67 /min Tomasa Lou SENIOR PAYROLL ADMINISTRATOR Work Phone: [facility] HospitalXlsrozpepy00-47-8384 09:24-0500Respiratory rate16 /minTomasa Lou SENIOR PAYROLL ADMINISTRATOR Work Phone: [facility] HospitalTaevrbrtog32-59-3103 09:24-8017FhY3% (BldA) [Mass fraction]97 %Tomasa Lou SENIOR PAYROLL ADMINISTRATOR Work Phone: [facility] HospitalLrnbbewzvc52-42-3290 09:24-0500Systolic blood uaoqxuth998 mm[Hg]Tomasa Lou SENIOR PAYROLL ADMINISTRATOR Work Phone: [facility] HospitalYzaaeolxlb68-18-6871 11:30-0500Body wdlqon409.7 cmLisa Aichholz SENIOR PAYROLL ADMINISTRATOR Work Phone: [facility] HospitalEqcaxqbkih13-08-9986 11:30-0500Body mass index (BMI) [Ratio]34.97 kg/m2Nayeli Russo SENIOR PAYROLL ADMINISTRATOR Work Phone: [facility] HospitalMwztlpoluw90-77-7893 11:30-0500Body temperature 98.29 [degF]Nayeli Russo SENIOR PAYROLL ADMINISTRATOR Work Phone: [facility] HospitalRlleohhifr63-84-3275 11:30-0500Body laqmce537.33 kgNayeli Russo SENIOR PAYROLL ADMINISTRATOR Work Phone: [place] [address]Ptpgpbgwhy60-22-4792 11:30-0500Diastolic blood kuatughy31 mm[Hg]Nayeli Russo SENIOR PAYROLL ADMINISTRATOR Work Phone: [facility] HospitalWbclgnktvo91-91-7795 11:30-0500Heart rate73 /min Nayeli Russo SENIOR PAYROLL ADMINISTRATOR Work Phone: [facility] HospitalIkqvzuyozx65-76-3385 11:30-0500Respiratory rate19 /minLisa Russo SENIOR PAYROLL ADMINISTRATOR Work Phone: [place] [phone] 11:30-7972MrW2% (BldA) [Mass fraction]96 %Nayeli Russo SENIOR PAYROLL ADMINISTRATOR Work Phone: [facility] [id number] 11:30-0500Systolic blood qlysbuiw359 mm[Hg]Nayeli Russo SENIOR PAYROLL ADMINISTRATOR Work Phone: [facility] HospitalXlbdxmbiwi22-91-4605 09:24-0500Body fhlmko088.7 cmBrrick Lou SENIOR PAYROLL ADMINISTRATOR Work Phone: [place] [phone] 09:24-0500Body mass index (BMI) [Ratio]34.5 kg/j2Trszckjl Lou SENIOR PAYROLL ADMINISTRATOR Work Phone: [place] [phone] 09:24-0500Body temperature 100.8 [degF]Tomasa Tiradok SENIOR PAYROLL ADMINISTRATOR Work Phone: [facility] [id number] 09:24-0500Body .92 kgTomasa Lou SENIOR PAYROLL ADMINISTRATOR Work Phone: [facility] [id number] 09:24-0500Diastolic blood otcxrkbu96 mm[Hg]Tomasa Lou SENIOR PAYROLL ADMINISTRATOR Work Phone: [facility] HospitalSbhwzweyhw15-82-2521 09:24-0500Heart rate74 /min Tomasa Lou SENIOR PAYROLL ADMINISTRATOR Work Phone: [facility] [id number] 09:24-0500Respiratory rate16 /minTomasa Lou SENIOR PAYROLL ADMINISTRATOR Work Phone: [facility] HospitalGbwgcvsamt73-44-5378 09:24-9910TdT6% (BldA) [Mass fraction]94 %Tomasa Lou SENIOR PAYROLL ADMINISTRATOR Work Phone: [facility] HospitalFbsdrtgsbc37-79-2235 09:24-0500Systolic blood tihcojxj884 mm[Hg]Tomasa Lou SENIOR PAYROLL ADMINISTRATOR Work Phone: [facility] HospitalOhbvnzguwa46-07-7243 08:55-0500Body urnopd164.6 cmTomasa Lou SENIOR PAYROLL ADMINISTRATOR Work Phone: [facility] HospitalZvmpcwuino41-29-9038 08:55-0500Body mass index (BMI) [Ratio]38.12 kg/t0Qromqtmz Lou SENIOR PAYROLL ADMINISTRATOR Work Phone: [place] [address]Jxxgunlouy41-39-4803 08:55-0500Body temperature 97.11 [degF]Tomasa Lou SENIOR PAYROLL ADMINISTRATOR Work Phone: [place] [address]Hilfxqwapr57-12-5642 08:55-0500Body .14 kgBrittany Lou SENIOR PAYROLL ADMINISTRATOR Work Phone: [place] [address]Slsikpezhx53-05-5398 08:55-0500Diastolic blood kdhdmvaw55 mm[Hg]Tomasa Lou SENIOR PAYROLL ADMINISTRATOR Work Phone: [place] [address]Kemevrjydv13-50-3280 08:55-0500Heart rate73 /min Tomasa Lou SENIOR PAYROLL ADMINISTRATOR Work Phone: [facility] HospitalVtapfyoppu95-44-9433 08:55-0500Respiratory rate16 /minBrittany Lou SENIOR PAYROLL ADMINISTRATOR Work Phone: [facility] HospitalTvbmlvexlc18-83-5736 08:55-8099XeN0% (BldA) [Mass fraction]96 %Tomasa Lou SENIOR PAYROLL ADMINISTRATOR Work Phone: [facility] HospitalNuuqgqjpew67-13-8655 08:55-0500Systolic blood nxddllpu309 mm[Hg]Tomasa Lou SENIOR PAYROLL ADMINISTRATOR Work Phone: [facility] HospitalPeesbbwnkx63-18-6095 15:30-0400Body epayij714.6 cmBrrick Lou SENIOR PAYROLL ADMINISTRATOR Work Phone: [facility] HospitalNvhkptklij60-66-1282 15:30-0400Body mass index (BMI) [Ratio]37.66 kg/z5Uvldrgzi Lou SENIOR PAYROLL ADMINISTRATOR Work Phone: [facility] HospitalFyiyqyzvog29-99-5748 15:30-0400Body temperature 97.81 [degF]Tomasa Lou SENIOR PAYROLL ADMINISTRATOR Work Phone: [facility] HospitalXsllpzhbcb13-40-3242 15:30-0400Body jogmcm988.82 kgBrrick Lou SENIOR PAYROLL ADMINISTRATOR Work Phone: [facility] HospitalVqfjxkydiu53-10-4823 15:30-0400Diastolic blood lmmxbzii76 mm[Hg]Tomasa Lou SENIOR PAYROLL ADMINISTRATOR Work Phone: [facility] HospitalEmsqfuksjs76-90-7259 15:30-0400Heart rate72 /min Tomasa Lou SENIOR PAYROLL ADMINISTRATOR Work Phone: [facility] HospitalAvcnftxbtt23-74-9628 15:30-0400Respiratory rate16 /minBrittany Lou SENIOR PAYROLL ADMINISTRATOR Work Phone: [facility] HospitalFauvrvuldo93-96-6438 15:30-9267IuQ9% (BldA) [Mass fraction]98 %Tomasa Lou SENIOR PAYROLL ADMINISTRATOR Work Phone: [facility] HospitalIyurnsqszs95-11-0294 15:30-0400Systolic blood mm[Hg]Tomasa Aburtopatrick SENIOR PAYROLL ADMINISTRATOR Work Phone: [facility] HospitalKqmfcailti04-71-7826 09:58-0400Body qjrykq496.6 cmTomasa Aburtopatrick SENIOR PAYROLL ADMINISTRATOR Work Phone: [facility] HospitalZgsfprfijk35-65-3166 09:58-0400Body mass index (BMI) [Ratio]37.77 kg/w5ZgguvkxaTomasa De La Otrick SENIOR PAYROLL ADMINISTRATOR Work Phone: [facility] HospitalLtydcbmbba19-23-9928 09:58-0400Body gwcoirajuqi03 [degF]Tomasa Aburtopatrick SENIOR PAYROLL ADMINISTRATOR Work Phone: [facility] HospitalGgkwbddabu54-03-2482 09:58-0400Body jtyyhr580.14 kgTomasa De La Otrick SENIOR PAYROLL ADMINISTRATOR Work Phone: [facility] HospitalIsvleabeiv74-42-7945 09:58-0400Diastolic blood kxfzulyk62 mm[Hg]Tomasa Aburtopatrick SENIOR PAYROLL ADMINISTRATOR Work Phone: [facility] HospitalTdndfruhmf62-39-6519 09:58-0400Heart rate61 /min Tomasa Aburtopatrick SENIOR PAYROLL ADMINISTRATOR Work Phone: [facility] HospitalComment on above:95% A964-10-3869 09:58-0400Systolic blood nisnsift764 mm[Hg]Tomasa Aburtopatrick SENIOR PAYROLL ADMINISTRATOR Work Phone: [facility] HospitalYptixkrwmm36-50-6086 09:35-0400Body cblcaf963.64 [facility] 09:35-0400Body mass index (BMI) [Ratio]37.1 kg/j5IpjnsretfWyandot Memorial Hospital07-06-2024 09:35-0400Body zmktveyufrt80 [degF][facility]07-06-2024 09:35-0400Body mslxuk883.49 kgW[facility]and[facility] Hospital07-06-2024 09:35-0400Diastolic blood dmyjdnme55 mm[Hg][facility]07-06-2024 09:35-0400 Heart rate81 /[facility]07-06-2024 09:35-0400 Respiratory rate18 /[facility]07-06-2024 09:35-0400 SaO2% (BldA) [Mass fraction]98 %[facility]07-06-2024 09:35-0400Systolic blood ababaquk070 mm[Hg][facility] Encounters Encounter DateEncounter TypeCare ProviderFacilityStart: 03-24-2025 End: 26-58-3744xkibqzhxbwPkvf J Aichholz SENIOR PAYROLL ADMINISTRATOR-C Work Phone: [facility] Work Phone: Start: 03-24-2025 End: 97-30-6359Qymoxtg encounter procedureNayeli Russo SENIOR PAYROLL ADMINISTRATOR-C-[facility] Family Medicine Aaron Work Phone: Start: 24-30-9516Gnjpmrt encounter procedureNayeli Russo SENIOR PAYROLL ADMINISTRATOR-C Work Phone: [facility]: 02-10-2025 End: 00-91-6580fbvwcnxquaZHUB AICHHOLZNot AvailableStart: 01-20-2025 End: 67-61-8740Wbeshh flowsheetNayeli Russo SENIOR PAYROLL ADMINISTRATOR Work Phone: noms CWM FMStart: 01-20-2025 End: 12-11-9592Dbcvnd flowsheetNayeli Russo SENIOR PAYROLL ADMINISTRATOR Work Phone: noms CWM FMStart: 01-20-2025 End: 87-98-0837Ufpkufjwa encounterLisa Russo SENIOR PAYROLL ADMINISTRATOR Work Phone: noms CWM FMStart: 01-20-2025 End: 49-27-6066csesqbprlbHBPLN S LAUGHLINNot AvailableStart: 01-20-2025 End: 23-49-4469Tczajo outpatient visit 25 minutesLisa Russo SENIOR PAYROLL ADMINISTRATOR Work Phone: noms CWM FMComment on above:Current 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); Chronic frontal sinusitis; Medication refill; Type 2 diabetes mellitus with stage 3a chronic kidney disease, without long-term current use of insulin ([facility]); CKD (chronic kidney disease) stage 2, GFR 60-89 ml/min; Acquired hypothyroidism ; Primary hypertension ; Hyperlipidemia, unspecified hyperlipidemia typeStart: 01-20-2025 End: 32-73-5179extkizefrcDRWO AICHHOLZNot AvailableStart: 01-18-2025 End: 97-22-4675Hoftwklvz Result EncounterLisa Aichholz SENIOR PAYROLL ADMINISTRATOR Work Phone: noms External Department UnsolicitedStart: 01-18-2025 End: 79-93-1878Ymnygqdlq Result EncounterLisa Aichholz SENIOR PAYROLL ADMINISTRATOR Work Phone: noms External Department UnsolicitedStart: 01-10-2025 End: 17-31-4032Hsxweu flowsheetLisa Aichholz SENIOR PAYROLL ADMINISTRATOR Work Phone: noms CWM FMStart: 01-10-2025 End: 06-15-2451Sihkkj flowsheetLisa Aichholz SENIOR PAYROLL ADMINISTRATOR Work Phone: noms CWM FMStart: 01-10-2025 End: 06-75-5838Tvjdzt outpatient visit 15 minutesLisa Aichholz SENIOR PAYROLL ADMINISTRATOR Work Phone: noms CWM FMComment on above:Throat pain in adult (Primary Dx); History of thyroid nodule; Hypothyroidism, unspecified typeStart: 01-10-2025 End: 74-83-8864sskqwurbnlWUJL AICHHOLZNot AvailableStart: 01-06-2025 End: 30-57-0951QvmrzkMavm Aichholz SENIOR PAYROLL ADMINISTRATOR Work Phone: [facility] CWM FMComment on above:Current 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 without prior episode (HCC) Start: 01-05-2025 End: 47-39-9488Chqgad flowsheetKylie S Dionte TREE PLANTER-S Work Phone: [facility] FNR BHStart: 01-05-2025 End: 96-52-9158Qsbygy flowsheetKylie S Dionte TREE PLANTER-S Work Phone: noms FNR BHStart: 01-05-2025 End: 21-07-9033syhgixlwvhKLAKY S LAUGHLINNot AvailableStart: 12-23-2024 End: 17-17-0295LqpqjyXwlp Naderer MD Work Phone: noms CWM FMComment on above:Acquired hypothyroidism Start: 12-15-2024 End: 10-57-3984fpxsgwyqkkGPHEU S LAUGHLINNot AvailableStart: 12-15-2024 End: 88-10-9273Omlsyl flowsheetKylie S Dionte TREE PLANTER-S Work Phone: [facility] FNR BHStart: 12-15-2024 End: 65-94-2293Uafyfl flowsheetKylie S Dionte TREE PLANTER-S Work Phone: [facility] FNR BHStart: 12-08-2024 End: 30-40-3226Vuddmu flowsheetKylie S Dionte TREE PLANTER-S Work Phone: [facility] FNR BHStart: 12-08-2024 End: 54-00-7312Wgjxbl flowsheetKylie S [place] TREE PLANTER-S Work Phone: noMS FNR BHStart: 12-08-2024 End: 82-29-6644cdvgluhdtqCDYLO S LAUGHLINNot AvailableStart: 12-02-2024 End: 49-90-5710Hojqnu outpatient visit 15 minutesLisa Karan MANZANARES Work Phone: [facility] CWM FMComment on above:Current 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 without prior episode (HCC) (Primary Dx); Morbid (severe) obesity due to excess calories (CMS-HCC); Encounter for screening mammogram for malignant neoplasm of breastStart: 12-02-2024 End: 22-92-4375lqjfhjanqiLQNP AICHHOLZNot AvailableStart: 11-23-2024 End: 85-17-7843SoymibFcpz Aichholz SENIOR PAYROLL ADMINISTRATOR Work Phone: noms CWM FMComment on above:Chronic frontal sinusitis; Medication refillStart: 11-16-2024 End: 23-31-8101zrznplgqhtJATSUJEDB NO [facility] Work Phone: Start: 11-16-2024 End: 23-06-0397Ympsnng encounter procedurePHYSICIAN NO [facility]NEW[facility] Aaron Work Phone: Start: 11-15-2024 End: 97-72-1216Ramqfsjyw encounterKylie Oliverio Hodge TREE PLANTER-S Work Phone: noms FNR FMComment on above:Primary hypertension (CMS/HCC)Start: 11-08-2024 End: 98-37-3006Vjiopwqhe Result EncounterGeneric External Data ProviderNOMS External Department UnsolicitedStart: 11-08-2024 End: 69-62-2932Kpvetbjha Result EncounterGeneric External Data ProviderNOMS External Department UnsolicitedStart: 51-22-0665Jlm-patient / Non-visitPHYSICIAN NO [facility] GroupProv[facility] Work Phone: Start: 11-04-2024 End: 15-29-3092Mcjfnr flowsheetNayeli Russo SENIOR PAYROLL ADMINISTRATOR Work Phone: noms CWM FMStart: 11-04-2024 End: 77-07-3729Vbfnxl flowsheetLisa Russo SENIOR PAYROLL ADMINISTRATOR Work Phone: noms CWM FMStart: 11-04-2024 End: 21-67-0254Balgtc outpatient visit 25 minutesNayeli Cruzrichard MANZANARES Work Phone: noms CWM FMComment on above:Current 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 without prior episode (CMS/HCC) (Primary Dx); Morbid (severe) obesity due to excess calories (CMS/HCC); Body mass index (BMI) 36.0-36.9, adult; Primary hypertension (CMS/HCC); Stage 3b chronic kidney disease (HCC) (CMS/HCC); Hypothyroidism, unspecified type (CMS/HCC); Type 2 diabetes mellitus with stage 3b chronic kidney disease, without long-term current use of insulin (HCC) (CMS/HCC); Mixed hyperlipidemia (CMS/HCC)Start: 11-04-2024 End: 87-94-8746ohxggzgtlpITLK AICHHOLZNot AvailableStart: 09-28-2024 End: 28-79-1099Ftoychpalma Cisse DPM Work Phone: noms PODIATRYStart: 09-28-2024 End: 91-52-8187Axsobspalma Cisse DPM Work Phone: noms PODIATRYStart: 09-28-2024 End: 22-30-2437ozzmactnplQGWQTLH W CLARKENot AvailableStart: 09-28-2024 End: 70-24-3311Bqmqdf outpatient new 45 minutesSoledad Cisse DPM Work Phone: noms PODIATRYComment on above:Hallux valgus with bunions of right foot (Primary Dx); Pain in joint of right foot; Metatarsus adductus of right foot; Onychomycosis; Nail dystrophyStart: 09-28-2024 End: 76-21-2163rtghymxlvsLOGZKPQSachin Mixon AvailableStart: 09-27-2024 End: 17-58-0152QvaokkInrw Naderer MD Work Phone: noms CWM FMComment on above:Hyperlipidemia, unspecified hyperlipidemia type (CMS/HCC)Start: 09-20-2024 End: 11-99-6830Sawixmf encounter procedurePHYSICIAN NO [facility] [place] Work Phone: Start: 09-20-2024 End: 11-89-1809jprqtjbaatRZRFGHTUU NO [facility] Work Phone: Start: 08-24-2024 End: 69-01-0737hjlyalyftcFrntneoua [facility] Center Work Phone: Start: 08-24-2024 End: 47-07-2855Avojudi encounter procedureAtrium Health [facility] Nephrology Aaron Work Phone: Start: 07-20-2024 End: 96-79-0492Edxfte flowsheetTomasa Lou SENIOR PAYROLL ADMINISTRATOR Work Phone: noms CWM FMStart: 07-20-2024 End: 87-01-0589Dqfrjm flowsheetTomasa Tiradok SENIOR PAYROLL ADMINISTRATOR Work Phone: [facility] CWM FMStart: 07-20-2024 End: 86-10-5756Iomfbr outpatient visit 15 minutesBrrick Lou SENIOR PAYROLL ADMINISTRATOR Work Phone: noMS CWM FMComment on above:Stage 3b chronic kidney disease (HCC) (CMS/HCC) (Primary Dx); Type 2 diabetes mellitus with stage 3a chronic kidney disease, without long-term current use of insulin (HCC) ([facility]/HCC); Primary hypertension (CMS/HCC); Mixed hyperlipidemia (CMS/HCC)Start: 07-20-2024 End: 70-98-1472hcxycfanpdPQDUGJZW SHANITATRICKNot AvailableStart: 06-23-2024 End: 25-12-7683QmhoswOzpirwfw Lou SENIOR PAYROLL ADMINISTRATOR Work Phone: noMS CWM FMComment on above:Acquired hypothyroidism (CMS/HCC)Start: 05-31-2024 End: 16-93-1399Vdjxzi flowsheetNayeli Russo SENIOR PAYROLL ADMINISTRATOR Work Phone: noMS CWM FMStart: 05-31-2024 End: 11-66-2190Gxndbl flowsheetLisa Cruzholz SENIOR PAYROLL ADMINISTRATOR Work Phone: [facility] CWM FMStart: 05-31-2024 End: 05-63-3899Uuqnpj outpatient visit 15 minutesNayeli Russo SENIOR PAYROLL ADMINISTRATOR Work Phone: noms CWM FMComment on above:Acute bronchitis, unspecified organism (Primary Dx); Primary hypertension (CMS/HCC); Stage 3b chronic kidney disease (HCC) (CMS/HCC); Obesity (BMI 30.0-34.9)Start: 05-31-2024 End: 91-45-0023prpskutsoxRRAZ AICHHOLZNot AvailableStart: 05-18-2024 End: 44-34-1671Cmoeyi flowsheetBrittany Lou SENIOR PAYROLL ADMINISTRATOR Work Phone: noms CWM FMStart: 05-18-2024 End: 84-66-5890Qogcjd flowsheetBrittany Lou SENIOR PAYROLL ADMINISTRATOR Work Phone: [facility] CWM FMStart: 05-18-2024 End: 91-89-2838Jsnsmd outpatient visit 10 minutesBrrick MeadLou SENIOR PAYROLL ADMINISTRATOR Work Phone: noMS CWM FMComment on above:Acute bronchitis, unspecified organism (Primary Dx); Viral upper respiratory tract infectionStart: 05-18-2024 End: 18-40-7981okcvdcsnztJGJVMOJC FITZPATRICANKURot AvailableStart: 05-11-2024 End: 94-27-8208IoplpxNwzcJose MENDEZ CWM FMComment on above:Primary hypertension (CMS/HCC)Start: 04-21-2024 End: 23-26-5734Axpwmv flowsheetNatalie A Felter HOUSEKEEPER CHILD CARE-COUNSELOR AIDE Work Phone: [facility] DERMStart: 04-21-2024 End: 64-01-6027Dqhfhp flowsheetNatalie A Felter HOUSEKEEPER CHILD CARE-COUNSELOR AIDE Work Phone: noms [facility] DERMStart: 04-21-2024 End: 58-02-1810Hqswnwz encounter procedureNatalie A [place] HOUSEKEEPER CHILD CARE-COUNSELOR AIDE Work Phone: noms SWS DERMComment on above:Inflamed seborrheic keratosisStart: 04-21-2024 End: 66-95-5804dnicwkatemMFCCCPC A FELTERNot AvailableStart: 04-16-2024 End: 61-32-5960Ensgbw OnlyTomasa Lou SENIOR PAYROLL ADMINISTRATOR Work Phone: noms CWM FMComment on above:Stage 3b chronic kidney disease (HCC) (CMS/HCC) (Primary Dx)Start: 04-15-2024 End: 25-94-6961Fipyli flowsheetBrittany Lou SENIOR PAYROLL ADMINISTRATOR Work Phone: NOME CWM FMStart: 04-15-2024 End: 20-81-0401Mvpmmz flowsheetBrittany Lou SENIOR PAYROLL ADMINISTRATOR Work Phone: noms CWM FMStart: 04-15-2024 End: 66-56-2517Ewesnzaxn Result EncounterBrrick Aburtopatrick SENIOR PAYROLL ADMINISTRATOR Work Phone: noms External Department UnsolicitedStart: 04-15-2024 End: 07-55-0898Viqyuq outpatient visit 15 minutesTomasa De La Otrick SENIOR PAYROLL ADMINISTRATOR Work Phone: noms CWM FMComment on above:Type 2 diabetes mellitus with stage 3a chronic kidney disease, without long-term current use of insulin (HCC) (CMS/HCC) (Primary Dx); Primary hypertension (CMS/HCC); CKD (chronic kidney disease) stage 2, GFR 60-89 ml/min; Mixed hyperlipidemia (CMS/HCC)Start: 04-15-2024 End: 49-34-1089zvihlfovkaNNXHJYLGAbigail Vasquez AvailableStart: 04-06-2024 End: 93-29-6394WojmroFnfqJose MENDEZ CWM FMComment on above:Primary hypertension (CMS/HCC); Hyperlipidemia, unspecified hyperlipidemia type (CMS/HCC)Start: 03-30-2024 End: 48-11-7402TyggebGedpzibi Lou SENIOR PAYROLL ADMINISTRATOR Work Phone: noms CWM FMComment on above:Type 2 diabetes mellitus with stage 3a chronic kidney disease, without long-term current use of insulin ([facility]) ([facility]); CKD (chronic kidney disease) stage 2, GFR 60-89 ml/minStart: 03-09-2024 End: 24-47-3360Wixltl outpatient visit 10 minutesVianneyjennifer Lou SENIOR PAYROLL ADMINISTRATOR Work Phone: noms CWM FMComment on above:Actinic keratosis (Primary Dx)Start: 03-09-2024 End: 99-89-1167twbbzsqeszOMJHZUPJ FITVITALYTRICKNot AvailableStart: 03-09-2024 End: 54-85-0869Namota flowsheetTomasa De La Otrick SENIOR PAYROLL ADMINISTRATOR Work Phone: NOJL CWM FMStart: 03-09-2024 End: 32-94-1352Vqiafm flowsheetTomasa De La Otrick SENIOR PAYROLL ADMINISTRATOR Work Phone: NOYC CWM FMStart: 02-12-2024 End: 16-30-6639Qgpuaw flowsheetTomasa De La Otrick SENIOR PAYROLL ADMINISTRATOR Work Phone: NOPS CWM FMStart: 02-12-2024 End: 45-47-1869Femftu flowsYoko De La Otrick SENIOR PAYROLL ADMINISTRATOR Work Phone: NOVJ CWM FMStart: 02-12-2024 End: 09-19-8339Xwszdkt encounter procedureTomasa Meadzpatrick SENIOR PAYROLL ADMINISTRATOR Work Phone: NOSE HealthcareComment on above:Encounter for Medicare annual wellness exam (Primary Dx); Chronic frontal sinusitis; Medication refillStart: 01-28-2024 End: 29-90-8365Korccprud Result EncounterSjordan Jackson MD Work Phone: noms External Department UnsolicitedStart: 01-28-2024 End: 69-42-8341Araxumnjq Result EncounterSjordan Jackson MD Work Phone: noMS External Department UnsolicitedStart: 12-13-2023 End: 32-89-1553ozeqyqkxfrZgogzmwdyUniversity [facility]als [facility] Work Phone: Start: 12-13-2023 End: 63-88-3475Gohpfhl encounter procedureAtrium Health [facility] Urgent Care Aaron Work Phone: Start: 63-38-1763zhnerwxiwzAX DOCTOR MISCFacility:H1 Start: 11-05-2022 End: 89-59-0518zykjzsyqjwIT DOCTOR MISCFacility:D7Dhrfj: 10-11-2022 End: 46-58-5398zkxjvitsbvMYTSSHQ [place]ALK[place] .Facility:J9Hlvjg: 09-24-2022 End: 76-67-7558lqkkgkstmgVW DOCTOR MISCFacility:A2Vtldb: 09-12-2022 End: 41-57-1172kbhixkupzyUCAWKULOXFUP LAKSHMIPATHY .Facility:I3Xfqvj: 08-27-2022 End: 18-97-5340eodcgmsnevOF DOCTOR MISCFacility:C6Uqiyo: 08-15-2022 End: 08-31-1806ltwihurkmcOV ANUJ S URIARTE .Facility:I5Cfawq: 07-23-2022 End: 10-47-6406drloqpijumSM ANUJ S URIARTE .Facility:A9Dsyag: 06-20-2022 End: 21-36-1580yszdhojimoEU ANUJ S URIARTE .Facility:C0Xcniz: 06-18-2022 End: 91-14-5981ecfzukolbxJF ANUJ S URIARTE .Facility:H1 Procedures DateProcedureProcedure DetailPerforming ClinicianStart: 01-20-2025 End: 00-51-7035Idxapiuzzekiu w/patient 60 minutesAdjustment disorder with mixed anxiety and depressed moodSarina VASQUEZ Work Phone: Comment on above:Adjustment disorder with mixed anxiety and depressed moodStart: 53-94-9588Fu soft tissue head & neck real time imge Salma Russo NP Work Phone: Start: 01-05-2025 End: 17-98-2603Dyijbbznffret w/patient 60 minutesAdjustment disorder with mixed anxiety and depressed moodKylie S Dionte TREE PLANTER-S Work Phone: Comment on above:Adjustment disorder with mixed anxiety and depressed moodStart: 12-15-2024 End: 89-91-7183Tqcinsjdzezqo w/patient 60 minutesAdjustment disorder with mixed anxiety and depressed moodKylie S [place] TREE PLANTER-S Work Phone: Comment on above:Adjustment disorder with mixed anxiety and depressed moodStart: 12-08-2024 End: 95-66-1463Xajkdfbwupx diagnostic evaluationAdjustment disorder with mixed anxiety and depressed moodKylie S Dionte TREE PLANTER-S Work Phone: Comment on above:Adjustment disorder with mixed anxiety and depressed moodStart: 58-73-3137VGEI CBC WITH PLATELET NO DIFFERENTIALGeneric External Data ProviderStart: 98-01-8787JPH MICROALB CREAT RATIO RANDOMGeneric External Data ProviderStart: 18-33-7773PQF URINE T PROTEIN CREAT RATIOGeneric External Data ProviderStart: 72-60-2368Fqchl foot complete minimum 3 viewsJessica W Cisse DPM Work Phone: Start: 75-10-9896Qgjrigilbtifqag of bilateral kidneys PHYSICIAN NO FAMILYStart: 03-52-3080BGZENJVJSUX SKIN LESIONNatalie A Felter HOUSEKEEPER CHILD CARE-COUNSELOR AIDE Work Phone: Start: 81-55-6326IEK CBC WITH AUTO DIFFBrittany Lou SENIOR PAYROLL ADMINISTRATOR Work Phone: Start: 09-18-2014DUS HEMOGLOBIN R4LEzteuzShaikh Manuel LEYVA Work Phone: Start: 29-32-7911EudrtebmdxnVtohir Fawwad MD Work Phone: Start: 96-32-3155DlvndycgtsyUfhbnq Fawwad MD Work Phone: Plan of Treatment DateCare ActivityDetailAuthorStart: 67-46-9833Vyohooklj for malignant neoplasm of colonNOMS HealthcareStart: 05-69-5217Tytsa screening for proteinDiabetes: Urine Protein ScreeningLAYTON HOSPITAL HealthcareStart: 03-24-2025 End: 24-35-8888Jgmzzdj encounter baigmmmaq42/16/2025 10:00 AM EDT Office Visit [facility] [address] [place] [address] Nayeli Russo, [place] [address] [place] [address] [facility]S CW FMStart: 02-16-2025 End: 64-67-9217Lbpqev Work02/16/2025 9:00 AM EDT Social Work [facility] [address] [place] [address] Sarina Hodge LISW-S [address] [place] [address] [facility]ALSStart: 09-05-2025Medicare Annual Wellness (AWV)Medicare Annual Wellness (AWV)[facility] HealthcareStart: 02-10-2025 End: 87-92-4677Zpgajwzpttyx / ancillary services qckputymld80/04/2025 9:30 AM EDT Ancillary Procedure [facility] [address] [facility] [address] [place] [address] QFRU [place] ImagingStart: 09-72-7375Kblfqbhtet A1c measurementDiabetes: Hemoglobin I3GWGMJ HealthcareStart: 93-35-4225Adelvqcpe vaccinationInfluenza Vaccine (#1)NOM HealthcareStart: 01-20-2025 End: 84-83-7872Qzliair encounter procedureNOOKLAHOMA ER & [facility] FMComment on above:Primary hypertension (Primary Dx); Morbid (severe) obesity due to excess calories ([facility]-HCC); Hypothyroidism, unspecified type ; Throat pain in adult; Current 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 without prior episode (HCC); History of thyroid nodule; Type 2 diabetes mellitus with stage 3b chronic kidney disease, without long-term current use of insulin (HCC)Start: 01-17-2025 End: 57-15-3352SO Breast - bilateral ScreeningBilateral screening mammogram Imaging Routine Encounter for screening mammogram for malignant neoplasm of breast Expected: 01/17/2025 (Approximate), Expires: 02/01/2026[facility] Work Phone: Comment on above:Expected: 01/17/2025 (Approximate), Expires: 02/01/2026Start: 74-10-4076Rpziuhtwy for malignant neoplasm of breast MammogramNOTN HealthcareStart: 01-12-2025 End: 79-54-1390Acpila Work01/12/2025 9:00 AM EDT Social Work [facility] [address] [place] [address] Sarina Hodge LISW-S [address] [place] [facility] [place] [address] [facility] Start: 01-10-2025 End: 77-02-5037DC Thyroid glandUS thyroid Imaging Routine History of thyroid nodule Hypothyroidism, unspecified type Expected: 01/10/2025 (Approximate), Expires: 01/10/2026[facility] Work Phone: Comment on above:Expected: 01/10/2025 (Approximate), Expires: 01/10/2026Start: 01-10-2025 End: 11-20-6833Ctppziy encounter procedureNOMS CWM FMComment on above:Arrived Start: 64-24-4606Izkxuvrr screeningDiabetes: Retinopathy ScreeningNOMS HealthcareStart: 01-05-2025 End: 65-79-2427Xwkfmc WorkNOMS FNR BHComment on above:ArrivedStart: 12-15-2024 End: 28-13-6657Rvbgsg WorkNOMS FNR BHComment on above:ArrivedStart: 12-08-2024 End: 22-18-6692Gmhtpv WorkNOMS FNR BHComment on above:Current 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 without prior episode (HCC) Start: 12-02-2024 End: 42-65-2665Ewgrlcm encounter zaaejfwbu42/26/2025 2:40 PM EDT Office Visit [facility] [address] [place] [id number] Nayeli Russo NP [address] [place] [address] [facility] FMStart: 11-04-2024 End: 31-34-9354CWQ W Auto Differential panel - BloodCBC and differential Lab Routine Hypothyroidism, unspecified type (CMS/HCC) Expected: 11/04/2024 (Ap proximate), Expires: 11/04/2025[facility] Work Phone: Comment on above:Expected: 11/04/2024 (Approximate), Expires: 11/04/2025Start: 11-04-2024 End: 03-57-8965Rgwdoosydsqvj metabolic 2000 panel - Serum or PlasmaComprehensive metabolic panel Lab Routine Primary hypertension (CMS/HCC) Stage 3b chronic kidney disease (HCC) (CMS/HCC) Type 2 diabetes mellitus with stage 3b chronic kidney disease, without long-term current use of insulin (HCC) (CMS/HCC) Mixed hyperlipidemia (CMS/HCC) Expected: 11/04/2024 (Approximate), Expires: 11/04/2025 [facility] HealthcareComment on above:Expected: 11/04/2024 (Approximate), Expires: 11/04/2025Start: 11-04-2024 End: 96-06-8016Ohllbntlln A1c/Hemoglobin.total in BloodHemoglobin A1c Lab Routine Type 2 diabetes mellitus with stage 3b chronic kidney disease, without long-term current use of insulin (HCC) (CMS/HCC) Expected: 11/04/2024 (Approximate), Expires: 11/04/2025[facility] HealthcareComment on above:Expected: 11/04/2024 (Approximate), Expires: 11/04/2025Start: 11-04-2024 End: 30-31-2253Divrh 1996 panel - Serum or PlasmaLipid panel Lab Routine Mixed hyperlipidemia (CMS/HCC) Expected: 11/04/2024 (Approximate), Expires:11/04/2025 [facility] HealthcareComment on above:Expected: 11/04/2024 (Approximate), Expires: 11/04/2025Start: 11-04-2024 End: 56-07-1856Lvbegkbemvwy/Creatinine panel in random UrineMicroalbumin / creatinine, urine ratio Lab Routine Primary hypertension (CMS/HCC) Stage 3b chronic kidney disease (HCC) ([facility]/HCC) Type 2 diabetes mellitus with stage 3b chronic kidney disease, without long-term current use of insulin (HCC) (CMS/HCC) Expected: 11/04/2024 (Approximate), Expires: 11/04/2025[facility] HealthcareComment on above:Expected: 11/04/2024 (Approximate), Expires: 11/04/2025Start: 11-04-2024 End: 31-76-4829Qakauiibkjx [Units/volume] in Serum or PlasmaTSH Lab Routine Hypothyroidism, unspecified type ([facility]/HCC) Expected: 11/04/2024 (Approximate), Expires: 11/04/2025[facility] HealthcareComment on above:Expected: 11/04/2024 (Approximate), Expires: 11/04/2025Start: 11-04-2024 End: 62-43-9787Duwasiecv (T4) free [Mass/volume] in Serum or PlasmaT4, free Lab Routine Hypothyroidism, unspecified type (CMS/HCC) Expected: 11/04/2024 (Approximate),Expires: 11/04/2025[facility] HealthcareComment on above:Expected: 11/04/2024 (Approximate), Expires: 11/04/2025Start: 11-04-2024 End: 04-57-2652Lrtqggjmge complete panel - UrineUrinalysis with reflex microscopic (clean catch) Lab Routine Primary hypertension (CMS/HCC) Stage 3b chronic kidney disease (HCC) ([facility]/HCC) Type 2 diabetes mellitus with stage 3b chronic kidney disease, without long-term current use of insulin (HCC) (CMS/HCC) Expected: 11/04/2024 (Approximate), Expires: 11/04/2025[facility] HealthcareComment on above:Expected: 11/04/2024 (Approximate), Expires: 11/04/2025Start: 11-04-2024 End: 58-73-2290Lkozwxa encounter imfgxleqr56/29/2025 9:20 AM EDT Office Visit [facility] [address] [place] [phone] Nayeli Russo NP [address] [place] [address] Primary hypertension (CMS/HCC) (Primary Dx); Morbid (severe) obesity due to excess calories (CMS/HCC); Body mass index (BMI) 36.0-36.9, adult; Stage 3b chronic kidney disease (HCC) (CMS/HCC); Hypothyroidism, unspecified type (CMS/HCC); Type 2 diabetes mellitus with stage 3b chronic kidney disease,without long-term current use of insulin (HCC) (CMS/HCC); Mixed hyperlipidemia (CMS/HCC)[facility] FMComment on above:Primary hypertension (CMS/HCC) (Primary Dx); Morbid (severe) obesity due to excess calories (CMS/HCC); Body mass index (BMI) 36.0-36.9, adult; Stage 3b chronic kidney disease (HCC) (CMS/HCC); Hypothyroidism, unspecified type (CMS/HCC); Type 2 diabetes mellitus with stage 3b chronic kidney disease, without long-term current use of insulin (HCC) (CMS/HCC); Mixed hyperlipidemia (CMS/HCC)Start: 10-19-2024 End: 52-57-6181Ubzrmum encounter dttyyofed73/13/2025 10:30 AM EDT Office Visit [facility] [address] [place] [address] Tomasa Lou NP [address] [place] [phone] [facility] FMStart: 73-89-8678Judgonxkaf A1c measurement Diabetes: Hemoglobin F6YFYPSEastern Missouri State HospitalStart: 10-05-2024 End: 84-53-5718Omctujx encounter arzrhvfcb17/29/2025 10:25 AM EDT Office Visit [facility] [address] [place] [address] Frederick Gustafson, HOUSEKEEPER CHILD CARE-COUNSELOR AIDE [address] [place] [address] [facility] DERMStart: 09-28-2024 End: 68-38-0543Uhzgilp encounter qwaqdhioc12/22/2025 9:00 AM EDT Office Visit [facility] [address] [place] [address] Soledad Cisse, DPM [address] [place], [place] [phone] ArrivedNOALVIN J. [facility] PODIATRYComment on above:ArrivedStart: 29-04-2474Hxosd screening for proteinDiabetes: Urine Protein ScreeningLAYTON HOSPITAL HealthcareStart: 07-20-2024 End: 37-60-2843Avdlk 1996 panel - Serum or PlasmaLipid panel Lab Routine Mixed hyperlipidemia ([facility]/HCC) Expected: 07/20/2024 (Approximate), Expires:07/20/2025 [facility] Work Phone: Comment on above:Expected: 07/20/2024 (Approximate), Expires: 07/20/2025Start: 07-20-2024 End: 49-40-4404Vglrcte encounter nhjmkzfyh60/11/2025 9:30 AM EST Office Visit [facility] [address] [place] [phone] Tomasa Lou, [place] [address] [place] [address] [facility] FMComment on above:ArrivedStart: 07-15-2024 End: 96-40-3045Townxcn encounter zdoxtzthk32/06/2025 9:30 AM EST Office Visit [facility] [address] [place] [address] Tomasa Lou, SENIOR PAYROLL ADMINISTRATOR [address] [place] [address] [facility] FMStart: 06-24-2024 End: 07-59-3829Kitywqy encounter bfnahtuhb25/16/2025 10:30 AM EST Office Visit [facility] [address] [place] [address] Tomasa Lou, SENIOR PAYROLL ADMINISTRATOR [address] [place] [address] [facility] FMStart: 05-31-2024 End: 72-97-1005Rcvjfft encounter /23/2024 11:30 AM EST Office Visit [facility] [address] [place] [address] Nayeli Russo NP [address] [place] [address] ArrivedNOMS CWM FMComment on above:ArrivedStart: 05-18-2024 End: 01-02-3786Cbegfkx encounter ddsecqlss80/10/2024 9:30 AM EST Office Visit [facility] [address] [place] [address] Tomasa Lou, [place] [address] [place] [address] ArrivedNOMS CWM FMComment on above:ArrivedStart: 04-21-2024 End: 62-72-6024Qfsztfl encounter rmtandjjb41/13/2024 10:20 AM EST Office Visit [facility] [address] [place] [address] Frederick Gustafson, HOUSEKEEPER CHILD CARE-COUNSELOR AIDE [address] [place] [address] [facility] DERMStart: 04-15-2024 End: 87-40-3993Gfdupdumdf A1c/Hemoglobin.total in BloodHemoglobin A1c Lab Routine Type 2 diabetes mellitus with stage 3a chronic kidney disease, without long-term current use of insulin (HCC) (CMS/HCC) Expected: 04/15/2024 (Approximate), Expires: 04/15/2025[facility] Work Phone: Comment on above:Expected: 04/15/2024 (Approximate), Expires: 04/15/2025Start: 04-15-2024 End: 64-22-2936Qfeglqq encounter procedureNOTN CWM FMComment on above:Arrived Start: 03-09-2024 End: 64-70-8456Gwroxya encounter waaecnjbi77/01/2024 3:30 PM EDT Procedure Visit [facility] [address] [place] [address] Tomasa Lou, [place] [address] [place] [address] ArrivedSONORA REGIONAL [facility]ICAL [facility] FMComment on above:ArrivedStart: 02-12-2024 End: 17-82-2028Efpsvyi encounter procedureNOMS CWM FMComment on above:Primary hypertension (CMS/HCC) (Primary Dx); Hypothyroidism, unspecified type ([facility]); Type 2 diabetes mellitus with stage 3a chronic kidney disease, without long-term current use of insulin (HCC) ([facility]/HCC); Mixed hyperlipidemia ([facility]/HCC)Start: 64-55-8160Mzlgripzw vaccinationInfluenza Vaccine (#1)[facility] HealthcareStart: 07-26-2024Medicare Annual Wellness (AWV) Medicare Annual Wellness (AWV)[facility] HealthcareStart: 83-80-1774Qbnntwyshe A1c measurementDiabetes: Hemoglobin B1TOLAR HealthcareStart: 87-22-5354Cztaoyshy for malignant neoplasm of colonNOTN HealthcareCBC W Auto Differential panel - Blood CBC and differential Lab Routine Type 2 diabetes mellitus with stage 3a chronic kidney disease, without long-term current use of insulin (HCC) ([facility]) Primary hypertension ([facility]) CKD (chronic kidney disease) stage 2, GFR 60-89 ml/min Ordered: 04/15/2024[facility] HealthcareComment on above:Ordered: 04/15/2024 Comprehensive metabolic 2000 panel - Serum or PlasmaComprehensive metabolic panel Lab Routine Type 2 diabetes mellitus with stage 3a chronic kidney disease, without long-term current use of insulin ([facility]) ([facility]) Primary hypertension ([facility]) CKD (chronic kidney disease) stage 2, GFR 60-89 ml/min Ordered: 04/15/2024[facility] HealthcareComment on above:Ordered: 04/15/2024XA Skeletal system.axial Views for bone densityWyandot Memorial HospitalRenal function 1999 panel - Serum or PlasmaWyandot Memorial HospitalRenal function 1999 panel - Serum or PlasmaWyandot Memorial HospitalUS Kidney - bilateralWyandot Memorial HospitalXR Lumbar spine 4 ViewsLos Angeles Metropolitan Med Center Immunizations Immunization DateImmunizationNotesCare DwcayaxvIalipipx38-14-1365Cpakhdcm trivalent influenza vaccine, adjuvanted, preservative freeNayeli Russo SENIOR PAYROLL ADMINISTRATOR Work Phone: [facility] HospitalQmqmcdzqau94-75-7877lyeukfsay virus vaccine, unspecified formulationTomasa Lou SENIOR PAYROLL ADMINISTRATOR Work Phone: [facility] HospitalWyaxcljrsd23-99-8255CHSA-ZPZ-7 (COVID-19) vaccine, mRNA, spike protein, LNP, PF, 50 mcg/0.5 mLShaikh Manuel LEYVA Work Phone: [facility] HospitalIbiojioyje56-40-4536Ktviaiwdd, High-dose Seasonal, Quadrivalent, Preservative FreeShaikh Manuel LEYVA Work Phone: [facility] HospitalCwfmlmkqgy83-23-6901uhswfrrac virus vaccine, unspecified formulationSjordan Jackson MD Work Phone: [facility] HospitalNmjzxpayty10-48-1850loselot toxoid, reduced diphtheria toxoid, and acellular pertussis vaccine, adsorbedShaikh Fawwad MD Work Phone: [facility] HospitalIfdzbwzbal52-93-0051imrotkvlzhby polysaccharide vaccine, 23 Lexi Jackson MD Work Phone: [facility] HospitalEncjvxhwkv96-80-6136bgvkaqiffaes conjugate vaccine, 13 Lexi Jackson MD Work Phone: [facility] HospitalNebvksyhke84-91-6417xwqhbvxga, high dose seasonal, preservative-Siva Jackson MD Work Phone: [facility] HospitalPwhhbouoff04-45-3579tamxhekz influenza, intradermal, preservative Siva Jackson MD Work Phone: [facility] HospitalQxnkgzqshq96-19-2853bbgtscyoh, injectable, quadrivalent, preservative Siva Jackson MD Work Phone: [facility] HospitalZinbfhhggu93-78-3647xlrtcw vaccine, Hitesh Jackson MD Work Phone: [facility] HospitalUfrxwliqgh61-32-2042kducuubff, injectable, quadrivalent, preservative Siva Jackson MD Work Phone: [facility] Payers DatePayer CategoryPayerPolicy [id number]-pay2023MedicaidAETNA MEDICARE ADVANTAGE [id number] 2023MedicareAETNA MEDICARE ADVANTAGE AETNA MEDICARE REPLACEMENT [id number] 2022-Present [address] [place] [id number] [id number] [id number] 2.16.840.1.507687.3.579.2.593 [id number] 2.16.840.1.810469.3.57[id number] 2.16.840.1.564685.3.57[id number] 2.16.840.1.318295.3.57[id number] 2.16.840.1.009211.3.57[id number] 2.16.840.1.548304.3.579.[id number] 2.16.840.1.893323.3.57[id number] 2.16.840.1.350012.3.57[id number] 2.16.840.1.506738.3.57[id number] 2.16.840.1.329468.3.57[id number] 2.16.840.1.995458.3.57[id number] 2.16.840.1.947818.3.57[id number] 2.16.840.1.633884.3.57[id number] 2.16840.1.585581.3.57[id number] 2.160.1.639311.3.579.2.1[id number] 2..1.818551.3.57[id number] 2.160.1.098580.3.579.[id number] 2.0.1.822385.3.579.2.[id number] 2.0.1.303740.3.579.[id number] 2..1.286298.3.579.2.269366-72-3704Tsiecdm3753232 2.0.1.300892.3.579.2.[id number] 2.0.1.952805.3.579.2.[id number] 2..1.383634.3.579.2.327721-70-1786Vwrdigc1887778 2.0.1.159635.3.579.2.691034-39-6906Wquwyzm4597002 2.0.1.466257.3.579.2.097932-25-3356Tddokws3374917 2.840.1.561892.3.57[id number] 2.0.1.39255[id number] 2.0.1.575765.3.579.2.531 Social History DateTypeDetailFacilityStart: 12-13-2023 End: 50-52-9282Jrufdsm smoking status NHISNever smoked tobacco (finding) [facility] Hospitaltart: 43-46-0099Sie Assigned At BirthFemale [facility] Hospitaltart: 51-32-4708Ouiyzws smoking status NHIS Ex-smokerNOMS HealthcareStart: 06-09-1973 End: 26-77-8530Littmee of tobacco useCurrent smokerNOMS HealthcareStart: 06-09-1973 End: 43-35-7916Crlgvva of tobacco useCigarette SmokerNOMS HealthcareStart: 01-06-2024 End: 21-33-1256Ulnbpstlpi smoked current (pack per day) - Reported0.5NOMS HealthcareHistory of tobacco usePassive smokerNOMS HealthcareStart: 01-13-2024 Tobacco use and exposureSmokeless tobacco non-userNOMS HealthcareStart: 02-12-2024 End: 51-89-1325Ydcvkuewe beverage intakeLifetime non-drinker (finding)[facility] HealthcareStart: 12-31-2022 End: 42-43-4823C5444 Health LiteracyNOMS HealthcareHow often do you need to have someone help you when you read instructions, pamphlets, or other written material from your doctor or pharmacy [SILS]NeverNOMS HealthcareWithin the last year, have you been afraid of your partner or ex-partner?NoNOMS HealthcareDo you belong to any clubs or organizations such as yarsani groups, unions, fraternal or athletic groups, or school groups?YesNOMS HealthcareAre you now , , , , never or living with a partner?MarriedNOMS HealthcareHow often to you have a drink containing alcohol?Monthly or lessNOMS HealthcareHow many standard drinks containing alcohol do you have on a typical day?1 or 2N[facility]S HealthcareHow often do you have 6 or more drinks on 1 occasion? NeverNOMS HealthcareHow hard is it for you to pay for the very basics like food, housing, medical care, and heatingNot very hardNOMS HealthcareDo you feel stress - tense, restless, nervous, or anxious, or unable to sleep at night because yourmind is troubled all the time - these days [OSQ]To some extentLAY[facility] HOSPITAL Healthcare(I/We) worried whether (my/our) food would run out before (I/we) got money to buy more.Never trueNOTN HealthcareStart: 69-53-8544Pxswtkx Comment caffeine: noneNOMS HealthcareStart: 99-69-3315Mawoul identityIdentifies as female gender (finding)[facility] HospitalStart: 94-09-7269Fxkjzl orientation Heterosexual (finding)[facility] HospitalStart: 08-24-2024 End: 16-97-1899LnjPdenpl (finding)[facility] Functional Status HolgFujpetbilyDjjvtgYzequdai45-08-0305Buehuxp Health Questionnaire 2 item (PHQ- 2) [Reported][facility] HospitalJxpmmxxccm48-40-5773TDQ-6 quick depression assessment panel [Reported.PHQ][facility] Clinical Notes 06-18-2022 to 01-20-2025 Note Date & FbulMqjxPivvupgf83-07-8723 Telephone encounter Note* Telephone Encounter - Nayeli Russo NP - 01/20/2025 9:54 AM EDT Contact nephrology in [place] office, I would like pt to take 81mg asa daily She did say that Dr Kelly told her not to take any type of NSAID, I would like to know if this is or is not ok to have her take it [place] [facility] HospitalBjifpercru54-75-7154 Miscellaneous Notes* Telephone Encounter - Nayeli Russo NP - 01/20/2025 9:54 AM EDT Contact nephrology in [place] office, I would like pt to take 81mg asa daily She did say that Dr Kelly told her not to take any type of NSAID, I would like to know if this is or is not ok to have her take it [place] documented in this encounterEastern Missouri State HospitalRncqzdcitc90-41-8246 History of Present illness Narrative* Nayeli Russo NP - 01/20/2025 9:20 AM EDT Images from the original note were not included. Arian Elaine is a 69 y.o. female presents with chief complaint of Throat Pain (Follow up) HPI: Is doing well with anxiety/depression/sleep meds: is going to counseling, meds seem to be working she does not feel she needs any med dose adjustments Hypertension This is a chronic problem. The current episode started more than 1 year ago. The problem is unchanged. The problem is controlled. Pertinent negatives include no chest pain, headaches, palpitations, peripheral edema or shortness of breath. There are no associated agents to hypertension. Risk factorsfor coronary artery disease include diabetes mellitus, dyslipidemia, obesity and sedentary lifestyle . Past treatments include beta blockers and angiotensin blockers. The current treatment provides significant improvement. There are no compliance problems. There is no history of CAD/DC, heart failure or PVD. Identifiable causes of hypertension include a thyroid problem. Thyroid Problem Presents for follow-up visit. Symptoms include anxiety. Patient reports no constipation, diarrhea, dry skin, hair loss, palpitations, tremors, weight gain or weight loss. The symptoms have been stable. There is no history of heart failure. SUBJECTIVE: MEDICATIONS: Current Outpatient Medications Medication Instructions albuterol HFA 90 mcg/act inhaler 2 puffs, Inhalation, Every 6 hours PRN atenolol (TENORMIN) 50 mg, Oral, Daily, Take 1 tablet (50 mg) by mouth Daily busPIRone (BUSPAR) 5 mg, Oral, Every 12 hours PRN cetirizine (ZYRTEC) 10 mg, Oral, Daily dapagliflozin (FARXIGA) 10 mg, Oral, Daily levothyroxine (SYNTHROID, LEVOXYL) 88 mcg, Oral, Daily before breakfast losartan (COZAAR) 25 mg, Oral, Daily RT rosuvastatin (CRESTOR) 5 mg, Oral, Nightly sertraline (ZOLOFT) 50 mg, Oral, Daily traZODone (DESYREL) 100 mg, Oral, Nightly PRN ALLERGIES: Allergies Allergen Reactions Codeine Unknown REVIEW OF SYMPTOMS: Review of Systems Constitutional: Negative for appetite change, chills, fever, weight gain and weight loss. HENT: Negative for congestion, ear pain and sore throat. Eyes: Negative for pain, discharge, redness and visual disturbance. Respiratory: Negative for cough, shortness of breath and wheezing. Cardiovascular: Negative for chest pain, palpitations and leg swelling. Gastrointestinal: Negative for abdominal pain, blood in stool, constipation, diarrhea, nausea and vomiting. Genitourinary: Negative for difficulty urinating, dysuria and frequency. Musculoskeletal: Negative for arthralgias, back pain, joint swelling and myalgias. Skin: Negative for rash and wound. Neurological: Negative for dizziness, tremors, seizures, syncope and headaches. Psychiatric/Behavioral: Negative for behavioral problems, self-injury and suicidal ideas. The patient is nervous/anxious. Depression Hematological: Does not bruise/bleed easily. 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 OBJECTIVE: Visit Vitals BP 122/82 (BP Location: Left arm, Patient Position: Sitting, BP Cuff Size: Adult long) Pulse 87 Temp 98.1 F (Temporal) Resp 18 Wt 224 lb 3.2 oz SpO2 97% BMI 36.19 kg/m OB Status Postmenopausal Smoking Status Former BSA 2.18 m Physical Exam Vitals and nursing note reviewed. Constitutional: General: She is not in acute distress. Appearance: Normal appearance. She is obese. She is not ill-appearing. HENT: Head: Normocephalic and atraumatic. Right Ear: Tympanic membrane, ear canal and external ear normal. Left Ear: Tympanic membrane, ear canal and external ear normal. Nose: Nose normal. No congestion or rhinorrhea. Mouth/Throat: Mouth: Mucous membranes are moist. Pharynx: No oropharyngeal exudate or posterior oropharyngeal erythema. Eyes: Extraocular Movements: Extraocular movements intact. Conjunctiva/sclera: Conjunctivae normal. Neck: Vascular: No carotid bruit. Cardiovascular: Rate and Rhythm: Normal rate and regular rhythm. Pulses: Normal pulses. Heart sounds: Normal heart sounds. No murmur heard. Pulmonary: Effort: Pulmonary effort is normal. Breath sounds: Normal breath sounds. No wheezing or rhonchi. Abdominal: General: Bowel sounds are normal. There [...] ASSESSMENT AND PLAN: Follow up in about 2 months (around 03/22/2025) for Recheck. Problem List Items Addressed This Visit Hypothyroidism On levothyroxine Check labs yearly, and prn dose changes or changes in sxs Relevant Medications levothyroxine (Synthroid, Levoxyl) 88 MCG tablet Hyperlipidemia Relevant Medications rosuvastatin (Crestor) 5 MG tablet Primary hypertension - Primary Please check blood pressure daily and record DASH diet Limit caffeine Take medication as directed Contact office if chest pain, pressure, dizziness, shortness of breath, swelling legs Recommend slow position changes Current meds: losartan, atenolol Relevant Medications atenolol (Tenormin) 50 MG tablet losartan (Cozaar) 25 MG tablet Type 2 diabetes mellitus with diabetic chronic kidney disease (HCC) Check blood sugars daily, notify if <70 [...] arb, statin A1c 6.6 % on 11/08/24 Relevant Medications dapagliflozin (Farxiga) 10 MG Chronic sinusitis, unspecified Relevant Medications cetirizine (ZyrTEC) 10 MG tablet Medication refill Relevant Medications cetirizine (ZyrTEC) 10 MG tablet Morbid (severe) obesity due to excess calories ([facility]) Discussed with patient their BMI (actual, verses recommended). We have also discussed lifestyle modifications: attempts to perform physical activity as chronic conditions allow, also to monitor dietary intake: increasing protein/fruits/veggies and lowering carb intake (unless contraindicated). Limit sodas, juices, and sugary drinks. Current 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 without prior episode ([facility]) Current : on sertaline, buspar prn, and trazodone at bedtime and attending counseling Relevant Medications busPIRone (Buspar) 5 MG tablet sertraline (Zoloft) 50 MG tablet traZODone (Desyrel) 50 MG tablet History of thyroid nodule See US: recommended fu in 1 year Throat pain in adult No obvious cause, no s/s infection No obvious GERD sxs Will trial adding nasal steroid to her allergy meds, does think is getting some better Thyroid US completed, fu in 1 year Other Visit Diagnoses CKD (chronic kidney disease) stage 2, GFR 60-89 ml/min Relevant Medications dapagliflozin (Farxiga) 10 MG * Nayeli Russo NP - 01/20/2025 6:24 AM EDTAssociated Problem(s): Type 2 diabetes mellitus with diabetic chronic kidney disease (HCC) Check blood sugars daily, notify if <70 [...] arb, statin A1c 6.6 % on 11/08/24 * Nayeli Russo NP - 01/20/2025 6:23 AM EDTAssociated Problem(s): History of thyroid nodule See US: recommended fu in 1 year * Nayeli Russo NP - 01/20/2025 6:22 AM EDTAssociated Problem(s): Current 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 without prior episode (HCC) Current : on sertaline, buspar prn, and trazodone at bedtime and attending counseling * Nayeli Russo NP - 01/20/2025 6:21 AM EDTAssociated Problem(s): Throat pain in adult No obvious cause, no s/s infection No obvious GERD sxs Will trial adding nasal steroid to her allergy meds, does think is getting some better Thyroid US completed, fu in 1 year * Nayeli Russo NP - 01/20/2025 6:20 AM EDTAssociated Problem(s): Hypothyroidism On levothyroxine Check labs yearly, and prn dose changes or changes in sxs * Nayeli Russo NP - 01/20/2025 6:20 AM EDTAssociated Problem(s): Morbid (severe) obesity due to excess calories ([facility]) Discussed with patient their BMI (actual, verses recommended). We have also discussed lifestyle modifications: attempts to perform physical activity as chronic conditions allow, also to monitor dietary intake: increasing protein/fruits/veggies and lowering carb intake (unless contraindicated). Limit sodas, juices, and sugary drinks. * Nayeli Russo NP - 01/20/2025 6:19 AM EDTAssociated Problem(s): Primary hypertension Please check blood pressure daily and record DASH diet Limit caffeine Take medication as directed Contact office if chest pain, pressure, dizziness, shortness of breath, swelling legs Recommend slow position changes Current meds: losartan, atenolol documented in this encounterEastern Missouri State [id number] History of Present illness Narrative* Nayeli Russo NP - 01/10/2025 11:07 AM EDTAssociated Problem(s): Hypothyroidism On levothyroxine Check labs yearly, and prn dose changes or changes in sxs * Nayeli Russo NP - 01/10/2025 11:07 AM EDTAssociated Problem(s): Throat pain in adult No obvious cause, no s/s infection No obvious GERD sxs Will trial adding nasal steroid to her allergy meds We will also order thyroid US * MARI ADAMS - 01/10/2025 10:00 AM EDT Sore throat started at least a month ago-sore throat is only on one side (right) she states the dryer it is the more prominent the sore throat is. She describes the sore throat is mechanical. Pt states since she has had an increase in sinus drainage. Pt states that at one point she he had an US on her thyroid more than 10 years ago and she had thyroid nodules. She was diagnosed with stephany at that time. * Nayeli Russo NP - 01/10/2025 10:00 AM EDT Images from the original note were not included. Arian Elaine is a 69 y.o. female presents with chief complaint of Sore Throat HPI: Food/drink not getting caught, no obvious sinus or GERD sxs Does have allergies as well. Hx of thyroid nodules imaged many years ago, no fu scans were ordered after Sore Throat This is a new problem. The current episode started 1 to 4 weeks ago. The problem has been graduallyworsening. The pain is worse on the right side. There has been no fever. The fever has been presentfor Less than 1 day. The pain is at a severity of 2/10. The pain is mild. Pertinent negatives include no abdominal pain, congestion, coughing, diarrhea, drooling, ear discharge, ear pain, headaches, hoarse voice, plugged ear sensation, neck pain, shortness of breath, stridor, swollen glands, trouble swallowing or vomiting. She has had no exposure to strep or mono. She has tried nothing for the symptoms. SUBJECTIVE: MEDICATIONS: Current Outpatient Medications Medication Instructions albuterol HFA 90 mcg/act inhaler 2 puffs, Inhalation, Every 6 hours PRN atenolol (TENORMIN) 50 mg, Oral, Daily, Take 1 tablet (50 mg) by mouth Daily busPIRone (BUSPAR) 5 mg, Oral, Every 12 hours PRN cetirizine (ZYRTEC) 10 mg, Oral, Daily Farxiga 10 mg, Oral, Daily levothyroxine (SYNTHROID, LEVOXYL) 88 mcg, Oral, Daily before breakfast losartan (COZAAR) 25 mg, Oral, Daily RT rosuvastatin (CRESTOR) 5 mg, Oral, Daily sertraline (ZOLOFT) 50 mg, Oral, Daily traZODone (DESYREL) 100 mg, Oral, Nightly PRN ALLERGIES: Allergies Allergen Reactions Codeine Unknown REVIEW OF SYMPTOMS: Review of Systems Constitutional: Negative for appetite change, chills and fever. HENT: Positive for sore throat. Negative for congestion, drooling, ear discharge, ear pain, hoarse voice and trouble swallowing. Eyes: Negative for pain, discharge, redness and visual disturbance. Respiratory: Negative for cough, shortness of breath, wheezing and stridor. Cardiovascular: Negative for chest pain, palpitations and leg swelling. Gastrointestinal: Negative for abdominal pain, blood in stool, constipation, diarrhea, nausea and vomiting. Genitourinary: Negative for difficulty urinating, dysuria and frequency. Musculoskeletal: Negative for arthralgias, back pain, joint swelling, myalgias and neck pain. Skin: Negative for rash and wound. Neurological: Negative for dizziness, tremors, seizures, syncope and headaches. Psychiatric/Behavioral: Negative for behavioral problems, self-injury and suicidal ideas. 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 OBJECTIVE: Visit Vitals BP 126/86 (BP Location: Left arm, Patient Position: Sitting, BP Cuff Size: Adult long) Pulse 60 Temp 98.5 F (Temporal) Resp 18 Wt 226 lb 6.4 oz SpO2 95% BMI 36.54 kg/m OB Status Postmenopausal Smoking Status Former BSA 2.19 m Physical Exam Vitals and nursing note reviewed. Constitutional: General: She is not in acute distress. Appearance: Normal appearance. HENT: Head: Normocephalic and atraumatic. Right Ear: Tympanic membrane, ear canal and external ear normal. There is no impacted cerumen. Left Ear: Tympanic membrane, ear canal and external ear normal. There is no impacted cerumen. Nose: Nose normal. No rhinorrhea. Comments: Mild prominent turbinate right, no exudate Mouth/Throat: Mouth: Mucous membranes are moist. Pharynx: No oropharyngeal exudate or posterior oropharyngeal erythema. Eyes: Extraocular Movements: Extraocular movements intact. Conjunctiva/sclera: Conjunctivae normal. Neck: Vascular: No carotid bruit. Cardiovascular: Rate and Rhythm: Normal rate and regular rhythm. Pulses: Normal pulses. Heart sounds: Normal heart sounds. No murmur heard. Pulmonary: Effort: Pulmonary effort is normal. Breath sounds: Normal breath sounds. No wheezing or rhonchi. Abdominal: General: Bowel sounds are normal. There [...] normal. Judgment: Judgment normal. ASSESSMENT AND PLAN: No follow-ups on file. Problem List Items Addressed This Visit Hypothyroidism On levothyroxine Check labs yearly, and prn dose changes or changes in sxs Relevant Orders US thyroid History of thyroid nodule - Primary Relevant Orders US thyroid Throat pain in adult No obvious cause, no s/s infection No obvious GERD sxs Will trial adding nasal steroid to her allergy meds We will also order thyroid US documented in this [facility]08-04-2025 Instructions* Patient Instructions* Nayeli Russo NP - 01/10/2025 10:00 AM EDT Check thyroid US Add allergy nasal spray documented in this [facility]06-26-2025 History of Present illness Narrative* Nayeli Russo NP - 12/02/2024 2:40 PM EDT Images from the original note were not included. Arian Elaine is a 69 y.o. female presents with chief complaint of Depression HPI: Recheck depression/anxiety: Son committed suicide, still trying to understand Feels foggy at times, uses buspar if going to be in stressful situation Tolerating sertraline, can tell it is helping. Trazodone is helping stay asleep still some trouble falling asleep No SI/HI thoughts Counseling next week, SUBJECTIVE: MEDICATIONS: Current Outpatient Medications Medication Instructions albuterol HFA 90 mcg/act inhaler 2 puffs, Inhalation, Every 6 hours PRN atenolol (TENORMIN) 50 mg, Oral, Daily, Take 1 tablet (50 mg) by mouth Daily busPIRone (BUSPAR) 5 mg, Oral, Every 12 hours PRN cetirizine (ZYRTEC) 10 mg, Oral, Daily Farxiga 10 mg, Oral, Daily levothyroxine (SYNTHROID, LEVOXYL) 88 mcg, Oral, Daily before breakfast losartan (COZAAR) 25 mg, Oral, Daily RT rosuvastatin (CRESTOR) 5 mg, Oral, Daily sertraline (ZOLOFT) 50 mg, Oral, Daily, Start with 1/2 pill daily for 7 days, then increase to 1 pill traZODone (DESYREL) 50 mg, Oral, Nightly PRN ALLERGIES: Allergies Allergen Reactions Codeine Unknown REVIEW OF SYMPTOMS: Review of Systems Constitutional: Negative for appetite change, chills and fever. HENT: Negative for congestion, ear pain and sore throat. Eyes: Negative for pain, discharge, redness and visual disturbance. Respiratory: Negative for cough, shortness of breath and wheezing. Cardiovascular: Negative for chest pain, palpitations and leg swelling. Gastrointestinal: Negative for abdominal pain, blood in stool, constipation, diarrhea, nausea and vomiting. Genitourinary: Negative for difficulty urinating, dysuria and frequency. Musculoskeletal: Negative for arthralgias, back pain, joint swelling and myalgias. Skin: Negative for rash and wound. Neurological: Negative for dizziness, tremors, seizures, syncope and headaches. Psychiatric/Behavioral: Positive for sleep disturbance. Negative for behavioral problems, self-injury and suicidal ideas. The patient is nervous/anxious. Depression Hematological: Does not bruise/bleed easily. 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 OBJECTIVE: Visit Vitals BP 124/82 (BP Location: Left arm, Patient Position: Sitting, BP Cuff Size: Adult long) Pulse 63 Temp 97.8 F (Temporal) Resp 18 Wt 229 lb 12.8 oz SpO2 96% BMI 37.09 kg/m OB Status Postmenopausal Smoking Status Former BSA 2.2 m Physical Exam Vitals and nursing note reviewed. Constitutional: General: She is not in acute distress. Appearance: Normal appearance. HENT: Head: Normocephalic and atraumatic. Right Ear: External ear normal. Left Ear: External ear normal. Nose: Nose normal. Mouth/Throat: Mouth: Mucous membranes are moist. Eyes: Extraocular Movements: Extraocular movements intact. Conjunctiva/sclera: Conjunctivae normal. Pulmonary: Effort: Pulmonary effort is normal. Musculoskeletal: General: Normal range of motion. Skin: [...] file. Problem List Items Addressed This Visit Morbid (severe) obesity due to excess calories ([facility]) - Primary Discussed with patient their BMI (actual, verses recommended). We have also discussed lifestyle modifications: attempts to perform physical activity as chronic conditions allow, also to monitor dietary intake: increasing protein/fruits/veggies and lowering carb intake (unless contraindicated). Limit sodas, juices, and sugary drinks. Current 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 without prior episode (HCC) Last appt we started on sertaline, buspar prn, and trazodone at bedtime Start counseling Trazodone to 100mg Keep others same Fu in 6 weeks Relevant Medications sertraline (Zoloft) 50 MG tablet traZODone (Desyrel) 50 MG tablet Encounter for screening mammogram for malignant neoplasm of breast Relevant Orders Bilateral screening mammogram * Nayeli Russo NP - 12/02/2024 7:20 AM EDTAssociated Problem(s): Current 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 without prior episode (HCC) Last appt we started on sertaline, buspar prn, and trazodone at bedtime Start counseling Trazodone to 100mg Keep others same Fu in 6 weeks * Nayeli Russo NP - 12/02/2024 7:19 AM EDTAssociated Problem(s): Morbid (severe) obesity due to excess calories ([facility]) Discussed with patient their BMI (actual, verses recommended). We have also discussed lifestyle modifications: attempts to perform physical activity as chronic conditions allow, also to monitor dietary intake: increasing protein/fruits/veggies and lowering carb intake (unless contraindicated). Limit sodas, juices, and sugary drinks. documented in this encounterEastern Missouri State [id number] Telephone encounter Note* Telephone Encounter - Kylie Goodman - 11/15/2024 12:19 PM EDT Scheduled. [facility] [id number] Miscellaneous Notes* Telephone Encounter - Kylie Goodman - 11/15/2024 12:19 PM EDT Scheduled. documented in this encounterEastern Missouri State [id number] History of Present illness Narrative* Nayeli Russo NP - 11/04/2024 10:06 AM EDTAssociated Problem(s): Current 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 without prior episode ([facility]) Start sertaline, buspar prn, and trazodone at [...] from the original note were not included. Arian Elaine is a 68 y.o. female presents [...] (tubular adenoma)04/18/14 Essential (primary) hypertension (CMS/HCC) Fibromyositis Stephany's thyroiditis (CMS/HCC) 2007 HL (hearing loss) Hypothyroidism (acquired) (CMS/[facility]) Kidney stone 2005 Menopause Mild depression (CMS/HCC) [...] Vitals BP 154/82 Pulse 77 Temp 97.1 F Resp 22 Ht 5' 6 Wt 226 lb SpO2 94% BMI 36.48 kg/m OB Status Postmenopausal Smoking Status Former BSA 2.19 m Physical Exam Vitals and nursing note [...] Problem List Items Addressed This Visit Hypothyroidism (CMS/HCC) On levothyroxine Check labs yearly, and prn dose changes or changes in sxs Relevant Orders CBC and differential TSH T4, free Hyperlipidemia ([facility]) On statin therapy Check labs yearly and prn dose changes Relevant Orders Comprehensive metabolic panel Lipid panel Primary hypertension ([facility]) - Primary Please check blood pressure daily [...] diabetes mellitus with diabetic chronic kidney disease ([facility]) Check blood sugars daily, notify if <70 [...] A1c Stage 3b chronic kidney disease (HCC) ([facility]) Control BP Avoid nephrotoxic drugs when and if possible Periodic monitoring of labs Relevant Orders Comprehensive metabolic panel Urinalysis with reflex microscopic (clean catch) Microalbumin / creatinine, urine ratio Morbid (severe) obesity due to excess calories ([facility]) Discussed with patient their BMI (actual, verses recommended). We have also discussed lifestyle modifications: attempts to perform physical activity as chronic conditions allow, also to monitor dietary intake: increasing protein/fruits/veggies and lowering carb intake (unless contraindicated). Limit sodas, juices, and sugary drinks. Body mass index (BMI) 36.0-36.9, adult Current 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 without prior episode ([facility]) Relevant Medications busPIRone (Buspar) 5 MG tablet traZODone (Desyrel) 50 MG tablet sertraline (Zoloft) 50 MG tablet Other Relevant Orders Ambulatory referral to Behavioral Health * Nayeli Russo NP - 11/04/2024 6:25 AM EDTAssociated Problem(s): Hyperlipidemia ([facility]) On statin therapy Check labs yearly and prn dose changes * Nayeli Russo NP - 11/04/2024 6:25 AM EDTAssociated Problem(s): Type 2 diabetes mellitus with diabetic chronic kidney disease ([facility]) Check blood sugars daily, notify if <70 [...] Morbid (severe) obesity due to excess calories ([facility]) Discussed with patient their BMI (actual, verses [...] elevated today d/t crying documented in this encounterEastern Missouri State [id number] Instructions* Patient Instructions* Nayeli Russo NP - 11/04/2024 [...] office if these occur. documented in this encounterEastern Missouri State [id number] History of Present illness Narrative* Soledad Yeh Cisse, DPM - 09/28/2024 9:00 AM EDT Images from the original note were not included. Subjective Patient ID: Arian Elaine is a 68 y.o. 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 Hurts on and off, pt states doesn't currently. Pt also relatesfungal nails on left foot, pt does relate hx of taking oral fungal medication, at least 7+v years, pt does relate using OTC martiniquais agent, and vix. SS: 8.5W). HPI Patient presents complaining of right foot bunion that has been present and painful intermittently for 1-2 years. She states typically it is painful every other week for a day or so. Most recently itwas painful for an entire week which is when she called to make the appointment. She has tried no treatments. She has had no x-rays. She states she does go to [employer] to get shoes, but has not been fit and measured recently. She is also concerned about the left distal medial hallux nail. She has had fungus in the right hallux nail treated successfully with oral Lamisil in the past. She has tried oral Lamisil x2 courses with the left hallux nail and it has not improved. Review of Systems Medications Current Outpatient Medications: atenolol (Tenormin) 50 MG tablet, Take 1 tablet (50 mg) by mouth Daily, Disp: 90 tablet, Rfl: 1 cetirizine (ZyrTEC) 10 MG tablet, Take 1 tablet (10 mg) by mouth Daily, Disp: 90 tablet, Rfl: 2 Farxiga 10 MG, TAKE 1 TABLET DAILY, Disp: 90 tablet, Rfl: 3 fluticasone (Flonase) 50 MCG/ACT nasal spray, Administer 1-2 sprays into each nostril Daily Shake gently. Before first use, prime pump. After use, clean tip and replace cap., Disp: 16 g, Rfl: 2 levothyroxine (Synthroid, Levoxyl) 88 MCG tablet, Take 1 tablet (88 mcg) by mouth in the morning. Take before meals., Disp: 90 tablet, Rfl: 1 losartan (Cozaar) 25 MG tablet, Take 1 tablet (25 mg) by mouth in the morning., Disp: 90 tablet, Rfl: 1 albuterol HFA 90 mcg/act inhaler, Inhale 2 puffs every 6 (six) hours if needed for shortness of breath or wheezing, Disp: 18 g, Rfl: 0 rosuvastatin (Crestor) 5 MG tablet, Take 1 tablet (5 mg) by mouth Daily, Disp: 90 tablet, Rfl: 1 Allergies Codeine Past Surgical History Past Surgical History: Procedure Laterality Date COLONOSCOPY 04/15/2014 2 polyps-tubular adenoma COLONOSCOPY 06/2019 4 mm polyp in the ascending colon. Repeat colonoscopy in [address] Wells DILATION AND CURETTAGE LASER ABLATION Left 11/12/2022 Lower back LASER ABLATION Right 11/05/2022 Lower back TONSILLECTOMY TUBAL LIGATION 1982 Family History Family History Problem Relation Name Age of Onset Alzheimer's disease Mother Marge Diabetes Mother Marge Heart disease Mother Marge Mental illness Mother Marge Hypertension Father Dawood Heart attack Father Dawood Prostate cancer Father Billings Heart disease Father Billings Cancer Father Billings Hearing loss Father Billings Cervical cancer Maternal Grandmother Other (black lung disease) Maternal Grandfather Diabetes Sibling Cancer Daughter Cancer Paternal Grandmother Nani Cancer Sister Tena Learning disabilities Father's Brother Contreras Objective Physical Exam Constitutional: Appearance: Normal appearance. HENT: Head: Normocephalic and atraumatic. Cardiovascular: Comments: Pedal pulses: DP 2/4 bilateral, PT 2/4 bilateral. Skin temp is warm to warm. Varicosities: present Hair growth: Absent Moderate edema noted bilateral lower extremities Pulmonary: Effort: Pulmonary effort is normal. Musculoskeletal: Right lower leg: No edema. Left lower leg: No edema. Comments: ROM: AJ Dorsiflexion is limited with knee extended and improves with knee flexed. STJ ROMnormal and pain free. Range motion of the 1st MTPJ is only slightly limited, soft end feel, no crepitus or catching noted. MUSCLE STRENGTH: Dorsiflexion, plantarflexion, inversion, eversion are 5/5 b/l. PAIN: There is no pain with palpation to the medial eminence of the 1st metatarsal. There is mild tenderness to the dorsal 1st MTPJ. There is no pain with range of motion. DEFORMITY: Mild HAV deformity, slight medial eminence prominence 1st metatarsal head right, mild lateral deviation of right hallux Skin: General: Skin is warm and dry. Capillary Refill: Capillary refill takes 2 to 3 seconds. Findings: No bruising or erythema. Comments: SKIN FINDINGS: Webspaces are clean and dry. Skin texture and turgor normal HYPERKERATOTIC LESION: none NAIL PATHOLOGY: the distal medial 2-3 mm of the left hallux nail is 2-3 mm thick, yellow/white withsubungual debris. There is nail thickening. Remaining nails normal color and thickness. Neurological: Mental Status: She is alert and oriented to person, place, and time. Comments: Light touch sensation intact XR foot 3+ views right Imaging Result: 3 views foot: AP, MO, and lateral of the right foot were taken and show no fractures or dislocations. 1st metatarsal is slightly longer than 3rd. There is mild degenerative changes noted of the 1st MTPJ. Mild hypertrophy noted of the sesamoids. Mild metatarsus adductus noted of metatarsals 1, 2, 3,4. Rectus foot structure. Small posterior calcaneal osteophyte formation. No significant elevatus of the 1st metatarsal is noted. Assessment/Plan ICD-10-CM 1. Hallux valgus with bunions of right foot M20.11 XR foot 3+ views right M21.611 2. Pain in joint of right foot M25.571 XR foot 3+ views right 3. 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 Onychomycosis B35.1 5. Nail dystrophy L60.3 Reviewed radiographic and clinical findings with the pt. Explained the diagnosis of mild hallux abductovalgus with mild metatarsus adductus, and 1st MPJ arthritis. Recommended we start with conservative care options. Pt instructed to wear supportive shoes, avoid barefeet. Obtain shoes with wide toebox with no stitching or leather overlying the R 1st met head. I recommended she returned to [employer] to be fit and measured for shoes. She agrees. Reviewed role of powerstep inserts and that these could be added in the future. Pt was also instructed on icing nightly and using topical Voltarengel. She may also try oral NSAIDs as needed. If no improvement in condition, may consider local steroid injection or period of immobilization Discussed that the left hallux nail may have some fungus present with/without dystrophy. She has had 2 courses of oral Lamisil previously which has not affected the nail. I recommended before a 3rd course of Lamisil we should send a nail clipping to test the nail to see if fungus is present. I alsoreviewed that she does not need to treat the fungus if she so chooses. She states she would like toconsider these options. If she would like to proceed with the oral Lamisil, she will need to returnfor a sample of the nail to be taken. RTO p.r.n. This note was created with the assistance of a speech recognition program. While intending to generate a timely document that accurately reflects the content of the visit, no guarantee can be provided that every grammatical or spelling mistake has been or will be identified or corrected. Thank you for your understanding. Soledad Cisse DPM documented in this encounterEastern Missouri State [id number] Radiology Diagnostic study [facility] [place] [address] [place] [address] Ultrasound Report Signed Patient: Arian Elaine MR#: [id number] : 1955 Acct:[id number] Age/Sex: 68 / F ADM Date: 5 Loc: Room: Type: [facility] Attending Dr: Pratibha Cha MD Ordering Provider: Pratibha Cha MD Date of Service: 09/20/24 US/US renal BI: N18.32 - Chronic kidney disease, stage 3b Copies to: Pratibha Cha MD~ BILATERAL RENAL AND BLADDER ULTRASOUND CLINICAL HISTORY: Stage IIIB chronic kidney disease COMPARISON: None FINDINGS: Estimation of renal size is approximately 9.2 cm on the right and 10 cm on the left. No contour deforming mass, shadowing stone or hydronephrosis. The urinary bladder is partially distended with a volume of 21 ml. No shadowing stone or focal lesion. US/US renal BI IMPRESSION: No acute findings. Impression dictated by: Espinoza Aguayo Jr., D.OSienna09/20/2024 10:32 AM Dictation Location: [place] [address] Tech: Jessica Donovan Transcribed By: [facility] 09/20/24 1032 Dictated By: Espinoza Aguayo Jr, DO 09/20/24 1031 Signed By: 09/20/24 1032 [facility]03-18-2025 Evaluation note* Diagnosis Onset Date Resolution Status Admit Date Chronic kidney disease, stage 3b acuteMarch 2024 2:47pmDiabetic nephropathy associated with type 2 diabetes mellitusacuteMarch 2024 2:47pmHypertensive nephropathyacuteMarch 2024 2:47pmObesityacuteMarch 2024 2:47pm [facility] Work Phone: 1(499) 513-309203-18-2025 Evaluation note* Diagnosis Onset Date Resolution Status Admit Date Chronic kidney disease, stage 3b acuteMarch 2024 2:47pmDiabetic nephropathy associated with type 2 diabetes mellitusacuteMarch 2024 2:47pmHypertensive nephropathyacuteMarch 2024 2:47pmObesityacuteMarch 2024 2:47pmChronic kidney disease, stage 3b acuteJune 2024 2:32pmDiabetic nephropathy associated with type 2 diabetes mellitusacuteJune 2024 2:32pmHypertensive nephropathyacuteJune 2024 2:32pmObesityacuteJune 2024 2:32pm [facility] Work Phone: 1(590) 601-444202-11-2025 History of Present illness Narrative* Tomasa Lou NP - 07/20/2024 9:50 AM ESTAssociated Problem(s): Hyperlipidemia (CMS/HCC) Currently taking Rosuvastatin 5mg Denies any myalgias. Recheck Lipid Panel today. Continue current regimen. * Tomasa Lou NP - 07/20/2024 9:48 AM ESTAssociated Problem(s): Type 2 diabetes mellitus with diabetic [...] persistent hypoglycemia/hyperglycemia on home glucose monitoring noted. * Tomasa Lou NP - 07/20/2024 9:48 AM ESTAssociated Problem(s): Stage 3b chronic kidney disease (HCC) ([facility]/HCC) Has appointment scheduled with Nephrology in August. Most recent Creatinine: 1.51 eGFR: 34 Currently taking Farxiga 10mg. Continue to monitor closely. Avoid Nephrotoxic Agents. * Tomasa Lou NP - 07/20/2024 9:44 AM ESTAssociated Problem(s): Primary hypertension (CMS/HCC) Currently taking Losartan 25mg Atenolol 50mg Checks BP at home occasionally; Averages are 120's-130's. Denies orthostatic changes, dizziness, cough, shortness of breath, swelling in extremities. Continue current regimen. Given BP log, advised pt to record BP and bring log back with them to next visit. * Tomasa Lou NP - 07/20/2024 9:30 AM EST Images from the original note were not included. Subjective Patient ID: Arian Elaine is a 68 y.o. female who [...] Neurological: Negative for dizziness, tremors, syncope, weakness, light- headedness and headaches. Psychiatric/Behavioral: Negative for decreased concentration and suicidal ideas. The patient is notnervous/anxious. Hematological: Does not bruise/bleed easily. Endocrine: Negative [...] Problem List Items Addressed This Visit Hyperlipidemia ([facility]) Currently taking Rosuvastatin 5mg Denies any myalgias. Recheck Lipid Panel today. Continue current regimen. Primary hypertension ([facility]) Currently taking Losartan 25mg Atenolol 50mg Checks BP at home occasionally; Averages are 120's-130's. Denies orthostatic changes, dizziness, cough, shortness of breath, swelling in extremities. Continue current regimen. Given BP log, advised pt to record BP and bring log back with them to next visit. Type 2 diabetes mellitus with diabetic chronic kidney disease ([facility]) Currently taking Farxiga 10mg Most recent labs: [...] noted. Stage 3b chronic kidney disease (HCC) ([facility]) - Primary Has appointment scheduled with Nephrology in August. Most recent Creatinine: 1.51 eGFR: 34 Currently taking Farxiga 10mg. Continue to monitor closely. Avoid Nephrotoxic Agents. documented in this encounterE[facility] [id number] History of Present illness Narrative* Nayeli Russo NP - 05/31/2024 11:51 AM ESTAssociated Problem(s): Stage 3b chronic kidney disease (HCC) ([facility]) Continue monitoring * Nayeli Russo NP - 05/31/2024 11:51 AM ESTAssociated Problem(s): Primary hypertension ([facility]) Please check blood pressure daily and record DASH diet Limit caffeine Take medication as directed Contact office if chest pain, pressure, dizziness, shortness of breath, swelling legs Recommend slow position changes Continue current meds * Nayeli Russo NP - 05/31/2024 11:49 AM ESTAssociated Problem(s): Acute bronchitis Some help with steroids and tessalon Will now treat with atb (mucus is green/blood tinged) no sunil hemoptysis Pt instructed to call office if not better next week and order cxr if needed Also instructed to keep fu appt in 3 weeks to see if blood tinged sputum resolved or not Add albuterol inhaler, increase tessalon to 200mg dose * MARI ADAMS - 05/31/2024 11:30 AM EST Pt was here on 05/18 for bronchitis. [...] Yes wheezing: Yes Aggravated by: lying down * Nayeli Russo NP - 05/31/2024 11:30 AM EST Images from the original note were not included. Arian Elaine is a 68 y.o. female presents [...] Pertinent negatives include no chest pain, ear congestion,ear pain, fever, headaches, hemoptysis, sore throat or weight loss. The symptoms are aggravated by lying down. Treatments tried: steroids and tessalon pearles. The treatment provided mild relief. Herpast medical history is significant for environmental allergies. There is no history of asthma or COPD. SUBJECTIVE: MEDICATIONS: Current Outpatient Medications Medication Instructions albuterol HFA 90 mcg/act inhaler 2 puffs, Inhalation, Every 6 hours PRN atenolol (TENORMIN) 50 mg, Oral, Daily benzonatate (TESSALON) 200 mg, Oral, 3 times daily PRN, Take with full glass of water. Do not crushor chew. 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) Please check blood pressure daily and record DASH diet Limit caffeine Take medication as directed Contact office if chest pain, pressure, dizziness, shortness of breath, swelling legs Recommend slow position changes Continue current meds Stage 3b chronic kidney disease (HCC) ([facility]) Continue monitoring Acute bronchitis - Primary Some [...] (Tessalon) 200 MG capsule documented in this [facility]12-23-2024 Instructions* Patient Instructions* Nayeli Russo NP - 05/31/2024 11:30 AM EST Will have you completed cefdinir 300mg twice a day for 10 days Add albuterol inhaler 2 puffs every 6 hours as needed for wheezing or shortness of breath documented in this [facility]12-10-2024 History of Present illness Narrative* Tomasa Lou NP - 05/18/2024 10:02 AM ESTAssociated Problem(s): URI (upper respiratory infection) Cough- mostly dry Fever 101.2 at home /100.8 in office/Fatigue/Body aches/Headache/Runny nose/Decreased appetite. Harsh dry cough auscultated in office,. Tested negative at home for COVID. Negative in office for Flu. Likely viral etiology. Steroids and tessalon pearles sent in. Continue Flonase and zyrtec. Worsening symptoms, shortness of breath, chest pain, go to er. Pt verbalized understanding. * Tomasa Lou NP - 05/18/2024 9:30 AM EST Images from the original note were not included. Subjective Patient ID: Arian Elaine is a 68 y.o. female who [...] Dospak) 4 MG tablets documented in this [facility]12-10-2024 Instructions* Patient Instructions* Tomasa Lou NP - 05/18/2024 9:30 AM EST [...] THE NEAREST EMERGENCY DEPARTMENT. documented in this [facility]12-03-2024 Telephone encounter Note* Telephone Encounter - Catia Calderon MA - 05/11/2024 9:43 AM EST ANASTACIA:04/15/2024 NOV:07/15/2024 [facility] [id number] Miscellaneous Notes* Telephone Encounter - Catia Calderon MA - 05/11/2024 9:43 AM EST ANASTACIA:04/15/2024 NOV:07/15/2024 documented in this encounterEastern Missouri State [id number] History of Present illness Narrative* Frederick Gustafson, HOUSEKEEPER CHILD CARE-COUNSELOR AIDE - 04/21/2024 10:25 AM EST Lesions: Location: left forehead Duration: 1 month [...] office if abnormal redness or tenderness develops atthe treatment site. Cryotherapy today, see procedure note. Diagnosis: Inflamed seborrheic keratosis Indication: Inflamed Consent: Verbal consent was obtained and risks were discussed, including, but not limited to risks of scarring, darker or small stock facer pigmentary changes, recurrence, incomplete removal and infection. [...] Next Visit: as scheduled documented in this encounterEastern Missouri State [id number] History of Present illness Narrative* Tomasa Lou NP - 04/15/2024 10:59 AM ESTAssociated Problem(s): CKD (chronic kidney disease) stage 2, GFR 60-89 ml/min Currently taking taking Farxiga 10mg CKD stable. Avoid Nephrotoxic Agents. Continue to monitor closely. * Tomasa Lou NP - 04/15/2024 10:58 AM ESTAssociated Problem(s): Type 2 diabetes mellitus with diabetic [...] persistent hypoglycemia/hyperglycemia on home glucose monitoring noted. * Tomasa Lou NP - 04/15/2024 10:58 AM ESTAssociated Problem(s): Hyperlipidemia (CMS/HCC) Currently taking Rosuvastatin 5mg Denies any myalgias. Continue current regimen. * Tomasa Lou NP - 04/15/2024 10:57 AM ESTAssociated Problem(s): Primary hypertension (CMS/HCC) Currently taking Losartan 25mg Atenolol 50mg Checks BP at home; Averages are 120's-130's. Denies orthostatic changes, dizziness, cough, shortness of breath, swelling in extremities. Continue current regimen. Given BP log, advised pt to record BP and bring log back with them to next visit. * Tomasa Lou NP - 04/15/2024 9:00 AM EST Images from the original note were not included. Subjective Patient ID: Arian Elaine is a 68 y.o. female who [...] MODERATE RISK >11.0 HIGH RISK Resulting Agency [facility] DMII: Most recent labs: hemoglobin A1C 6.2% [...] Neurological: Negative for dizziness, tremors, syncope, weakness, light- headedness and headaches. Psychiatric/Behavioral: Negative for decreased concentration and suicidal ideas. The patient is notnervous/anxious. Hematological: Does not bruise/bleed easily. Endocrine: Negative [...] Problem List Items Addressed This Visit Hyperlipidemia ([facility]) Currently taking Rosuvastatin 5mg Denies any myalgias. Continue current regimen. Primary hypertension ([facility]) Currently taking Losartan 25mg Atenolol 50mg Checks BP at home; Averages are 120's-130's. Denies orthostatic changes, dizziness, cough, shortness of breath, swelling in extremities. Continue current regimen. Given BP log, advised pt to record BP and bring log back with them to next visit. Relevant Orders CBC and differential Comprehensive metabolic panel Type 2 diabetes mellitus with diabetic chronic kidney disease ([facility]) - Primary Currently taking Farxiga 10mg Most [...] differential Comprehensive metabolic panel documented in this [facility]11-07-2024 Instructions* Patient Instructions* Tomasa Lou NP - 04/15/2024 9:00 AM EST [...] to your next visit. documented in this [facility]10-29-2024 Telephone encounter Note* Telephone Encounter - Catia Calderon MA - 04/06/2024 11:43 AM EDT Pt requesting refills ANASTACIA:03/04/2024 NOV:04/15/2024 [facility] [id number] Miscellaneous Notes* Telephone Encounter - Catia Calderon MA - 04/06/2024 11:43 AM EDT Pt requesting refills ANASTACIA:03/04/2024 NOV:04/15/2024 documented in this [facility]10-01-2024 History of Present illness Narrative* Tomasa oLu NP - 03/09/2024 9:51 PM EDTAssociated Problem(s): Actinic keratosis Cryotherapy performed in office today. Discussed treatment and monitoring with patient. * Tomasa Lou NP - 03/09/2024 3:30 PM EDT Images from the original note were not included. Subjective Patient ID: Arian Elaine is a 68 y.o. female who [...] Neurological: Negative for dizziness, tremors, syncope, weakness, light- headedness and headaches. Psychiatric/Behavioral: Negative for decreased concentration and suicidal ideas. The patient is notnervous/anxious. Hematological: Does not bruise/bleed easily. Endocrine: Negative [...] Actinic keratosis - Primary documented in this encounterEastern [facility] State [id number] History of Present illness Narrative* Tomasa Lou NP - 02/12/2024 10:00 AM EDT Images from the original note were not included. Subjective : Chief Complaint: Arian Elaine is an 68 y.o. female here [...] Neurological: Negative for dizziness, tremors, syncope, weakness, light- headedness and headaches. Psychiatric/Behavioral: Negative for decreased concentration and suicidal ideas. The patient is notnervous/anxious. Hematological: Does not bruise/bleed easily. 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 Electronically signed by Tomasa Lou NP on February 12, 2024 documented in this [facility]09-05-2024 Instructions* Patient Instructions* Tomasa Lou NP - 02/12/2024 10:00 AM EDT [...] carbohydrates, and simple sugars. documented in this [facility]04-06-2023 NoteCONSULTATION CONSULTATION DATE: 09/12/2022 TO: Zunilda Clemons D.O. [...] our patients to inform us about any [id number] medications or herbal remedies/nutritional supplements/alternative remedies. 2. [...] involving medial branches L3, L4 and L5 bilaterally.[facility] [id number] Note CONSULTATION CONSULTATION DATE: 08/15/2022 HISTORY OF [...] will be followed up in the clinic thereafter.[facility] [id number] NoteCONSULTATION PAIN MANAGEMENT CONSULTATION CONSULTATION DATE: 06/18/2022 ADDENDUM: [...] steroid injection at the level of L2, L3.[facility] [id number] NoteCONSULTATION CONSULTATION DATE: 06/18/2022 CHIEF COMPLAINT: Low back [...] patient was seen in physical therapy at [facility] from January to February of 2022 [...] and would like to proceed. CC: Zunilda RolandWright-Patterson Medical CenterEvaluation note* Diagnosis Onset Date Resolution Status Acute sinusitis [facility] Work Phone: Evaluation note* Diagnosis Actinic keratosis- Primary documented in this encounter [facility] HealthcareEvaluation note* Diagnosis Primary hypertension (CMS/HCC)- [...] Stage II (mild) documented in this encounter [facility] HealthcareEvaluation note* Diagnosis Primary hypertension (CMS/HCC)- Primary [...] hyperlipidemia type (CMS/HCC) documented in this encounter [facility] HealthcareEvaluation note* Diagnosis Primary hypertension (CMS/HCC)- Primary [...] (CMS/HCC) Mixed hyperlipidemia documented in this encounter [facility]Evaluation note* Diagnosis Primary hypertension (CMS/HCC)- Primary [...] (HCC) (CMS/HCC)- Primary [facility] encounter [facility]* [...] Inflamed seborrheic keratosis documented in this encounter [facility]Evaluation [facility]* Diagnosis Primary hypertension (CMS/HCC)- Primary [...] Unspecified essential hypertension documented in this encounter [facility]* Diagnosis Primary hypertension (CMS/HCC)- Primary [...] Obesity (BMI 30.0-34.9) documented [facility] encounter [facility]* [...] (CMS/HCC) Unspecified hypothyroidism documented in this encounter [facility]Evaluation [facility]* Diagnosis Primary hypertension (CMS/HCC)- Primary [...] (CMS/HCC) Mixed hyperlipidemia documented in this encounter [facility] HealthcareEvaluation note* Diagnosis Onset Date Resolution Status Admit Date Chronic kidney disease, stage 3b acuteMarch 2024 2:47pmDiabetic nephropathy associated with type 2 diabetes mellitusacuteMarch 2024 2:47pmHypertensive nephropathyacuteMarch 2024 2:47pmObesityacuteMarch 2024 2:47pm [facility] Work Phone: Evaluation note* Diagnosis Primary hypertension (CMS/HCC)- Primary Unspecified [...] essential hypertension Mixed hyperlipidemia (CMS/HCC) Mixed hyperlipidemia Hyperlipidemia, unspecified hyperlipidemia type (CMS/HCC) documented in this encounter [facility] HealthcareEvaluation note* Diagnosis Primary hypertension (CMS/HCC)- Primary [...] essential hypertension Mixed hyperlipidemia (CMS/HCC) Mixed hyperlipidemia Hallux valgus with bunions of right foot- Primary Pain in joint of right foot Metatarsus adductus of right foot Onychomycosis Dermatophytosis of nail Nail dystrophy Other specified disease of nail documented in this encounter [facility]Evaluation [facility]* Diagnosis Primary hypertension (CMS/HCC)- Primary [...] essential hypertension Mixed hyperlipidemia (CMS/HCC) Mixed hyperlipidemia Current 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 without prior episode (CMS/HCC)- Primary Morbid (severe) obesity due to excess calories (CMS/HCC) Body mass index (BMI) 36.0-36.9, adult Primary hypertension (CMS/HCC) Unspecified essential hypertension Stage 3b chronic kidney disease (HCC) (CMS/HCC) Hypothyroidism, unspecified type (CMS/HCC) Type 2 diabetes mellitus with stage 3b chronic kidney disease, without long-term current use of insulin (HCC) (CMS/HCC) Mixed hyperlipidemia (CMS/HCC) Mixed hyperlipidemia documented in this encounter [facility] HealthcareEvaluation note* Diagnosis Primary hypertension (CMS/HCC)- [...] without long-term current use of insulin (HCC) ([facility]/HCC) Mixed hyperlipidemia (CMS/HCC) Mixed hyperlipidemia Obesity (BMI 30.0-34.9) Chronic frontal sinusitis CKD (chronic kidney disease) stage 2, GFR 60-89 ml/min Chronic kidney disease, Stage II (mild) Encounter for screening mammogram for breast cancer Actinic keratosis- Primary Type 2 diabetes mellitus with stage 3a chronic kidney disease, without long-term current use of insulin (HCC) ([facility]/HCC)- Primary Primary hypertension (CMS/HCC) Unspecified essential hypertension CKD (chronic kidney disease) stage 2, GFR 60-89 ml/min Chronic kidney disease, Stage II (mild) Mixed hyperlipidemia (CMS/HCC) Mixed hyperlipidemia Acute bronchitis, unspecified organism- Primary Primary hypertension (CMS/HCC) Unspecified essential hypertension Stage 3b chronic kidney disease (HCC) ([facility]/HCC) Obesity (BMI 30.0-34.9) Stage 3b chronic kidney disease (HCC) ([facility]/HCC)- Primary Type 2 diabetes mellitus with stage 3a chronic kidney disease, without long-term current use of insulin (HCC) ([facility]/HCC) Primary hypertension (CMS/HCC) Unspecified essential hypertension Mixed hyperlipidemia ([facility]/HCC) Mixed hyperlipidemia Current 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 without prior episode ([facility])- Primary Morbid (severe) obesity due to excess calories (CMS/HCC) Body mass index (BMI) 36.0-36.9, adult Primary hypertension ([facility]/HCC) Unspecified essential hypertension Stage 3b chronic kidney disease (HCC) ([facility]/HCC) Hypothyroidism, unspecified type ([facility]/HCC) Type 2 diabetes mellitus with stage 3b chronic kidney disease, without long-term current use of insulin (HCC) ([facility]/HCC) Mixed hyperlipidemia ([facility]/HCC) Mixed hyperlipidemia Primary hypertension ([facility]/HCC) Unspecified essential hypertension documented in this encounter [facility] HealthcareEvaluation note* Diagnosis Primary hypertension- Primary Unspecified essential hypertension CKD (chronic kidney disease) stage 2, GFR 60-89 ml/min Chronic kidney disease, Stage II (mild) Hyperlipidemia, unspecified hyperlipidemia type Hypothyroidism, unspecified type Type 2 diabetes mellitus with stage 2 chronic kidney disease, without long-term current use of insulin (HCC) Obesity (BMI 30.0-34.9) Encounter to establish care 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- Primary Primary hypertension Unspecified essential hypertension CKD (chronic kidney disease) stage 2, GFR 60-89 ml/min Chronic kidney disease, Stage II (mild) Primary hypertension- Primary Unspecified essential hypertension Chronic left shoulder pain Pain in joint, shoulder region Acquired hypothyroidism Unspecified hypothyroidism CKD (chronic kidney disease) stage 2, GFR 60-89 ml/min Chronic kidney disease, Stage II (mild) Hyperlipidemia, unspecified hyperlipidemia type Type 2 diabetes mellitus with stage 3a chronic kidney disease, without long-term current use of insulin (HCC) Chronic left shoulder pain- Primary Pain in joint, shoulder region Chronic left shoulder pain- Primary Pain in joint, shoulder region Primary hypertension- Primary Unspecified essential hypertension Type 2 diabetes mellitus with stage 3a chronic kidney disease, without long-term current use of insulin (HCC) Mixed hyperlipidemia Mixed hyperlipidemia Obesity (BMI 30.0-34.9) Chronic frontal sinusitis CKD (chronic kidney disease) stage 2, GFR 60-89 ml/min Chronic kidney disease, Stage II (mild) Encounter for screening mammogram for breast cancer Actinic keratosis- Primary Type 2 diabetes mellitus with stage 3a chronic kidney disease, without long-term current use of insulin (HCC)- Primary Primary hypertension Unspecified essential hypertension CKD (chronic kidney disease) stage 2, GFR 60-89 ml/min Chronic kidney disease, Stage II (mild) Mixed hyperlipidemia Mixed hyperlipidemia Acute bronchitis, unspecified organism- Primary Primary hypertension Unspecified essential hypertension Stage 3b chronic kidney disease ([facility]-HCC) Obesity (BMI 30.0-34.9) Stage 3b chronic kidney disease ([facility]-HCC)- Primary Type 2 diabetes mellitus with stage 3a chronic kidney disease, without long-term current use of insulin (HCC) Primary hypertension Unspecified essential hypertension Mixed hyperlipidemia Mixed hyperlipidemia Current 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 without prior episode ([facility])- Primary Morbid (severe) obesity due to excess calories ([facility]) Body mass index (BMI) 36.0-36.9, adult Primary hypertension Unspecified essential hypertension Stage 3b chronic kidney disease ([facility]-HCC) Hypothyroidism, unspecified type Type 2 diabetes mellitus with stage 3b chronic kidney disease, without long-term current use of insulin (HCC) Mixed hyperlipidemia Mixed hyperlipidemia Chronic frontal sinusitis Medication refill Issue of repeat prescriptions documented in this encounter [facility] HealthcareEvaluation note* Diagnosis Primary hypertension- Primary Unspecified essential hypertension CKD (chronic kidney disease) stage 2, GFR 60-89 ml/min Chronic kidney disease, Stage II (mild) Hyperlipidemia, unspecified hyperlipidemia type Hypothyroidism, unspecified type Type 2 diabetes mellitus with stage 2 chronic kidney disease, without long-term current use of insulin (HCC) Obesity (BMI 30.0-34.9) Encounter to establish care 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- Primary Primary hypertension Unspecified essential hypertension CKD (chronic kidney disease) stage 2, GFR 60-89 ml/min Chronic kidney disease, Stage II (mild) Primary hypertension- Primary Unspecified essential hypertension Chronic left shoulder pain Pain in joint, shoulder region Acquired hypothyroidism Unspecified hypothyroidism CKD (chronic kidney disease) stage 2, GFR 60-89 ml/min Chronic kidney disease, Stage II (mild) Hyperlipidemia, unspecified hyperlipidemia type Type 2 diabetes mellitus with stage 3a chronic kidney disease, without long-term current use of insulin (HCC) Chronic left shoulder pain- Primary Pain in joint, shoulder region Chronic left shoulder pain- Primary Pain in joint, shoulder region Primary hypertension- Primary Unspecified essential hypertension Type 2 diabetes mellitus with stage 3a chronic kidney disease, without long-term current use of insulin ([facility]) Mixed hyperlipidemia Mixed hyperlipidemia Obesity (BMI 30.0-34.9) Chronic frontal sinusitis CKD (chronic kidney disease) stage 2, GFR 60-89 ml/min Chronic kidney disease, Stage II (mild) Encounter for screening mammogram for breast cancer Actinic keratosis- Primary Type 2 diabetes mellitus with stage 3a chronic kidney disease, without long-term current use of insulin (HCC)- Primary Primary hypertension Unspecified essential hypertension CKD (chronic kidney disease) stage 2, GFR 60-89 ml/min Chronic kidney disease, Stage II (mild) Mixed hyperlipidemia Mixed hyperlipidemia Acute bronchitis, unspecified organism- Primary Primary hypertension Unspecified essential hypertension Stage 3b chronic kidney disease [place] [place] Obesity (BMI 30.0-34.9) Stage 3b chronic kidney disease [place] [place] Primary Type 2 diabetes mellitus with stage 3a chronic kidney disease, without long-term current use of insulin ([facility]) Primary hypertension Unspecified essential hypertension Mixed hyperlipidemia Mixed hyperlipidemia Current 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 without prior episode ([facility])- Primary Morbid (severe) obesity due to excess calories ([facility]) Body mass index (BMI) 36.0-36.9, adult Primary hypertension Unspecified essential hypertension Stage 3b chronic kidney disease (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) Encounter for screening mammogram for malignant neoplasm of breast documented in this encounter [facility]Evaluation note* Diagnosis Primary hypertension- Primary Unspecified essential hypertension CKD (chronic kidney disease) stage 2, GFR 60-89 ml/min Chronic kidney disease, Stage II (mild) Hyperlipidemia, unspecified hyperlipidemia type Hypothyroidism, unspecified type Type 2 diabetes mellitus with stage 2 chronic kidney disease, without long-term current use of insulin (HCC) Obesity (BMI 30.0-34.9) Encounter to establish care 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- Primary Primary hypertension Unspecified essential hypertension CKD (chronic kidney disease) stage 2, GFR 60-89 ml/min Chronic kidney disease, Stage II (mild) Primary hypertension- Primary Unspecified essential hypertension Chronic left shoulder pain Pain in joint, shoulder region Acquired hypothyroidism Unspecified hypothyroidism CKD (chronic kidney disease) stage 2, GFR 60-89 ml/min Chronic kidney disease, Stage II (mild) Hyperlipidemia, unspecified hyperlipidemia type Type 2 diabetes mellitus with stage 3a chronic kidney disease, without long-term current use of insulin (HCC) Chronic left shoulder pain- Primary Pain in joint, shoulder region Chronic left shoulder pain- Primary Pain in joint, shoulder region Primary hypertension- Primary Unspecified essential hypertension Type 2 diabetes mellitus with stage 3a chronic kidney disease, without long-term current use of insulin (HCC) Mixed hyperlipidemia Mixed hyperlipidemia Obesity (BMI 30.0-34.9) Chronic frontal sinusitis CKD (chronic kidney disease) stage 2, GFR 60-89 ml/min Chronic kidney disease, Stage II (mild) Encounter for screening mammogram for breast cancer Actinic keratosis- Primary Type 2 diabetes mellitus with stage 3a chronic kidney disease, without long-term current use of insulin (HCC)- Primary Primary hypertension Unspecified essential hypertension CKD (chronic kidney disease) stage 2, GFR 60-89 ml/min Chronic kidney disease, Stage II (mild) Mixed hyperlipidemia Mixed hyperlipidemia Acute bronchitis, unspecified organism- Primary Primary hypertension Unspecified essential hypertension Stage 3b chronic kidney disease ([facility]) Obesity (BMI 30.0-34.9) Stage 3b chronic kidney disease ([facility])- Primary Type 2 diabetes mellitus with stage 3a chronic kidney disease, without long-term current use of insulin (HCC) Primary hypertension Unspecified essential hypertension Mixed hyperlipidemia Mixed hyperlipidemia Current 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 without prior episode (HCC)- Primary Morbid (severe) obesity due to excess calories ([facility]) Body mass index (BMI) 36.0-36.9, adult Primary hypertension Unspecified essential hypertension Stage 3b chronic kidney disease (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) Encounter for screening mammogram for malignant neoplasm of breast Adjustment disorder with mixed anxiety and depressed mood Adjustment disorder with mixed anxiety and depressed mood documented in this encounter [facility]Evaluation note* Diagnosis Primary hypertension- Primary Unspecified essential hypertension CKD (chronic kidney disease) stage 2, GFR 60-89 ml/min Chronic kidney disease, Stage II (mild) Hyperlipidemia, unspecified hyperlipidemia type Hypothyroidism, unspecified type Type 2 diabetes mellitus with stage 2 chronic kidney disease, without long-term current use of insulin (HCC) Obesity (BMI 30.0-34.9) Encounter to establish care 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- Primary Primary hypertension Unspecified essential hypertension CKD (chronic kidney disease) stage 2, GFR 60-89 ml/min Chronic kidney disease, Stage II (mild) Primary hypertension- Primary Unspecified essential hypertension Chronic left shoulder pain Pain in joint, shoulder region Acquired hypothyroidism Unspecified hypothyroidism CKD (chronic kidney disease) stage 2, GFR 60-89 ml/min Chronic kidney disease, Stage II (mild) Hyperlipidemia, unspecified hyperlipidemia type Type 2 diabetes mellitus with stage 3a chronic kidney disease, without long-term current use of insulin (HCC) Chronic left shoulder pain- Primary Pain in joint, shoulder region Chronic left shoulder pain- Primary Pain in joint, shoulder region Primary hypertension- Primary Unspecified essential hypertension Type 2 diabetes mellitus with stage 3a chronic kidney disease, without long-term current use of insulin (HCC) Mixed hyperlipidemia Mixed hyperlipidemia Obesity (BMI 30.0-34.9) Chronic frontal sinusitis CKD (chronic kidney disease) stage 2, GFR 60-89 ml/min Chronic kidney disease, Stage II (mild) Encounter for screening mammogram for breast cancer Actinic keratosis- Primary Type 2 diabetes mellitus with stage 3a chronic kidney disease, without long-term current use of insulin (HCC)- Primary Primary hypertension Unspecified essential hypertension CKD (chronic kidney disease) stage 2, GFR 60-89 ml/min Chronic kidney disease, Stage II (mild) Mixed hyperlipidemia Mixed hyperlipidemia Acute bronchitis, unspecified organism- Primary Primary hypertension Unspecified essential hypertension Stage 3b chronic kidney disease ([facility]) Obesity (BMI 30.0-34.9) Stage 3b chronic kidney disease ([facility])- Primary Type 2 diabetes mellitus with stage 3a chronic kidney disease, without long-term current use of insulin (HCC) Primary hypertension Unspecified essential hypertension Mixed hyperlipidemia Mixed hyperlipidemia Current 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 without prior episode (HCC)- Primary Morbid (severe) obesity due to excess calories ([facility]) Body mass index (BMI) 36.0-36.9, adult Primary hypertension Unspecified essential hypertension Stage 3b chronic kidney disease (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) Encounter for screening mammogram for malignant neoplasm of breast Adjustment disorder with mixed anxiety and depressed mood Adjustment disorder with mixed anxiety and depressed mood documented in this encounter [facility]Evaluation note* Diagnosis Primary hypertension- Primary Unspecified essential hypertension CKD (chronic kidney disease) stage 2, GFR 60-89 ml/min Chronic kidney disease, Stage II (mild) Hyperlipidemia, unspecified hyperlipidemia type Hypothyroidism, unspecified type Type 2 diabetes mellitus with stage 2 chronic kidney disease, without long-term current use of insulin (HCC) Obesity (BMI 30.0-34.9) Encounter to establish care 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- Primary Primary hypertension Unspecified essential hypertension CKD (chronic kidney disease) stage 2, GFR 60-89 ml/min Chronic kidney disease, Stage II (mild) Primary hypertension- Primary Unspecified essential hypertension Chronic left shoulder pain Pain in joint, shoulder region Acquired hypothyroidism Unspecified hypothyroidism CKD (chronic kidney disease) stage 2, GFR 60-89 ml/min Chronic kidney disease, Stage II (mild) Hyperlipidemia, unspecified hyperlipidemia type Type 2 diabetes mellitus with stage 3a chronic kidney disease, without long-term current use of insulin (HCC) Chronic left shoulder pain- Primary Pain in joint, shoulder region Chronic left shoulder pain- Primary Pain in joint, shoulder region Primary hypertension- Primary Unspecified essential hypertension Type 2 diabetes mellitus with stage 3a chronic kidney disease, without long-term current use of insulin (HCC) Mixed hyperlipidemia Mixed hyperlipidemia Obesity (BMI 30.0-34.9) Chronic frontal sinusitis CKD (chronic kidney disease) stage 2, GFR 60-89 ml/min Chronic kidney disease, Stage II (mild) Encounter for screening mammogram for breast cancer Actinic keratosis- Primary Type 2 diabetes mellitus with stage 3a chronic kidney disease, without long-term current use of insulin (HCC)- Primary Primary hypertension Unspecified essential hypertension CKD (chronic kidney disease) stage 2, GFR 60-89 ml/min Chronic kidney disease, Stage II (mild) Mixed hyperlipidemia Mixed hyperlipidemia Acute bronchitis, unspecified organism- Primary Primary hypertension Unspecified essential hypertension Stage 3b chronic kidney disease ([facility]) Obesity (BMI 30.0-34.9) Stage 3b chronic kidney disease ([facility])- Primary Type 2 diabetes mellitus with stage 3a chronic kidney disease, without long-term current use of insulin (HCC) Primary hypertension Unspecified essential hypertension Mixed hyperlipidemia Mixed hyperlipidemia Current 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 without prior episode (HCC)- Primary Morbid (severe) obesity due to excess calories ([facility]) Body mass index (BMI) 36.0-36.9, adult Primary hypertension Unspecified essential hypertension Stage 3b chronic kidney disease ([facility]) Hypothyroidism, unspecified type Type 2 diabetes mellitus with stage 3b chronic kidney disease, without long-term current use of insulin (HCC) Mixed hyperlipidemia Mixed hyperlipidemia Current 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 without prior episode (HCC)- Primary Morbid (severe) obesity due to excess calories ([facility]) Encounter for screening mammogram for malignant neoplasm of breast Acquired hypothyroidism Unspecified hypothyroidism documented in this encounter [facility]Evaluation note* Diagnosis Primary hypertension- Primary Unspecified essential hypertension CKD (chronic kidney disease) stage 2, GFR 60-89 ml/min Chronic kidney disease, Stage II (mild) Hyperlipidemia, unspecified hyperlipidemia type Hypothyroidism, unspecified type Type 2 diabetes mellitus with stage 2 chronic kidney disease, without long-term current use of insulin (HCC) Obesity (BMI 30.0-34.9) Encounter to establish care 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- Primary Primary hypertension Unspecified essential hypertension CKD (chronic kidney disease) stage 2, GFR 60-89 ml/min Chronic kidney disease, Stage II (mild) Primary hypertension- Primary Unspecified essential hypertension Chronic left shoulder pain Pain in joint, shoulder region Acquired hypothyroidism Unspecified hypothyroidism CKD (chronic kidney disease) stage 2, GFR 60-89 ml/min Chronic kidney disease, Stage II (mild) Hyperlipidemia, unspecified hyperlipidemia type Type 2 diabetes mellitus with stage 3a chronic kidney disease, without long-term current use of insulin (HCC) Chronic left shoulder pain- Primary Pain in joint, shoulder region Chronic left shoulder pain- Primary Pain in joint, shoulder region Primary hypertension- Primary Unspecified essential hypertension Type 2 diabetes mellitus with stage 3a chronic kidney disease, without long-term current use of insulin (HCC) Mixed hyperlipidemia Mixed hyperlipidemia Obesity (BMI 30.0-34.9) Chronic frontal sinusitis CKD (chronic kidney disease) stage 2, GFR 60-89 ml/min Chronic kidney disease, Stage II (mild) Encounter for screening mammogram for breast cancer Actinic keratosis- Primary Type 2 diabetes mellitus with stage 3a chronic kidney disease, without long-term current use of insulin (HCC)- Primary Primary hypertension Unspecified essential hypertension CKD (chronic kidney disease) stage 2, GFR 60-89 ml/min Chronic kidney disease, Stage II (mild) Mixed hyperlipidemia Mixed hyperlipidemia Acute bronchitis, unspecified organism- Primary Primary hypertension Unspecified essential hypertension Stage 3b chronic kidney disease ([facility]) Obesity (BMI 30.0-34.9) Stage 3b chronic kidney disease ([facility])- Primary Type 2 diabetes mellitus with stage 3a chronic kidney disease, without long-term current use of insulin (HCC) Primary hypertension Unspecified essential hypertension Mixed hyperlipidemia Mixed hyperlipidemia Current 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 without prior episode (HCC)- Primary Morbid (severe) obesity due to excess calories ([facility]) Body mass index (BMI) 36.0-36.9, adult Primary hypertension Unspecified essential hypertension Stage 3b chronic kidney disease ([facility]) Hypothyroidism, unspecified type Type 2 diabetes mellitus with stage 3b chronic kidney disease, without long-term current use of insulin (HCC) Mixed hyperlipidemia Mixed hyperlipidemia Current 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 without prior episode (HCC)- Primary Morbid (severe) obesity due to excess calories ([facility]) Encounter for screening mammogram for malignant neoplasm of breast Adjustment disorder with mixed anxiety and depressed mood Adjustment disorder with mixed anxiety and depressed mood documented in this encounter [facility]Evaluation note* Diagnosis Primary hypertension- Primary Unspecified essential hypertension CKD (chronic kidney disease) stage 2, GFR 60-89 ml/min Chronic kidney disease, Stage II (mild) Hyperlipidemia, unspecified hyperlipidemia type Hypothyroidism, unspecified type Type 2 diabetes mellitus with stage 2 chronic kidney disease, without long-term current use of insulin (HCC) Obesity (BMI 30.0-34.9) Encounter to establish care 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- Primary Primary hypertension Unspecified essential hypertension CKD (chronic kidney disease) stage 2, GFR 60-89 ml/min Chronic kidney disease, Stage II (mild) Primary hypertension- Primary Unspecified essential hypertension Chronic left shoulder pain Pain in joint, shoulder region Acquired hypothyroidism Unspecified hypothyroidism CKD (chronic kidney disease) stage 2, GFR 60-89 ml/min Chronic kidney disease, Stage II (mild) Hyperlipidemia, unspecified hyperlipidemia type Type 2 diabetes mellitus with stage 3a chronic kidney disease, without long-term current use of insulin (HCC) Chronic left shoulder pain- Primary Pain in joint, shoulder region Chronic left shoulder pain- Primary Pain in joint, shoulder region Primary hypertension- Primary Unspecified essential hypertension Type 2 diabetes mellitus with stage 3a chronic kidney disease, without long-term current use of insulin (HCC) Mixed hyperlipidemia Mixed hyperlipidemia Obesity (BMI 30.0-34.9) Chronic frontal sinusitis CKD (chronic kidney disease) stage 2, GFR 60-89 ml/min Chronic kidney disease, Stage II (mild) Encounter for screening mammogram for breast cancer Actinic keratosis- Primary Type 2 diabetes mellitus with stage 3a chronic kidney disease, without long-term current use of insulin (HCC)- Primary Primary hypertension Unspecified essential hypertension CKD (chronic kidney disease) stage 2, GFR 60-89 ml/min Chronic kidney disease, Stage II (mild) Mixed hyperlipidemia Mixed hyperlipidemia Acute bronchitis, unspecified organism- Primary Primary hypertension Unspecified essential hypertension Stage 3b chronic kidney disease ([facility]) Obesity (BMI 30.0-34.9) Stage 3b chronic kidney disease ([facility])- Primary Type 2 diabetes mellitus with stage 3a chronic kidney disease, without long-term current use of insulin (HCC) Primary hypertension Unspecified essential hypertension Mixed hyperlipidemia Mixed hyperlipidemia Current 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 without prior episode ([facility])- Primary Morbid (severe) obesity due to excess calories ([facility]) Body mass index (BMI) 36.0-36.9, adult Primary hypertension Unspecified essential hypertension Stage 3b chronic kidney disease ([facility]) Hypothyroidism, unspecified type Type 2 diabetes mellitus with stage 3b chronic kidney disease, without long-term current use of insulin (HCC) Mixed hyperlipidemia Mixed hyperlipidemia Current 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 without prior episode (HCC)- Primary Morbid (severe) obesity due to excess calories ([facility]) Encounter for screening mammogram for malignant neoplasm of breast Current 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 without prior episode (HCC) documented in this encounter [facility]Evaluation note* Diagnosis Primary hypertension- Primary Unspecified essential hypertension CKD (chronic kidney disease) stage 2, GFR 60-89 ml/min Chronic kidney disease, Stage II (mild) Hyperlipidemia, unspecified hyperlipidemia type Hypothyroidism, unspecified type Type 2 diabetes mellitus with stage 2 chronic kidney disease, without long-term current use of insulin (HCC) Obesity (BMI 30.0-34.9) Encounter to establish care 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- Primary Primary hypertension Unspecified essential hypertension CKD (chronic kidney disease) stage 2, GFR 60-89 ml/min Chronic kidney disease, Stage II (mild) Primary hypertension- Primary Unspecified essential hypertension Chronic left shoulder pain Pain in joint, shoulder region Acquired hypothyroidism Unspecified hypothyroidism CKD (chronic kidney disease) stage 2, GFR 60-89 ml/min Chronic kidney disease, Stage II (mild) Hyperlipidemia, unspecified hyperlipidemia type Type 2 diabetes mellitus with stage 3a chronic kidney disease, without long-term current use of insulin (HCC) Chronic left shoulder pain- Primary Pain in joint, shoulder region Chronic left shoulder pain- Primary Pain in joint, shoulder region Primary hypertension- Primary Unspecified essential hypertension Type 2 diabetes mellitus with stage 3a chronic kidney disease, without long-term current use of insulin (HCC) Mixed hyperlipidemia Mixed hyperlipidemia Obesity (BMI 30.0-34.9) Chronic frontal sinusitis CKD (chronic kidney disease) stage 2, GFR 60-89 ml/min Chronic kidney disease, Stage II (mild) Encounter for screening mammogram for breast cancer Actinic keratosis- Primary Type 2 diabetes mellitus with stage 3a chronic kidney disease, without long-term current use of insulin (HCC)- Primary Primary hypertension Unspecified essential hypertension CKD (chronic kidney disease) stage 2, GFR 60-89 ml/min Chronic kidney disease, Stage II (mild) Mixed hyperlipidemia Mixed hyperlipidemia Acute bronchitis, unspecified organism- Primary Primary hypertension Unspecified essential hypertension Stage 3b chronic kidney disease ([facility]) Obesity (BMI 30.0-34.9) Stage 3b chronic kidney disease ([facility])- Primary Type 2 diabetes mellitus with stage 3a chronic kidney disease, without long-term current use of insulin (HCC) Primary hypertension Unspecified essential hypertension Mixed hyperlipidemia Mixed hyperlipidemia Current 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 without prior episode (HCC)- Primary Morbid (severe) obesity due to excess calories ([facility]) Body mass index (BMI) 36.0-36.9, adult Primary hypertension Unspecified essential hypertension Stage 3b chronic kidney disease ([facility]) Hypothyroidism, unspecified type Type 2 diabetes mellitus with stage 3b chronic kidney disease, without long-term current use of insulin (HCC) Mixed hyperlipidemia Mixed hyperlipidemia Current 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 without prior episode (HCC)- Primary Morbid (severe) obesity due to excess calories ([facility]) Encounter for screening mammogram for malignant neoplasm of breast Throat pain in adult- Primary History of thyroid nodule Hypothyroidism, unspecified type documented in this encounter [facility]Evaluation note* Diagnosis Primary hypertension- Primary Unspecified essential hypertension CKD (chronic kidney disease) stage 2, GFR 60-89 ml/min Chronic kidney disease, Stage II (mild) Hyperlipidemia, unspecified hyperlipidemia type Hypothyroidism, unspecified type Type 2 diabetes mellitus with stage 2 chronic kidney disease, without long-term current use of insulin (HCC) Obesity (BMI 30.0-34.9) Encounter to establish care 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- Primary Primary hypertension Unspecified essential hypertension CKD (chronic kidney disease) stage 2, GFR 60-89 ml/min Chronic kidney disease, Stage II (mild) Primary hypertension- Primary Unspecified essential hypertension Chronic left shoulder pain Pain in joint, shoulder region Acquired hypothyroidism Unspecified hypothyroidism CKD (chronic kidney disease) stage 2, GFR 60-89 ml/min Chronic kidney disease, Stage II (mild) Hyperlipidemia, unspecified hyperlipidemia type Type 2 diabetes mellitus with stage 3a chronic kidney disease, without long-term current use of insulin (HCC) Chronic left shoulder pain- Primary Pain in joint, shoulder region Chronic left shoulder pain- Primary Pain in joint, shoulder region Primary hypertension- Primary Unspecified essential hypertension Type 2 diabetes mellitus with stage 3a chronic kidney disease, without long-term current use of insulin (HCC) Mixed hyperlipidemia Mixed hyperlipidemia Obesity (BMI 30.0-34.9) Chronic frontal sinusitis CKD (chronic kidney disease) stage 2, GFR 60-89 ml/min Chronic kidney disease, Stage II (mild) Encounter for screening mammogram for breast cancer Actinic keratosis- Primary Type 2 diabetes mellitus with stage 3a chronic kidney disease, without long-term current use of insulin (HCC)- Primary Primary hypertension Unspecified essential hypertension CKD (chronic kidney disease) stage 2, GFR 60-89 ml/min Chronic kidney disease, Stage II (mild) Mixed hyperlipidemia Mixed hyperlipidemia Acute bronchitis, unspecified organism- Primary Primary hypertension Unspecified essential hypertension Stage 3b chronic kidney disease ([facility]) Obesity (BMI 30.0-34.9) Stage 3b chronic kidney disease ([facility])- Primary Type 2 diabetes mellitus with stage 3a chronic kidney disease, without long-term current use of insulin (HCC) Primary hypertension Unspecified essential hypertension Mixed hyperlipidemia Mixed hyperlipidemia Current 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 without prior episode (HCC)- Primary Morbid (severe) obesity due to excess calories ([facility]) Body mass index (BMI) 36.0-36.9, adult Primary hypertension Unspecified essential hypertension Stage 3b chronic kidney disease ([facility]) Hypothyroidism, unspecified type Type 2 diabetes mellitus with stage 3b chronic kidney disease, without long-term current use of insulin (HCC) Mixed hyperlipidemia Mixed hyperlipidemia Current 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 without prior episode (HCC)- Primary Morbid (severe) obesity due to excess calories ([facility]) Encounter for screening mammogram for malignant neoplasm of breast Throat pain in adult- Primary History of thyroid nodule Hypothyroidism, unspecified type Current 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 without prior episode (HCC)- Primary Primary hypertension Unspecified essential hypertension Morbid (severe) obesity due to excess calories ([facility]) Hypothyroidism, unspecified type Throat pain in adult History of thyroid nodule Type 2 diabetes mellitus with stage 3b chronic kidney disease, without long-term current use of insulin (HCC) Chronic frontal sinusitis Medication refill Issue of repeat prescriptions Type 2 diabetes mellitus with stage 3a chronic kidney disease, without long-term current use of insulin (HCC) CKD (chronic kidney disease) stage 2, GFR 60-89 ml/min Chronic kidney disease, Stage II (mild) Acquired hypothyroidism Unspecified hypothyroidism Hyperlipidemia, unspecified hyperlipidemia type documented in this encounter [facility] HealthcareEvaluation note* Diagnosis Primary hypertension- Primary Unspecified essential hypertension CKD (chronic kidney disease) stage 2, GFR 60-89 ml/min Chronic kidney disease, Stage II (mild) Hyperlipidemia, unspecified hyperlipidemia type Hypothyroidism, unspecified type Type 2 diabetes mellitus with stage 2 chronic kidney disease, without long-term current use of insulin (HCC) Obesity (BMI 30.0-34.9) Encounter to establish care 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- Primary Primary hypertension Unspecified essential hypertension CKD (chronic kidney disease) stage 2, GFR 60-89 ml/min Chronic kidney disease, Stage II (mild) Primary hypertension- Primary Unspecified essential hypertension Chronic left shoulder pain Pain in joint, shoulder region Acquired hypothyroidism Unspecified hypothyroidism CKD (chronic kidney disease) stage 2, GFR 60-89 ml/min Chronic kidney disease, Stage II (mild) Hyperlipidemia, unspecified hyperlipidemia type Type 2 diabetes mellitus with stage 3a chronic kidney disease, without long-term current use of insulin (HCC) Chronic left shoulder pain- Primary Pain in joint, shoulder region Chronic left shoulder pain- Primary Pain in joint, shoulder region Primary hypertension- Primary Unspecified essential hypertension Type 2 diabetes mellitus with stage 3a chronic kidney disease, without long-term current use of insulin (HCC) Mixed hyperlipidemia Mixed hyperlipidemia Obesity (BMI 30.0-34.9) Chronic frontal sinusitis CKD (chronic kidney disease) stage 2, GFR 60-89 ml/min Chronic kidney disease, Stage II (mild) Encounter for screening mammogram for breast cancer Actinic keratosis- Primary Type 2 diabetes mellitus with stage 3a chronic kidney disease, without long-term current use of insulin (HCC)- Primary Primary hypertension Unspecified essential hypertension CKD (chronic kidney disease) stage 2, GFR 60-89 ml/min Chronic kidney disease, Stage II (mild) Mixed hyperlipidemia Mixed hyperlipidemia Acute bronchitis, unspecified organism- Primary Primary hypertension Unspecified essential hypertension Stage 3b chronic kidney disease [place] Obesity (BMI 30.0-34.9) Stage 3b [facility] Primary Type 2 diabetes mellitus with stage 3a chronic kidney disease, without long-term current use of insulin ([facility]) Primary hypertension Unspecified essential hypertension Mixed hyperlipidemia Mixed hyperlipidemia Current 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 without prior episode ([facility])- Primary Morbid (severe) obesity due to excess calories ([facility]) Body mass index (BMI) 36.0-36.9, adult Primary hypertension Unspecified essential hypertension Stage 3b chronic kidney disease ([facility]) Hypothyroidism, unspecified type Type 2 diabetes mellitus with stage 3b chronic kidney disease, without long-term current use of insulin (HCC) Mixed hyperlipidemia Mixed hyperlipidemia Current 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 without prior episode (HCC)- Primary Morbid (severe) obesity due to excess calories ([facility]) Encounter for screening mammogram for malignant neoplasm of breast Throat pain in adult- Primary History of thyroid nodule Hypothyroidism, unspecified type Current 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 without prior episode (HCC)- Primary Primary hypertension Unspecified essential hypertension Morbid (severe) obesity due to excess calories ([facility]) Hypothyroidism, unspecified type Throat pain in adult History of thyroid nodule Type 2 diabetes mellitus with stage 3b chronic kidney disease, without long-term current use of insulin ([facility]) Chronic frontal sinusitis Medication refill Issue of repeat prescriptions Type 2 diabetes mellitus with stage 3a chronic kidney disease, without long-term current use of insulin ([facility]) CKD (chronic kidney disease) stage 2, GFR 60-89 ml/min Chronic kidney disease, Stage II (mild) Acquired hypothyroidism Unspecified hypothyroidism Hyperlipidemia, unspecified hyperlipidemia type Adjustment disorder with mixed anxiety and depressed mood Adjustment disorder with mixed anxiety and depressed mood documented in this encounter [facility] HealthcareEvaluation note* Diagnosis Onset Date Resolution Status [...] with diabetic chronic kidney diseaseacuteOctober 2024 9:52am [facility] Work Phone: Hospital Discharge instructionsAmbulatory Orders* XR dexa axial skeleton Time Frame: 03/24/25, Location: Determined By Patient * AMB POC Hgb A1C Time Frame: 03/24/25, Location: Determined By Patient [facility] Work Phone: Reason for referral (narrative)No reason for referral information availableU[facility] Work Phone: Summary Purpose Family History Relationship Condition Age at Onset Recorded Date/T reji father Unknown Heart diseaseUnknownmotherDeceasedUnknown Advance Directives Advance Directive Response Recorded Date/ Time Advance Directives No December 12 9:28am Chief Complaint and Reason for Visit Chief Complaint Admit Date RENAL ckd3 August 24, 2024 2:4 7pm E55.9 I12.9 E11.21 N18.32 September 20 9:37am Reason for Visit Admit Date Chronic kidney disease, stage 3b August 072024 2:47pm Diabetic nephropathy associated with typ e 2 diabetes mellitus August 24, 2024 2:47pm Hypertensive nephropathy August 24 2:47pm Obesity August 24, 2024 2:4 7pm Chief Complaint sore throat, sinus i ssues Reason for Visit Acute sinusitis Chief Complaint Admit Date RENAL ckd3 August 24, 2024 2:4 7pm Chief Complaint Admit Date RENAL ckd3 August 24, 2024 2:4 7pm E55.9 I12.9 E11.21 N18.32 September 20 9:37am renal 3 month f/u November 16, 2024 2:32 pm Reason for Visit Admit Date Chronic kidney disease, stage 3b August 072024 2:47pm Diabetic nephropathy associated with typ e 2 diabetes mellitus August 24, 2024 2:47pm Hypertensive nephropathy August 24 2:47pm Obesity August 24, 2024 2:4 7pm Chronic kidney disease, stage 3b November 162024 2:32pm Diabetic nephropathy associated with typ e 2 diabetes mellitus November 16, 2024 2:32pm Hypertensive nephropathy November 16, 2024 2:32pm Obesity November 16, 2024 2:32 pm Chief Complaint Admit Date Medicare Wellness March 24, 2025 9 :52am Reason for Visit Admit Date Acquired spondylolisthesis March 24, 2025 9:52am Chronic kidney disease, stage 3b March 24, 2025 9:52am 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 March 24, 2025 9:52am Encounter for subsequent fadumo ual wellness visit (AWV) in Medicare patient March 24, 2025 9:52am Essential hypertension March 24 9:52am Hyperlipidemia March 24, 2025 9 :52am Lumbar spondylosis March 24, 2025 9 :52am Morbid (severe) obesity due to excess ca lories March 24, 2025 9:52am Type 2 diabetes mellitus wit h diabetic chronic kidney disease March 24, 2025 9:52am Additional Source Comments INFORMATION SOURCE (unrecogn ized section and content) DATE CREATED AUTHOR 01/04/2022 [facility] DATE CREATED AUTHOR AUTHOR'S ORGANIZ ATION 11/15/2022 [facility] DATE CREATED AUTHOR AUTHOR'S ORGANIZ ATION 09/25/2024 [facility] DATE CREATED AUTHOR AUTHOR'S ORGANIZ ATION 02/14/2025 [facility] EPIC Care Teams (unrecognized sec tion and content) Team Status: Active Member Role Status Dates Nayeli Russo Primary Care Provider Active Team Status: Inactive Member Role Status Dates Pratibha Cha MD Attending Provider Active Star t: August 24, 2024 End: August 24, 2024PHYSICIAN NO FAMILYPrimary Care ProviderActiveStart: August 24, 2024 End: August 24, 2024 Team Status: Inactive Member Role Status Dates PHYSICIAN NO FAMILY Primary Care Provider Active Start: September 20, 2024 End: September 20Arcadio Peterson ProviderActiveStart: September 20, 2024 End: September 20, 2024 Team Status: Active Member Role Status Dates PHYSICIAN NO FAMILY Primary Care Provider Active Start: November 08, 2024 Arcadio Manriquez ProviderActiveStart: November 08, 2024 Team Status: Inactive Member Role Status Yazan Cha MD Attending Provider Active Star t: November 16, 2024 End: November 16, 2024Nayeli RussoPrraghavendrary Care ProviderActiveStart: November 16, 2024 End: November 16, 2024 Team Status: Active Member Role Status Dates Dustin Gould MD Primary Care Provider Active Team Status: Inactive Member Role Status Dates Dustin Gould MD Primary Care Provider Active Start: December 13, 2023 End: December 12Selene Santos ProviderActiveStart: December 13, 2023 End: December 13, 2023Team MemberRelationshipSpecialtyStart DateEnd Date Shaikh Jackson MD [address] [place] [address] PCP - [facility]06/09/21 Jono Fong MD [address] [place] [address] PCP - [facility]01/07/24 Tomasa Lou NP [address] [place] [address] [facility]01/07/24Team MemberRelationshipSpecialtyStart DateEnd Date Shaikh Jackson MD [address] [place] [address] PCP - [facility]06/09/21 Jono Fong MD [address] [place] [address] [facility] - [facility]01/07/24 Tomasa Lou NP [address] [place] [address] [facility]01/07/24Team MemberRelationshipSpecialtyStart DateEnd Date Shaikh Jackson MD [address] [place] [address] PCP - [employer]06/09/21 Jono Fong MD [address] [place] [address] [facility]01/06/2410 Unallocated, Tyrones ProviderMD [facility] [place] [address] PCP - [facility]Jackson [facility] Centerly Mwkcysvz18/24/24 Tomasa Lou NP [address] [place] [address] [facility]Do[facility]01/07/24Team MemberRelationshipSpecialtyStart DateEnd Date Shaikh Jackson MD [address] [place] [address] PCP - [employer]06/09/21 Unallocated, Renaldo Brush MD [address] [place] [address] [facility] - [facility]fd16/24/24 Tomasa Lou NP [address] [place] [address] [facility]01/07/24Team MemberRelationshipSpecialtyStart DateEnd Date Shaikh Jackson MD [address] [place] [address] PCP - [employer]06/09/21 Jono Fong MD [address] [place] [address] PCP - [facility]04/08/24 Tomasa Lou NP [address] [place] [address] [facility]01/07/24Team MemberRelationshipSpecialtyStart DateEnd Date Shaikh Jackson MD [address] [place] [address] PCP - [facility]06/09/21 Jono Fong MD [address] [place] [address] PCP - [facility]04/08/24 Tomasa Lou NP [address] [place] [address] [facility]01/07/24Team MemberRelationshipSpecialtyStart DateEnd Date Shaikh Jackson MD [address] [place] [address] PCP - [facility]06/09/21 Jono Fong MD [address] [place] [address] PCP - [facility]04/08/24 Tomasa Lou NP [address] [place] [address] [facility]01/07/24Team MemberRelationshipSpecialtyStart DateEnd Date Shaikh Jackson MD [address] [place] [address] PCP - [facility]06/09/21 Jono Fong MD [address] [place] [address] PCP - [facility]04/08/24 Tomasa Lou NP [address] [place] [address] [facility]01/07/24Te MemberRelationshipSpecialtyStart DateEnd Date Shaikh Jackson MD [address] [place] [address] [facility]06/09/21 Jono Fong MD [address] [place] [address] PCP - [facility]04/08/24 Tomasa Lou NP [address] [place] [address] [facility]01/07/24Team MemberRelationshipSpecialtyStart DateEnd Date Shaikh Jackson MD [address] [place] [address] PCP - [facility]06/09/21 Jono Fong MD [address] [place] [address] PCP - [facility]04/08/24 Tomasa Lou NP [address] [place] [address] [facility]01/07/24Team MemberRelationshipSpecialtyStart DateEnd Date Shaikh Jackson MD [address] [place] [address] PCP - [facility]06/09/21 Jono Fong MD [address] [place] [address] PCP - [facility]04/08/24 Tomasa Lou NP [address] [place] [address] [facility]01/07/24Team MemberRelationshipSpecialtyStart DateEnd Date Shaikh Jackson MD [address] [place] [address] PCP - [facility]06/09/21 Jono Fong MD [address] [place] [address] PCP - [facility]04/08/24 Tomasa Lou NP [address] [place] [address] [facility]01/07/24Team MemberRelationshipSpecialtyStart DateEnd Date Shaikh Jackson MD [address] [place] [address] PCP - [facility]06/09/21 Jono Fong MD [address] [place] [address] PCP - [facility]01/07/24 Tomasa Lou NP [address] [place] [address] [facility]01/07/24Team MemberRelationshipSpecialtyStart DateEnd Date Shaikh Jackson MD [address] [place] [address] PCP - [facility]06/09/21 Jono Fong MD [address] [place] [address] PCP - [facility]01/07/24 Tomasa Lou NP [address] [place] [address] [facility]01/07/24Team MemberRelationshipSpecialtyStart DateEnd Date Shaikh Jackson MD [address] [place] [address] PCP - [employer]06/09/21 Jono Fong MD [address] [place] [address] PCP - [facility]01/07/24 Tomasa Lou NP [address] [place] [address] [facility]01/07/24Team MemberRelationshipSpecialtyStart DateEnd Date Shaikh Jackson MD [address] [place] [address] PCP - [employer]06/09/21 Jono Fong MD [address] [place] [address] PCP - [facility]04/08/24 Tomasa Lou NP [address] [place] [address] [facility]01/07/24Team MemberRelationshipSpecialtyStart DateEnd Date Shaikh Jackson MD [address] [place] [address] PCP - [employer]06/09/21 Jono Fong MD [address] [place] [address] PCP - [facility]04/08/24 Tomasa Lou NP [address] [place] [address] [facility]01/07/24Team MemberRelationshipSpecialtyStart DateEnd Date Shaikh Jackson MD [address] [place] [address] PCP - [facility]06/09/21 Jono Fong MD [address] [place] [address] PCP - [facility]04/08/24 Tomasa Lou, [place] [address] [place] [address] [facility]01/07/24Team MemberRelationshipSpecialtyStart DateEnd Date Shaikh Jackson MD [address] [place] [address] PCP - [employer]06/09/21 Jono Fong MD [address] [place] [address] PCP - [facility]04/08/24 Tomasa Lou NP [address] [place] [address] [facility]01/07/24 Team Status: Active Member Role Status Dates PHYSICIAN NO FAMILY Primary Care Provider Active Team MemberRelationshipSpecialtyStart DateEnd Date Shaikh Jackson MD [address] [place] [address] PCP - [facility]06/09/21 Jono Fong MD [address] [place] [address] PCP - [facility]04/08/24 Tomasa Lou NP [address] [place] [address] [facility]01/07/24Team MemberRelationshipSpecialtyStart DateEnd Date Shaikh Jackson MD [address] [place] [address] PCP - [facility]06/09/21 Jono Fong MD [address] [place] [address] PCP - [facility]04/08/24 Tomasa Lou NP [address] [place] [address] [facility]01/07/24Team MemberRelationshipSpecialtyStart DateEnd Date Shaikh Jackson MD [address] [place] [address] PCP - [employer]06/09/21 Jono Fong MD [address] [place] [address] [facility] - [facility]04/08/24 Tomasa Lou NP [address] [place] [address] [facility]01/07/24Team MemberRelationshipSpecialtyStart DateEnd Date Shaikh Jackson MD [address] [place] [address] PCP - [employer]06/09/21 Jono Fong MD [address] [place] [address] [facility] - [facility]04/08/24 Tomasa Lou NP [address] [place] [address] [facility]01/07/24Team MemberRelationshipSpecialtyStart DateEnd Date Shaikh Jackson MD [address] [place] [address] PCP - [facility]06/09/21 Jono Fong MD [address] [place] [address] [facility] - [facility]04/08/24 Tomasa Lou NP [address] [place] [address] [facility]01/07/24Team MemberRelationshipSpecialtyStart DateEnd Date Shaikh Jackson MD [address] [place] [address] PCP - [facility]06/09/21 Jono Fong MD [address] [place] [address] P[facility] - [facility]/08/24 Tomasa Lou NP [address] [place] [address] [facility]01/07/24Team MemberRelationshipSpecialtyStart DateEnd Date Shaikh Jackson MD [address] [place] [address] PCP - [facility]06/09/21 Jono Fong MD [address] [place] [address] [facility] - [facility]04/08/24 Tomasa Lou NP [address] [place] [address] [facility]01/07/24Team MemberRelationshipSpecialtyStart DateEnd Date Shaikh Jackson MD [address] [place] [address] PCP - [employer]06/09/21 Jono Fong MD [address] [place] [address] PCP - [facility]04/08/24 Tomasa Lou NP [address] [place] [address] [facility]01/07/24Team MemberRelationshipSpecialtyStart DateEnd Date Shaikh Jackson MD [address] [place] [address] [facility] - [facility]06/09/21 Jono Fong MD [address] [place] [address] PCP - [facility]04/08/24 Tomasa Lou NP [address] [place] [address] [facility]01/07/24Team MemberRelationshipSpecialtyStart DateEnd Date Shaikh Jackson MD [address] [place] [address] PCP - [facility]06/09/21 Jono Fong MD [address] [place] [address] PCP [facility]04/08/24 Tomasa Lou NP [address] [place] [address] [facility]01/07/24Team MemberRelationshipSpecialtyStart DateEnd Date Shaikh Jackson MD [address] [place] [address] PCP - [employer]06/09/21 Jono Fong MD [address] [place] [address] [facility] - [facility]04/08/24 Tomasa Lou NP [address] [place] [address] [facility]01/07/24Team MemberRelationshipSpecialtyStart DateEnd Date Shaikh Jackson MD [address] [place] [address] PCP - [employer]06/09/21 Jono Fong MD [address] [place] [address] [facility] - [facility]04/08/24 Tomasa Lou, [place] [address] [place] [address] [facility]01/07/24Team MemberRelationshipSpecialtyStart DateEnd Date Shaikh Jackson MD [address] [place] [address] PCP - [facility]06/09/21 Jono Fong MD [address] [place] [address] PCP - [facility]04/08/24 Tomasa Lou NP [address] [place] [address] [facility]01/07/24Team MemberRelationshipSpecialtyStart DateEnd Date Shaikh Jackson MD [address] [place] [address] PCP [facility]06/09/21 Jono Fong MD [address] [place] [address] PCP - [facility]04/08/24 Tomasa Lou NP [address] [place] [address] Nurse [facility]01/07/24Te MemberRelationshipSpecialtyStart DateEnd Date Shaikh Jackson MD [address] [place] [address] PCP - [facility]06/09/21 Jono Fong MD [address] [place] [address] PCP [facility]04/08/24 Tomasa Lou NP [address] [place] [address] Nurse [facility]Do[facility]01/07/24Team MemberRelationshipSpecialtyStart DateEnd Date Shaikh Jackson MD [address] [place] [address] PCP - [facility]06/09/21 Jono Fong MD [address] [place] [address] PCP - [facility]04/08/24 Tomasa Lou NP [address] [place] [address] Nurse [facility]Do[facility]01/07/24Team MemberRelationshipSpecialtyStart DateEnd Date Shaikh Jackson MD [address] [place] [address] PCP - [facility]06/09/21 Jnoo Fong MD [address] [place] [address] PCP - [facility]04/08/24 Tomasa Lou, SENIOR PAYROLL ADMINISTRATOR [address] [place] [address] Nurse [facility]erDo[facility]01/07/24Team MemberRelationshipSpecialtyStart DateEnd Date Shaikh Jackson MD [address] [place] [address] PCP - [facility]06/09/21 Jono Fong MD [address] [place] [address] PCP - GeneralFamily Bvvzkajw58/31/24 Tomasa Lou NP [address] [place] [address] Nurse [facility]erDo[facility]01/07/24Team MemberRelationshipSpecialtyStart DateEnd Date Shaikh Jackson MD [address] [place] [phone] PCP - [facility]06/09/21 Jono Fong MD [address] [place] [address] PCP - [facility]04/08/24 Tomasa Lou NP [address] [place] [address] Nurse [facility]er[facility]01/07/24Team MemberRelationshipSpecialtyStart DateEnd Date Shaikh Jackson MD [address] [place] [address] PCP - [facility]06/09/21 Jono Fong MD [address] [place] [address] PCP - [facility]04/08/24 Tomasa Lou NP [address] [place] [address] Nurse [facility]erDo[facility]01/07/24 Team Status: Active Member Role Status Dates Nayeli Russo SENIOR PAYROLL ADMINISTRATOR-C Primary Care Provider Active Team Status: Inactive Member Role Status Dates KUNAL Bryan Primary Care Provider Active Start: March 24, 2025 End: March 24, 2025Nayeli Russo NP-CAttending ProviderActiveStart: March 24, 2025 End: March 24, 2025 Goals (unrecognized section and content) Goals may be documented in a n alternate sectionGoals may be documented in an alternate sectionGoals may be documented in an alternate sectionGoals may be documented in an alternate sectionGoals may be documented in an alternate section Reason for Visit (unrecogniz ed section and content) ReasonCommentscounseling sessionSpecialtyDiagnoses / ProceduresReferred By ContactReferred To ContactBehavioral Health Diagnoses Current 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 without prior episode (HCC) Procedures [place] OFFICE/OUTPATIENT NEW HIGH MDM 60 MINUTES Nayeli Russo NP [address] [place] [address] Phone: tel: fax: Sarina Hodge LISW-S [address] [place] [address] Phone: tel: fax: Referral IDStatusReasonStart DateExpiration DateVisits RequestedVisits [id number] Specialty Services Required [id number] Skin LesionReasonCommentsMed RefillReasonOnset DateCommentsMed Eopdwa864ReasonCommentsFollow-upReason Onset DateCommentsMed Uwqqxh074ReasonCommentsCoughReasonCommentsMedicare Annual Wellness Visit SubsequentReasonCommentsBronchitisReasonOnset DateComments Med Wkzesp4806/23/2024ReasonOnset DateCommentsMed Cqcrfw7809/27/2024ReasonComments Wxshhip56 yo 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 Hurts on and off, pt states doesn'tcurrently. Pt also relates fungal nails on left foot, pt does relate hx of taking oral fungal medication, at least 7+v years, pt does relate using OTC martiniquais agent, and vix. SS: 8.5WReasonCommentsDepressionReason Onset DateCommentsMed Lmwxqp0211/15/2024ReasonCommentsDepressionReasonCommentsNEW PATIENT ASSESSMENTReasonOnset DateCommentsMed Pwjttn1312/23/2024ReasonCommentsSore ThroatReasonCommentsThroat PainFollow up FOR RECORDS PERTAINING TO PATIENTS WHO ARE [...] BE BASED ON THE PRIMARY CLINICAL RECORDS. [facility]. provides no warranty or guarantee of the accuracy or completeness of information in this document.
--- NOTE | 2025-03-31 09:07 | XR_ITS ---
[facility] [place] [id number] Patient Name: ARIAN CANAS MRN: [id number] date: 1955 Sex: F Assigned Patient Location: [facility] Current Patient Location: [facility] Accession/Order Number: [id number] Exam Date: 03/31/2025 09:19 Report Date: 03/31/2025 10:07 At the request of: AQUILINO MARCIAL NP Procedure: XR lumbar spine min 4V LUMBAR SPINE WITH FLEXION AND EXTENSION VIEWS -4 views: CLINICAL HISTORY: Back pain without injury. COMPARISON: MRI 05/21/2022 and plain films 12/31/2021 AP as well as lateral views in neutral, flexion and extension were obtained. There is osteopenia. No acute compression fractures are identified. There is still approximately 5 mm of retrolisthesis of L2 and L3. There is also subtle retrolisthesis of L3 on L4. Alignment does not change significantly with flexion or extension. There is disc space narrowing at L2-3 with endplate sclerosis and spurring. Additional tiny endplate spurs are seen in the lower thoracic region. There is mild lower lumbar facet disease. The SI joints are intact. There is atherosclerotic plaque at the aorta. XR/XR lumbar spine min 4V IMPRESSION: DEGENERATIVE CHANGES, PREDOMINANTLY AT L2-3. Impression dictated by: Natali Oseguera M.D. 03/31/2025 10:07 AM Dictation Location: [place] [address] Electronically authenticated by: [id number] Y Date: 03/31/2025 10:07
== END 2025-03-31 08:54 | disposition home or self-care (01) ==
LOC: RAD 08:53
PROVIDERS: PCP Nurse Practitioner; Visit Provider Nurse Practitioner
DX: Z78.0 Asymptomatic menopausal state (principal); M47.816 Spondylosis without myelopathy or radiculopathy, lumbar region; M43.10 Spondylolisthesis, site unspecified; M51.369 Other intervertebral disc degeneration, lumbar region without mention of lumbar back pain or lower extremity pain
CPT/HCPCS: 72110; 77080

== ENCOUNTER 2025-05-25 13:40 | Outpatient (OUT) | payer MEDICARE, SELFPAY ==
--- OUTSIDE RECORDS SUMMARY | 2025-05-25 13:47 | XMS_ITS | Clinical Summary ---
Author Organization [employer] s tem Address [facility] [id number] [address] [place] [address] Care Team Providers Care Him Manager Name Role Phone Zunilda Clemons DO Primary [...] in the morning.Active Active Problems ProblemNoted DateDiagnosed VeaoQwasozj63/15/2022 Social History Tobacco UseTypesPacks/DayYears UsedDateSmoking Tobacco: FormerSmokeless Tobacco: Never Tobacco Cessation:Counseling Given: Not Answered Alcohol UseStandard Drinks/WeekCommentsYes0 (1 standard drink = 0.6 oz pure alcohol)SOMETIMESChildcareAnswerDate PuywcnejAloiynbvbGrgvsml91/12/2019 EmploymentAnswerDate TbxodlyiNiezpmnwimEqpxcef69/12/2019Hunger ScreeningAnswer Date RecordedWithin the past 12 months we worried whether our food would run out before we got money to buy more.Never True11/28/2022Within the past 12 months the food we bought just didn't last and we didn't have money to get more.Never True3Purpose - LifeAnswerDate RecordedPurpose and direction in life Guktklg4307/20/2020CommentsNoSex and Gender InformationValueDate Recorded Sex Assigned at BirthNot on fileLegal NyrTxifxz99/06/2015 11:40 AM EDTGender IdentityNot on fileSexual OrientationNot on file Last Filed Vital Signs Vital SignReadingTime TakenCommentsBlood Xoxehvkl610/70011/28/2022 8:59 AM EDT Dqcjz040611/28/2022 8:59 AM PDJWsdmgjhljak19.3 ??C (99.1 ??F)12/28/2021 10:40 AM EDTRespiratory Mbgr509312/28/2021 11:15 AM EDTOxygen Csbklknumu79%11/28/2022 8:59 AM EDTInhaled Oxygen Concentration--Rckwpe158.7 kg (233 lb)11/28/2022 8:59 AM FFYHgxhcl933.6 cm (5' 6 )11/28/2022 8:59 AM EDTBody Mass Index37.61011/28/2022 8:59 AM EDT Plan of Treatment Health MaintenanceDue DateLast DoneCommentsDepression Lhnxbpvaw23/02/1968Tobacco Nrokyrowl53/02/1968Zoster (Shingles) Vaccine (2 of 3)Fall Risk Nxjfhcguv10/02/2021dult BMI Gxskvqveu90/3Colonoscopy 5007/01/2019, 07/01/2019COVID-19 Vaccine ( season)2025 06/11/2022, 04/05/2021, 09/12/2020, Additional history existsInfluenza Vaccine , 02/18/2020, 02/17/2020, Additional history existsRSV ( or age 60+ yrs) (1 - 1-dose 75+ series)1DTaP,Tdap and Td Vaccines (2 - Td or Tdap) Medical Devices Not on file Procedures Procedure NamePriorityDate/TimeAssociated DiagnosisCommentsPROVATION COLONOSCOPY Smdzjmw0507/01/2019 8:07 AM EST from Last 3 Months [...]
--- OUTSIDE RECORDS SUMMARY | 2025-05-25 13:47 | XMS_ITS | Clinical Summary ---
Author Organization [facility] 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 Role Phone Shaikh AUTUMN Jackson Unavailable [phone] Daniella Lou NP Unavailable [phone] Jono Fong MD Primary Care Provider [phone] Allergies Active AllergyReactionsCriticalityNoted UitvEphxqnqxNjaitttBbfvvkq74/17/2017 Medications MedicationSigDispense QuantityRefillsLast FilledStart DateEnd DateStatus albuterol [...] Active Problems ProblemNoted DateDiagnosed DateHistory of thyroid qddgkr5601/10/2025 Assessment & Plan (01/20/2025 6:23 AM EDT): [...] for screening mammogram for malignant neoplasm of yjcuin1612/02/2024 Morbid (severe) obesity due to excess /29/2025 Assessment & Plan (01/20/2025 6:20 AM EDT): [...] index (BMI) 36.0-36.9, adult11/04/2024dhesive capsulitis of left msglrtul80/29/2025rthritis of left acromioclavicular joint11/04/2024urrent 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 without prior nhnuhcg9811/04/2024 Assessment & Plan (01/20/2025 6:22 AM EDT): [...] if these occur. Stage 3b chronic kidney tjvgvnu4904/16/2024 Assessment & Plan (11/04/2024 6:24 AM EDT): Control BP Avoid nephrotoxic drugs when and if possible Periodic monitoring of labs Assessment & Plan (07/20/2024 9:48 AM EST): Has appointment scheduled with Nephrology in August. Most recent Creatinine: 1.51 eGFR: 34 Currently taking Farxiga 10mg. Continue to monitor closely. Avoid Nephrotoxic Agents. Assessment & Plan (05/31/2024 11:51 AM EST): Continue monitoring Actinic sgpxrifnt49/01/2024 Assessment & Plan (03/09/2024 9:51 PM EDT): Cryotherapy performed in office today. Discussed treatment and monitoring with patient. Encounter for Medicare annual wellness exam02/12/2024Medication sodjix1302/12/2024 Chronic sinusitis, fgwzjcgpisx43/06/2024 Overview (01/13/2024): Start flonase and cetirizine daily [...] her Pigmented skin lesion 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 malignant ejtfqo8608/27/2023 Assessment & Plan (08/27/2023 10:10 AM EDT): Skin lesion right anterior chest wall, below clavicle. Appearance concerning for basal cell carcinoma. Refer to derm Appeared one month ago, grown rapidly, rough surface. Rglsvnvgdtcoqu49/26/2023 Assessment & Plan (01/20/2025 6:20 AM EDT): [...] levothyroxine 88 mcg. Back pain with right-sided hktjlnuo51/26/2023Facet arthropathy, lumbosacral 01/01/2023Hot flash, zpwegavdqn09/26/2023Lumbago with sciatica, right side 01/01/20231195Cnuwpusufsjika63/26/2023 Assessment & Plan (11/04/2024 6:25 AM EDT): [...] EST): Check Lipid panel. On Crestor. Primary dpiggkeiexwj35/26/2023 Assessment & Plan (01/20/2025 6:19 AM EDT): [...] 2 diabetes mellitus with diabetic chronic kidney mlyodnf3301/01/2023 Assessment & Plan (01/20/2025 6:24 AM EDT): [...] for T2 DM Check A1C, urine protein/creatinine. Lmxsgah89/15/2022Diabetic renal qoxlzsv4612/12/2020Family history of mental rbdqxcey13/06/2020History of adenomatous polyp of colon03/14/2020 Resolved Problems ProblemNoted DateDiagnosed DateResolved DateURI (upper respiratory infection) / Assessment & Plan (05/18/2024 10:02 AM EST): [...] go to er. Pt verbalized understanding. Acute ytwmbnblis96/10/202406/ Assessment & Plan (05/31/2024 11:57 AM EST): [...] increase physical activity. Stage 3a chronic kidney kcefrmr17 Immunizations ImmunizationAdministration DatesNext DueInfluenza, High Dose Seasonal, Preservative Free02/18/2020Influenza, High-dose Seasonal, Quadrivalent, Preservative Free03/14/2023Influenza, injectable, quadrivalent, preservative free03/31/2018,03/07/2016Influenza, seasonal, intradermal, preservative free 03/03/2019Influenza, trivalent, jrmmelzwwo68/22/2024Pneumococcal Conjugate PCV 13071Pneumococcal Polysaccharide [id number]-LWC-5 (COVID-19) vaccine, mRNA, spike protein, LNP, PF, [...] standard drink = 0.6 oz pure alcohol)caffeine: yqosA4876 Health LiteracyAnswerDate RecordedHow often do you need [...] relatives?Once a week01/06/2024How often do you attend yazdanism or sikh services?Never 01/06/2024o you belong to any clubs or organizations such as yazdanism groups, unions, fraLet it Wave or athletic groups, or school groups?Yes01/06/2024How often do you attend meetings of the clubs or organizations you belong to?1 to 4 times per year01/06/2024re you , , , , never , or living with a partner?Yotoyqq0201/06/2024UDIT-CAnswerDate RecordedQ1: How often do you have a [...] and heating?Not very hard01/06/2024HQ-2AnswerDate RecordedPatient Health Questionnaire-2 Loulc846/[facility] [place] of Occupational Health - Occupational Stress QuestionnaireAnswerDate RecordedDo you feel stress - tense, restless, nervous, or anxious, or unable to sleep at night because yourmind is troubled all the time - these days?To some mzzowu5401/06/2024Exercise Vital Sign AnswerDate RecordedOn average, how many [...] steady place to sleep or slept in [facility] (including now)?No12/31/2022Housing Stability Vital SignAnswerDate RecordedIn the last 12 months, was there a time when you were not able to pay the mortgage or rent on time?No01/06/2024In the past 12 months, how many times have you moved where you were living? At any time in the past 12 months, were you homeless or living in a snf (including now)?No01/06/2024CommentsNoSex and Gender InformationValue Date RecordedSex Assigned at CujomBizxzb82/19/2023 11:53 AM EDTLegal SexFemale 08/21/2022 7:35 PM EDTGender CzmrwmbnPmshhz37/15/2023 7:35 PM EDTSexual WiooyciptziLqtwlude78/19/2023 11:53 AM EDT Last Filed Vital Signs Vital SignReadingTime TakenCommentsBlood Kjydqbqz458/8201/20/2025 9:21 AM EDT Oxlfa871701/20/2025 9:21 AM TIVRobpkpnspzn43.7 ??C (98.1 ??F)01/20/2025 9:21 AM EDTRespiratory Srsx759201/20/2025 9:21 AM EDTOxygen Stjuptpfmt36%01/20/2025 9:21 AM EDTInhaled Oxygen Concentration--Yumyfs871 kg (224 lb 3.2 oz)01/20/2025 9:21 AM TZJIqttyg834.6 cm (5' 6 )11/04/2024 9:32 AM EDTBody Mass Index36.19011/04/2024 9:32 AM EDT Plan of Treatment Health MaintenanceDue DateLast DoneCommentsCT Xbfafzkxffdo74/02/1956FIT-DNA 1955FIT1955FOBT1955 5157Xseqxvyeuccyb00/02/1956Diabetes: Retinopathy Uaxycnxuu77/06/2022, 08/04/2020OVID-19 Vaccine ( season)/, 06/11/2022, 04/05/2021, Additional history existsInfluenza Vaccine (#1)/, 03/14/2023, 02/18/2020, Additional history existsDiabetes: Hemoglobin A1C/07/2024, 07/20/2024, 05/06/2023, Additional history existsMedicare Annual Wellness (AWV) 509/10/2023, 01/01/2023, 12/31/2021, Additional history existsDiabetes: Urine Protein Rbbanslsw58/02/916705/07/2024, 08/27/2023, 08/27/2023, Additional history gbaamrUtkegvunn09/04/202609/09/2024, 01/15/2024, 01/08/2023, Additional history mhzzhrKticsmhvree55, 07/01/2019, 04/15/2014Colorectal Cancer Ltoklyuxg81/11/2030Pneumococcal Vaccine: 65+ YexvfBpogoafit80/25/2022, 12/12/2020 Procedures Procedure NamePriorityDate/TimeAssociated DiagnosisCommentsBI MAMMOGRAM SCREENING TOMOSYNTHESIS UMWKJQVWRPtnsaps19/04/2025 9:56 AM EDT Encounter for screening mammogram for malignant neoplasm of breast POCT GLYCOSYLATED HEMOGLOBIN (HGB A1C)Vhtnebm1907/20/2024 2:23 PM EST Type 2 diabetes mellitus with stage 3a chronic kidney disease, without long-term current use of insulin (HCC) COLOR FUNDUS PHOTOGRAPHY - OU - BOTH XPPEVibwvgu27/26/2021 12:00 PM EST SPYYTIXSHCOHisvqll98/11/2020 12:00 PM EST MICROALBUMIN / CREATININE URINE MYZAHPalkeqh05/24/2019 from Last 3 Months or Most Recently [...] BY: Lewis Trinidad M.D. Authorizing ProviderResult TypeResult StatusNayeli Russo NPIMG BI PROCEDURES Final Result * (ABNORMAL) POCT glycosylated hemoglobin (Hb A1C) docked device (07/20/2024 2:23 PM EST)ComponentValueRef RangeTest MethodAnalysis TimePerformed At Pathologist SignatureHemoglobin A1C6.7Specimen (Source)Anatomical Location / LateralityCollection Method / VolumeCollection TimeReceived TimeBloodVenous blood specimen / Wqyqymr6207/20/2024 2:23 PM EST Narrative Authorizing ProviderResult TypeResult Pako Lou NPPOINT OF CARE TEST ENTER/EDIT ORDERABLESFinal Result * Color Fundus Photography - OU - Both Eyes (08/04/2020 12:00 PM EST)Anatomical RegionLateralityModalityHeadFundus PhotographySpecimen (Source)Anatomical Location / LateralityCollection Method / VolumeCollection TimeReceived Time 08/04/2020 12:00 PM EST Narrative 08/04/2020 12:00 PM EST PERFORMED AT [facility] LOCATION:[id number] no retinopathy Procedure Note CONVERSION, GENERIC - 10/23/2022 PERFORMED AT [facility] LOCATION:[id number] no retinopathy Authorizing ProviderResult TypeResult StatusJonathan F DillerOPHTH PHOTOGRAPHY Final Result * Colonoscopy (07/20/2019 12:00 PM EST)Anatomical RegionLateralityModality EndoscopySpecimen (Source)Anatomical Location / LateralityCollection Method / VolumeCollection TimeReceived Time07/20/2019 12:00 PM EST Narrative 07/20/2019 12:00 PM EST PERFORMED AT [facility] LOCATION:[id number] Procedure Note CONVERSION, GENERIC - 10/23/2022 PERFORMED AT [facility] LOCATION:[id number] Authorizing ProviderResult TypeResult StatusJonathan F DillerENDOSCOPY PROCEDURE ORDERABLESFinal Result * (ABNORMAL) Microalbumin / creatinine urine ratio (03/02/2019)ComponentValueRef RangeTest MethodAnalysis TimePerformed AtPathologist [id number] - 217 [facility] LEGACY EXTERNAL LABMALB<1.2(L)[facility] LEGACY [...] DateEnd Date Shaikh Jackson MD [address] [place] [address] PCP - [employer]06/09/21 Jono Fong MD PCP - GeneralFamily Iwfbarhe32/31/24 Daniella Lou NP Nurse PractitionerFramingham Union Hospital Medicine01/07/24
--- OUTSIDE RECORDS SUMMARY | 2025-05-25 13:47 | XMS_ITS | Patient Health Record ---
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 No Fancpj7JrkeveyvazxewbCarakouoRxkgvsf Control (Standard) Question Answer Notes Tobacco use: Nonsmoker Problems Problem Type SNOMED Code ICD Code Onset Dates Problem Status W/U Status Risk Notes Problem Adhesive capsulitis of left shoulder (865778182719725) Adhesive capsulitis of left shoulder (M75.02) ActiveconfirmedProblemArthritis of left acromioclavicular joint (4950814212430838)Arthritis of left acromioclavicular joint (M19.012)Active confirmed Plan Of Treatment No Information Insurance Providers Payer Name Payer Address Payer Phone Subscriber Number Group Number Insured Name Patient Relationship to Insured Coverage Start Date Coverage End Date Medicare [employer] [address] [place] [address] [id number] Radha CANAS - patient is the insured
--- NOTE | 2025-05-25 14:34 | PM.CN ---
Consult Note: HPI Data of Consult Patient: known to practice within the last 3 years Requesting Physician: Blessing López NP Primary Care Provider: Nayeli Russo NP Consult Narrative Reason for consult: low back and right SIJ pain Narrative: Italia Elaine a pleasant 69 year old female with low back pain > 3 years presents for evaluation. Pt noting increasing low back pain over the last 1 month, notes prior lumbar RFA has provided >50% improvement in her facet mediated low back pain but did not improve her right buttock and thigh pain. notes pain today 3/10 constant dull with intermittent sudden sharp pain, increasing to 9/10 at times. She has failed tylenol, motrin, aleve, ibuprofen. denies fall/injury since last visit in 2022. no recent PT. updated imaging of lumbosacral spine as noted below. cc:: CC: Blessing López NP Review of Systems ROS Musculoskeletal Reports: back pain and joint pain; Denies: extremity pain PFSH PFSH Medical History Low back pain ?M54.50 - Low back pain, unspecified (ICD-10) Hearing deficit ?H91.90 - Unspecified hearing loss, unspecified ear (ICD-10) Obesity ?E66.9 - Obesity, unspecified (ICD-10) Diabetes mellitus ?E11.9 - Type 2 diabetes mellitus without complications (ICD-10) Stage 3 chronic kidney disease ?N18.30 - Chronic kidney disease, stage 3 unspecified (ICD-10) High cholesterol ?E78.00 - Pure hypercholesterolemia, unspecified (ICD-10) Hypertension ?I10 - Essential (primary) hypertension (ICD-10) Surgical History History of colonoscopy ?Z98.890 - Other specified postprocedural states (ICD-10) History of tonsillectomy ?Z90.89 - Acquired absence of other organs (ICD-10) S/P carpal tunnel release ?Z98.890 - Other specified postprocedural states (ICD-10) Hx of tubal ligation ?Z98.51 - Tubal ligation status (ICD-10) Meds Home Medications and Allergies Home Medications ?Medication ?Instructions ?Recorded ?Confirmed ?Type Tylenol QID 11/06/22 History atenolol 50 mg tablet 50 mg PO QDAY 11/06/22 05/25/25 History levothyroxine 75 mcg tablet 75 mcg PO QDAY 11/06/22 05/25/25 History (Euthyrox) losartan 25 mg tablet (Cozaar) 25 mg PO QDAY 11/06/22 05/25/25 History multivitamin (Daily Multi-Vitamin 1 tab PO QDAY 11/06/22 05/25/25 History tablet) rosuvastatin 5 mg tablet (Crestor) 5 mg PO QDAY 11/06/22 05/25/25 History cetirizine 10 mg tablet 10 mg PO DAILY PRN allergy symptoms 05/25/25 05/25/25 History dapagliflozin propanediol 10 mg 10 mg PO DAILY 05/25/25 05/25/25 History tablet (Farxiga) sertraline 50 mg tablet 50 mg PO DAILY 05/25/25 05/25/25 History trazodone 100 mg tablet 100 mg PO DAILY 05/25/25 05/25/25 History Allergies Allergy/AdvReac Type Severity Reaction Status Date / Time codeine AdvReac Mild Verified 11/06/22 13:47 Exam Constitutional Documenting provider has reviewed patient's vital signs: yes Common normals: no apparent distress, oriented x3 and alert General appearance: cooperative HENMT Common normals: normocephalic, hearing grossly normal bilaterally and moist oral mucous membranes Head and scalp: normocephalic Eye Common normals: PERRL Pupil: PERRL Neck & C-Spine Common normals: full ROM General: normal visual inspection Chest Common normals: inspection of chest normal Respiratory Common normals: normal respiratory effort, no retractions and no use of accessory muscles Back & Pelvis Lumbar spine/lower back: lumbar ROM normal, pain with ROM and straight leg raise negative bilaterally; ROM not limited and no lumbar spinal tenderness Sacroiliac joints: SI joint(s) abnormal Other: increased right SIJ pain with forward flexion. no pain with flexion, extension, rotation of lumbar spine right sij positive mikayla(patricks), gaenslens, thigh thrust, compression test Neuro Common normals: oriented x3 Sensorium/orientation: alert Psych Common normals: mental status grossly normal, thought process normal, cooperative, affect normal, speech normal and activity/motor behavior normal Speech: normal speech Thought process: normal thought process Results Imaging lumbar spine xray: Attestation: I have reviewed the pertinent imaging results. Radiologist's impression: AP as well as lateral views in neutral, flexion and extension were obtained. There is osteopenia. No acute compression fractures are identified. There is still approximately 5 mm of retrolisthesis of L2 and L3. There is also subtle retrolisthesis of L3 on L4. Alignment does not change significantly with flexion or extension. There is disc space narrowing at L2-3 with endplate sclerosis and spurring. Additional tiny endplate spurs are seen in the lower thoracic region. There is mild lower lumbar facet disease. The SI joints are intact. There is atherosclerotic plaque at the aorta. Additional Findings Additional findings: If on a controlled substance or opioids, I have checked an [facility] report on this patient and there are no aberrancies noted in the prescribing history.??If on a controlled substance or opioid a drug screen was completed and reviewed within the last year, and if there has not been a drug screen completed we ordered one today to monitor higher risk, state monitored pain medication use. As part of providing excellent, safe, comprehensive care, the following was completed at our patient's visit: 1. A medication reconciliation and review to ensure accurate knowledge of current/active medications, including asking our patients to inform us about any [id number] medications or herbal remedies/nutritional supplements/alternative remedies. 2. A review to specifically ensure our patients have had annual screening for screening for depression, screening for tobacco use, and screening for unhealthy alcohol use. For concerning screenings had a discussion with the patient, provided patient education, and recommended follow-up with primary care provider when appropriate. If patient noted with a risk of falling, they received education on strength, gait, and balance training to prevent future risk of falling. Portions of this note may have been carried over from the previous visit and updated as appropriate. Please note this office utilizes paper charting in addition to the electronic medical record. A list of current medications, vitals, and PMH is available there as the clinical staff outside of myself do not have access to [employer] charting during the clinic day operations. As part of providing quality comprehensive care the current medications, vitals, and PMH were reviewed in the paper chart. Assessment and Plan Assessment and Plan (1) Sacroiliitis: (2) Lumbar spondylosis: Plan 69 year old female with chronic bilateral low back pain without sciatica and right SIJ pain presents for evaluation. As discussed with pt she endorses significant right SIJ pain, in terms of prior RFA she appears to be getting significant ongoing relief in facet mediated pain. pt is eager to address her right SIJ pain, will trial PT at this time. PT can work on right SIJ as well as low back for lumbar spondylosis. defer additional imaging. patient can trial acute care occupational therapist prn/as tolerated for right SIJ pain. f/u 1 month to assess response to PT.
== END 2025-05-25 13:41 | disposition home or self-care (01) ==
LOC: PM 13:41
PROVIDERS: PCP Nurse Practitioner; Visit Provider Nurse Practitioner
DX: M46.1 Sacroiliitis, not elsewhere classified (principal); M47.816 Spondylosis without myelopathy or radiculopathy, lumbar region
CPT/HCPCS: G0463